=== PATIENT | female | born 1930 | race Caucasian/White ===

== ENCOUNTER 2016-06-10 16:36 | Inpatient (IN) | payer MEDICARE, BC ==
[2016-06-10] MEDS ORDERED: SODIUM CHLORIDE 0.9% 1,000 ML IV STA (17:24)
[2016-06-10] MEDS ORDERED: ACETAMINOPHEN TAB 500 MG TAB PO STA (17:24)
[2016-06-10] MEDS ORDERED: IPRATROPIUM-ALBUTEROL 3 ML NEB INHALATION STA (17:27)
[2016-06-10 17:45] LABS: Basophils % (A) 0 %; CH 29.6; Eosinophils % (A) 0 %; HCT 36.6 % (34.0-46.0); HDW 2.85; HGB 11.7 gm/dL (11.4-16.0); Hypochromasia Slight; Luc # (Auto) 0.14; Luc % (Auto) 1; Lymphocytes # (A) 0.4 k/uL (1.0-4.8); Lymphocytes % (A) 3 %; MCH 29.8 pg (25.0-35.0); MCHC 31.9 g/dL (31.0-37.0); MCV 93.3 fL (80.0-100.0); Monocytes # (A) 0.4 k/uL (0-1.0); Monocytes % (A) 3 %; Neutrophils # (A) 12.7 k/uL (1.3-7.7); Neutrophils % (A) 93 %; RBC 3.93 m/uL (3.80-5.40); RDW 15.2 % (11.5-15.5); WBC 13.6 k/uL (3.8-10.6); WBC (Perox) 13.51
[2016-06-10 17:47] LABS: Calcium 8.9 mg/dL (8.4-10.2); Potassium 4.5 mmol/L (3.5-5.1); Total Bilirubin 0.8 mg/dL (0.2-1.3); Total Protein 6.9 g/dL (6.3-8.2)
[2016-06-10 18:14] LABS: Creatine Kinase MB 3.8 ng/mL (0.0-2.4); Troponin I 0.125 ng/mL (0.000-0.034)
[2016-06-10] MEDS ORDERED: IV VANCOMYCIN PER PHARMACY 1 EACH MISC MISCELLANE PRN (18:33)
[2016-06-10] MEDS ORDERED: VANCOMYCIN 1,000 MG in SODIUM CHLORIDE 0.9% 250 ML IVPB STA (18:33)
[2016-06-10 19:03] LABS: Appearance,Urine Cloudy (Clear); Bacteria,Urine Occasional /hpf; Bilirubin,Urine Negative (Negative); Glucose,Urine (UA) Negative (Negative); Ketones,Urine Negative (Negative); Leukocyte Esterase,Urine Large (Negative); Mucus,Urine Rare /hpf; Nitrite,Urine Negative (Negative); PH, Urine 5.5 (5.0-8.0); Particle Count 11678; Protein,Urine 1+ (Negative); RBC,Urine 4 /hpf (0-5); Specific Gravity,Urine 1.011 (1.001-1.035); Squamous Epithelial Cell,Urine 8 /hpf (0-4); UA Billing (MACRO vs. MICRO) MICRO; Urobilinogen,Urine <2.0 mg/dL (<2.0); WBC,Urine 118 /hpf (0-5)
--- NOTE | 2016-06-10 19:47 | XR ---
EXAMINATION TYPE: XR chest 2V DATE OF EXAM: 06/10/2016 7:25 PM COMPARISON: 11/02/2015 HISTORY: Weakness and dizziness TECHNIQUE: Frontal and lateral views of the chest are obtained. FINDINGS: Heart is enlarged. There is aortic valve stent. There is a left axillary pacemaker with le ad tips in the right ventricle. There is no heart failure. There is some coarsening of interstitial m arkings. There are no hilar masses. There is no definite pleural effusion. There are significant arth ritic changes at the shoulder joints with probable old right humeral neck fracture. IMPRESSION: Pulmonary fibrotic changes. No gross heart failure. Cardiomegaly. No significant change compared to last exam.
[2016-06-10] MEDS ORDERED: SODIUM CHLORIDE 0.9% 500 ML IV ONE ×2 (20:05→21:33)
[2016-06-10] MEDS ORDERED: MEROPENEM 500 MG in SODIUM CHLORIDE 0.9% 50 ML IVPB STA (20:24)
[2016-06-10] MEDS ORDERED: NALOXONE 0.4 MG/ML 1 ML VIAL IV PRN (20:37)
[2016-06-10] MEDS ORDERED: ACETAMINOPHEN TAB 325 MG TAB PO PRN (20:37)
[2016-06-10] MEDS ORDERED: ONDANSETRON 4 MG/2 ML VIAL IVP PRN (20:37)
--- NOTE | 2016-06-10 20:37 | ED ---
General Adult HPI - General Chief complaint: Fever Stated complaint: infection Time Seen by Provider: 06/10/16 17:17 Source: EMS Mode of arrival: EMS Limitations: no limitations - History of Present Illness Initial comments: This 86-year-old white female presents with a complaint of a fever as well as feeling very weak. The onset occurred yesterday. Her temperatures up to 101 T -max. She's had occasional difficulty in breathing which started today. She also complains of some lower extremity swelling and drainage and rash which is somewhat chronic. She denies any urinary frequency urgency or dysuria. She does present with a temperature 101. She has a long medical an ALLERGY history. No other complaints or modifying factors. - Related Data Home Medications Medication Instructions Recorded Confirmed Furosemide 40 mg PO BID 12/03/13 06/10/16 Fluticasone Propionate [Flonase] 2 spray EA NOSTRIL DAILY PRN 04/07/14 06/10/16 Pramipexole [Mirapex] 0.25 mg PO QID 04/12/14 06/10/16 Amitriptyline HCl [Elavil] 10 mg PO HS 11/01/15 06/10/16 Gabapentin [Neurontin] 200 mg PO BID 11/01/15 06/10/16 Loratadine [Claritin] 10 mg PO DAILY 11/01/15 06/10/16 Acetaminophen Chew Tab [Tylenol 80 mg PO Q6H PRN 06/10/16 06/10/16 Chew Tab] Cholecalciferol [Vitamin D3] 400 unit PO BID 06/10/16 06/10/16 HYDROcodone/APAP 7.5-325MG [[place] 1 - 2 tab PO Q4H PRN MDD 6 TAB 06/10/16 7.5-325] Iron 27+Folic Acid+B-12 1 tab PO DAILY 06/10/16 06/10/16 Levothyroxine Sodium [Synthroid] 125 mcg PO DAILY 06/10/16 06/10/16 amLODIPine [Norvasc] 2.5 mg PO DAILY 06/10/16 06/10/16 Allergies Allergy/AdvReac Type Severity Reaction Status Date / Time adhesive Allergy Anaphylaxis-STATED Verified 06/10/16 16:43 "ADHESIVE ON LIDODERM PATCH PAPER TAPE OK azithromycin [From Zithromax] Allergy Unknown Verified 06/10/16 16:43 bumetanide Allergy Unknown Verified 06/10/16 16:43 cefuroxime Allergy Unknown Verified 06/10/16 16:43 ciprofloxacin [From Cipro] Allergy Rash/Hives Verified 06/10/16 16:43 ciprofloxacin HCl Allergy Rash/Hives Verified 06/10/16 16:43 [From Cipro] clindamycin Allergy Unknown Verified 06/10/16 16:43 clonazepam Allergy Unknown Verified 06/10/16 16:43 Penicillins Allergy "BLACK Verified 06/10/16 16:43 RING AROUND TONGUE" Sulfa (Sulfonamide Allergy Rash/Hives Verified 06/10/16 16:43 Antibiotics) Tetracyclines Allergy "BLACK Verified 06/10/16 16:43 RING AROUND TONGUE" CUBICAN Allergy Unknown Uncoded 06/10/16 16:43 ZYVOXX Allergy Unknown Uncoded 06/10/16 16:43 Review of Systems ROS Statement: Those systems with pertinent positive or pertinent negative responses have been documented in the HPI. ROS Other: All systems not noted in ROS Statement are negative. Past Medical History Past Medical History: Heart Failure, CVA/TIA, Hypertension, Thyroid Disorder Additional Past Medical History / Comment(s): 12-31-14 admittted to [facility] with c/p isidoro leg swelling.other hx: IBS,VARICOSE VEINS, HEART MURMUR, UTI'S, HX FALLS.bronchitis, stroke behind lt eye, anemia, fx rt humerus and fx rt superior pubic ramus.renal insufficiency,cardiomyopathy History of Any Multi-Drug Resistant Organisms: MRSA Date of last positivie culture/infection: 10-26-2008 MDRO Source:: LEFT HIP Past Surgical History: Cardiac Valve Replacement, Section, Hernia Repair, Joint Replacement, Pacemaker Additional Past Surgical History / Comment(s): UMBILICAL HERNIA,C SECTION X 2, ISIDORO KNEE REPLACEMENT, RT HIP REPLACEMENT, PARTIAL THYROIDECTOMY, PARTIAL LT HIP REPLACEMENT SEVERAL YRS AGO AND ANTIBIOTIC SPACER PLACED 2008 AORTIC VALVE REPLACEMENT , tooth extraction Past Anesthesia/Blood Transfusion Reactions: No Reported Reaction Type of Cardiac Device: Permanent Pacemaker Device Placement Date:: 03/12/14 Past Psychological History: Anxiety, Depression Additional Psychological History / Comment(s): pt lives with spouse uses walker when up. out side service used for house cleaning nad since last admit [facility].preparing meals is more difficult for pt stated she is eating canadian meals, frozen or hormel pre- made meals that are high in sodium.spoke with rn about a dietary consult. Smoking Status: Former smoker Past Alcohol Use History: None Reported Additional Past Alcohol Use History / Comment(s): started smoking at age 17 smoked 1 ppd x 30 years.then quit Past Drug Use History: None Reported - Past Family History Brother(s) Family Medical History: Cancer Additional Family Medical History / Comment(s): TWIN BROTHER LUNG CA Mother Additional Family Medical History / Comment(s): BLEEDING ULCER Father Family Medical History: CVA/TIA General Exam - General Exam Comments Initial Comments: GENERAL: The patient is well nourished and well hydrated. VITAL SIGNS: Heart rate, blood pressure, respiratory rate reviewed as recorded in nurse's notes. EYES: Pupils are round and reactive. Extraocular movements are intact. No conjunctival / lid redness or swelling. ENT: No external evidence of injury, swelling, or ecchymosis. Airway is patent. Throat is clear. There is a well-healing area of recent dental extraction to the left lower dentition. NECK: Nontender. No swelling or evidence of injury. No subcutaneous emphysema. Trachea is midline. No thyroid mass. HEART: Heart murmur is noted. Regular rate and rhythm. Good peripheral pulses. LUNGS/CHEST: Breath sounds clear and equal bilaterally. No rales, rhonchi, or wheezes. No ecchymosis, subcutaneous emphysema, or tenderness. ABDOMEN: Abdomen soft without tenderness. No palpable masses or organomegaly. No peritoneal signs. No abdominal wall swelling or ecchymosis. EXTREMITIES: There is lower extremity edema and erythema bilaterally. There is mild tenderness anteriorly. Normal muscle tone and function. No thoracolumbar tenderness. NEUROLOGIC: Sensation is grossly intact. Cranial nerve exam reveals face is symmetrical, tongue is midline, speech is clear. SKIN: There is an erythematous rash noted to the anterior aspects of the bilateral lower legs. No induration or masses noted. There is some mild ecchymosis to the left lower jaw consistent with her recent dental extraction. PSYCHIATRIC: Alert and oriented. Appropriate behavior and judgment. Limitations: no limitations Course Vital Signs 06/10/16 06/10/16 06/10/16 16:38 16:50 17:52 Temperature 101.0 F H Pulse Rate 102 H 98 94 Respiratory 18 20 18 Rate Blood Pressure 102/60 103/47 O2 Sat by Pulse 96 96 97 Oximetry 06/10/16 06/10/16 06/10/16 18:43 19:01 19:02 Temperature 98.7 F Pulse Rate 82 80 80 Respiratory 18 18 Rate Blood Pressure 104/68 106/56 O2 Sat by Pulse 98 97 Oximetry 06/10/16 06/10/16 19:09 20:00 Temperature Pulse Rate 91 Respiratory 18 Rate Blood Pressure 86/53 O2 Sat by Pulse 98 Oximetry Medical Decision Making - Medical Decision Making The patient was seen and examined. All diagnostics were reviewed. An IV is started and she is placed on a financial analyst. No ectopy is identified. The EKG is completed and shows a paced rhythm at a rate of 87. There are no acute ST-T wave changes identified other than some T-wave inversion in 1 and aVL. The KS interval is 254, QRS duration is 156, and QTc interval is 517. The patient has a temperature 101 and received some Tylenol. IV vancomycin is started and she has multiple significant ALLERGIES. She is ALLERGIC to the fluoroquinolones, azithromycin, tetracyclines, cephalosporins, penicillins, and sulfa antibiotics. The urinalysis does show evidence of infection and she started on imipenem. Her blood pressure was running low and she is given some mild fluid hydration. A significant bolus was not given due to her history of previous valvular replacement, congestive heart failure, and cardiomyopathy. She currently has some bilateral lower extremity cellulitis as well. Is felt as though she would require the meropenem for treatment of the urinary infection and to help with the cellulitis. She had a chest x-ray which did show some pulmonary fibrotic changes but no definitive infiltrate. Her white blood cell count is elevated, creatinine is elevated, BNP and troponin are both elevated. It is felt as though she would require admission to the hospital for further inpatient treatment. The case is discussed with Dr. Haley and he is agreeable to admission. It is felt as though she may have a degree of sepsis. She is doing better on recheck. Approximately 30 minutes critical care time was utilized and the treatment of the patient. - Lab Data Result diagrams: 06/10/16 16:50 06/10/16 16:50 Lab Results 06/10/16 06/10/16 06/10/16 Range/Units 16:50 16:50 16:50 WBC 13.6 H (3.8-10.6) k/uL RBC 3.93 (3.80-5.40) m/uL Hgb 11.7 (11.4-16.0) gm/dL Hct 36.6 (34.0-46.0) % MCV 93.3 (80.0-100.0) fL MCH 29.8 (25.0-35.0) pg MCHC 31.9 (31.0-37.0) g/dL RDW 15.2 (11.5-15.5) % Plt Count 236 (150-450) k/uL Neutrophils % 93 % Lymphocytes % 3 % Monocytes % 3 % Eosinophils % 0 % Basophils % 0 % Neutrophils # 12.7 H (1.3-7.7) k/uL Lymphocytes # 0.4 L (1.0-4.8) k/uL Monocytes # 0.4 (0-1.0) k/uL Eosinophils # 0.0 (0-0.7) k/uL Basophils # 0.0 (0-0.2) k/uL Hypochromasia Slight Sodium 140 (137-145) mmol/L Potassium 4.5 (3.5-5.1) mmol/L Chloride 104 (98-107) mmol/L Carbon Dioxide 23 (22-30) mmol/L Anion Gap 13 mmol/L BUN 43 H (7-17) mg/dL Creatinine 1.60 H (0.52-1.04) mg/dL Est GFR (MDRD) Af Amer 37 (>60 ml/min/1.73 sqM) Est GFR (MDRD) Non-Af 31 (>60 ml/min/1.73 sqM) Glucose 137 H (74-99) mg/dL Plasma Lactic Acid [place] (0.7-2.0) mmol/L Calcium 8.9 (8.4-10.2) mg/dL Total Bilirubin 0.8 (0.2-1.3) mg/dL AST 58 H (14-36) U/L ALT 48 (9-52) U/L Alkaline Phosphatase 117 (38-126) U/L Total Creatine Kinase 181 H (30-135) U/L CK-MB (CK-2) 3.8 H* (0.0-2.4) ng/mL CK-MB (CK-2) Rel Index 2.1 Troponin I 0.125 H* (0.000-0.034) ng/mL NT-Pro-B Natriuret Pep pg/mL Total Protein 6.9 (6.3-8.2) g/dL Albumin 3.8 (3.5-5.0) g/dL Cortisol 41 ug/dL Urine Color Urine Appearance (Clear) Urine pH (5.0-8.0) Ur Specific [place] (1.001-1.035) Urine Protein (Negative) Urine Glucose (UA) (Negative) Urine Ketones (Negative) Urine Blood (Negative) Urine Nitrate (Negative) Urine Bilirubin (Negative) Urine Urobilinogen (<2.0) mg/dL Ur Leukocyte Esterase (Negative) Urine RBC (0-5) /hpf Urine WBC (0-5) /hpf Ur Squamous Epith Cells (0-4) /hpf Urine Bacteria (None) /hpf Hyaline Casts (0-2) /lpf Urine Mucus (None) /hpf Urine Yeast (Budding) (None) /hpf 06/10/16 06/10/16 06/10/16 Range/Units 16:50 16:50 18:40 WBC (3.8-10.6) k/uL RBC (3.80-5.40) m/uL Hgb (11.4-16.0) gm/dL Hct (34.0-46.0) % MCV (80.0-100.0) fL MCH (25.0-35.0) pg MCHC (31.0-37.0) g/dL RDW (11.5-15.5) % Plt Count (150-450) k/uL Neutrophils % % Lymphocytes % % Monocytes % % Eosinophils % % Basophils % % Neutrophils # (1.3-7.7) k/uL Lymphocytes # (1.0-4.8) k/uL Monocytes # (0-1.0) k/uL Eosinophils # (0-0.7) k/uL Basophils # (0-0.2) k/uL Hypochromasia Sodium (137-145) mmol/L Potassium (3.5-5.1) mmol/L Chloride (98-107) mmol/L Carbon Dioxide (22-30) mmol/L Anion Gap mmol/L BUN (7-17) mg/dL Creatinine (0.52-1.04) mg/dL Est GFR (MDRD) Af Amer (>60 ml/min/1.73 sqM) Est GFR (MDRD) Non-Af (>60 ml/min/1.73 sqM) Glucose (74-99) mg/dL Plasma Lactic Acid [place] 3.1 H* (0.7-2.0) mmol/L Calcium (8.4-10.2) mg/dL Total Bilirubin (0.2-1.3) mg/dL AST (14-36) U/L ALT (9-52) U/L Alkaline Phosphatase (38-126) U/L Total Creatine Kinase (30-135) U/L CK-MB (CK-2) (0.0-2.4) ng/mL CK-MB (CK-2) Rel Index Troponin I (0.000-0.034) ng/mL NT-Pro-B Natriuret Pep 8020 pg/mL Total Protein (6.3-8.2) g/dL Albumin (3.5-5.0) g/dL Cortisol ug/dL Urine Color Yellow Urine Appearance Cloudy H (Clear) Urine pH 5.5 (5.0-8.0) Ur Specific [place] 1.011 (1.001-1.035) Urine Protein 1+ H (Negative) Urine Glucose (UA) Negative (Negative) Urine Ketones Negative (Negative) Urine Blood Trace H (Negative) Urine Nitrate Negative (Negative) Urine Bilirubin Negative (Negative) Urine Urobilinogen <2.0 (<2.0) mg/dL Ur Leukocyte Esterase Large H (Negative) Urine RBC 4 (0-5) /hpf Urine WBC 118 H (0-5) /hpf Ur Squamous Epith Cells 8 H (0-4) /hpf Urine Bacteria Occasional H (None) /hpf Hyaline Casts 21 H (0-2) /lpf Urine Mucus Rare H (None) /hpf Urine Yeast (Budding) Occasional H (None) /hpf Disposition Clinical Impression: Sepsis, UTI (urinary tract infection), Bilateral lower leg cellulitis, Edema extremities, Weakness, Fever, H/O tooth extraction, Hypotension, Leukocytosis, Acute kidney injury, Elevated troponin, Elevated brain natriuretic peptide (BNP ) level Disposition: ADMITTED IP TO THIS HOSP Condition: Fair Referrals: Nolan Lunsford MD [Primary Care Provider] - 1-2 days Time of Disposition: 20:36 Decision Date: 06/10/16 Decision Time: 20:37
[2016-06-10] MEDS ORDERED: FLUTICASONE 50MCG/SPRAY NASAL 16GM EA NOSTRIL PRN (20:41)
[2016-06-10 23:08] LABS: Troponin I 0.259 ng/mL (0.000-0.034)
[2016-06-10 23:12] VITALS: BMI 25.4
[2016-06-10] MEDS: PRAMIPEXOLE 0.25 MG TAB PO SCH (23:22)
[2016-06-10] MEDS: GABAPENTIN 100 MG CAP PO SCH (23:22)
[2016-06-10] MEDS: CHOLECALCIFEROL 400 UNIT TAB PO SCH (23:23)
[2016-06-10] MEDS: AMITRIPTYLINE HCL 10 MG TAB PO SCH (23:23)
[2016-06-11] MEDS: IPRATROPIUM-ALBUTEROL 3 ML NEB INHALATION SCH ×6 (00:17→19:43)
[2016-06-11] MEDS: HYDROcodone/APAP 7.5-325MG 1 EACH TAB PO PRN ×2 (01:10→22:15)
[2016-06-11 05:38] LABS: Basophils % (A) 0 %; CH 29.3; CHCM 30.9; Eosinophils % (A) 0 %; HCT 33.4 % (34.0-46.0); HDW 2.83; HGB 10.3 gm/dL (11.4-16.0); Hypochromasia Moderate; Luc % (Auto) 2; Lymphocytes # (A) 0.8 k/uL (1.0-4.8); Lymphocytes % (A) 7 %; MCH 29.4 pg (25.0-35.0); MCHC 30.9 g/dL (31.0-37.0); MCV 95.3 fL (80.0-100.0); Mean Platelet Volume 7.6; Monocytes # (A) 0.3 k/uL (0-1.0); Monocytes % (A) 3 %; Neutrophils % (A) 87 %; RBC 3.51 m/uL (3.80-5.40); RDW 15.4 % (11.5-15.5); WBC 10.3 k/uL (3.8-10.6); WBC (Perox) 10.88
[2016-06-11 05:46] LABS: Calcium 7.9 mg/dL (8.4-10.2); Potassium 4.1 mmol/L (3.5-5.1)
[2016-06-11 06:40] LABS: Creatine Kinase MB 4.1 ng/mL (0.0-2.4); Troponin I 0.242 ng/mL (0.000-0.034)
[2016-06-11] MEDS: LEVOTHYROXINE 125 MCG TAB PO SCH (07:01)
[2016-06-11] MEDS: CHOLECALCIFEROL 400 UNIT TAB PO SCH ×2 (08:20→22:14)
[2016-06-11] MEDS: GABAPENTIN 100 MG CAP PO SCH ×2 (08:20→22:14)
[2016-06-11] MEDS: PRAMIPEXOLE 0.25 MG TAB PO SCH ×4 (08:21→22:15)
[2016-06-11] MEDS: PANTOPRAZOLE 40 MG/10 ML VIAL IV SCH (08:21)
[2016-06-11] MEDS: MEROPENEM 500 MG in SODIUM CHLORIDE 0.9% 50 ML IVPB SCH ×3 (08:26→23:57)
[2016-06-11] MEDS ORDERED: IRON PO SCH (09:00)
[2016-06-11] MEDS: LORATADINE 10 MG TAB PO SCH (09:00)
[2016-06-11] MEDS ORDERED: [UNRECOGNIZED DRUG - OTHER] PO SCH (09:00)
[2016-06-11] MEDS: ENOXAPARIN 40 MG/0.4 ML SYRINGE SQ SCH (09:00)
[2016-06-11] MEDS ORDERED: ACID PO SCH (09:00)
[2016-06-11] MEDS ORDERED: B12 PO SCH (09:00)
--- NOTE | 2016-06-11 11:11 | P.HPIM ---
History of Present Illness Chief complaint: Patient presented yesterday to the emergency room with fever and weakness. History of present illness: Patient is an 86-year-old female who was brought to the emergency room yesterday. Patient apparently earlier in the week had a tooth pulled. She overall was doing well until the day prior to admission and the day of admission when she was found to have chills along with a temperature of 101. She also felt congested in her chest. She denies any marked cough or hemoptysis. No chest pain. No nausea vomiting or diarrhea. She states her appetite was poor over the past 48 hours. No recent trauma or falling. Past medical history: 1. Chronic congestive heart failure with diastolic dysfunction and lower leg edema with a previous ejection fraction of 55%. 2. chronic kidney disease is stage III. 3. Previous transcutaneous aortic valve replacement in [place] approximately 2 years ago. Also with previous pacemaker placed. 4. Hypertensive and hypertensive heart disease 5. degenerative joint disease with previous multiple bilateral knee surgeries. Bilateral hip surgeries in [place]. Patient also had a fractured right humerus back in October of last year. 6. Hypothyroid on replacement therapy 7. Restless leg syndrome 8. Multiple medical and antibiotic ALLERGIES. Refer to list. Previous surgical history includes the aortic transcutaneous valve replacement. Previous knee joint replacements and pacemaker. Previous partial thyroidectomy. Right and Left hip replacement. Recent tooth extraction. Medications: Please see full list of ALLERGIES which include numerous antibiotics. Home medications Furosemide 40 mg twice a day Flonase 2 sprays in each nostril daily Mirapex 0.25 4 times a day Elavil 10 mg at at bedtime Neurontin 200 mg twice a day Claritin 10 mg daily Acetaminophen 80 mg when necessary for pain Hydrocodone 7.5-325 one every 6 hours when necessary for pain Levothyroxin 125 g daily Norvasc 2.5 daily. Review of systems: Basically is as in the history of present illness. She denies any unusual urinary symptoms such as dysuria or hematuria. She states actually her urine output has decreased over the past several days. Family history: Patient states she had twin brother who have had lung cancer. Her father had a CVA and mother had a bleeding ulcer. Social history: The patient lives locally with her . Patient does have a previous smoking history about 30 years and quit at the age 47. No excessive alcohol usage. Physical examination: Patient presently sitting up at the side of the bed in a chair. She is somewhat fatigued but overall alert and oriented. There is some bruising of the left chin from her tooth extraction. Initial blood pressures in the emergency room revealed a pressure of 86/53 which didn't improve with fluids and presently is 105/65. Temperature now is 98 and pulse of 96 with respirations of 18 and normal. O2 saturation is 95 on nasal cannula 2 L. Head and neck exam otherwise unremarkable. Extraocular movements are intact. No carotid bruits or adenopathy or thyromegaly detected in the neck. Lungs sounds are diminished at bases but generally clear without wheezing or rales detected. Heart tones are regular without definite murmur or rub appreciated. Breast and pelvic exam deferred. Abdomen is somewhat distended but soft and nontender without organomegaly or masses detected. Extremities reveals some swelling with more so on the right lower extremity and erythema of the shins bilaterally. She is alert and oriented neurologically. Cranial nerves are intact. No focal weakness noted. Diffuse general frail status. Laboratory values: Initial white count was 13.6 but this morning down to 10.3. Initial hemoglobin of 11.7 decreased with hydration down to 10.3. Platelet count stable at 188 today. Sodium 141 with potassium of 4.1. BUN of 42 with a creatinine of 1.74 giving her a GFR of 28. Blood sugars 112. Venous lactic acid level initially 3.1 is down to 2.4 this morning. Calcium 7.9. AST mildly elevated at 58 with a normal AST of 48 and a normal total bilirubin of 0.8. CK was elevated at 181 is down to 142 this morning and troponin elevated 0.125 peak .259 and is down .242 at this time. Albumin 3.8. Urinalysis did reveal large leukocyte esterase with the 118 white cells. Trace blood. Microbiology cultures pending of urine and blood. EKG showed a ventricular paced rhythm with prolonged AV conduction but no definite ischemic changes. Chest x-ray showed chronic fibrotic changes along with cardiomegaly but no definite evidence of CHF and no change compared to previous exam back in October. Impressions: 1. Sepsis with lactic acidosis and initial hypotension with acute inflammatory response syndrome most likely secondary to an underlying urinary tract infection at this time organism unknown. 2. Elevated CK and troponin levels likely related to the sepsis and increased in light of her renal failure. 3. History of chronic congestive heart failure with diastolic dysfunction. 4. Acute on chronic kidney disease stage IV. Worsened by acute inflammatory response syndrome and prerenal azotemia. 5 history of previous transcutaneous aortic valve replacement and pacemaker placement in [place] approximately 2 years ago. 6. Overall frail status and medical debility. 7. Diffuse degenerative joint disease with multiple knee and hip surgeries as stated above along with previous fractures. 8. Hypothyroidism on replacement therapy 9. Restless leg syndrome. 10. Multiple medical ALLERGIES that complicate treatment alternatives. Plans: We will hold her Lasix and continue with IV hydration along with antibiotics presently including Merrem. Cultures and sensitivities of urine and blood pending. We'll continue her other home medications. Further EKG and echocardiogram to be done to assess cardiac function in light of enzyme elevations. Consider reinstituting her Lasix over the next 24-48 hours. Occupational therapy and physical therapy evaluations. Infectious disease consultation and opinion regarding antibiotics. Discussed with patient and nursing staff this morning. Overall prognosis still guarded in light of multiple comorbidities and frail status. Past Medical History Past Medical History: Asthma, Heart Failure, Hypertension, Syncope, Thyroid Disorder Additional Past Medical History / Comment(s): 12-31-14 admittted to [facility] with c/p isidoro leg swelling.other hx: IBS,VARICOSE VEINS, HEART MURMUR, UTI'S, HX FALLS.bronchitis, stroke behind lt eye, anemia, fx rt humerus and fx rt superior pubic ramus.renal insufficiency,cardiomyopathy. Patient states she is unaware if she has had a stroke. History of Any Multi-Drug Resistant Organisms: MRSA Date of last positivie culture/infection: 10-26-2008 MDRO Source:: LEFT HIP Past Surgical History: Cardiac Valve Replacement, Section, Hernia Repair, Joint Replacement, Pacemaker Additional Past Surgical History / Comment(s): UMBILICAL HERNIA,C SECTION X 2, ISIDORO KNEE REPLACEMENT, RT HIP REPLACEMENT, PARTIAL THYROIDECTOMY, PARTIAL LT HIP REPLACEMENT SEVERAL YRS AGO AND ANTIBIOTIC SPACER PLACED 2008 AORTIC VALVE REPLACEMENT , tooth extraction Past Anesthesia/Blood Transfusion Reactions: No Reported Reaction Type of Cardiac Device: Permanent Pacemaker Device Placement Date:: 03/12/14 Past Psychological History: Anxiety, Depression Additional Psychological History / Comment(s): pt lives with spouse uses walker when up. out side service used for house cleaning and patient says she gets meals provided for her. Says she is thinking about getting home care. Smoking Status: Former smoker Past Alcohol Use History: None Reported Additional Past Alcohol Use History / Comment(s): started smoking at age 17 smoked 1 ppd and quit 30 years ago. Past Drug Use History: None Reported - Past Family History Brother(s) Family Medical History: Cancer Additional Family Medical History / Comment(s): TWIN BROTHER LUNG CA Mother Additional Family Medical History / Comment(s): BLEEDING ULCER Father Family Medical History: CVA/TIA Medications and Allergies Home Medications Medication Instructions Recorded Confirmed Type Furosemide 40 mg PO BID 12/03/13 06/10/16 History Fluticasone Propionate [Flonase] 2 spray EA NOSTRIL DAILY PRN 04/07/14 06/10/16 History Pramipexole [Mirapex] 0.25 mg PO QID 04/12/14 06/10/16 History Amitriptyline HCl [Elavil] 10 mg PO HS 11/01/15 06/10/16 History Gabapentin [Neurontin] 200 mg PO BID 11/01/15 06/10/16 History Loratadine [Claritin] 10 mg PO DAILY 11/01/15 06/10/16 History Acetaminophen Chew Tab [Tylenol 80 mg PO Q6H PRN 06/10/16 06/10/16 History Chew Tab] Cholecalciferol [Vitamin D3] 400 unit PO BID 06/10/16 06/10/16 History HYDROcodone/APAP 7.5-325MG [[place] 1 - 2 tab PO Q4H PRN MDD 6 TAB 06/10/16 History 7.5-325] Iron 27+Folic Acid+B-12 1 tab PO DAILY 06/10/16 06/10/16 History Levothyroxine Sodium [Synthroid] 125 mcg PO DAILY 06/10/16 06/10/16 History amLODIPine [Norvasc] 2.5 mg PO DAILY 06/10/16 06/10/16 History Allergies Allergy/AdvReac Type Severity Reaction Status Date / Time adhesive Allergy Anaphylaxis-STATED Verified 06/10/16 16:43 "ADHESIVE ON LIDODERM PATCH PAPER TAPE OK azithromycin [From Zithromax] Allergy Unknown Verified 06/10/16 16:43 bumetanide Allergy Unknown Verified 06/10/16 16:43 cefuroxime Allergy Unknown Verified 06/10/16 16:43 ciprofloxacin [From Cipro] Allergy Rash/Hives Verified 06/10/16 16:43 ciprofloxacin HCl Allergy Rash/Hives Verified 06/10/16 16:43 [From Cipro] clindamycin Allergy Unknown Verified 06/10/16 16:43 clonazepam Allergy Unknown Verified 06/10/16 16:43 Penicillins Allergy "BLACK Verified 06/10/16 16:43 RING AROUND TONGUE" Sulfa (Sulfonamide Allergy Rash/Hives Verified 06/10/16 16:43 Antibiotics) Tetracyclines Allergy "BLACK Verified 06/10/16 16:43 RING AROUND TONGUE" CUBICAN Allergy Unknown Uncoded 06/10/16 16:43 ZYVOXX Allergy Unknown Uncoded 06/10/16 16:43 Physical Exam Vitals: Vital Signs Temp Pulse Pulse Resp BP BP Pulse Ox 06/11/16 08:14 92 06/11/16 08:02 96 06/11/16 08:00 98 F 88 18 105/65 95 06/11/16 04:29 80 06/11/16 04:15 84 06/11/16 04:00 97.5 F L 84 18 108/76 97 06/11/16 00:32 80 06/11/16 00:20 80 06/11/16 00:00 97.4 F L 86 20 92/61 98 06/10/16 22:54 98.0 F 83 18 92/53 99 06/10/16 21:46 97.6 F 91 18 115/52 96 06/10/16 21:00 83 18 82/53 94 L 06/10/16 20:58 82 18 96/52 97 Intake and Output 06/10/16 06/11/16 06/11/16 22:59 06:59 14:59 Intake Total 1000 1250 120 Output Total 225 Balance 1000 1025 120 Intake: IV 1250 Meropenem 500 mg In 50 Sodium Chloride 0.9% 50 ml @ 100 mls/hr IVPB Q8HR TANNER Rx#:[id number] Sodium Chloride 0.9% 1, 1200 000 ml @ 100 mls/hr IV . Q10H STA Rx#:[id number] Amount of Fluid Infused ( 1000 ml) Oral 120 Output: Urine 225 Other: Voiding Method Bedside Commode Bedside Commode # Voids 1 1 Weight 59 kg 59 kg Results CBC & Chem 7: 06/11/16 05:19 06/11/16 05:19 Labs: Abnormal Lab Results - Last 24 Hours (Table) 06/10/16 06/10/16 06/11/16 Range/Units 22:18 22:18 05:19 RBC 3.51 L (3.80-5.40) m/uL Hgb 10.3 L (11.4-16.0) gm/dL Hct 33.4 L (34.0-46.0) % MCHC 30.9 L (31.0-37.0) g/dL Neutrophils # 9.0 H (1.3-7.7) k/uL Lymphocytes # 0.8 L (1.0-4.8) k/uL Chloride (98-107) mmol/L BUN (7-17) mg/dL Creatinine (0.52-1.04) mg/dL Glucose (74-99) mg/dL Plasma Lactic Acid [place] 2.7 H* (0.7-2.0) mmol/L Calcium (8.4-10.2) mg/dL Total Creatine Kinase 164 H (30-135) U/L CK-MB (CK-2) 3.0 H* (0.0-2.4) ng/mL Troponin I 0.259 H* (0.000-0.034) ng/mL 06/11/16 06/11/16 06/11/16 Range/Units 05:19 05:19 05:19 RBC (3.80-5.40) m/uL Hgb (11.4-16.0) gm/dL Hct (34.0-46.0) % MCHC (31.0-37.0) g/dL Neutrophils # (1.3-7.7) k/uL Lymphocytes # (1.0-4.8) k/uL Chloride 108 H (98-107) mmol/L BUN 42 H (7-17) mg/dL Creatinine 1.74 H (0.52-1.04) mg/dL Glucose 112 H (74-99) mg/dL Plasma Lactic Acid [place] 2.4 H* (0.7-2.0) mmol/L Calcium 7.9 L (8.4-10.2) mg/dL Total Creatine Kinase 142 H (30-135) U/L CK-MB (CK-2) 4.1 H* (0.0-2.4) ng/mL Troponin I 0.242 H* (0.000-0.034) ng/mL Thrombosis Risk Factor Assmnt - Choose All That Apply Any of the Below Risk Factors Present?: Yes Each Factor Represents 1 point: Sepsis (< 1month), Swollen legs (current) Other Risk Factors: Yes Each Risk Factor Represents 3 Points: Age 75 years or older Other congenital or acquired thrombophilia - If yes, enter type in comment: No Thrombosis Risk Factor Assessment Total Risk Factor Score: 5 Thrombosis Risk Factor Assessment Level: High Risk
[2016-06-11] MEDS: SODIUM CHLORIDE 0.9% 1,000 ML IV SCH ×2 (11:39→22:08)
[2016-06-11] MEDS: BENZOCAINE/MENTHOL LOZENG 1 EACH LOZENGE MUCOUS MEM PRN (11:40)
--- NOTE | 2016-06-11 13:26 | ECHOF ---
Referral Reason:CHF MEASUREMENTS -------- HEIGHT: 154.9 cm WEIGHT: 59.0 kg BP: 105/65 IVSd: 1.2 cm (0.6 - 1.1) LVIDd: 2.7 cm (3.9 - 5.3) LVPWd: 1.1 cm (0.6 - 1.1) IVSs: 1.0 cm LVIDs: 2.3 cm LVPWs: 0.8 cm MV EXCURSION: 10.412 mm (> 18.000) MV EF SLOPE: 34 mm/s (70 - 150) EPSS: 0.3 cm MV E Evens: 1.66 m/s MV DecT: 221 ms MV A Evens: 1.81 m/s MV E/A Ratio: 0.92 RAP: 5.00 mmHg RVSP: 25.48 mmHg FINDINGS -------- Undetermined rhythm. This was a technically difficult study with suboptimal views. There is borderline concentric left ventricular hypertrophy. Overall left ventricular systolic function is moderate-severely impaired with, an EF between 30 - 35 %. [place] Hypokinesis. The right ventricle is normal in size and function. The left atrium is normal in size. The right atrium is normal in size. The aortic valve was not well visualized. The mitral valve leaflets are mildly thickened. Mild mitral regurgitation is present. Severe tricuspid regurgitation present. The right ventricular systolic pressure, as measured by Doppler, is 25.48mmHg. Pulmonic valve appears structurally normal. The pericardium is normal. CONCLUSIONS -------- 1. Undetermined rhythm. 2. The mitral valve leaflets are mildly thickened. 3. Mild mitral regurgitation is present. 4. Severe tricuspid regurgitation present. 5. The right ventricular systolic pressure, as measured by Doppler, is 25.48mmHg. 6. Pulmonic valve appears structurally normal. 7. The pericardium is normal. 8. This was a technically difficult study with suboptimal views. 9. There is borderline concentric left ventricular hypertrophy. 10. Overall left ventricular systolic function is moderate-severely impaired with, an EF between 30 - 35 %. 11. [place] Hypokinesis. 12. The right ventricle is normal in size and function. 13. The left atrium is normal in size. 14. The right atrium is normal in size. 15. The aortic valve was not well visualized. CLINICAL REVIEW SPECIALIST: Liz Virk [facility]
[2016-06-11] MEDS ORDERED: VANCOMYCIN 1,000 MG in SODIUM CHLORIDE 0.9% 250 ML IVPB ONE (14:00)
[2016-06-11] MEDS ORDERED: SODIUM CHLORIDE 0.9% 1,000 ML IV SCH (20:30)
[2016-06-11] MEDS: AMITRIPTYLINE HCL 10 MG TAB PO SCH (22:15)
--- NOTE | 2016-06-11 22:20 | P.CONS ---
History of Present Illness - Reason for Consult Consult date: 06/11/16 - Chief Complaint fever with shortness of breath - History of Present Illness 86-year-old female presents the emergency center feeling poorly. She developed fever of 101 associated with generalized malaise and fatigue. Just this feeling that her chest was becoming congested. She'll she's had some difficulty as of late. She was having difficulties with her oral cavity required a tooth to be extracted. Which resulted in significant ecchymosis to the left lower jaw and lip. 14 is not extremely tender. She's been able to eat and she without great difficulties. She's had no difficulty with dysphagia. The difficulty with pain in her neck. She started to develop a fever because she was feeling poorly presented to the emergency center. No other fever and multiple difficulties the infectious diseases consultation was requested specifically with the many ALLERGIES that she has. Case was discussed with emergency center physician and carbapenem was begun for concerns to urinary tract infection. Review of Systems HEENT:Denies headache or acute visual change. Denies sinus or mouth discomforts. Denies neck stiffness or pain. Denies difficulty on swallowing. Lungs: Denies significant shortness of breath, cough, sputum production, or hemoptysis. Cardiovascular: Denies chest pain but has had some congestion to her chest but denies rafy Shortness of breath Denies syncope. Does have dyspnea on exertion but no orthopnea Gastrointestinal:Denies nausea, vomiting, diarrhea, constipation, hematemesis, melena, hematochezia. No no significant change of bowel habit noticed. Musculoskeletal: denies significant myalgias or arthralgias. No new joint swelling. Denies new back pain. Skin: Denies new rash or lesions. No new ulcers or wounds are related.. Neuro: Denies headache or visual change. Denies any new onset weakness or difficulty with ambulation. Denies falls or seizures. Psychiatric:Denies anxiety or depression. Endocrine: has significant fatigue, denies significant weight loss or weight gain. Past Medical History Past Medical History: Asthma, Heart Failure, Hypertension, Syncope, Thyroid Disorder Additional Past Medical History / Comment(s): 12-31-14 admittted to [facility] with c/p isidoro leg swelling.other hx: IBS,VARICOSE VEINS, HEART MURMUR, UTI'S, HX FALLS.bronchitis, stroke behind lt eye, anemia, fx rt humerus and fx rt superior pubic ramus.renal insufficiency,cardiomyopathy. Patient states she is unaware if she has had a stroke. 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 Source:: LEFT HIP Past Surgical History: Cardiac Valve Replacement, Section, Hernia Repair, Joint Replacement, Pacemaker Additional Past Surgical History / Comment(s): UMBILICAL HERNIA,C SECTION X 2, ISIDORO KNEE REPLACEMENT, RT HIP REPLACEMENT, PARTIAL THYROIDECTOMY, PARTIAL LT HIP REPLACEMENT SEVERAL YRS AGO AND ANTIBIOTIC SPACER PLACED 2008 AORTIC VALVE REPLACEMENT , tooth extraction Past Anesthesia/Blood Transfusion Reactions: No Reported Reaction Type of Cardiac Device: Permanent Pacemaker Device Placement Date:: 03/12/14 Past Psychological History: Anxiety, Depression Additional Psychological History / Comment(s): pt lives with spouse uses walker when up. out side service used for house cleaning and patient says she gets meals provided for her. Says she is thinking about getting home care. Smoking Status: Former smoker Past Alcohol Use History: None Reported Additional Past Alcohol Use History / Comment(s): started smoking at age 17 smoked 1 ppd and quit 30 years ago. Past Drug Use History: None Reported - Past Family History Brother(s) Family Medical History: Cancer Additional Family Medical History / Comment(s): TWIN BROTHER LUNG CA Mother Additional Family Medical History / Comment(s): BLEEDING ULCER Father Family Medical History: CVA/TIA Medications and Allergies Home Medications and Allergies Comment(s): Current Medications Acetaminophen (Tylenol Tab) 650 mg PO Q6HR PRN PRN Reason: Mild Pain or Fever > 100.5 Acetaminophen/Hydrocodone Bitart (Wink 7.5-325) 1 each PO Q4H PRN PRN Reason: Moderate Pain Last Admin: 06/11/16 01:10 Dose: 1 each Albuterol/Ipratropium (Duoneb 0.5 Mg-3 Mg/3 Ml Soln) 3 ml INHALATION RT-Q4H [facility] Last Admin: 06/11/16 19:43 Dose: 3 ml Amitriptyline HCl (Elavil) 10 mg PO HS [facility] Last Admin: 06/10/16 23:23 Dose: 10 mg Benzocaine/Menthol (Cepacol Lozenge) 1 each MUCOUS MEM Q6HR PRN PRN Reason: Sore Throat Last Admin: 06/11/16 11:40 Dose: 1 each Cholecalciferol (Vitamin D3) 400 unit PO BID [facility] Last Admin: 06/11/16 08:20 Dose: 400 unit Enoxaparin Sodium (Lovenox) 40 mg SQ DAILY [facility] Last Admin: 06/11/16 09:00 Dose: 40 mg Fluticasone Propionate (Flonase Nasal Yeoman) 2 spray EA NOSTRIL DAILY PRN PRN Reason: Allergy Symptoms Gabapentin (Neurontin) 200 mg PO BID [facility] Last Admin: 06/11/16 08:20 Dose: 200 mg Meropenem 500 mg/ Sodium (Chloride) 50 mls @ 100 mls/hr IVPB Q8HR [facility] Last Admin: 06/11/16 17:20 Dose: 100 mls/hr Sodium Chloride (Saline 0.9%) 1,000 mls @ 75 mls/hr IV .[id number] [facility] Levothyroxine Sodium (Synthroid) 125 mcg PO 0630 [facility] Last Admin: 06/11/16 07:01 Dose: 125 mcg Loratadine (Claritin) 10 mg PO DAILY [facility] Last Admin: 06/11/16 09:00 Dose: 10 mg Miscellaneous Information (Pharmacy To Dose Iv Vancomycin) 1 each MISCELLANE DIRECTED PRN PRN Reason: Per Protocol Naloxone HCl (Narcan) 0.2 mg IV Q2M PRN PRN Reason: Opioid Reversal Ondansetron HCl (Zofran) 4 mg IVP Q8HR PRN PRN Reason: Nausea And Vomiting Pantoprazole Sodium (Protonix) 40 mg IV DAILY [facility] Last Admin: 06/11/16 08:21 Dose: 40 mg Pramipexole Dihydrochloride (Mirapex) 0.25 mg PO QID [facility] Last Admin: 06/11/16 17:20 Dose: 0.25 mg Silver Sulfadiazine (Silvadene Cream) 1 applic TOPICAL BID [facility] Home Medications Medication Instructions Recorded Confirmed Type Furosemide 40 mg PO BID 12/03/13 06/10/16 History Fluticasone Propionate [Flonase] 2 spray EA NOSTRIL DAILY PRN 04/07/14 06/10/16 History Pramipexole [Mirapex] 0.25 mg PO QID 04/12/14 06/10/16 History Amitriptyline HCl [Elavil] 10 mg PO HS 11/01/15 06/10/16 History Gabapentin [Neurontin] 200 mg PO BID 11/01/15 06/10/16 History Loratadine [Claritin] 10 mg PO DAILY 11/01/15 06/10/16 History Acetaminophen Chew Tab [Tylenol 80 mg PO Q6H PRN 06/10/16 06/10/16 History Chew Tab] Cholecalciferol [Vitamin D3] 400 unit PO BID 06/10/16 06/10/16 History HYDROcodone/APAP 7.5-325MG [Wink 1 - 2 tab PO Q4H PRN MDD 6 TAB 06/10/16 History 7.5-325] Iron 27+Folic Acid+B-12 1 tab PO DAILY 06/10/16 06/10/16 History Levothyroxine Sodium [Synthroid] 125 mcg PO DAILY 06/10/16 06/10/16 History amLODIPine [Norvasc] 2.5 mg PO DAILY 06/10/16 06/10/16 History Allergies Allergy/AdvReac Type Severity Reaction Status Date / Time adhesive Allergy Anaphylaxis-STATED Verified 06/10/16 16:43 "ADHESIVE ON LIDODERM PATCH PAPER TAPE OK azithromycin [From Zithromax] Allergy Unknown Verified 06/10/16 16:43 bumetanide Allergy Unknown Verified 06/10/16 16:43 cefuroxime Allergy Unknown Verified 06/10/16 16:43 ciprofloxacin [From Cipro] Allergy Rash/Hives Verified 06/10/16 16:43 ciprofloxacin HCl Allergy Rash/Hives Verified 06/10/16 16:43 [From Cipro] clindamycin Allergy Unknown Verified 06/10/16 16:43 clonazepam Allergy Unknown Verified 06/10/16 16:43 Penicillins Allergy "BLACK Verified 06/10/16 16:43 RING AROUND TONGUE" Sulfa (Sulfonamide Allergy Rash/Hives Verified 06/10/16 16:43 Antibiotics) Tetracyclines Allergy "BLACK Verified 06/10/16 16:43 RING AROUND TONGUE" CUBICAN Allergy Unknown Uncoded 06/10/16 16:43 ZYVOXX Allergy Unknown Uncoded 06/10/16 16:43 Physical Exam Vitals: Vital Signs Temp Pulse Pulse Resp BP Pulse Ox 06/11/16 20:02 92 06/11/16 19:52 96.9 F L 108 H 18 114/73 98 06/11/16 19:44 88 06/11/16 16:06 90 06/11/16 15:51 84 06/11/16 15:21 96.9 F L 80 18 101/69 97 06/11/16 15:09 18 06/11/16 11:41 97.7 F 89 18 101/64 98 06/11/16 11:34 94 06/11/16 11:19 94 06/11/16 08:14 92 06/11/16 08:02 96 06/11/16 08:00 98 F 88 18 105/65 95 06/11/16 04:29 80 06/11/16 04:15 84 06/11/16 04:00 97.5 F L 84 18 108/76 97 06/11/16 00:32 80 06/11/16 00:20 80 06/11/16 00:00 97.4 F L 86 20 92/61 98 06/10/16 22:54 98.0 F 83 18 92/53 99 Intake and Output 06/11/16 06/11/16 06/11/16 06:59 14:59 22:59 Intake Total 1250 120 318 Output Total 225 100 Balance 1025 20 318 Intake: IV 1250 Meropenem 500 mg In 50 Sodium Chloride 0.9% 50 ml @ 100 mls/hr IVPB Q8HR [facility] Rx#:[id number] Sodium Chloride 0.9% 1, 1200 000 ml @ 100 mls/hr IV . Q10H [facility] Rx#:[id number] Oral 120 318 Output: Urine 225 100 Other: Voiding Method Bedside Commode Bedside Commode Bedside Commode # Voids 1 Weight 59 kg pleasant 86-year comfortable at this time HEENT: Anicteric conjunctiva are pink and moist nasal mucosa grossly intact without significant lesions, there is no thrush.significant bruising to the left lower aspect of the jaw. It is at the site of the tooth extraction, no significant tenderness the neck. There is no swelling tothe neck or to the lymph nodes. Neck: The neck is supple without significant lymphadenopathy or thyromegaly. Lungs: symmetrical air entry is noted. Abdomen: Positive bowel sounds soft and nontender without palpable masses or organomegaly. There was no guarding or rebound. Extremities: The upper extremities have excellent pulses they are symmetric, no significant petechiae or telangiectasia. No splinter hemorrhages were noted. The lower extremities are free from significant edema. The peripheral pulses were 2+ and symmetric. Neuro: Awake alert oriented to person place and time. There are no acute new gross focal sensory motor deficits. Results CBC & Chem 7: 06/11/16 05:19 06/11/16 05:19 Labs: Abnormal Lab Results - Last 24 Hours (Table) 06/10/16 06/10/16 06/11/16 Range/Units 22:18 22:18 05:19 RBC 3.51 L (3.80-5.40) m/uL Hgb 10.3 L (11.4-16.0) gm/dL Hct 33.4 L (34.0-46.0) % MCHC 30.9 L (31.0-37.0) g/dL Neutrophils # 9.0 H (1.3-7.7) k/uL Lymphocytes # 0.8 L (1.0-4.8) k/uL Chloride (98-107) mmol/L BUN (7-17) mg/dL Creatinine (0.52-1.04) mg/dL Glucose (74-99) mg/dL Plasma Lactic Acid Lamonte 2.7 H* (0.7-2.0) mmol/L Calcium (8.4-10.2) mg/dL Total Creatine Kinase 164 H (30-135) U/L CK-MB (CK-2) 3.0 H* (0.0-2.4) ng/mL Troponin I 0.259 H* (0.000-0.034) ng/mL 06/11/16 06/11/16 06/11/16 Range/Units 05:19 05:19 05:19 RBC (3.80-5.40) m/uL Hgb (11.4-16.0) gm/dL Hct (34.0-46.0) % MCHC (31.0-37.0) g/dL Neutrophils # (1.3-7.7) k/uL Lymphocytes # (1.0-4.8) k/uL Chloride 108 H (98-107) mmol/L BUN 42 H (7-17) mg/dL Creatinine 1.74 H (0.52-1.04) mg/dL Glucose 112 H (74-99) mg/dL Plasma Lactic Acid Lamonte 2.4 H* (0.7-2.0) mmol/L Calcium 7.9 L (8.4-10.2) mg/dL Total Creatine Kinase 142 H (30-135) U/L CK-MB (CK-2) 4.1 H* (0.0-2.4) ng/mL Troponin I 0.242 H* (0.000-0.034) ng/mL Laboratory Results WBC 10.3 k/uL (3.8-10.6) 06/11/16 05:19 RBC 3.51 m/uL (3.80-5.40) L 06/11/16 05:19 Hgb 10.3 gm/dL (11.4-16.0) L 06/11/16 05:19 Hct 33.4 % (34.0-46.0) L 06/11/16 05:19 MCV 95.3 fL (80.0-100.0) 06/11/16 05:19 MCH 29.4 pg (25.0-35.0) 06/11/16 05:19 MCHC 30.9 g/dL (31.0-37.0) L 06/11/16 05:19 RDW 15.4 % (11.5-15.5) 06/11/16 05:19 Plt Count 188 k/uL (150-450) 06/11/16 05:19 Neutrophils % 87 % 06/11/16 05:19 Lymphocytes % 7 % 06/11/16 05:19 Monocytes % 3 % 06/11/16 05:19 Eosinophils % 0 % 06/11/16 05:19 Basophils % 0 % 06/11/16 05:19 Neutrophils # 9.0 k/uL (1.3-7.7) H 06/11/16 05:19 Lymphocytes # 0.8 k/uL (1.0-4.8) L 06/11/16 05:19 Monocytes # 0.3 k/uL (0-1.0) 06/11/16 05:19 Eosinophils # 0.0 k/uL (0-0.7) 06/11/16 05:19 Basophils # 0.0 k/uL (0-0.2) 06/11/16 05:19 Hypochromasia Moderate 06/11/16 05:19 Sodium 141 mmol/L (137-145) 06/11/16 05:19 Potassium 4.1 mmol/L (3.5-5.1) 06/11/16 05:19 Chloride 108 mmol/L (98-107) H 06/11/16 05:19 Carbon Dioxide 22 mmol/L (22-30) 06/11/16 05:19 Anion Gap 11 mmol/L 06/11/16 05:19 BUN 42 mg/dL (7-17) H 06/11/16 05:19 Creatinine 1.74 mg/dL (0.52-1.04) H 06/11/16 05:19 Est GFR (MDRD) Af Amer 34 (>60 ml/min/1.73 sqM) 06/11/16 05:19 Est GFR (MDRD) Non-Af 28 (>60 ml/min/1.73 sqM) 06/11/16 05:19 Glucose 112 mg/dL (74-99) H 06/11/16 05:19 Plasma Lactic Acid Lamonte 2.4 mmol/L (0.7-2.0) H* 06/11/16 05:19 Calcium 7.9 mg/dL (8.4-10.2) L 06/11/16 05:19 Total Bilirubin 0.8 mg/dL (0.2-1.3) 06/10/16 16:50 AST 58 U/L (14-36) H 06/10/16 16:50 ALT 48 U/L (9-52) 06/10/16 16:50 Alkaline Phosphatase 117 U/L (38-126) 06/10/16 16:50 Total Creatine Kinase 142 U/L (30-135) H 06/11/16 05:19 CK-MB (CK-2) 4.1 ng/mL (0.0-2.4) H* 06/11/16 05:19 CK-MB (CK-2) Rel Index 2.9 06/11/16 05:19 Troponin I 0.242 ng/mL (0.000-0.034) H* 06/11/16 05:19 NT-Pro-B Natriuret Pep 8020 pg/mL 06/10/16 16:50 Total Protein 6.9 g/dL (6.3-8.2) 06/10/16 16:50 Albumin 3.8 g/dL (3.5-5.0) 06/10/16 16:50 Cortisol 41 ug/dL 06/10/16 16:50 Urine Color Yellow 06/10/16 18:40 Urine Appearance Cloudy (Clear) H 06/10/16 18:40 Urine pH 5.5 (5.0-8.0) 06/10/16 18:40 Ur Specific [place] 1.011 (1.001-1.035) 06/10/16 18:40 Urine Protein 1+ (Negative) H 06/10/16 18:40 Urine Glucose (UA) Negative (Negative) 06/10/16 18:40 Urine Ketones Negative (Negative) 06/10/16 18:40 Urine Blood Trace (Negative) H 06/10/16 18:40 Urine Nitrate Negative (Negative) 06/10/16 18:40 Urine Bilirubin Negative (Negative) 06/10/16 18:40 Urine Urobilinogen <2.0 mg/dL (<2.0) 06/10/16 18:40 Ur Leukocyte Esterase Large (Negative) H 06/10/16 18:40 Urine RBC 4 /hpf (0-5) 06/10/16 18:40 Urine WBC 118 /hpf (0-5) H 06/10/16 18:40 Ur Squamous Epith Cells 8 /hpf (0-4) H 06/10/16 18:40 Urine Bacteria Occasional /hpf (None) H 06/10/16 18:40 Hyaline Casts 21 /lpf (0-2) H 06/10/16 18:40 Urine Mucus Rare /hpf (None) H 06/10/16 18:40 Urine Yeast (Budding) Occasional /hpf (None) H 06/10/16 18:40 Random Vancomycin 12.4 ug/mL 06/11/16 05:19 Microbiology 06/10/16 18:40 Urine,Voided Urine Culture - Preliminary Gram Neg Bacilli 06/10/16 16:50 Blood Blood Culture - Preliminary No Growth after 24 hours Assessment and Plan (1) Bilateral lower leg cellulitis Narrative/Plan: 86-year-old woman presents to Hospital new onset of fever associated with congestion in her chest. With her history of heart failure she was concerning consequently presented to the emergency center. There she's had evidence of fever of 101 but no evidence of any pneumonia. She over does have evidence of the recent surgical intervention to her mouth with removal of the tooth. No evidence of any purulence at that site. Has some bruising but no significant tenderness to the lower jaw or the neck. There is evidence of markedly abnormal urinalysis and urine culture with gram-negative bacilli. There is also evidence of leukocytosis as well as lower extremity edema and some erythema. With her ALLERGIES antibiotic therapy has been initiated with a carbapenem that is meropenem upon discussion with the emergency center. Lower extremity care with Silvadene and wraps is to be applied. Elevate while she is ready rest. Follow-up per leukocytosis make sure this is improving. Also be monitored for her renal failure. Status: Acute (2) Systolic CHF, acute on chronic Status: Acute (3) Fever Status: Acute
[2016-06-12] MEDS: IPRATROPIUM-ALBUTEROL 3 ML NEB INHALATION SCH ×6 (00:31→20:37)
[2016-06-12 06:36] LABS: Calcium 8.1 mg/dL (8.4-10.2); Potassium 4.3 mmol/L (3.5-5.1); Total Bilirubin 0.5 mg/dL (0.2-1.3); Total Protein 6.1 g/dL (6.3-8.2)
[2016-06-12 06:38] LABS: Basophils % (A) 0 %; CH 29.4; CHCM 31.2; Eosinophils # (A) 0.1 k/uL (0-0.7); Eosinophils % (A) 1 %; HCT 32.4 % (34.0-46.0); HDW 2.89; Hypochromasia Slight; Luc # (Auto) 0.13; Luc % (Auto) 2; Lymphocytes # (A) 0.4 k/uL (1.0-4.8); Lymphocytes % (A) 5 %; MCH 29.3 pg (25.0-35.0); MCHC 30.8 g/dL (31.0-37.0); Mean Platelet Volume 8.3; Monocytes # (A) 0.3 k/uL (0-1.0); Monocytes % (A) 5 %; Neutrophils # (A) 6.5 k/uL (1.3-7.7); Neutrophils % (A) 88 %; RBC 3.41 m/uL (3.80-5.40); RDW 15.6 % (11.5-15.5); WBC 7.5 k/uL (3.8-10.6); WBC (Perox) 7.47
[2016-06-12] MEDS: LEVOTHYROXINE 125 MCG TAB PO SCH (06:41)
[2016-06-12] MEDS ORDERED: FUROSEMIDE 10 MG/ML 10 ML VIAL IV STA (09:06)
[2016-06-12] MEDS: ENOXAPARIN 40 MG/0.4 ML SYRINGE SQ SCH (09:11)
[2016-06-12] MEDS: GABAPENTIN 100 MG CAP PO SCH ×2 (09:11→20:19)
[2016-06-12] MEDS: MEROPENEM 500 MG in SODIUM CHLORIDE 0.9% 50 ML IVPB SCH ×2 (09:11→23:09)
[2016-06-12] MEDS: CHOLECALCIFEROL 400 UNIT TAB PO SCH (09:11)
[2016-06-12] MEDS: PRAMIPEXOLE 0.25 MG TAB PO SCH ×4 (09:12→22:30)
[2016-06-12] MEDS: LORATADINE 10 MG TAB PO SCH (09:12)
[2016-06-12] MEDS: PANTOPRAZOLE 40 MG/10 ML VIAL IV SCH (09:12)
--- NOTE | 2016-06-12 10:01 | XR ---
EXAMINATION TYPE: XR chest 1V portable DATE OF EXAM: 06/12/2016 9:24 AM Comparison: 06/10/2016 Clinical History: 86-year-old female follow-up CHF Findings: There is either endovascular stent graft of the ascending aorta or endovascular aortic valve replacem ent. Heart is borderline enlarged. Diffuse interstitial prominence is similar. There is slight increa sed patchy left basilar opacity. Left anterior chest wall pacemaker generator with right atrial and 2 right ventricular leads. Advanced degenerative changes of both shoulders and healed fracture deformi ty of the right surgical neck and distal third right humeral shaft. Impression: 1. Borderline cardiomegaly. 2. Interstitial changes suspected to be in part chronic. Correlate for mild pulmonary vascular conges tion 3. Increased left basilar opacity could represent a trace effusion with adjacent atelectasis and/or c onsolidation.
[2016-06-12] MEDS: HYDROcodone/APAP 7.5-325MG 1 EACH TAB PO PRN ×2 (14:26→20:22)
[2016-06-12] MEDS: BENZOCAINE/MENTHOL LOZENG 1 EACH LOZENGE MUCOUS MEM PRN (14:26)
--- NOTE | 2016-06-12 14:30 | P.PN ---
Subjective Principal diagnosis: fever with shortness of breath 86-year-old female presents the emergency center feeling poorly. She developed fever of 101 associated with generalized malaise and fatigue. Just this feeling that her chest was becoming congested. She'll she's had some difficulty as of late. She was having difficulties with her oral cavity required a tooth to be extracted. Which resulted in significant ecchymosis to the left lower jaw and lip. 14 is not extremely tender. She's been able to eat and she without great difficulties. She's had no difficulty with dysphagia. The difficulty with pain in her neck. She started to develop a fever because she was feeling poorly presented to the emergency center. No other fever and multiple difficulties the infectious diseases consultation was requested specifically with the many ALLERGIES that she has. Case was discussed with emergency center physician and carbapenem was begun for concerns to urinary tract infection. The patient developed some shortness of breath and is improved with reasp. treatment. Objective - Vital Signs Vital signs: Vital Signs Temp 97 F L 06/12/16 09:00 Pulse 75 06/12/16 11:46 Resp 17 06/12/16 11:46 BP 126/75 06/12/16 11:46 Pulse Ox 94 L 06/12/16 11:46 Intake & Output 06/11/16 06/12/16 06/12/16 18:59 06:59 18:59 Intake Total 438 1000 648 Output Total 100 200 300 Balance 338 800 348 Weight 60 kg Intake: IV 1000 50 Meropenem 500 mg In 100 50 Sodium Chloride 0.9% 50 ml @ 100 mls/hr IVPB Q8HR [facility] Rx#:[id number] Sodium Chloride 0.9% 1, 900 000 ml @ 75 mls/hr IV . [id number] [facility] Rx#:[id number] Oral 438 598 Output: Urine 100 200 300 Other: Voiding Method Bedside Commode Bedside Commode Bedside Commode # Voids 1 - Exam pleasant 86-year comfortable at this time HEENT: Anicteric conjunctiva are pink and moist nasal mucosa grossly intact without significant lesions, there is no thrush.significant bruising to the left lower aspect of the jaw. It is at the site of the tooth extraction, no significant tenderness the neck. There is no swelling tothe neck or to the lymph nodes. Neck: The neck is supple without significant lymphadenopathy or thyromegaly. Lungs: symmetrical air entry is noted. few exp. wheezes noted Abdomen: Positive bowel sounds soft and nontender without palpable masses or organomegaly. There was no guarding or rebound. Extremities: The upper extremities have excellent pulses they are symmetric, no significant petechiae or telangiectasia. No splinter hemorrhages were noted. The lower extremities are free from significant edema. The peripheral pulses were 2+ and symmetric. Neuro: Awake alert oriented to person place and time. There are no acute new gross focal sensory motor deficits. - Labs CBC & Chem 7: 06/12/16 05:57 06/12/16 05:57 Labs: Abnormal Lab Results - Last 24 Hours (Table) 06/12/16 06/12/16 Range/Units 05:57 05:57 RBC 3.41 L (3.80-5.40) m/uL Hgb 10.0 L (11.4-16.0) gm/dL Hct 32.4 L (34.0-46.0) % MCHC 30.8 L (31.0-37.0) g/dL RDW 15.6 H (11.5-15.5) % Lymphocytes # 0.4 L (1.0-4.8) k/uL Chloride 108 H (98-107) mmol/L BUN 44 H (7-17) mg/dL Creatinine 1.76 H (0.52-1.04) mg/dL Calcium 8.1 L (8.4-10.2) mg/dL AST 45 H (14-36) U/L Total Protein 6.1 L (6.3-8.2) g/dL Albumin 3.1 L (3.5-5.0) g/dL Laboratory Results WBC 7.5 k/uL (3.8-10.6) 06/12/16 05:57 RBC 3.41 m/uL (3.80-5.40) L 06/12/16 05:57 Hgb 10.0 gm/dL (11.4-16.0) L 06/12/16 05:57 Hct 32.4 % (34.0-46.0) L 06/12/16 05:57 MCV 95.0 fL (80.0-100.0) 06/12/16 05:57 MCH 29.3 pg (25.0-35.0) 06/12/16 05:57 MCHC 30.8 g/dL (31.0-37.0) L 06/12/16 05:57 RDW 15.6 % (11.5-15.5) H 06/12/16 05:57 Plt Count 181 k/uL (150-450) 06/12/16 05:57 Neutrophils % 88 % 06/12/16 05:57 Lymphocytes % 5 % 06/12/16 05:57 Monocytes % 5 % 06/12/16 05:57 Eosinophils % 1 % 06/12/16 05:57 Basophils % 0 % 06/12/16 05:57 Neutrophils # 6.5 k/uL (1.3-7.7) 06/12/16 05:57 Lymphocytes # 0.4 k/uL (1.0-4.8) L 06/12/16 05:57 Monocytes # 0.3 k/uL (0-1.0) 06/12/16 05:57 Eosinophils # 0.1 k/uL (0-0.7) 06/12/16 05:57 Basophils # 0.0 k/uL (0-0.2) 06/12/16 05:57 Hypochromasia Slight 06/12/16 05:57 Sodium 140 mmol/L (137-145) 06/12/16 05:57 Potassium 4.3 mmol/L (3.5-5.1) 06/12/16 05:57 Chloride 108 mmol/L (98-107) H 06/12/16 05:57 Carbon Dioxide 22 mmol/L (22-30) 06/12/16 05:57 Anion Gap 10 mmol/L 06/12/16 05:57 BUN 44 mg/dL (7-17) H 06/12/16 05:57 Creatinine 1.76 mg/dL (0.52-1.04) H 06/12/16 05:57 Est GFR (MDRD) Af Amer 33 (>60 ml/min/1.73 sqM) 06/12/16 05:57 Est GFR (MDRD) Non-Af 28 (>60 ml/min/1.73 sqM) 06/12/16 05:57 Glucose 88 mg/dL (74-99) 06/12/16 05:57 Plasma Lactic Acid Lamonte 2.4 mmol/L (0.7-2.0) H* 06/11/16 05:19 Calcium 8.1 mg/dL (8.4-10.2) L 06/12/16 05:57 Total Bilirubin 0.5 mg/dL (0.2-1.3) 06/12/16 05:57 AST 45 U/L (14-36) H 06/12/16 05:57 ALT 52 U/L (9-52) 06/12/16 05:57 Alkaline Phosphatase 111 U/L (38-126) 06/12/16 05:57 Total Creatine Kinase 142 U/L (30-135) H 06/11/16 05:19 CK-MB (CK-2) 4.1 ng/mL (0.0-2.4) H* 06/11/16 05:19 CK-MB (CK-2) Rel Index 2.9 06/11/16 05:19 Troponin I 0.242 ng/mL (0.000-0.034) H* 06/11/16 05:19 NT-Pro-B Natriuret Pep 8020 pg/mL 06/10/16 16:50 Total Protein 6.1 g/dL (6.3-8.2) L 06/12/16 05:57 Albumin 3.1 g/dL (3.5-5.0) L 06/12/16 05:57 Cortisol 41 ug/dL 06/10/16 16:50 Urine Color Yellow 06/10/16 18:40 Urine Appearance Cloudy (Clear) H 06/10/16 18:40 Urine pH 5.5 (5.0-8.0) 06/10/16 18:40 Ur Specific [place] 1.011 (1.001-1.035) 06/10/16 18:40 Urine Protein 1+ (Negative) H 06/10/16 18:40 Urine Glucose (UA) Negative (Negative) 06/10/16 18:40 Urine Ketones Negative (Negative) 06/10/16 18:40 Urine Blood Trace (Negative) H 06/10/16 18:40 Urine Nitrate Negative (Negative) 06/10/16 18:40 Urine Bilirubin Negative (Negative) 06/10/16 18:40 Urine Urobilinogen <2.0 mg/dL (<2.0) 06/10/16 18:40 Ur Leukocyte Esterase Large (Negative) H 06/10/16 18:40 Urine RBC 4 /hpf (0-5) 06/10/16 18:40 Urine WBC 118 /hpf (0-5) H 06/10/16 18:40 Ur Squamous Epith Cells 8 /hpf (0-4) H 06/10/16 18:40 Urine Bacteria Occasional /hpf (None) H 06/10/16 18:40 Hyaline Casts 21 /lpf (0-2) H 06/10/16 18:40 Urine Mucus Rare /hpf (None) H 06/10/16 18:40 Urine Yeast (Budding) Occasional /hpf (None) H 06/10/16 18:40 Random Vancomycin 12.4 ug/mL 06/11/16 05:19 Microbiology 06/10/16 18:40 Urine,Voided Urine Culture - Preliminary Gram Neg Bacilli 06/10/16 16:50 Blood Blood Culture - Preliminary No Growth after 24 hours Assessment and Plan (1) Bilateral lower leg cellulitis Narrative/Plan: 86-year-old woman presents to Hospital new onset of fever associated with congestion in her chest. With her history of heart failure she was concerning consequently presented to the emergency center. There she's had evidence of fever of 101 but no evidence of any pneumonia. She over does have evidence of the recent surgical intervention to her mouth with removal of the tooth. No evidence of any purulence at that site. Has some bruising but no significant tenderness to the lower jaw or the neck. There is evidence of markedly abnormal urinalysis and urine culture with gram-negative bacilli. There is also evidence of leukocytosis as well as lower extremity edema and some erythema. With her ALLERGIES antibiotic therapy has been initiated with a carbapenem that is meropenem upon discussion with the emergency center. Lower extremity care with Silvadene and wraps is to be applied. Elevate while she is ready rest. Leukocytosis has improved, fever resolved await the final culture for antibiotic therapy hopefully oral option at discharge. Vanco discontinued. Status: Acute (2) Systolic CHF, acute on chronic Status: Acute (3) Fever Status: Acute
[2016-06-12] MEDS: FUROSEMIDE 20 MG TAB PO SCH (15:16)
[2016-06-12] MEDS ORDERED: IPRATROPIUM-ALBUTEROL 3 ML NEB INHALATION PRN (19:14)
[2016-06-12] MEDS: AMITRIPTYLINE HCL 10 MG TAB PO SCH (20:20)
--- NOTE | 2016-06-12 21:24 | PN ---
DATE OF SERVICE: 06/12/2016 Arabella Priest is an 86-year-old female who was brought to the emergency room 2 days previous, felt to have chills. Temperatures up to 101, generalized weakness, poor appetite, some chest congestion. She has been found to have bilateral lower extremity cellulitis and what appears to be a urinary source for infection with gram-negative organism. She has multiple allergies and Dr. Sandoval from infectious disease has been consulted. Patient did develop some increasing shortness of breath and decreasing FiO2 last night and her IV has been decreased and she has received some Lasix this morning. She is feeling somewhat better. She denies any chest pain. She does have some cough nonproductive but she is alert and oriented, sitting up in bed. Her physical exam reveals vital signs with a temperature 97, pulse of 70, respirations 18, blood pressure 133/65. She is 94% saturated on a nonrebreather. This has improved on 2 L nasal cannula 6 liters at 94%. Head and neck exam was unremarkable, although she does have some bruising from a recent oral surgery. She also on lung and heart examination is generally clear although diminished with a few rales at the bases. Heart tones were distant but somewhat irregular without murmur. ABDOMEN: Nontender. Her lower extremities are wrapped with Waqas wrap and Silvadene dressing as per infectious disease. Cranial nerves are intact. She is alert and oriented. There are no focal neurological deficits. Laboratory values from this morning with a white count of 7.5, hemoglobin stable at 10 and a platelet count stable at 181, sodium 140, potassium 4.3. Her BUN is 44 with creatinine 1.76, giving her a GFR of 28, which is stable, although stage IV. Her AST has decreased down to 45, ALT is normal. Once again her urine culture is growing gram-negative bacilli. Further reports are pending. Initial blood culture was negative. Overall the patient also did have an echocardiogram done which did show some decrease in her overall systolic function at this time with EF 35% and moderately impaired and some hypokinesis of the apex. Chest x-ray revealed some increasing in her vascular markings consistent with mild congestive heart failure. At this point plans are to continue now with her Lasix twice a day. Follow up electrolytes. Continue antibiotics as per infectious disease and continue with dressing changes. Continue with physical therapy. Further recommendations and treatment pending clinical response and results of above. MTDD
[2016-06-13] MEDS: BENZOCAINE/MENTHOL LOZENG 1 EACH LOZENGE MUCOUS MEM PRN (04:12)
[2016-06-13 06:32] LABS: Calcium 8.3 mg/dL (8.4-10.2); Potassium 4.8 mmol/L (3.5-5.1)
[2016-06-13] MEDS: IPRATROPIUM-ALBUTEROL 3 ML NEB INHALATION SCH ×4 (07:42→20:12)
--- NOTE | 2016-06-13 08:11 | P.PN ---
Progress Note - Text The patient is a 86-year-old female who presented to the emergency room 3 days ago with chills and temperatures and weakness and poor appetite. She has been found to have a urinary tract infection with gram-negative Proteus and is presently on antibiotics after being seen by Dr. Sandoval from infectious disease. Over the weekend she did have some element of fluid overload with congestive heart failure and found to have systolic dysfunction on her echocardiogram. She has had a echocardiogram which did reveal a decrease in ejection fraction down to 30-35%. Presently she is sitting up in a chair and feels better. Denies any chest pain. Vital signs reveal temperature of 96.9 with a pulse of 74 and respirations 18. Blood pressure is 155/69 and she is 98% saturated on 2 L nasal cannula. Head and neck exam unremarkable. Lungs are somewhat diminished at bases but overall clear. Heart tones are for the most part regular. Rate control. Extremities are wrapped with Waqas wraps with Silvadene dressings related to her cellulitis bilaterally. Generalized weakness but no focal neurological deficits noted. Labs Electrolytes revealed a sodium 138 with potassium 4.8. CO2 content of 20. BUN is elevated at 51 with creatinine 1.85 given her a GFR of 26. Microbiology revealed no growth on blood cultures but urine culture shows a Proteus mirabilis greater than 100,000 and it is sensitive to meropenem. Impressions and plans: At this point we will continue present antibiotics pending further recommendations from infectious disease. Cardiology consult regarding any further recommendations in terms of medical management of her underlying cardiac condition. Continue with physical therapy and hopefully possible discharge over the next 24 to 48 hours pending clinical response and results of above.
[2016-06-13] MEDS: ENOXAPARIN 40 MG/0.4 ML SYRINGE SQ SCH (09:08)
[2016-06-13] MEDS: PANTOPRAZOLE 40 MG/10 ML VIAL IV SCH (09:09)
[2016-06-13] MEDS: LORATADINE 10 MG TAB PO SCH (09:10)
[2016-06-13] MEDS: MEROPENEM 500 MG in SODIUM CHLORIDE 0.9% 50 ML IVPB SCH ×2 (09:10→23:14)
[2016-06-13] MEDS: LEVOTHYROXINE 125 MCG TAB PO SCH (09:10)
[2016-06-13] MEDS: GABAPENTIN 100 MG CAP PO SCH ×2 (09:10→23:15)
[2016-06-13] MEDS: FUROSEMIDE 20 MG TAB PO SCH ×2 (09:10→18:21)
[2016-06-13] MEDS: PRAMIPEXOLE 0.25 MG TAB PO SCH ×4 (09:11→23:16)
[2016-06-13] MEDS: HYDROcodone/APAP 7.5-325MG 1 EACH TAB PO PRN ×3 (09:23→23:17)
--- NOTE | 2016-06-13 09:55 | P.CRDCN ---
History of Present Illness Consult date: 06/13/16 Chief complaint: Shortness of breath History of present illness: This is a pleasant 86-year-old female patient who sees Dr. Yip in as an outpatient with a past medical history significant for aortic valve disease and status post TAVR was performed at the [facility], preserved LV function on the last echocardiogram from 2014, chronic kidney disease, hypertension, dyslipidemia presented to the hospital initially with urinary tract infection and possible sepsis. The patient was having fever at home. In the emergency room the lactic acid was elevated and the patient was treated for sepsis with IV fluid. Subsequently she started experiencing progressive dyspnea and also bilateral lower extremities edema. The IV fluid was stopped and the patient was started on Lasix IV and then a 6 by mouth. D she denies having any chest pain or chest discomfort and she stated that she still have dyspnea. She stated that the dyspnea is a bit better compared to before. The cardiac enzymes were checked and came in to be slightly abnormal. The EKG showed atrial sensed ventricular paced rhythm. She underwent an echocardiogram which showed impaired LV function with an ejection fraction of 35% and mid ventricle and apical hypokinesia. I will review the last echocardiogram to assess if this findings are new or old. The patient currently on Lasix by mouth and we will continue that. I am going to start the patient on aspirin, statin, lisinopril, metoprolol, and aldactone. Also I will obtain the previous old records from the office. I would address with the patient and her both progressive and invasive strategy meaning doing medical treatment or consider heart catheterization regarding the cardiomyopathy if it's a new finding compared to the previous echo. Past Medical History Past Medical History: Asthma, Heart Failure, Hypertension, Syncope, Thyroid Disorder Additional Past Medical History / Comment(s): 12-31-14 admittted to [facility] with c/p isidoro leg swelling.other hx: IBS,VARICOSE VEINS, HEART MURMUR, UTI'S, HX FALLS.bronchitis, stroke behind lt eye, anemia, fx rt humerus and fx rt superior pubic ramus.renal insufficiency,cardiomyopathy. Patient states she is unaware if she has had a stroke. History of Any Multi-Drug Resistant Organisms: MRSA Date of last positivie culture/infection: 10-26-2008 MDRO Source:: LEFT HIP Past Surgical History: Cardiac Valve Replacement, Section, Hernia Repair, Joint Replacement, Pacemaker Additional Past Surgical History / Comment(s): UMBILICAL HERNIA,C SECTION X 2, ISIDORO KNEE REPLACEMENT, RT HIP REPLACEMENT, PARTIAL THYROIDECTOMY, PARTIAL LT HIP REPLACEMENT SEVERAL YRS AGO AND ANTIBIOTIC SPACER PLACED 2009 AORTIC VALVE REPLACEMENT , tooth extraction Past Anesthesia/Blood Transfusion Reactions: No Reported Reaction Type of Cardiac Device: Permanent Pacemaker Device Placement Date:: 03/12/14 Past Psychological History: Anxiety, Depression Additional Psychological History / Comment(s): pt lives with spouse uses walker when up. out side service used for house cleaning and patient says she gets meals provided for her. Says she is thinking about getting home care. Smoking Status: Former smoker Past Alcohol Use History: None Reported Additional Past Alcohol Use History / Comment(s): started smoking at age 17 smoked 1 ppd and quit 30 years ago. Past Drug Use History: None Reported - Past Family History Brother(s) Family Medical History: Cancer Additional Family Medical History / Comment(s): TWIN BROTHER LUNG CA Mother Additional Family Medical History / Comment(s): BLEEDING ULCER Father Family Medical History: CVA/TIA Medications and Allergies Home Medications Medication Instructions Recorded Confirmed Type Furosemide 40 mg PO BID 12/03/13 06/10/16 History Fluticasone Propionate [Flonase] 2 spray EA NOSTRIL DAILY PRN 04/07/14 06/10/16 History Pramipexole [Mirapex] 0.25 mg PO QID 04/12/14 06/10/16 History Amitriptyline HCl [Elavil] 10 mg PO HS 11/01/15 06/10/16 History Gabapentin [Neurontin] 200 mg PO BID 11/01/15 06/10/16 History Loratadine [Claritin] 10 mg PO DAILY 11/01/15 06/10/16 History Acetaminophen Chew Tab [Tylenol 80 mg PO Q6H PRN 06/10/16 06/10/16 History Chew Tab] Cholecalciferol [Vitamin D3] 400 unit PO BID 06/10/16 06/10/16 History HYDROcodone/APAP 7.5-325MG [[place] 1 - 2 tab PO Q4H PRN MDD 6 TAB 06/10/16 History 7.5-325] Iron 27+Folic Acid+B-12 1 tab PO DAILY 06/10/16 06/10/16 History Levothyroxine Sodium [Synthroid] 125 mcg PO DAILY 06/10/16 06/10/16 History amLODIPine [Norvasc] 2.5 mg PO DAILY 06/10/16 06/10/16 History Allergies Allergy/AdvReac Type Severity Reaction Status Date / Time adhesive Allergy Anaphylaxis-STATED Verified 06/10/16 16:43 "ADHESIVE ON LIDODERM PATCH PAPER TAPE OK azithromycin [From Zithromax] Allergy Unknown Verified 06/10/16 16:43 bumetanide Allergy Unknown Verified 06/10/16 16:43 cefuroxime Allergy Unknown Verified 06/10/16 16:43 ciprofloxacin [From Cipro] Allergy Rash/Hives Verified 06/10/16 16:43 ciprofloxacin HCl Allergy Rash/Hives Verified 06/10/16 16:43 [From Cipro] clindamycin Allergy Unknown Verified 06/10/16 16:43 clonazepam Allergy Unknown Verified 06/10/16 16:43 Penicillins Allergy "BLACK Verified 06/10/16 16:43 RING AROUND TONGUE" Sulfa (Sulfonamide Allergy Rash/Hives Verified 06/10/16 16:43 Antibiotics) Tetracyclines Allergy "BLACK Verified 06/10/16 16:43 RING AROUND TONGUE" CUBICAN Allergy Unknown Uncoded 06/10/16 16:43 ZYVOXX Allergy Unknown Uncoded 06/10/16 16:43 Physical Exam Vitals: Vital Signs Temp Pulse Pulse Resp BP Pulse Ox 06/13/16 08:00 97.4 F L 100 16 122/73 98 06/13/16 07:54 74 06/13/16 07:42 72 06/13/16 04:00 96.9 F L 98 18 155/69 98 06/13/16 00:00 97.3 F L 85 18 104/61 94 L 06/12/16 20:40 80 06/12/16 20:29 80 06/12/16 20:00 97.6 F 105 H 18 129/58 95 06/12/16 17:15 92 06/12/16 17:00 90 06/12/16 15:07 97 F L 70 17 133/70 95 06/12/16 15:04 17 06/12/16 13:45 98 06/12/16 13:30 100 17 06/12/16 11:46 75 17 126/75 94 L 06/12/16 09:50 18 94 L Intake and Output 06/12/16 06/13/16 06/13/16 22:59 06:59 14:59 Intake Total 200 Balance 200 Intake: Oral 200 Other: Voiding Method Bedside Commode Bedside Commode Weight 64.5 kg - Constitutional General appearance: no acute distress - Respiratory Respiratory: bilateral: rales - Cardiovascular Rhythm: regular Heart sounds: normal: S1, S2 Results 06/12/16 05:57 06/13/16 06:01 Comprehensive Metabolic Panel 06/13/16 Range/Units 06:01 Sodium 138 (137-145) mmol/L Potassium 4.8 (3.5-5.1) mmol/L Chloride 108 H (98-107) mmol/L Carbon Dioxide 20 L (22-30) mmol/L BUN 51 H (7-17) mg/dL Creatinine 1.85 H (0.52-1.04) mg/dL Glucose 89 (74-99) mg/dL Calcium 8.3 L (8.4-10.2) mg/dL Current Medications Generic Name Dose Route Start Last Admin Trade Name Freq PRN Reason Stop Dose Admin Acetaminophen 650 mg 06/10/16 20:37 Tylenol Tab PO Q6HR PRN Mild Pain or Fever > 100.5 Acetaminophen/Hydrocodone Bitart 1 each 06/10/16 20:41 06/13/16 09:23 [place] 7.5-325 PO 1 each Q4H PRN Administration Moderate Pain Albuterol/Ipratropium 3 ml 06/12/16 19:14 Duoneb 0.5 Mg-3 Mg/3 Ml Soln INHALATION RT-QID PRN Shortness Of Breath Or Wheezing Albuterol/Ipratropium 3 ml 06/12/16 20:00 06/13/16 07:42 Duoneb 0.5 Mg-3 Mg/3 Ml Soln INHALATION 3 ml RT-QID TANNER Administration Amitriptyline HCl 10 mg 06/10/16 21:00 06/12/16 20:20 Elavil PO 10 mg HS TANNER Administration Benzocaine/Menthol 1 each 06/11/16 09:07 06/13/16 04:12 Cepacol Lozenge MUCOUS MEM 1 each Q6HR PRN Administration Sore Throat Cholecalciferol 400 unit 06/10/16 21:00 06/12/16 09:11 Vitamin D3 PO Not Given BID TANNER Enoxaparin Sodium 40 mg 06/11/16 09:00 06/13/16 09:08 Lovenox SQ 40 mg DAILY REPLACED BY [facility] Administration Fluticasone Propionate 2 spray 06/10/16 20:41 Flonase Nasal [place]gap EA NOSTRIL DAILY PRN Allergy Symptoms Furosemide 60 mg 06/12/16 16:00 06/13/16 09:10 Lasix PO 60 mg BID@0900,1600 TANNER Administration Gabapentin 200 mg 06/10/16 21:00 06/13/16 09:10 Neurontin PO 200 mg BID TANNER Administration Meropenem 500 mg/ Sodium 50 mls @ 100 mls/hr 06/12/16 21:00 06/13/16 09:10 Chloride IVPB 100 mls/hr Q12HR TANNER Administration Levothyroxine Sodium 125 mcg 06/11/16 06:30 06/13/16 09:10 Synthroid PO 125 mcg 0630 TANNER Administration Loratadine 10 mg 06/11/16 09:00 06/13/16 09:10 Claritin PO 10 mg DAILY REPLACED BY [facility] Administration Naloxone HCl 0.2 mg 06/10/16 20:37 Narcan IV Q2M PRN Opioid Reversal Ondansetron HCl 4 mg 06/10/16 20:37 Zofran IVP Q8HR PRN Nausea And Vomiting Pantoprazole Sodium 40 mg 06/11/16 09:00 06/13/16 09:09 Protonix IV 40 mg DAILY TANNER Administration Pramipexole Dihydrochloride 0.25 mg 06/10/16 22:00 06/13/16 09:11 Mirapex PO 0.25 mg QID REPLACED BY [facility] Administration Silver Sulfadiazine 1 applic 06/11/16 21:00 06/13/16 09:11 Silvadene Cream TOPICAL 1 applic BID TANNER Administration Intake and Output 06/12/16 06/13/16 06/13/16 22:59 06:59 14:59 Intake Total 200 Balance 200 Intake: Oral 200 Other: Voiding Method Bedside Commode Bedside Commode Weight 64.5 kg 06/12/16 05:57 06/13/16 06:01 Assessment and Plan Plan: Assessment #1 congestive heart failure secondary to systolic dysfunction #2 cardiomyopathy with an ejection fraction of 30-35% unknown if it's ischemic or nonischemic chronic kidney disease #3 mildly abnormal cardiac enzymes could represent acute non-ST elevation TN #4 chronic kidney disease #5 multiple comorbid conditions Plan #1 start the patient on aspirin #2 continue Lasix by mouth #3 obtaining BNP #4 start beta paige, DILSHAD inhibitor, and aldosterone antagonist #5 follow-up with the patient
[2016-06-13] MEDS: CHOLECALCIFEROL 400 UNIT TAB PO SCH ×3 (11:48→23:16)
--- NOTE | 2016-06-13 21:36 | P.PN ---
Subjective Principal diagnosis: fever with shortness of breath 86-year-old female presents the emergency center feeling poorly. She developed fever of 101 associated with generalized malaise and fatigue. Just this feeling that her chest was becoming congested. She'll she's had some difficulty as of late. She was having difficulties with her oral cavity required a tooth to be extracted. Which resulted in significant ecchymosis to the left lower jaw and lip. 14 is not extremely tender. She's been able to eat and she without great difficulties. She's had no difficulty with dysphagia. The difficulty with pain in her neck. She started to develop a fever because she was feeling poorly presented to the emergency center. No other fever and multiple difficulties the infectious diseases consultation was requested specifically with the many ALLERGIES that she has. Case was discussed with emergency center physician and carbapenem was begun for concerns to urinary tract infection. The patient developed some shortness of breath and is improved with respiratory treatment, denies new problems this afternoon. Objective - Vital Signs Vital signs: Vital Signs Temp 96.7 F L 06/13/16 20:00 Pulse 88 06/13/16 20:16 Resp 18 06/13/16 20:00 BP 131/90 06/13/16 20:00 Pulse Ox 96 06/13/16 20:00 Intake & Output 06/13/16 06/13/16 06/14/16 06:59 18:59 06:59 Intake Total 200 180 180 Output Total 800 Balance 200 180 -620 Weight 64.5 kg Intake: Oral 200 180 180 Output: Urine 800 Other: Voiding Method Bedside Commode Bedside Commode Bedside Commode # Voids 0 # Bowel Movements 0 - Exam pleasant 86-year comfortable at this time HEENT: Anicteric conjunctiva are pink and moist nasal mucosa grossly intact without significant lesions, there is no thrush.significant bruising to the left lower aspect of the jaw. It is at the site of the tooth extraction, no significant tenderness the neck. There is no swelling tothe neck or to the lymph nodes. Neck: The neck is supple without significant lymphadenopathy or thyromegaly. Lungs: symmetrical air entry is noted. few exp. wheezes noted Abdomen: Positive bowel sounds soft and nontender without palpable masses or organomegaly. There was no guarding or rebound. Extremities: The upper extremities have excellent pulses they are symmetric, no significant petechiae or telangiectasia. No splinter hemorrhages were noted. The lower extremities are free from significant edema. The peripheral pulses were 2+ and symmetric. Neuro: Awake alert oriented to person place and time. There are no acute new gross focal sensory motor deficits. - Labs CBC & Chem 7: 06/12/16 05:57 06/13/16 06:01 Labs: Abnormal Lab Results - Last 24 Hours (Table) 06/13/16 Range/Units 06:01 Chloride 108 H (98-107) mmol/L Carbon Dioxide 20 L (22-30) mmol/L BUN 51 H (7-17) mg/dL Creatinine 1.85 H (0.52-1.04) mg/dL Calcium 8.3 L (8.4-10.2) mg/dL Laboratory Results WBC 7.5 k/uL (3.8-10.6) 06/12/16 05:57 RBC 3.41 m/uL (3.80-5.40) L 06/12/16 05:57 Hgb 10.0 gm/dL (11.4-16.0) L 06/12/16 05:57 Hct 32.4 % (34.0-46.0) L 06/12/16 05:57 MCV 95.0 fL (80.0-100.0) 06/12/16 05:57 MCH 29.3 pg (25.0-35.0) 06/12/16 05:57 MCHC 30.8 g/dL (31.0-37.0) L 06/12/16 05:57 RDW 15.6 % (11.5-15.5) H 06/12/16 05:57 Plt Count 181 k/uL (150-450) 06/12/16 05:57 Neutrophils % 88 % 06/12/16 05:57 Lymphocytes % 5 % 06/12/16 05:57 Monocytes % 5 % 06/12/16 05:57 Eosinophils % 1 % 06/12/16 05:57 Basophils % 0 % 06/12/16 05:57 Neutrophils # 6.5 k/uL (1.3-7.7) 06/12/16 05:57 Lymphocytes # 0.4 k/uL (1.0-4.8) L 06/12/16 05:57 Monocytes # 0.3 k/uL (0-1.0) 06/12/16 05:57 Eosinophils # 0.1 k/uL (0-0.7) 06/12/16 05:57 Basophils # 0.0 k/uL (0-0.2) 06/12/16 05:57 Hypochromasia Slight 06/12/16 05:57 Sodium 138 mmol/L (137-145) 06/13/16 06:01 Potassium 4.8 mmol/L (3.5-5.1) 06/13/16 06:01 Chloride 108 mmol/L (98-107) H 06/13/16 06:01 Carbon Dioxide 20 mmol/L (22-30) L 06/13/16 06:01 Anion Gap 10 mmol/L 06/13/16 06:01 BUN 51 mg/dL (7-17) H 06/13/16 06:01 Creatinine 1.85 mg/dL (0.52-1.04) H 06/13/16 06:01 Est GFR (MDRD) Af Amer 31 (>60 ml/min/1.73 sqM) 06/13/16 06:01 Est GFR (MDRD) Non-Af 26 (>60 ml/min/1.73 sqM) 06/13/16 06:01 Glucose 89 mg/dL (74-99) 06/13/16 06:01 Plasma Lactic Acid [place] 2.4 mmol/L (0.7-2.0) H* 06/11/16 05:19 Calcium 8.3 mg/dL (8.4-10.2) L 06/13/16 06:01 Total Bilirubin 0.5 mg/dL (0.2-1.3) 06/12/16 05:57 AST 45 U/L (14-36) H 06/12/16 05:57 ALT 52 U/L (9-52) 06/12/16 05:57 Alkaline Phosphatase 111 U/L (38-126) 06/12/16 05:57 Total Creatine Kinase 142 U/L (30-135) H 06/11/16 05:19 CK-MB (CK-2) 4.1 ng/mL (0.0-2.4) H* 06/11/16 05:19 CK-MB (CK-2) Rel Index 2.9 06/11/16 05:19 Troponin I 0.242 ng/mL (0.000-0.034) H* 06/11/16 05:19 NT-Pro-B Natriuret Pep 8020 pg/mL 06/10/16 16:50 Total Protein 6.1 g/dL (6.3-8.2) L 06/12/16 05:57 Albumin 3.1 g/dL (3.5-5.0) L 06/12/16 05:57 Cortisol 41 ug/dL 06/10/16 16:50 Urine Color Yellow 06/10/16 18:40 Urine Appearance Cloudy (Clear) H 06/10/16 18:40 Urine pH 5.5 (5.0-8.0) 06/10/16 18:40 Ur Specific [place] 1.011 (1.001-1.035) 06/10/16 18:40 Urine Protein 1+ (Negative) H 06/10/16 18:40 Urine Glucose (UA) Negative (Negative) 06/10/16 18:40 Urine Ketones Negative (Negative) 06/10/16 18:40 Urine Blood Trace (Negative) H 06/10/16 18:40 Urine Nitrate Negative (Negative) 06/10/16 18:40 Urine Bilirubin Negative (Negative) 06/10/16 18:40 Urine Urobilinogen <2.0 mg/dL (<2.0) 06/10/16 18:40 Ur Leukocyte Esterase Large (Negative) H 06/10/16 18:40 Urine RBC 4 /hpf (0-5) 06/10/16 18:40 Urine WBC 118 /hpf (0-5) H 06/10/16 18:40 Ur Squamous Epith Cells 8 /hpf (0-4) H 06/10/16 18:40 Urine Bacteria Occasional /hpf (None) H 06/10/16 18:40 Hyaline Casts 21 /lpf (0-2) H 06/10/16 18:40 Urine Mucus Rare /hpf (None) H 06/10/16 18:40 Urine Yeast (Budding) Occasional /hpf (None) H 06/10/16 18:40 Random Vancomycin 12.4 ug/mL 06/11/16 05:19 Microbiology 06/10/16 16:50 Blood Blood Culture - Preliminary No Growth after 72 hours 06/10/16 18:40 Urine,Voided Urine Culture - Final Proteus mirabilis Assessment and Plan (1) Bilateral lower leg cellulitis Narrative/Plan: 86-year-old woman presents to Hospital new onset of fever associated with congestion in her chest. With her history of heart failure she was concerning consequently presented to the emergency center. There she had evidence of fever of 101 but no evidence of any pneumonia. She however does have evidence of the recent surgical intervention to her mouth with removal of the tooth. No evidence of any purulence at that site. Has some bruising but no significant tenderness to the lower jaw or the neck. There is evidence of markedly abnormal urinalysis and urine culture with gram-negative bacilli. There is also evidence of leukocytosis as well as lower extremity edema and some erythema. With her ALLERGIES antibiotic therapy has been initiated with a carbapenem that is meropenem upon discussion with the emergency center. Lower extremity care with Silvadene and wraps is to be applied. Elevate while she is ready rest. Leukocytosis has improved, fever resolved alter has been finalized with Celi and able to be will treated with cefuroxime 500mg po every 12 hours for 7 days Status: Acute (2) Systolic CHF, acute on chronic Status: Acute (3) Fever Status: Acute
[2016-06-13] MEDS: METOPROLOL TARTRATE 12.5 MG TAB PO SCH (23:16)
[2016-06-13] MEDS: AMITRIPTYLINE HCL 10 MG TAB PO SCH (23:16)
--- NOTE | 2016-06-14 07:47 | P.PN ---
Progress Note - Text The patient is a 86-year-old frail female who presented emergency room 4 days previous with chills and temperature weakness and chest congestion. She has been treated with IV antibiotics for gram-negative Proteus urinary tract infection with systemic inflammatory response syndrome/sepsis along with antibiotics and local wound care for lower extremity cellulitis. Patient was found to have hypotension on presentation with elevated troponins and a ejection fraction of 30-35% on echocardiogram which appears to be new compared to older echocardiograms from a couple years previous. Cardiology has evaluated and placed patient on low-dose beta paige, lisinopril, spironolactone. Patient overall is clinically doing better. She states she is less short of breath than yesterday. Denies any chest pain. Her weight has been down a kilogram. Vital signs reveal temperature 96.9 with a pulse of 74 and respirations 18. Blood pressure 121/87 and she is 98% saturated on 2 L nasal cannula. Lung and heart clear and regular at this time. Abdomen nontender. Extremities are wrapped in Waqas wraps and Kerlix. No focal neurological changes. No new labs this morning. Impressions and plans: At this point patient will be continued on present medications. She presently remains on IV meropenem and appears to be tolerating. Cardiology evaluation and further discussion with patient is in progress. The recommendations and treatment pending clinical response and results of above.
[2016-06-14] MEDS: LEVOTHYROXINE 125 MCG TAB PO SCH (07:55)
[2016-06-14] MEDS: ENOXAPARIN 30 MG/0.3 ML SYRINGE SQ SCH (08:42)
[2016-06-14] MEDS: METOPROLOL TARTRATE 12.5 MG TAB PO SCH ×2 (08:42→22:59)
[2016-06-14] MEDS: FUROSEMIDE 20 MG TAB PO SCH ×2 (08:42→17:29)
[2016-06-14] MEDS: GABAPENTIN 100 MG CAP PO SCH ×2 (08:42→22:58)
[2016-06-14] MEDS: LISINOPRIL 2.5 MG TAB PO SCH (08:42)
[2016-06-14] MEDS: PRAMIPEXOLE 0.25 MG TAB PO SCH ×4 (08:43→23:00)
[2016-06-14] MEDS: PANTOPRAZOLE 40 MG/10 ML VIAL IV SCH (08:43)
[2016-06-14] MEDS: CHOLECALCIFEROL 400 UNIT TAB PO SCH (08:43)
[2016-06-14] MEDS: ASPIRIN 325 MG TAB PO SCH (08:43)
[2016-06-14] MEDS: HYDROcodone/APAP 7.5-325MG 1 EACH TAB PO PRN ×2 (08:49→23:00)
[2016-06-14] MEDS: IPRATROPIUM-ALBUTEROL 3 ML NEB INHALATION SCH ×4 (08:54→20:21)
[2016-06-14] MEDS: MEROPENEM 500 MG in SODIUM CHLORIDE 0.9% 50 ML IVPB SCH (12:00)
[2016-06-14] MEDS: LORATADINE 10 MG TAB PO SCH (12:01)
[2016-06-14] MEDS: SPIRONOLACTONE 25 MG TAB PO SCH (12:01)
--- NOTE | 2016-06-14 12:54 | P.PN ---
Subjective Principal diagnosis: Systolic congestive heart failure This is an 86-year-old female with history of aortic valve disease and prior TAVR performed at the [facility], chronic kidney disease, hypertension, hyperlipidemia, she presented to the hospital with symptoms of fever at home. Admitted with a UTI and possible sepsis. Patient was also found to be in congestive cardiac failure and was initiated on Lasix. EKG revealed an atrial sensed ventricular paced rhythm. Echocardiogram with Doppler study was performed which revealed an ejection fraction of 35%. Her weight is down 1 kg today. Potassium 4.8, BUN 51 and creatinine 1.8. is sitting up in the chair at the time of my examination today, states that her breathing is somewhat improved, however still complaining of mild shortness of breath. Continues to have mild peripheral edema. Objective - Vital Signs Vital signs: Vital Signs Temp 95.8 F L 06/14/16 08:00 Pulse 80 06/14/16 12:12 Resp 16 06/14/16 12:00 BP 122/70 06/14/16 12:00 Pulse Ox 94 L 06/14/16 12:00 Intake & Output 06/13/16 06/14/16 06/14/16 18:59 06:59 18:59 Intake Total 180 280 Output Total 1400 Balance 180 -1120 Weight 63.3 kg Intake: Oral 180 280 Output: Urine 1400 Other: Voiding Method Bedside Commode Bedside Commode Bedside Commode # Voids 0 # Bowel Movements 0 - Exam PHYSICAL EXAMINATION: HEENT: Head is atraumatic, normocephalic. Pupils equal, round. Neck is supple. There is elevated jugular venous pressure. HEART EXAMINATION: Heart S1 S2 systolic and diastolic murmur is heard. CHEST EXAMINATION: Lungs are clear with fine expiratory wheezes. ABDOMEN: Soft, nontender. Bowel sounds are heard. No organomegaly noted. EXTREMITIES: 2+ peripheral pulses with no evidence of peripheral edema and no calf tenderness noted. NEUROLOGIC patient is awake, alert and oriented -3. . - Labs CBC & Chem 7: 06/12/16 05:57 06/13/16 06:01 Assessment and Plan (1) Systolic CHF, acute on chronic Status: Acute (2) UTI (urinary tract infection) Status: Acute (3) Cardiomyopathy Status: Acute (4) HTN (hypertension) Status: Acute (5) Hypothyroid Status: Acute (6) S/P TAVR (transcatheter aortic valve replacement) Status: Acute (7) Elevated troponin Status: Acute (8) Pacemaker Status: Acute (9) NICM (nonischemic cardiomyopathy) Status: Acute (10) Mitral stenosis Status: Acute (11) Severe aortic stenosis Status: Acute Plan: From cardiology's perspective, we'll continue current medications. Upon review of the office notes, patient's most recent echo which was performed in October 2013 revealed an ejection fraction of 35%. Patient was also noted to have severe aortic stenosis, mild LVH, severe pulmonary hypertension, moderate TR and severe MR. We will check lytes BUN and creatinine in the morning. DNP note has been reviewed, I agree with a documented findings and plan of care. Patient was seen and examined.
--- NOTE | 2016-06-14 21:53 | P.PN ---
Subjective Principal diagnosis: fever with shortness of breath 86-year-old female presents the emergency center feeling poorly. She developed fever of 101 associated with generalized malaise and fatigue. Just this feeling that her chest was becoming congested. She'll she's had some difficulty as of late. She was having difficulties with her oral cavity required a tooth to be extracted. Which resulted in significant ecchymosis to the left lower jaw and lip. 14 is not extremely tender. She's been able to eat and she without great difficulties. She's had no difficulty with dysphagia. The difficulty with pain in her neck. She started to develop a fever because she was feeling poorly presented to the emergency center. No other fever and multiple difficulties the infectious diseases consultation was requested specifically with the many ALLERGIES that she has. Case was discussed with emergency center physician and carbapenem was begun for concerns to urinary tract infection. The patient developed some shortness of breath and is improved with respiratory treatment, denies new problems this afternoon. Objective - Vital Signs Vital signs: Vital Signs Temp 96.8 F L 06/14/16 20:00 Pulse 78 06/14/16 20:40 Resp 18 06/14/16 20:00 BP 152/85 06/14/16 20:00 Pulse Ox 97 06/14/16 20:00 Intake & Output 06/14/16 06/14/16 06/15/16 06:59 18:59 06:59 Intake Total 280 360 Output Total 1400 300 Balance -1120 60 Weight 63.3 kg 63.3 kg Intake: Oral 280 360 Output: Urine 1400 300 Other: Voiding Method Bedside Commode Bedside Commode Bedside Commode # Bowel Movements 0 - Exam pleasant 86-year comfortable at this time HEENT: Anicteric conjunctiva are pink and moist nasal mucosa grossly intact without significant lesions, there is no thrush.significant bruising to the left lower aspect of the jaw. It is at the site of the tooth extraction, no significant tenderness the neck. There is no swelling tothe neck or to the lymph nodes. Neck: The neck is supple without significant lymphadenopathy or thyromegaly. Lungs: symmetrical air entry is noted. few exp. wheezes noted Abdomen: Positive bowel sounds soft and nontender without palpable masses or organomegaly. There was no guarding or rebound. Extremities: The upper extremities have excellent pulses they are symmetric, no significant petechiae or telangiectasia. No splinter hemorrhages were noted. The lower extremities are free from significant edema. The peripheral pulses were 2+ and symmetric. Neuro: Awake alert oriented to person place and time. There are no acute new gross focal sensory motor deficits. - Labs CBC & Chem 7: 06/12/16 05:57 06/13/16 06:01 Labs: Laboratory Results WBC 7.5 k/uL (3.8-10.6) 06/12/16 05:57 RBC 3.41 m/uL (3.80-5.40) L 06/12/16 05:57 Hgb 10.0 gm/dL (11.4-16.0) L 06/12/16 05:57 Hct 32.4 % (34.0-46.0) L 06/12/16 05:57 MCV 95.0 fL (80.0-100.0) 06/12/16 05:57 MCH 29.3 pg (25.0-35.0) 06/12/16 05:57 MCHC 30.8 g/dL (31.0-37.0) L 06/12/16 05:57 RDW 15.6 % (11.5-15.5) H 06/12/16 05:57 Plt Count 181 k/uL (150-450) 06/12/16 05:57 Neutrophils % 88 % 06/12/16 05:57 Lymphocytes % 5 % 06/12/16 05:57 Monocytes % 5 % 06/12/16 05:57 Eosinophils % 1 % 06/12/16 05:57 Basophils % 0 % 06/12/16 05:57 Neutrophils # 6.5 k/uL (1.3-7.7) 06/12/16 05:57 Lymphocytes # 0.4 k/uL (1.0-4.8) L 06/12/16 05:57 Monocytes # 0.3 k/uL (0-1.0) 06/12/16 05:57 Eosinophils # 0.1 k/uL (0-0.7) 06/12/16 05:57 Basophils # 0.0 k/uL (0-0.2) 06/12/16 05:57 Hypochromasia Slight 06/12/16 05:57 Sodium 138 mmol/L (137-145) 06/13/16 06:01 Potassium 4.8 mmol/L (3.5-5.1) 06/13/16 06:01 Chloride 108 mmol/L (98-107) H 06/13/16 06:01 Carbon Dioxide 20 mmol/L (22-30) L 06/13/16 06:01 Anion Gap 10 mmol/L 06/13/16 06:01 BUN 51 mg/dL (7-17) H 06/13/16 06:01 Creatinine 1.85 mg/dL (0.52-1.04) H 06/13/16 06:01 Est GFR (MDRD) Af Amer 31 (>60 ml/min/1.73 sqM) 06/13/16 06:01 Est GFR (MDRD) Non-Af 26 (>60 ml/min/1.73 sqM) 06/13/16 06:01 Glucose 89 mg/dL (74-99) 06/13/16 06:01 Plasma Lactic Acid [place] 2.4 mmol/L (0.7-2.0) H* 06/11/16 05:19 Calcium 8.3 mg/dL (8.4-10.2) L 06/13/16 06:01 Total Bilirubin 0.5 mg/dL (0.2-1.3) 06/12/16 05:57 AST 45 U/L (14-36) H 06/12/16 05:57 ALT 52 U/L (9-52) 06/12/16 05:57 Alkaline Phosphatase 111 U/L (38-126) 06/12/16 05:57 Total Creatine Kinase 142 U/L (30-135) H 06/11/16 05:19 CK-MB (CK-2) 4.1 ng/mL (0.0-2.4) H* 06/11/16 05:19 CK-MB (CK-2) Rel Index 2.9 06/11/16 05:19 Troponin I 0.242 ng/mL (0.000-0.034) H* 06/11/16 05:19 NT-Pro-B Natriuret Pep 05838 pg/mL 06/14/16 13:28 Total Protein 6.1 g/dL (6.3-8.2) L 06/12/16 05:57 Albumin 3.1 g/dL (3.5-5.0) L 06/12/16 05:57 Cortisol 41 ug/dL 06/10/16 16:50 Urine Color Yellow 06/10/16 18:40 Urine Appearance Cloudy (Clear) H 06/10/16 18:40 Urine pH 5.5 (5.0-8.0) 06/10/16 18:40 Ur Specific [place] 1.011 (1.001-1.035) 06/10/16 18:40 Urine Protein 1+ (Negative) H 06/10/16 18:40 Urine Glucose (UA) Negative (Negative) 06/10/16 18:40 Urine Ketones Negative (Negative) 06/10/16 18:40 Urine Blood Trace (Negative) H 06/10/16 18:40 Urine Nitrate Negative (Negative) 06/10/16 18:40 Urine Bilirubin Negative (Negative) 06/10/16 18:40 Urine Urobilinogen <2.0 mg/dL (<2.0) 06/10/16 18:40 Ur Leukocyte Esterase Large (Negative) H 06/10/16 18:40 Urine RBC 4 /hpf (0-5) 06/10/16 18:40 Urine WBC 118 /hpf (0-5) H 06/10/16 18:40 Ur Squamous Epith Cells 8 /hpf (0-4) H 06/10/16 18:40 Urine Bacteria Occasional /hpf (None) H 06/10/16 18:40 Hyaline Casts 21 /lpf (0-2) H 06/10/16 18:40 Urine Mucus Rare /hpf (None) H 06/10/16 18:40 Urine Yeast (Budding) Occasional /hpf (None) H 06/10/16 18:40 Random Vancomycin 12.4 ug/mL 06/11/16 05:19 Microbiology 06/10/16 16:50 Blood Blood Culture - Preliminary No Growth after 96 hours 06/10/16 18:40 Urine,Voided Urine Culture - Final Proteus mirabilis Assessment and Plan (1) Bilateral lower leg cellulitis Narrative/Plan: 86-year-old woman presents to Hospital new onset of fever associated with congestion in her chest. With her history of heart failure she was concerning consequently presented to the emergency center. There she had evidence of fever of 101 but no evidence of any pneumonia. She however does have evidence of the recent surgical intervention to her mouth with removal of the tooth. No evidence of any purulence at that site. Has some bruising but no significant tenderness to the lower jaw or the neck. There is evidence of markedly abnormal urinalysis and urine culture with gram-negative bacilli. There is also evidence of leukocytosis as well as lower extremity edema and some erythema. With her ALLERGIES antibiotic therapy has been initiated with a carbapenem that is meropenem upon discussion with the emergency center. Lower extremity care with Silvadene and wraps is to be applied. Elevate while she is ready rest. Leukocytosis has improved, fever resolved Urine culture has been finalized with Celi and able to be will treated with cefixime 200mg po Q12 for 7 days Status: Acute (2) Systolic CHF, acute on chronic Status: Acute (3) Fever Status: Acute
[2016-06-14] MEDS: AMITRIPTYLINE HCL 10 MG TAB PO SCH (22:58)
[2016-06-15] MEDS: HYDROcodone/APAP 7.5-325MG 1 EACH TAB PO PRN (04:35)
[2016-06-15] MEDS: CHOLECALCIFEROL 400 UNIT TAB PO SCH ×2 (04:37→08:16)
[2016-06-15] MEDS: LEVOTHYROXINE 125 MCG TAB PO SCH (06:51)
[2016-06-15] MEDS ORDERED: PANTOPRAZOLE 40 MG TABLET PO SCH (07:30)
--- NOTE | 2016-06-15 08:11 | P.DS ---
Providers Date of admission: 06/10/16 20:37 Attending physician: Nolan Lunsford Consults: 06/13/16 08:01 Consult Physician Urgent Consulting Provider: Chano Breaux Consult Reason/Comments: CHF Do you want consulting provider notified?: Yes Primary care physician: Nolan Lunsford The patient is an 86-year-old female who was brought by EMS to the emergency room on June 10 this year. She presented with weakness and chills shortness of breath and some congestion and temperatures 101. She also presented with low blood pressures with systolic pressures in the 80 and 90 range. Further evaluation and workup revealed a urinary tract infection with Proteus mirabilis. Other laboratory values on presentation revealed elevated white count of 13.6. She had an elevated lactic acid level of 3.1. Electrolytes were unremarkable but she had a BUN of 43 and a creatinine 1.6 giving her a GFR of 31. CK was also elevated at 181. Troponins also increased from an elevated 0.125 to a maximum 0.259. Patient did develop some changes in her chest x-ray consistent with pulmonary congestion/congestive heart failure. Consult with cardiology was obtained and an echocardiogram revealed ejection fraction of 30-35%. Pericardium was normal. Mild mitral regurgitation was present. The aortic valve was not well visualized. Left atrium was normal in size. Her medications were adjusted. She was seen by occupational and physical therapy. Recommendations at this point is for an extended care rehab facility and arrangements are being made. Patient was initially treated with IV vancomycin and IV Merrem as patient does have multiple medical ALLERGIES. Presently she has been switched to oral Omnicef at 300 mg twice a day which she will need for a full 7 day course and appears to be tolerating. Discharge medications: 1. Acetaminophen 650 mg every 6 hours when necessary for pain. 2. Amitriptyline 10 mg at at bedtime. 3. Aspirin 325 mg daily. 4. Omnicef 300 mg twice a day for a full 1 week course. 5. 400 to units of vitamin D twice a day. 6. Flonase nasal 2 sprays in each nostril daily. 7. Furosemide 60 mg twice a day. 8. Neurontin 200 mg twice a day. 9. Acetaminophen/ hydrocodone 7.5-325 one every 4 hours when necessary for more severe pain. 10. Levothyroxine 125 g daily. 11. lisinopril 2.5 daily. 12. Claritin 10 mg daily 13. Metoprolol 12.5 twice a day. 14. Protonix 40 mg every morning. 15. Mirapex 0.254 times a day for restless leg syndrome. 16. Aldactone 25 mg daily and 17 Silvadene cream to be applied to leg dressing changes daily with Kerlix and Waqas wraps. Discharge diagnoses: 1. Acute sepsis associated with hypotension, weakness, elevated white count and urinary tract infection with systemic inflammatory response syndrome. Urinary tract infection with Proteus mirabilis. 2. Acute on chronic congestive heart failure with the both systolic and diastolic dysfunction with a present ejection fraction of 30-35% on echocardiogram. 3. Bilateral cellulitis of the lower extremities. 4. Chronic kidney disease stage III 5. Previous transcutaneous aortic valve replacement in [place] approximately 2 years ago. 6 previous pacemaker placement 7. Diffuse degenerative joint disease with previous bilateral knee surgeries and hip surgeries in the past in [place]. She's also had a fractured right humerus back in October of this year 8. Hypothyroidism on replacement 9. Restless leg syndrome 10. Multiple medical ALLERGIES please refer to list including antibiotic reactions and ALLERGIES. Transcutaneous aortic valve replacement along with the previous knee replacements and bilateral hip replacements and previous partial thyroidectomy. Diet as tolerated along with the physical and occupational therapies. Admission blood testing. Patient Condition at Discharge: Fair Plan - Discharge Summary Discharge Medication List Furosemide 40 mg PO BID 12/03/13 [History] Fluticasone Propionate [Flonase] 2 spray EA NOSTRIL DAILY PRN 04/07/14 [History] Pramipexole [Mirapex] 0.25 mg PO QID 04/12/14 [History] Amitriptyline HCl [Elavil] 10 mg PO HS 11/01/15 [History] Gabapentin [Neurontin] 200 mg PO BID 11/01/15 [History] Loratadine [Claritin] 10 mg PO DAILY 11/01/15 [History] Acetaminophen Chew Tab [Tylenol Chew Tab] 80 mg PO Q6H PRN 06/10/16 [History] Cholecalciferol [Vitamin D3] 400 unit PO BID 06/10/16 [History] HYDROcodone/APAP 7.5-325MG [[place] 7.5-325] 1 - 2 tab PO Q4H PRN MDD 6 TAB [History] Iron 27+Folic Acid+B-12 1 tab PO DAILY 06/10/16 [History] Levothyroxine Sodium [Synthroid] 125 mcg PO DAILY 06/10/16 [History] amLODIPine [Norvasc] 2.5 mg PO DAILY 06/10/16 [History] Follow up Appointment(s)/Referral(s): Chano Breaux MD [STAFF PHYSICIAN] - 3 Weeks Nolan Lunsford MD [Primary Care Provider] - 1-2 days
[2016-06-15] MEDS: METOPROLOL TARTRATE 12.5 MG TAB PO SCH (08:16)
[2016-06-15] MEDS: LISINOPRIL 2.5 MG TAB PO SCH (08:16)
[2016-06-15] MEDS: AMITRIPTYLINE HCL 10 MG TAB PO SCH (08:16)
[2016-06-15] MEDS: PRAMIPEXOLE 0.25 MG TAB PO SCH ×2 (08:16→12:13)
[2016-06-15] MEDS: ENOXAPARIN 30 MG/0.3 ML SYRINGE SQ SCH (08:16)
[2016-06-15] MEDS: GABAPENTIN 100 MG CAP PO SCH (08:17)
[2016-06-15] MEDS: FUROSEMIDE 20 MG TAB PO SCH (08:17)
[2016-06-15] MEDS: ASPIRIN 325 MG TAB PO SCH (08:17)
[2016-06-15] MEDS: SPIRONOLACTONE 25 MG TAB PO SCH (08:17)
[2016-06-15] MEDS: IPRATROPIUM-ALBUTEROL 3 ML NEB INHALATION SCH ×2 (08:30→11:48)
[2016-06-15 08:48] VITALS: RESP 16; TEMP 97.3
[2016-06-15] MEDS ORDERED: CEFDINIR 300 MG CAP PO SCH (09:00)
[2016-06-15 12:08] VITALS: BP 116/61; PULSE 67
[2016-06-15] MEDS: LORATADINE 10 MG TAB PO SCH (12:13)
--- NOTE | 2016-06-15 15:05 | P.PN ---
Subjective Principal diagnosis: Systolic congestive heart failure This is an 86-year-old female with history of aortic valve disease and prior TAVR performed at the [facility], chronic kidney disease, hypertension, hyperlipidemia, she presented to the hospital with symptoms of fever at home. Admitted with a UTI and possible sepsis. Patient was also found to be in congestive cardiac failure and was initiated on Lasix. EKG revealed an atrial sensed ventricular paced rhythm. Echocardiogram with Doppler study was performed which revealed an ejection fraction of 35%. Her weight is down 1 kg today. . Patieant is sitting up in the chair at the time of my examination today, states that her breathing is improved. Continues to have mild peripheral edema. Objective - Vital Signs Vital signs: Vital Signs Temp 97.3 F L 06/15/16 08:00 Pulse 72 06/15/16 12:05 Resp 16 06/15/16 12:00 BP 116/61 06/15/16 12:00 Pulse Ox 95 06/15/16 12:00 Intake & Output 06/14/16 06/15/16 06/15/16 18:59 06:59 18:59 Intake Total 360 120 Output Total 300 300 300 Balance 60 -300 -180 Weight 63.3 kg 62.2 kg Intake: Oral 360 120 Output: Urine 300 300 300 Other: Voiding Method Bedside Commode Bedside Commode Bedside Commode # Voids 1 - Exam PHYSICAL EXAMINATION: HEENT: Head is atraumatic, normocephalic. Pupils equal, round. Neck is supple. There is elevated jugular venous pressure. HEART EXAMINATION: Heart S1 S2 systolic and diastolic murmur is heard. CHEST EXAMINATION: Lungs are clear with fine expiratory wheezes. ABDOMEN: Soft, nontender. Bowel sounds are heard. No organomegaly noted. EXTREMITIES: 2+ peripheral pulses with no evidence of peripheral edema and no calf tenderness noted. NEUROLOGIC patient is awake, alert and oriented -3. . - Labs CBC & Chem 7: 06/12/16 05:57 06/13/16 06:01 Assessment and Plan (1) Systolic CHF, acute on chronic Status: Acute (2) UTI (urinary tract infection) Status: Acute (3) Cardiomyopathy Status: Acute (4) HTN (hypertension) Status: Acute (5) Hypothyroid Status: Acute (6) S/P TAVR (transcatheter aortic valve replacement) Status: Acute (7) Elevated troponin Status: Acute (8) Pacemaker Status: Acute (9) NICM (nonischemic cardiomyopathy) Status: Acute (10) Mitral stenosis Status: Acute (11) Severe aortic stenosis Status: Acute Plan: From cardiology's perspective, we'll continue current medications. Upon review of the office notes, patient's most recent echo which was performed in October 2013 revealed an ejection fraction of 35%. Patient was also noted to have severe aortic stenosis, mild LVH, severe pulmonary hypertension, moderate TR and severe MR. We will check lytes BUN and creatinine in the morning. DNP note has been reviewed, I agree with a documented findings and plan of care. Patient was seen and examined.
== END 2016-06-15 15:55 | DRG 871 ==
LOC: EC 16:36 → 6SEL 20:37
PROVIDERS: ADMIT Internal Medicine; ATTEND Internal Medicine
DX: A41.9 Sepsis, unspecified organism (principal); I50.43 Acute on chronic combined systolic (congestive) and diastolic (congestive) heart failure; E87.2 Acidosis; N18.4 Chronic kidney disease, stage 4 (severe); I95.9 Hypotension, unspecified; I42.9 Cardiomyopathy, unspecified; I13.0 Hypertensive heart and chronic kidney disease with heart failure and stage 1 through stage 4 chronic kidney disease, or unspecified chronic kidney disease; L03.115 Cellulitis of right lower limb; N39.0 Urinary tract infection, site not specified; L03.116 Cellulitis of left lower limb; B96.4 Proteus (mirabilis) (morganii) as the cause of diseases classified elsewhere; K58.9 Irritable bowel syndrome, unspecified; J45.909 Unspecified asthma, uncomplicated; I69.398 Other sequelae of cerebral infarction; I27.2 Other secondary pulmonary hypertension; H53.9 Unspecified visual disturbance; E89.0 Postprocedural hypothyroidism; I08.0 Rheumatic disorders of both mitral and aortic valves; I83.90 Asymptomatic varicose veins of unspecified lower extremity; D64.9 Anemia, unspecified; F41.9 Anxiety disorder, unspecified; M19.90 Unspecified osteoarthritis, unspecified site; G25.81 Restless legs syndrome; F32.9 Major depressive disorder, single episode, unspecified; M54.2 Cervicalgia; R21 Rash and other nonspecific skin eruption; R74.8 Abnormal levels of other serum enzymes; E78.5 Hyperlipidemia, unspecified; R29.6 Repeated falls; Z91.81 History of falling; Z86.19 Personal history of other infectious and parasitic diseases; Z88.2 Allergy status to sulfonamides; Z88.0 Allergy status to penicillin; Z96.643 Presence of artificial hip joint, bilateral; Z88.1 Allergy status to other antibiotic agents; Z95.0 Presence of cardiac pacemaker; Z95.2 Presence of prosthetic heart valve; Z96.653 Presence of artificial knee joint, bilateral; Z87.09 Personal history of other diseases of the respiratory system; Z87.440 Personal history of urinary (tract) infections; Z86.14 Personal history of Methicillin resistant Staphylococcus aureus infection; Z87.891 Personal history of nicotine dependence; Z82.3 Family history of stroke; Z80.1 Family history of malignant neoplasm of trachea, bronchus and lung; Z87.81 Personal history of (healed) traumatic fracture; Z88.8 Allergy status to other drugs, medicaments and biological substances; Z91.048 Other nonmedicinal substance allergy status; Z79.891 Long term (current) use of opiate analgesic; Z79.51 Long term (current) use of inhaled steroids; Z79.899 Other long term (current) drug therapy; Z98.818 Other dental procedure status
CPT/HCPCS: 36415; 71010; 71020; 80048; 80053; 80202; 81001; 82533; 82550; 82553; 83605; 83880; 84484; 85025; 87040; 87077; 87086; 87186; 87502; 93005; 93306; 94640; 94760; 96361; 96365; 96366; 96367; 99291

== ENCOUNTER 2017-09-25 06:22 | Inpatient (IN) | payer BC, MEDICARE ==
[2017-09-25] MEDS ORDERED: ACETAMINOPHEN TAB 325 MG TAB PO STA ×2 (07:06→07:21)
--- NOTE | 2017-09-25 07:10 | ED ---
General Adult HPI - General Source: patient, family, EMS Mode of arrival: EMS Limitations: no limitations <Alana Ronquillo - Last Filed: 09/25/17 07:00> <Jim Luis - Last Filed: 09/25/17 09:47> - General Chief complaint: Fever Stated complaint: fever,knee pain Time Seen by Provider: 09/25/17 06:50 - History of Present Illness Initial comments: 87 years old female complaining about the right leg pain and swelling in the fever she felt few days ago and landed on her left hip complaining about the left hip pain she said she had a fever at home and the EMS recorded fever of 101.4. She denies any headache no neck stiffness he is complaining about the chest pain shortness of breath and shortness of breath along with the pleuritic chest pain no abdominal pain no frequency urgency dysuria no symptoms of TIA or CVA (Alana Ronquillo) - Related Data Home Medications Medication Instructions Recorded Confirmed Furosemide 40 mg PO BID 12/03/13 09/25/17 Fluticasone Propionate [Flonase] 2 spray EA NOSTRIL DAILY PRN 04/07/14 09/25/17 Pramipexole [Mirapex] 0.25 mg PO QID 04/12/14 09/25/17 Amitriptyline HCl [Elavil] 10 mg PO HS 11/01/15 09/25/17 Gabapentin [Neurontin] 200 mg PO BID 11/01/15 09/25/17 Loratadine [Claritin] 10 mg PO DAILY 11/01/15 09/25/17 Acetaminophen Chew Tab [Tylenol 80 mg PO Q6H PRN 06/10/16 09/25/17 Chew Tab] Cholecalciferol [Vitamin D3] 400 unit PO BID 06/10/16 09/25/17 HYDROcodone/APAP 7.5-325MG [[place] 1 - 2 tab PO Q4H PRN MDD 6 TAB 06/10/16 7.5-325] Iron 27+Folic Acid+B-12 1 tab PO DAILY 06/10/16 09/25/17 Levothyroxine Sodium [Synthroid] 125 mcg PO DAILY 06/10/16 09/25/17 Allergies Allergy/AdvReac Type Severity Reaction Status Date / Time adhesive Allergy Anaphylaxis-STATED Verified 09/25/17 09:43 "ADHESIVE ON LIDODERM PATCH PAPER TAPE OK azithromycin [From Zithromax] Allergy Unknown Verified 09/25/17 09:43 bumetanide Allergy Unknown Verified 09/25/17 09:43 cefuroxime Allergy Unknown Verified 09/25/17 09:43 cephalexin [From Keflex] Allergy Unknown Verified 09/25/17 09:43 ciprofloxacin [From Cipro] Allergy Rash/Hives Verified 09/25/17 09:43 ciprofloxacin HCl Allergy Rash/Hives Verified 09/25/17 09:43 [From Cipro] clindamycin Allergy Unknown Verified 09/25/17 09:43 clonazepam Allergy Unknown Verified 09/25/17 09:43 daptomycin [From Cubicin] Allergy Unknown Verified 09/25/17 09:44 levofloxacin [From Levaquin] Allergy Unknown Verified 09/25/17 09:43 lidocaine [From Lidoderm] Allergy Rash/Hives Verified 09/25/17 09:43 linezolid [From Zyvox] Allergy Unknown Verified 09/25/17 09:45 nitrofurantoin Allergy Unknown Verified 09/25/17 09:43 [From Macrodantin] Penicillins Allergy "BLACK Verified 09/25/17 09:43 RING AROUND TONGUE" Sulfa (Sulfonamide Allergy Rash/Hives Verified 09/25/17 09:43 Antibiotics) Tetracyclines Allergy "BLACK Verified 09/25/17 09:43 RING AROUND TONGUE" Review of Systems ROS Other: All systems not noted in ROS Statement are negative. <Alana Ronquillo - Last Filed: 09/25/17 07:00> ROS Other: All systems not noted in ROS Statement are negative. <Jim Luis - Last Filed: 09/25/17 09:47> ROS Statement: Those systems with pertinent positive or pertinent negative responses have been documented in the HPI. Past Medical History Past Medical History: Asthma, Heart Failure, Hypertension, Syncope, Thyroid Disorder Additional Past Medical History / Comment(s): 12-31-14 admittted to [facility] with c/p isidoro leg swelling.other hx: IBS,VARICOSE VEINS, HEART MURMUR, UTI'S, HX FALLS.bronchitis, stroke behind lt eye, anemia, fx rt humerus and fx rt superior pubic ramus.renal insufficiency,cardiomyopathy. Patient states she is unaware if she has had a stroke. History of Any Multi-Drug Resistant Organisms: MRSA Date of last positivie culture/infection: 10-26-2008 MDRO Source:: LEFT HIP Past Surgical History: Cardiac Valve Replacement, Section, Hernia Repair, Joint Replacement, Pacemaker Additional Past Surgical History / Comment(s): UMBILICAL HERNIA,C SECTION X 2, ISIDORO KNEE REPLACEMENT, RT HIP REPLACEMENT, PARTIAL THYROIDECTOMY, PARTIAL LT HIP REPLACEMENT SEVERAL YRS AGO AND ANTIBIOTIC SPACER PLACED 2008 AORTIC VALVE REPLACEMENT , tooth extraction Past Anesthesia/Blood Transfusion Reactions: No Reported Reaction Type of Cardiac Device: Permanent Pacemaker Device Placement Date:: 03/12/14 Past Psychological History: Anxiety, Depression Smoking Status: Former smoker Past Alcohol Use History: None Reported Past Drug Use History: None Reported - Past Family History Brother(s) Family Medical History: Cancer Additional Family Medical History / Comment(s): TWIN BROTHER LUNG CA Mother Additional Family Medical History / Comment(s): BLEEDING ULCER Father Family Medical History: CVA/TIA <Alana Ronquillo - Last Filed: 09/25/17 07:00> General Exam Limitations: no limitations <Alana Ronquillo - Last Filed: 09/25/17 07:00> <Jim Luis - Last Filed: 09/25/17 09:47> - General Exam Comments Initial Comments: General: The patient is awake and alert, in no distress distress Skin: Skin is warm and dry and no rashes or lesions are noted. Eye: Pupils are equal, round and reactive to light, extra-ocular movements are intact; there is normal conjunctiva bilaterally. Ears, nose, mouth and throat: There are moist mucous membranes and no oral lesions. Neck: The neck is supple, there is no tenderness him a no signs of any meningitis Cardiovascular: Noticed tachycardia at the rate of 140 bpm Respiratory: To auscultation bilateral, crease breath sounds crackles at the bases Gastrointestinal: Soft, non-distended, non-tender abdomen without masses or organomegaly noted. There is no rebound or guarding present. Bowel sounds are unremarkable. Back: There is no tenderness to palpation in the midline. There is no obvious deformity. Musculoskeletal: Leg is quite swollen below the knee, is warm, is tender Neurological: CN II-XII intact, Cranial nerves III through XII are intact. There are no obvious motor or sensory deficits. Coordination appears grossly intact. Speech is normal. Psychiatric: Cooperative, appropriate mood & affect, normal judgment. (Alana Ronquillo) Vital Signs 09/25/17 09/25/17 06:27 08:56 Temperature 97.5 F L 97.5 F L Pulse Rate 114 H 94 Respiratory 20 16 Rate Blood Pressure 155/84 142/60 O2 Sat by Pulse 95 100 Oximetry EKG Findings - EKG Comments: EKG Findings:: EKG is paced, his right complex tachycardia right bundle branch block and now quite a bit of artifacts we tried the EKGs patient is unable to stay still <Alana Ronquillo - Last Filed: 09/25/17 07:00> Medical Decision Making <Alana Ronquillo - Last Filed: 09/25/17 07:00> - Lab Data Result diagrams: 09/25/17 06:38 09/25/17 06:38 <Jim Luis - Last Filed: 09/25/17 09:47> - Medical Decision Making Patient's heart rate dropped into the 90s so Cardizem was held. (Jim Luis ) - Lab Data Lab Results 09/25/17 09/25/17 09/25/17 Range/Units 06:38 06:38 06:38 WBC 8.3 (3.8-10.6) k/uL RBC 3.99 (3.80-5.40) m/uL Hgb 12.9 (11.4-16.0) gm/dL Hct 39.1 (34.0-46.0) % MCV 98.2 (80.0-100.0) fL MCH 32.3 (25.0-35.0) pg MCHC 32.9 (31.0-37.0) g/dL RDW 14.2 (11.5-15.5) % Plt Count 235 (150-450) k/uL Neutrophils % 88 % Lymphocytes % 5 % Monocytes % 4 % Eosinophils % 1 % Basophils % 0 % Neutrophils # 7.3 (1.3-7.7) k/uL Lymphocytes # 0.4 L (1.0-4.8) k/uL Monocytes # 0.4 (0-1.0) k/uL Eosinophils # 0.1 (0-0.7) k/uL Basophils # 0.0 (0-0.2) k/uL PT (9.0-12.0) sec INR (<1.2) APTT (22.0-30.0) sec D-Dimer (<0.60) mg/L FEU Sodium 145 (137-145) mmol/L Potassium 3.9 (3.5-5.1) mmol/L Chloride 103 (98-107) mmol/L Carbon Dioxide 27 (22-30) mmol/L Anion Gap 15 mmol/L BUN 60 H (7-17) mg/dL Creatinine 1.55 H (0.52-1.04) mg/dL Est GFR (CKD-EPI)AfAm 35 (>60 ml/min/1.73 sqM) Est GFR (CKD-EPI)NonAf 30 (>60 ml/min/1.73 sqM) Glucose 105 H (74-99) mg/dL Plasma Lactic Acid [place] 1.2 (0.7-2.0) mmol/L Calcium 9.2 (8.4-10.2) mg/dL Total Bilirubin 0.7 (0.2-1.3) mg/dL AST 25 (14-36) U/L ALT 23 (9-52) U/L Alkaline Phosphatase 149 H (38-126) U/L Troponin I (0.000-0.034) ng/mL Total Protein 7.3 (6.3-8.2) g/dL Albumin 4.1 (3.5-5.0) g/dL Urine Color Urine Appearance (Clear) Urine pH (5.0-8.0) Ur Specific Lucas (1.001-1.035) Urine Protein (Negative) Urine Glucose (UA) (Negative) Urine Ketones (Negative) Urine Blood (Negative) Urine Nitrite (Negative) Urine Bilirubin (Negative) Urine Urobilinogen (<2.0) mg/dL Ur Leukocyte Esterase (Negative) Urine RBC (0-5) /hpf Urine WBC (0-5) /hpf Urine Bacteria (None) /hpf 09/25/17 09/25/17 09/25/17 Range/Units 06:38 06:38 07:30 WBC (3.8-10.6) k/uL RBC (3.80-5.40) m/uL Hgb (11.4-16.0) gm/dL Hct (34.0-46.0) % MCV (80.0-100.0) fL MCH (25.0-35.0) pg MCHC (31.0-37.0) g/dL RDW (11.5-15.5) % Plt Count (150-450) k/uL Neutrophils % % Lymphocytes % % Monocytes % % Eosinophils % % Basophils % % Neutrophils # (1.3-7.7) k/uL Lymphocytes # (1.0-4.8) k/uL Monocytes # (0-1.0) k/uL Eosinophils # (0-0.7) k/uL Basophils # (0-0.2) k/uL PT 10.3 (9.0-12.0) sec INR 1.0 (<1.2) APTT 25.4 (22.0-30.0) sec D-Dimer 2.56 H (<0.60) mg/L FEU Sodium (137-145) mmol/L Potassium (3.5-5.1) mmol/L Chloride (98-107) mmol/L Carbon Dioxide (22-30) mmol/L Anion Gap mmol/L BUN (7-17) mg/dL Creatinine (0.52-1.04) mg/dL Est GFR (CKD-EPI)AfAm (>60 ml/min/1.73 sqM) Est GFR (CKD-EPI)NonAf (>60 ml/min/1.73 sqM) Glucose (74-99) mg/dL Plasma Lactic Acid Lamonte (0.7-2.0) mmol/L Calcium (8.4-10.2) mg/dL Total Bilirubin (0.2-1.3) mg/dL AST (14-36) U/L ALT (9-52) U/L Alkaline Phosphatase (38-126) U/L Troponin I 0.037 H* (0.000-0.034) ng/mL Total Protein (6.3-8.2) g/dL Albumin (3.5-5.0) g/dL Urine Color Light Yellow Urine Appearance Clear (Clear) Urine pH 6.0 (5.0-8.0) Ur Specific Lucas 1.008 (1.001-1.035) Urine Protein 1+ H (Negative) Urine Glucose (UA) Negative (Negative) Urine Ketones Negative (Negative) Urine Blood Trace H (Negative) Urine Nitrite Negative (Negative) Urine Bilirubin Negative (Negative) Urine Urobilinogen <2.0 (<2.0) mg/dL Ur Leukocyte Esterase Negative (Negative) Urine RBC 1 (0-5) /hpf Urine WBC <1 (0-5) /hpf Urine Bacteria Rare H (None) /hpf Disposition <Alana Ronquillo - Last Filed: 09/25/17 07:00> Time of Disposition: 09:47 <Jim Luis - Last Filed: 09/25/17 09:47> Clinical Impression: Dyspnea, Fever, unknown origin, Atrial fibrillation with rapid ventricular response, Elevated d-dimer Disposition: ADMITTED IP TO THIS HOSP Referrals: Nolan Lunsford MD [Primary Care Provider] - 1-2 days
[2017-09-25] MEDS ORDERED: MEROPENEM 1 GM in SODIUM CHLORIDE 0.9% 100 ML IVPB STA (07:12)
[2017-09-25] MEDS ORDERED: SODIUM CHLORIDE 0.9% 500 ML IV SCH (07:15)
[2017-09-25 07:20] LABS: Basophils % (A) 0 %; Eosinophils # (A) 0.1 k/uL (0-0.7); Eosinophils % (A) 1 %; HCT 39.1 % (34.0-46.0); HGB 12.9 gm/dL (11.4-16.0); Lymphocytes # (A) 0.4 k/uL (1.0-4.8); Lymphocytes % (A) 5 %; MCH 32.3 pg (25.0-35.0); MCHC 32.9 g/dL (31.0-37.0); MCV 98.2 fL (80.0-100.0); Mean Platelet Volume 7.3; Monocytes # (A) 0.4 k/uL (0-1.0); Monocytes % (A) 4 %; Neutrophils # (A) 7.3 k/uL (1.3-7.7); Neutrophils % (A) 88 %; Platelet Count 235 k/uL (150-450); RBC 3.99 m/uL (3.80-5.40); RDW 14.2 % (11.5-15.5); WBC 8.3 k/uL (3.8-10.6)
[2017-09-25] MEDS ORDERED: ACETAMINOPHEN TAB 500 MG TAB PO STA (07:21)
[2017-09-25] MEDS ORDERED: IBUPROFEN 600 MG TAB PO STA (07:29)
[2017-09-25 07:33] LABS: Albumin 4.1 g/dL (3.5-5.0); Calcium 9.2 mg/dL (8.4-10.2); Partial Thromboplastin Time 25.4 sec (22.0-30.0); Potassium 3.9 mmol/L (3.5-5.1); Prothrombin Time 10.3 sec (9.0-12.0); Total Bilirubin 0.7 mg/dL (0.2-1.3); Total Protein 7.3 g/dL (6.3-8.2)
[2017-09-25 07:40] LABS: D-Dimer 2.56 mg/L FEU (<0.60)
[2017-09-25 07:53] LABS: Appearance,Urine Clear (Clear); Bacteria,Urine Rare /hpf; Bilirubin,Urine Negative (Negative); Blood,Urine Trace (Negative); Color,Urine Light Yellow; Glucose,Urine (UA) Negative (Negative); Ketones,Urine Negative (Negative); Leukocyte Esterase,Urine Negative (Negative); Nitrite,Urine Negative (Negative); Protein,Urine 1+ (Negative); RBC,Urine 1 /hpf (0-5); Specific Gravity,Urine 1.008 (1.001-1.035); Urobilinogen,Urine <2.0 mg/dL (<2.0); WBC,Urine <1 /hpf (0-5)
[2017-09-25] MEDS ORDERED: DILTIAZEM 50 MG in SODIUM CHLORIDE 0.9% 40 ML IV ONE (08:00)
--- NOTE | 2017-09-25 08:21 | XR ---
EXAMINATION TYPE: XR chest 2V DATE OF EXAM: 09/25/2017 COMPARISON: Chest x-ray June 12, 2016 HISTORY: Fall injury with pain. TECHNIQUE: Frontal and lateral views of the chest are obtained. FINDINGS: There is chronic reticular interstitial changes bilaterally redemonstrated. There is no zayra picious new focal air space opacity, pleural effusion, or pneumothorax seen. The cardiac silhouette size is enlarged with metallic stent graft at level of aortic root and triple lead pacemaker. The o sseous structures are demineralized. 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 IMPRESSION: Chronic parenchymal changes and cardiomegaly without acute pulmonary process.
--- NOTE | 2017-09-25 08:24 | XR ---
EXAMINATION TYPE: XR Hip Complete LT DATE OF EXAM: 09/25/2017 CLINICAL HISTORY: Fall injury 10 days ago with persistent pain TECHNIQUE: AP and frogleg views of the left hip are obtained. COMPARISON: Pelvic x-ray April 12, 2014 FINDINGS: There is no acute fracture/dislocation evident in the left hip. Metallic hardware from lef t hip arthroplasty is redemonstrated. Marked protrusion of acetabular component is again seen. Superi or 2 cerclage wires have fractured in the interval. No new definitive suspicious surrounding lucency in the femoral shaft component is seen. [place] osseous structures are demineralized. IMPRESSION: There is stable prominent protrusion. Fractured cerclage wires are now seen. No acute fr acture or dislocation is clearly evident.
[2017-09-25] MEDS ORDERED: HEPARIN SODIUM,PORCINE 5,000 UNIT/ML 1 ML VIAL IV ONE (08:28)
[2017-09-25] MEDS ORDERED: HEPARIN SOD,PORK IN 0.45% NACL 25,000 UNIT in 0.45% NACL 1 500ML.BAG IV SCH (08:30)
--- NOTE | 2017-09-25 09:36 | US ---
EXAMINATION TYPE: US venous doppler duplex LE RT DATE OF EXAM: 09/25/2017 9:27 AM COMPARISON: US 11/12/2014 CLINICAL HISTORY: Redness, swelling right leg SIDE PERFORMED: Right TECHNIQUE: The lower extremity deep venous system is examined utilizing real time linear array sonog bruce with graded compression, doppler sonography and color-flow sonography. VESSELS IMAGED: External Iliac Vein (EIV) Common Femoral Vein Deep Femoral Vein Greater Saphenous Vein * Femoral Vein Popliteal Vein Small Saphenous Vein * Proximal Calf Veins (* superficial vessels) Right Leg: Negative for DVT Multiple probable lymph nodes visualized, largest measuring 1.6 x 0.8 x 1.7 cm. These are incidentall y noted and within normal limits of size. Generalized dependent lower extremity edema visualized. IMPRESSION: No sonographic evidence of deep venous thrombosis within the right lower extremity. Depe ndent subcutaneous edema within the right calf.
[2017-09-25] MEDS ORDERED: SODIUM CHLORIDE 0.9% 1,000 ML IV ONE ×2 (09:50→15:29)
[2017-09-25] MEDS ORDERED: LORazepam 2 MG/ML INJ IV STA (11:23)
--- NOTE | 2017-09-25 12:40 | NM ---
EXAMINATION TYPE: NM pul vent and perfuse DATE OF EXAM: 09/25/2017 COMPARISON: X-ray 09/25/2017 HISTORY: Shortness of breath TECHNIQUE: Utilizing inhalation of 33.7 mCi Tc 99m DTPA aerosol and intravenous injection of 5.05 mC i of Tc 99m MAA, ventilation and perfusion images are acquired post injection in multiple projections . FINDINGS: Exam limited by central clumping of radiotracer likely secondary to pulmonary obstructive chronic jacqueline g disease. There are matched defects along the periphery of the right upper lobe. IMPRESSION: Intermediate probability for pulmonary embolism.
[2017-09-25] MEDS ORDERED: FLUTICASONE 50MCG/SPRAY NASAL 16GM EA NOSTRIL PRN (15:15)
[2017-09-25] MEDS: APIXABAN 2.5 MG TABLET PO SCH ×2 (15:58→20:19)
[2017-09-25] MEDS ORDERED: FUROSEMIDE 80 MG TAB PO SCH (16:00)
[2017-09-25] MEDS: HYDROcodone/APAP 7.5-325MG 1 EACH TAB PO PRN (18:19)
[2017-09-25] MEDS: BETAMETHASONE DIPROPIONATE 0.05% CREAM 15 GM TUBE TOPICAL SCH (20:18)
[2017-09-25] MEDS: GABAPENTIN 100 MG CAP PO SCH (20:18)
[2017-09-25] MEDS: METOPROLOL TARTRATE 25 MG TAB PO SCH (20:19)
[2017-09-25] MEDS: CALCIUM CARB-VIT D 250MG-125UN 1 EACH TAB PO SCH (20:20)
[2017-09-25] MEDS: PRAMIPEXOLE 1 MG TAB PO SCH (20:20)
[2017-09-25] MEDS: FUROSEMIDE 10 MG/ML 2 ML VIAL IV SCH (20:20)
[2017-09-25] MEDS: AMITRIPTYLINE HCL 10 MG TAB PO SCH (20:21)
--- NOTE | 2017-09-25 22:14 | HP ---
HISTORY AND PHYSICAL This patient is an 87-year-old female who presented with shortness of breath to the emergency room. HISTORY OF PRESENT ILLNESS: The patient states during the night she developed some leg pain and swelling, felt feverish, and also developed marked palpitations with fast heart rate leading to shortness of breath and congestion; some slight chest discomfort but no marked anginal type pain. She had no nausea or vomiting. No urinary or bowel symptoms. Basically this developed rather suddenly in the trainer hours. The patient was brought to the emergency room and was found on the EKG to have a rapid rhythm which showed a wide QRS complex, possibly SVT with a rapid ventricular response versus some pacemaker dysfunction. Patient has been admitted to the telemetry unit. PAST MEDICAL HISTORY: Past medical history is positive for congestive heart failure associated with apparent diastolic dysfunction in the past. She has had chronic venous insufficiency and lower leg edema. She has underlying chronic kidney disease. She had a previous transcutaneous aortic valve replacement in [place] approximately 3 years ago and also has had a previous pacemaker placed. She has a history of hypertensive heart disease, underlying degenerative joint disease with previous multiple bilateral knee surgeries, bilateral hip surgeries done in [place]. She had a fractured right humerus back in October of 2015. Hypothyroidism, on replacement therapy. Restless legs syndrome. ALLERGIES: MULTIPLE MEDICAL ALLERGIES. Please refer to the list. PAST SURGICAL HISTORY: Overall surgeries include the aortic valve transcutaneous replacement, the knee replacements, pacemaker placement. She has had a partial thyroidectomy. She has had both right and left hip replacements. Apparently she ran out of her Lasix 24 to 48 hours prior to admission. HOME MEDICATIONS: 1. Amitriptyline 10 mg at bedtime. 2. Eliquis 2.5 twice a day. 3. Aspirin 81 mg daily. 4. Diprolene AF to be applied twice a day to affected areas. 5. Os-F[place]ad 250 with vitamin D twice a day. 6. Vitamin D3 1000 units daily. 7. Flonase 2 sprays in each nostril daily. 8. Folic acid 0.5 mg daily. 9. Lasix 80 mg twice a day. 10.Mirapex 1 mg at bedtime for restless legs syndrome. 11.Protonix 40 mg daily for reflux. 12.Metoprolol 25 mg daily. 13.Claritin 10 mg daily for sinus. 14.Synthroid or levothyroxine 125 mcg daily. 15.[place] for pain 7.5/325 one to two tablets q.4 hours p.r.n. 16.Neurontin 200 mg twice a day. 17.Folic acid 0.4 mg daily. 18.Low-dose aspirin 81 mg daily. 19.Amitriptyline 10 mg at bedtime. REVIEW OF SYSTEMS: As mentioned in history of present illness. She also denied any unusual headache or visual disturbance. No definite previous anginal chest pain. No hemoptysis or hematemesis. No nausea or vomiting. No urinary or bowel symptoms. No focal weakness. FAMILY HISTORY: Apparently she had a twin brother who had lung cancer. Her father had a CVA. Mother had a bleeding ulcer. SOCIAL HISTORY: She lives locally with her . She quit smoking at age 47 to 52, but did smoke for 25 to 30 years. There has been no history of any excessive alcohol intake. PHYSICAL EXAMINATION: She is at present sitting up in bed, alert, in no acute distress. Her vital signs reveal temperature 96.8 with a pulse of 89 and respirations 18, blood pressure 158/83, and she is 97% saturated on 4 L. Head and neck exam is otherwise unremarkable. Supple. No carotid bruits or thyromegaly detected. Lungs were diminished at bases but otherwise clear. Heart tones were regular without definite murmurs or rubs appreciated. ABDOMEN : Soft and nontender without rebound, guarding or masses. Extremities revealed some mild 1 to 2+ chronic venous changes in the extremities, but the distal extremities are warm. No open ulcerations. NEUROLOGIC EXAM: She is alert and oriented, moving all extremities without focal deficits. Breast and pelvic exams deferred. LABORATORY TESTING: White count 8.3 with hemoglobin 12.9 and a platelet count of 235. Her INR is 1.0 with PTT of 25. D-dimer was elevated at 2.56. Sodium was 145, potassium 3.9. BUN of 60 with a creatinine 1.55, GFR of 30. Blood sugar 105. Venous lactic acid level 1.2. Alkaline phosphatase was 149. Troponin was 0.037. BNP was 12,100. Albumin 4.1. Urinalysis showed negative leukocyte esterase and less than 1 white cell; 1 red cell also present. Her EKG once again showed tachyarrhythmia, about 150 on presentation. There appeared to be some pacemaker spikes present and a right bundle branch block type pattern. Chest x- ray showed chronic changes but no definite acute process of cardiomegaly present. She did have an x-ray of the hip which showed stable prominent protrusions. No acute fracture or dislocation was seen. A venous Doppler study showed no definite evidence of DVT within the right lower extremity. A subsequent pulmonary perfusion scan showed intermediate probability. IMPRESSION AT THIS TIME: 1. Acute systolic and diastolic congestive heart failure in light of underlying tachyarrhythmia causing shortness of breath. 2. Possibility of pulmonary embolus is entertained but seems less likely in light of the V/Q scan and patient being on Eliquis. 3. History of chronic diastolic congestive heart failure. 4. Chronic systolic failure, as her echo back in May 2016 revealed a 30% to 35% ejection fraction. 5. History of chronic kidney disease. 6. Previous transcutaneous aortic valve replacement in [place] along with pacemaker placement. 7. History of hypertension, hypertensive heart disease. 8. Degenerative joint disease with multiple bilateral knee and hip surgeries in the past. 9. Hypothyroidism, on replacement therapy. 10.Restless legs syndrome. 11.MULTIPLE MEDICAL AND ANTIBIOTIC ALLERGIES as stated in the list. PLAN: At this point, the patient is being monitored. Heart rate appears to be improved. We will ask Cardiology to evaluate in the morning. Further recommendations pending clinical response and results of above. Repeat EKG also in the morning. MMODL / IJN: [id number] / SOHAN
[2017-09-26] MEDS: LEVOTHYROXINE 125 MCG TAB PO SCH (05:57)
[2017-09-26] MEDS: PANTOPRAZOLE 40 MG TABLET PO SCH (05:57)
[2017-09-26 06:46] LABS: Basophils % (A) 1 %; Eosinophils # (A) 0.1 k/uL (0-0.7); Eosinophils % (A) 2 %; HCT 34.7 % (34.0-46.0); HGB 10.9 gm/dL (11.4-16.0); Lymphocytes # (A) 0.6 k/uL (1.0-4.8); Lymphocytes % (A) 12 %; MCH 31.3 pg (25.0-35.0); MCHC 31.5 g/dL (31.0-37.0); MCV 99.3 fL (80.0-100.0); Mean Platelet Volume 7.5; Monocytes # (A) 0.3 k/uL (0-1.0); Monocytes % (A) 6 %; Neutrophils % (A) 77 %; Platelet Count 235 k/uL (150-450); RBC 3.49 m/uL (3.80-5.40); RDW 14.2 % (11.5-15.5); WBC 5.2 k/uL (3.8-10.6)
[2017-09-26 07:05] LABS: Calcium 8.4 mg/dL (8.4-10.2); Magnesium 2.1 mg/dL (1.6-2.3); Potassium 3.8 mmol/L (3.5-5.1)
--- NOTE | 2017-09-26 08:02 | P.PN ---
Progress Note - Text The patient is an 87-year-old female presented yesterday to the emergency room with shortness of breath. Patient was found to have a rapid rhythm in the emergency room with a wide QRS complex. Heart rate was up at times up to 150. Patient states she felt palpitations and chest congestion. This morning she states she feels better. She did not have any more tachycardia palpitations. Denies any chest pain. Apparently her temperature was elevated at home but has not been documented to be elevated here at the hospital. She does have a past history of congestive heart failure along with venous insufficiency and lower leg edema. Chronic kidney disease. Previous transcutaneous aortic valve replacement. Along with hypertension and rheumatoid and degenerative joint disease. This morning she is sitting up in bed. Alert. Vital signs reveal temperature 97.2 with a pulse of 86 and respirations 16. Blood pressure 150/79 and she is 95% saturated on 2 L. Lungs are generally clear. Heart tones are more controlled and regular. Systolic murmur noted. Abdomen is nontender. No unusual distal edema this morning. She is alert and oriented without focal weakness. Laboratory White count 5.2 with a hemoglobin 10.9 and a platelet count of 235. Electrolytes were normal with potassium 3.8. BUN is 54 with a creatinine 1.49 giving her a GFR stable at 32. Blood sugar 91. Magnesium 2.1 and TSH 4.4. Urine and blood cultures are pending. Impressions and plan Discussed with patient and nursing staff this morning. IV will be decreased. Heparin lock. Echocardiogram has been ordered. We'll await further recommendations from cardiology.
[2017-09-26] MEDS: BETAMETHASONE DIPROPIONATE 0.05% CREAM 15 GM TUBE TOPICAL SCH ×2 (08:23→20:25)
[2017-09-26] MEDS: METOPROLOL TARTRATE 25 MG TAB PO SCH ×2 (08:23→20:24)
[2017-09-26] MEDS: LORATADINE 10 MG TAB PO SCH (08:23)
[2017-09-26] MEDS: FOLIC ACID 1 MG TAB PO SCH (08:23)
[2017-09-26] MEDS: APIXABAN 2.5 MG TABLET PO SCH ×2 (08:23→20:24)
[2017-09-26] MEDS: GABAPENTIN 100 MG CAP PO SCH ×2 (08:23→20:24)
[2017-09-26] MEDS: FUROSEMIDE 10 MG/ML 2 ML VIAL IV SCH ×2 (08:24→20:24)
[2017-09-26] MEDS: CALCIUM CARB-VIT D 250MG-125UN 1 EACH TAB PO SCH ×2 (08:24→20:24)
[2017-09-26] MEDS: HYDROcodone/APAP 7.5-325MG 1 EACH TAB PO PRN ×2 (08:24→19:01)
[2017-09-26] MEDS: CHOLECALCIFEROL 1,000 UNIT TAB PO SCH (08:24)
[2017-09-26] MEDS ORDERED: [UNRECOGNIZED DRUG - OTHER] PO SCH (09:00)
[2017-09-26] MEDS ORDERED: METOPROLOL TARTRATE 25 MG TAB PO SCH (09:00)
[2017-09-26] MEDS ORDERED: B12 PO SCH (09:00)
[2017-09-26] MEDS ORDERED: ACID PO SCH (09:00)
[2017-09-26] MEDS ORDERED: ASPIRIN 81 MG PO SCH (09:00)
[2017-09-26] MEDS ORDERED: IRON PO SCH (09:00)
--- NOTE | 2017-09-26 12:25 | ECHOF ---
Referral Reason:SOB/CHF MEASUREMENTS -------- HEIGHT: 152.4 cm WEIGHT: 67.6 kg BP: 186/99 RVIDd: 3.4 cm (< 3.3) IVSd: 0.8 cm (0.6 - 1.1) LVIDd: 3.5 cm (3.9 - 5.3) LVPWd: 0.9 cm (0.6 - 1.1) IVSs: 1.2 cm LVIDs: 2.6 cm LVPWs: 1.3 cm LAESV Index (A-L): 34.16 ml/m Ao Diam: 2.2 cm (2.0 - 3.7) AV Cusp: 1.4 cm (1.5 - 2.6) MV E Evens: 1.66 m/s MV DecT: 299 ms MV A Evens: 1.41 m/s MV E/A Ratio: 1.18 RAP: 5.00 mmHg RVSP: 60.50 mmHg FINDINGS -------- Paced rhythm. This was a technically good study. The left ventricular size is normal. Left ventricular wall thickness is normal. Overall left vent ricular systolic function is normal with, an EF between 55 - 60 %. The right ventricle is mildly enlarged. The right ventricular septal wall is flattened in systole w hich is consistent with right ventricular pressure overload. LA is moderately dilated 34-39 ml/m2 Electronic pacemaker lead seen in the right ventricular cavity. RA appears enlarged. There is no evidence of aortic stenosis. Normally functioning bioprosthetic valve. There is trivi al regurgitation of the bioprosthetic aortic valve. The mitral valve leaflets are moderate to severely thickened. Moderate mitral annular calcification present. Izbdzmsc-rg-edmoge mitral regurgitation is present. The peak and mean MV gradients are 18.11mmHg 7.25mmHg as measured by doppler. Mild mitral stenosis. Severe tricuspid regurgitation present. There is moderate pulmonary hypertension. The right ventr icular systolic pressure, as measured by Doppler, is 60.50mmHg. Trace/mild (physiologic) pulmonic regurgitation. The aortic root size is normal. Normal inferior vena cava with normal inspiratory collapse consistent with estimated right atrial pre ssure of 5 mmHg. The flow patterns, measured by Doppler, indicate systolic flow reversal suggestiv e of severe TR. There is no pericardial effusion. CONCLUSIONS -------- 1. Paced rhythm. 2. This was a technically good study. 3. The left ventricular size is normal. 4. Left ventricular wall thickness is normal. 5. Overall left ventricular systolic function is normal with, an EF between 55 - 60 %. 6. The right ventricle is mildly enlarged. 7. The right ventricular septal wall is flattened in systole which is consistent with right ventricu lar pressure overload. 8. LA is moderately dilated 34-39 ml/m2 9. Electronic pacemaker lead seen in the right ventricular cavity. 10. RA appears enlarged. 11. Normally functioning bioprosthetic valve. 12. There is trivial regurgitation of the bioprosthetic aortic valve. 13. The mitral valve leaflets are moderate to severely thickened. 14. Moderate mitral annular calcification present. 15. Zrrzhywe-rj-sghuxo mitral regurgitation is present. 16. The peak and mean MV gradients are 18.11mmHg 7.25mmHg as measured by doppler. 17. Mild mitral stenosis. 18. Severe tricuspid regurgitation present. 19. There is moderate pulmonary hypertension. 20. The right ventricular systolic pressure, as measured by Doppler, is 60.50mmHg. 21. Trace/mild (physiologic) pulmonic regurgitation. 22. The aortic root size is normal. 23. The flow patterns, measured by Doppler, indicate systolic flow reversal suggestive of severe TR. 24. There is no pericardial effusion. ROLL OVER PRESS OPERATOR: Markel Winter RDCS
[2017-09-26] MEDS: amLODIPine 5 MG TAB PO SCH (13:18)
[2017-09-26] MEDS: AMITRIPTYLINE HCL 10 MG TAB PO SCH (20:24)
[2017-09-26] MEDS: PRAMIPEXOLE 1 MG TAB PO SCH (20:24)
--- NOTE | 2017-09-26 23:08 | PN ---
PROGRESS NOTE Mrs. Priest was admitted with fever and chills, and she was found to be in atrial fibrillation with a rapid ventricular response. Patient feels much better today. She denies any shortness of breath. Patient has remained afebrile since admission. Blood pressure is 136/80 mmHg. Respiratory rate is 16. First and second heart sounds are normal. Lungs are clinically clear to auscultation and percussion. Patient's hemoglobin is 10.9. Electrolytes are normal. BUN is 54, creatinine 1.49. Patient's TSH is 4.4. Patient has been started on apixaban 2.5 mg b.i.d. because of the atrial fibrillation. Echocardiogram reveals normal left ventricular systolic function with normally functioning bioprosthetic aortic valve. MMODL / IJN: [id number] /
--- NOTE | 2017-09-26 23:20 | CONS ---
CONSULTATION DATE OF SERVICE: 09/25/2017 Mrs. Priest is an 87-year-old female who was admitted through the emergency room with a complaint of fever and knee pain. This patient gives a history that she started having leg pain and swelling on the right side for a few days prior to coming to the hospital. Patient subsequently landed on her left hip and was complaining of left hip pain. Patient was brought by EMS. Initially patient was noticed to have a temperature of 101.4. Patient was also found to be in atrial fibrillation with rapid ventricular response and so we were requested to see the patient in consultation. Patient at present is drowsy further history was mostly obtained from the chart. Patient is status post aortic valve replacement in 2008. Patient had a partial left hip replacement several years ago. History of umbilical hernia repair and knee replacement. Right hip replacement and tooth extractions. Patient also has a history of permanent pacemaker. There is no definite prior history of atrial fibrillation. Patient has not been on any anticoagulation in the past. HOME MEDICATIONS: 1. Lasix 40 mg b.i.d. 2. Flonase. 3. Mirapex. 4. Elavil. 5. Gabapentin. 6. Claritin. 7. Vitamin D3. 8. Folic acid. 9. Synthroid. REVIEW OF SYSTEMS: Otherwise unremarkable. PHYSICAL EXAMINATION: Physical examination in the emergency room revealed the patient to be afebrile and patient was found to be in atrial fibrillation with moderately rapid ventricular response with a heart rate of 100 to 120. Blood pressure was 155/85 mmHg. Patient is not in any acute respiratory distress at present. Head/ENT examination is negative. NECK: Supple. There is no increase in jugular venous pressure. Both the carotid pulses are felt. There is no bruit. Chest is symmetrical. HEART: The PMI is not felt. First and second heart sounds are normal. Lungs reveal bilateral diminished air entry. ABDOMEN: Soft. EXTREMITIES: There is 1+ pedal edema. EKG showed evidence of atrial fibrillation with moderately rapid ventricular response. The telemetry at present shows the heart rate in the range of 90 to 100 per minute. Patient's hemoglobin is 12.9. White count is 8300. Patient's initial troponin was 0.037. FINAL IMPRESSION: 1. This patient has paroxysmal episodes of atrial fibrillation with a moderately rapid ventricular response. At present patient's heart rate is 90 to 100 per minute. Patient may have underlying mild congestive cardiac failure. 2. Fever of unknown origin. 3. Status post aortic valve replacement. RECOMMENDATIONS: We will treat the patient with Lasix IV 20 mg b.i.d. There is no definite evidence of any pulmonary embolism. Venous duplex study does not show any evidence of DVT. We will start the patient on Eliquis 2.5 mg b.i.d. Echo and Doppler study will be obtained. MMODL / IJN: [id number] /
[2017-09-27] MEDS: PANTOPRAZOLE 40 MG TABLET PO SCH (06:46)
[2017-09-27] MEDS: LEVOTHYROXINE 125 MCG TAB PO SCH (06:46)
--- NOTE | 2017-09-27 08:10 | P.PN ---
Progress Note - Text The patient is a 87-year-old female who presented 2 days ago to the emergency room and was found to be in atrial fibrillation with a rapid ventricular response with wide complexes and heart rates from 140-150. Patient has been admitted here to the telemetry floor. She appears to be having paroxysmal atrial tachycardia. The patient has been started on Eliquis. Has been evaluated by cardiology with echocardiogram which did reveal a normal ejection fraction and normal functioning aortic valve bioprosthetic valve. This morning patient feels fatigued. But no chest pain or unusual shortness of breath or palpitations. Vital signs do reveal a low-grade temperature 100.4 during the night. Pulse of 97 and slightly irregular. Respiratory rate of 16. Blood pressure 148/76 and she is 94% saturated on room air. Lungs are generally clear although diminished at bases. Heart tones were irregularly irregular. Abdomen nontender. No unusual distal edema. She is alert and oriented. Cranial nerves intact and no focal weakness noted. She does appear to have some mild erythema about the IV site on the right forearm. Laboratory reveal a white count of 5.2 with hemoglobin 10.9 yesterday. BUN was 54 with creatinine 1.49 giving her a GFR of 32. no new labs this morning. Microbiology cultures of urine and blood on admission are negative. Impressions and plans The patient now on Eliquis. New onset of paroxysmal atrial fibrillation. Rate generally stable at this time. Normal systolic function. Likely chronic diastolic dysfunction. Consult has been placed with physical therapy for evaluation. Assessment on overall function to see patient can return to her home environment. We'll await any further recommendations from cardiology. Her heparin well can be DC'd as possible source of low-grade temperature. And if Lasix can be changed to oral. Discharge planning on case for possible discharge/transfer over the next 24-48 hours.
[2017-09-27] MEDS: amLODIPine 5 MG TAB PO SCH (08:51)
[2017-09-27] MEDS: METOPROLOL TARTRATE 25 MG TAB PO SCH ×2 (08:51→20:36)
[2017-09-27] MEDS: APIXABAN 2.5 MG TABLET PO SCH ×2 (08:51→20:36)
[2017-09-27] MEDS: FOLIC ACID 1 MG TAB PO SCH (08:51)
[2017-09-27] MEDS: LORATADINE 10 MG TAB PO SCH (08:53)
[2017-09-27] MEDS: CALCIUM CARB-VIT D 250MG-125UN 1 EACH TAB PO SCH ×2 (08:53→20:36)
[2017-09-27] MEDS: GABAPENTIN 100 MG CAP PO SCH ×2 (08:54→20:36)
[2017-09-27] MEDS: FUROSEMIDE 10 MG/ML 2 ML VIAL IV SCH ×2 (08:55→20:36)
[2017-09-27] MEDS: BETAMETHASONE DIPROPIONATE 0.05% CREAM 15 GM TUBE TOPICAL SCH ×2 (08:56→20:36)
[2017-09-27] MEDS: HYDROcodone/APAP 7.5-325MG 1 EACH TAB PO PRN ×2 (09:02→16:06)
--- NOTE | 2017-09-27 10:45 | CDI ---
Last Revision, April 2017 Documentation Clarification Form Date: 09/27/2017 10:41:00 AM From: Rossy RaglandADRIANA quinonez, CCDS Admit Date: 09/26/2017 9:38:00 AM Patient Name: Arabella Priest Visit Number: [id number] Discharge Date: ATTENTION: The Clinical Documentation Specialists (CDI) and [facility] Coding Staff appreciate your assistance in clarifying documentation. Please respond to the clarification below the line at the bottom and electronically sign. The CDI & [facility] Coding staff will review the response and follow-up if needed. Please note: Queries are made part of the Legal Health Record. If you have any questions, please contact the author of this message via ITS. Dr. Nolan Lunsford: 87 yo female, presented via EMS with fever, right leg pain & swelling, pain to left hip, recent fall. PE, DVT & fractures were ruled out by imaging. Also c/o palpitations. Diagnosed with new onset of paroxysmal atrial fibrillation. History/Risk Factors: AVR, Pacemaker, Chronic diastolic CHF & documented CKD in the H/P. Clinical Indicators: Admitting BUN 60^, Creatinine 1.55^, GFR 30 Current BUN 54^, Creatinine 1.49^, GFR 32 Patients Baseline: BUN/CR/GFR: Unknown or not documented. Treatment: IV Meropenem, IV Cardizem, IV Heparin, IV fluid rate 75, IV Ativan, IV Lasix. In order to capture the severity of condition, please clarify if the condition signifies: Renal Failure: o Acute o Acute on Chronic If Chronic, please specify the state if known: o CKD Stage 1 (GFR > 90) o CKD Stage 2 (GFR 60-89) o CKD Stage 3 (GFR 30-59) o CKD Stage 4 (GFR 15-29) o CKD Stage 5 (GFR <15) Other, please specify Unable to determine Please continue to document in your progress notes and discharge summary in order to capture severity of illness and risk of mortality. Include clinical findings that support your diagnosis. MTDD
[2017-09-27 11:37] VITALS: BMI 28.0
[2017-09-27] MEDS: CHOLECALCIFEROL 1,000 UNIT TAB PO SCH (12:42)
--- NOTE | 2017-09-27 15:22 | P.PN ---
Subjective Progress Note Date: 09/27/17 This is an 87-year-old female admitted to the emergency room with complaints of fever and the pain, she gave history that she started out in pain and swelling on the right side for 5 days prior to coming to the hospital. On presentation here patient was found to be in atrial fibrillation with rapid ventricular response. Patient is status post aortic valve replacement in 2008 also history of permanent pacemaker. No definite history of atrial fibrillation and she has not been on anticoagulation in the past. Patient was initiated on Eliquis 2-1/2 mg one tablet by mouth twice a day yesterday. Echocardiogram with Doppler study was performed which revealed an ejection fraction of 55-60%. Moderate to severe mitral regurgitation noted. Ear tricuspid regurg. Patient was running temperatures through the night last night , blood pressure this morning 105/60. White blood cell count 5.2, hemoglobin 10.9, sodium 141, potassium 3.8, BUN 54, creatinine 1.4. TSH normal. BNP level 12,100. seen and examined this morning, complaints of feeling tired , she does state that her breathing is improved. She is putting out excellent urine. We will repeat her chest x-ray, continue current dose of IV Lasix. Objective - Vital Signs Vital signs: Vital Signs Temp 98.8 F 09/27/17 11:16 Pulse 86 09/27/17 11:16 Resp 18 09/27/17 11:16 BP 105/61 09/27/17 11:16 Pulse Ox 92 L 09/27/17 11:16 Intake & Output 09/26/17 09/27/17 09/27/17 18:59 06:59 18:59 Intake Total 700 480 Output Total 700 800 Balance 0 -800 480 Weight 65 kg 65 kg Intake: Intake, IV Titration 100 Amount Sodium Chloride 0.9% 1, 100 000 ml @ 50 mls/hr IV . Q20H ONE Rx#:[id number] Oral 600 480 Output: Urine 700 800 Other: Voiding Method Indwelling Catheter Indwelling Catheter # Bowel Movements 0 - Exam PHYSICAL EXAMINATION: HEENT: Head is atraumatic, normocephalic. Pupils equal, round. Neck is supple. There is no elevated jugular venous pressure. HEART EXAMINATION: Heart S1 and S2 irregularly irregular a systolic murmur is heard. CHEST EXAMINATION: Lungs reveal diminished air entry to bilateral bases. ABDOMEN: Soft, nontender. Bowel sounds are heard. No organomegaly noted. EXTREMITIES: 2+ peripheral pulses with trace evidence of peripheral edema and no calf tenderness noted. NEUROLOGIC patient is awake, alert and oriented -3. . - Labs CBC & Chem 7: 09/26/17 06:06 09/26/17 06:06 Labs: Microbiology - Last 24 Hours (Table) 09/25/17 06:38 Blood Culture - Preliminary Blood No Growth after 48 hours 09/25/17 07:30 Urine Culture - Final Urine,Catheterized Assessment and Plan Plan: Assessment and plan #1 paroxysmal atrial fibrillation started on Eliquis for anticoagulation. #2 diastolic congestive heart failure acute on chronic #3 chronic kidney disease #4 history of aortic valve replacement #5 hypertension #6 fever Plan echocardiogram with Doppler study was performed which revealed a normal left ventricular systolic function. Moderate to severe mitral regurg and severe tricuspid regurg. We will continue current dose of IV Lasix, check lytes BUN and creatinine in the morning. Repeat chest x-ray DNP note has been reviewed, I agree with a documented findings and plan of care. Patient was seen and examined.
--- NOTE | 2017-09-27 15:56 | XR ---
EXAMINATION TYPE: XR chest 2V DATE OF EXAM: 09/27/2017 COMPARISON: 09/25/2017 TECHNIQUE: PA and lateral views submitted. HISTORY: Shortness of breath FINDINGS: Cardiac device seen and there is cardiomegaly bilateral consolidation and pleural effusion. Correlate for mild venous congestion. Chronic deformities and arthropathy of the shoulders. No obvious pneumot horax. Suggestion of an aortic stent. Hyperinflation suggests COPD. IMPRESSION: 1. Bilateral infiltrate and pleural effusion correlate for mild central venous congestion.
[2017-09-27] MEDS: AMITRIPTYLINE HCL 10 MG TAB PO SCH (20:36)
[2017-09-27] MEDS: PRAMIPEXOLE 1 MG TAB PO SCH (20:36)
[2017-09-28] MEDS: HYDROcodone/APAP 7.5-325MG 1 EACH TAB PO PRN ×2 (05:32→17:40)
[2017-09-28] MEDS: PANTOPRAZOLE 40 MG TABLET PO SCH (06:06)
[2017-09-28] MEDS: LEVOTHYROXINE 125 MCG TAB PO SCH (06:06)
[2017-09-28 07:41] LABS: Calcium 8.2 mg/dL (8.4-10.2); Potassium 3.8 mmol/L (3.5-5.1)
[2017-09-28] MEDS: BETAMETHASONE DIPROPIONATE 0.05% CREAM 15 GM TUBE TOPICAL SCH ×2 (08:41→20:08)
[2017-09-28] MEDS: CHOLECALCIFEROL 1,000 UNIT TAB PO SCH (08:42)
[2017-09-28] MEDS: CALCIUM CARB-VIT D 250MG-125UN 1 EACH TAB PO SCH ×2 (08:42→20:08)
[2017-09-28] MEDS: FOLIC ACID 1 MG TAB PO SCH (08:42)
[2017-09-28] MEDS: GABAPENTIN 100 MG CAP PO SCH ×2 (08:42→20:08)
[2017-09-28] MEDS: METOPROLOL TARTRATE 25 MG TAB PO SCH ×2 (08:42→20:08)
[2017-09-28] MEDS: APIXABAN 2.5 MG TABLET PO SCH ×2 (08:43→20:08)
[2017-09-28] MEDS: amLODIPine 5 MG TAB PO SCH (08:43)
[2017-09-28] MEDS: LORATADINE 10 MG TAB PO SCH (08:43)
[2017-09-28] MEDS: FUROSEMIDE 10 MG/ML 2 ML VIAL IV SCH ×2 (08:43→20:08)
[2017-09-28] MEDS: PRAMIPEXOLE 1 MG TAB PO SCH (20:08)
[2017-09-28] MEDS: AMITRIPTYLINE HCL 10 MG TAB PO SCH (20:08)
[2017-09-29] MEDS: LEVOTHYROXINE 125 MCG TAB PO SCH (06:43)
[2017-09-29] MEDS: PANTOPRAZOLE 40 MG TABLET PO SCH (06:43)
[2017-09-29] MEDS: APIXABAN 2.5 MG TABLET PO SCH (08:04)
[2017-09-29] MEDS: amLODIPine 5 MG TAB PO SCH (08:04)
[2017-09-29] MEDS: BETAMETHASONE DIPROPIONATE 0.05% CREAM 15 GM TUBE TOPICAL SCH (08:04)
[2017-09-29] MEDS: CALCIUM CARB-VIT D 250MG-125UN 1 EACH TAB PO SCH (08:04)
[2017-09-29] MEDS: LORATADINE 10 MG TAB PO SCH (08:05)
[2017-09-29] MEDS: FOLIC ACID 1 MG TAB PO SCH (08:05)
[2017-09-29] MEDS: METOPROLOL TARTRATE 25 MG TAB PO SCH (08:05)
[2017-09-29] MEDS: FUROSEMIDE 10 MG/ML 2 ML VIAL IV SCH (08:05)
[2017-09-29] MEDS: CHOLECALCIFEROL 1,000 UNIT TAB PO SCH (08:05)
[2017-09-29] MEDS: GABAPENTIN 100 MG CAP PO SCH (08:05)
[2017-09-29] MEDS: HYDROcodone/APAP 7.5-325MG 1 EACH TAB PO PRN ×2 (08:11→15:21)
--- NOTE | 2017-09-29 08:30 | P.DS ---
Providers Date of admission: 09/26/17 09:38 Attending physician: Nolan Lunsford Consults: 09/25/17 12:11 Consult Physician Stat Consulting Provider: Jose Johnson Consult Reason/Comments: current chest pain, elevated troponin Do you want consulting provider notified?: Yes Primary care physician: Nolan Lunsford The patient is an 87-year-old female presented with acute shortness of breath to the emergency room. Patient was found to be in atrial fibrillation with a rapid ventricular response with a heart rate up to 150. This appears to be new onset atrial fibrillation for this patient but she does have previous cardiac history with a aortic valve replacement in 2008 and history of permanent pacemaker placement in the past. The patient was placed on Eloquis and monitored. An echocardiogram revealed an ejection fraction of 55-60%. Good functioning of the replaced aortic valve. The patient was started on Eliquis and also received IV Lasix. Overall her heart rate did improve with the rates from 70-90. Patient diuresed well. She has actually lost about 9 kg. Overall her breathing has improved. Laboratory values revealed a white count of 5.2 with a hemoglobin of 10.9 and a platelet count of 235. Electrolytes reveal a sodium 141 with a potassium of 3.8. BUN today is 63 with creatinine 1.81 giving her a GFR of 25. Blood sugar of 80. Patient's troponin was mildly elevated on presentation 0.037 and her BNP was elevated at 12,100. TSH value of 4.4. Albumin 4.1. Other liver functioning were generally satisfactory. Urinalysis revealed negative leukocyte esterase and blood and urine cultures have been negative. Imaging studies Chest x-ray has shown some bilateral infiltrate and pleural effusions consistent with venous congestion. Hip x-ray showed stable but prominent protrusion. No acute fracture was seen. Patient did have an elevated d-dimer and a venous duplex was performed and was negative. VQ study revealed intermediate probability for pulmonary embolus. Only matched defects were found along the periphery. EKG on presentation revealed a slightly irregular tachycardic rhythm. Patient also was found to be in atrial fibrillation on her monitor pattern on selective care cardiac stepdown unit. The patient was seen by cardiology in consultation. Patient also was seen by physical therapy. Discharge planning. Arrangements are now being made for transfer to a subacute rehab. Discharge medications 1. Elavil 10 mg at at bedtime 2. Amlodipine 5 mg daily 3. Eloquis 2.5 mg twice a day 4. Diprolene AF cream applied twice a day to affected areas. 5. Os-Fahad 250 mg with vitamin D one twice a day 6. Cholecalciferol thousand units daily. 7. Flonase nasal 2 sprays in each nostril daily as needed 8. Folic acid 0.5 mg daily 9. Furosemide 40 mg daily 10. Neurontin 200 mg twice a day 11. Synthroid 125 g daily 12. Loratadine 10 mg daily 13. Metoprolol tartrate 25 mg twice a day 14. Protonix 40 mg before breakfast 15. Mirapex 1 mg at at bedtime for restless leg syndrome. Discharge diagnoses 1. New onset atrial fibrillation with rapid ventricular response and congestive heart failure. 2. Acute on chronic diastolic congestive heart failure. 3. Acute on chronic renal failure with grade 4 acute on chronic kidney disease. 4. History of transcutaneous aortic valve replacement in 2008. Done in [place]. 5. History of permanent pacemaker placement. 6. Chronic venous insufficiency of lower extremities. 7. History of a diffuse degenerative joint disease with previous bilateral knee and hip surgeries in [place]. 8. History of fractured right humerus back in 2016. 9. Hypothyroidism on replacement 10. Restless leg syndrome. 11. History of multiple ALLERGIES please refer to list. These include multiple ALLERGIES to antibiotics. Diet as tolerated. Patient will be engaged in physical and occupational therapies. This was discussed with patient and at bedside. Plan - Discharge Summary Discharge Rx Participant: No New Discharge Prescriptions: No Action Fluticasone Propionate [Flonase] 2 spray EA NOSTRIL DAILY PRN PRN Reason: Allergy Symptoms Pramipexole [Mirapex] 1 mg PO HS Loratadine [Claritin] 10 mg PO DAILY Gabapentin [Neurontin] 200 mg PO BID Amitriptyline HCl [Elavil] 10 mg PO HS Iron 27+Folic Acid+B-12 1 tab PO DAILY Levothyroxine Sodium [Synthroid] 125 mcg PO DAILY HYDROcodone/APAP 7.5-325MG [Otto 7.5-325] 1 - 2 tab PO Q4H PRN MDD 6 TAB PRN Reason: Pain Aspirin EC [Ecotrin Low Dose] 81 mg PO DAILY Calcium/Vitamin D3 1 tab PO BID Cholecalciferol [Vitamin D3] 1,000 unit PO DAILY Fluocinonide 0.05% [Lidex 0.05% cream] 1 applic TOPICAL BID Folic Acid 0.4 mg PO DAILY Furosemide [Lasix] 80 mg PO BID Metoprolol Tartrate [Lopressor] 25 mg PO DAILY Pantoprazole [Protonix] 40 mg PO DAILY Discharge Medication List Fluticasone Propionate [Flonase] 2 spray EA NOSTRIL DAILY PRN 04/07/14 [History] Pramipexole [Mirapex] 1 mg PO HS 04/12/14 [History] Amitriptyline HCl [Elavil] 10 mg PO HS 11/01/15 [History] Gabapentin [Neurontin] 200 mg PO BID 11/01/15 [History] Loratadine [Claritin] 10 mg PO DAILY 11/01/15 [History] HYDROcodone/APAP 7.5-325MG [Otto 7.5-325] 1 - 2 tab PO Q4H PRN MDD 6 TAB [History] Iron 27+Folic Acid+B-12 1 tab PO DAILY 06/10/16 [History] Levothyroxine Sodium [Synthroid] 125 mcg PO DAILY 06/10/16 [History] Aspirin EC [Ecotrin Low Dose] 81 mg PO DAILY 09/25/17 [History] Calcium/Vitamin D3 1 tab PO BID 09/25/17 [History] Cholecalciferol [Vitamin D3] 1,000 unit PO DAILY 09/25/17 [History] Fluocinonide 0.05% [Lidex 0.05% cream] 1 applic TOPICAL BID 09/25/17 [History] Folic Acid 0.4 mg PO DAILY 09/25/17 [History] Furosemide [Lasix] 80 mg PO BID 09/25/17 [History] Metoprolol Tartrate [Lopressor] 25 mg PO DAILY 09/25/17 [History] Pantoprazole [Protonix] 40 mg PO DAILY 09/25/17 [History] Follow up Appointment(s)/Referral(s): Nolan Lunsford MD [Primary Care Provider] - 1-2 days
[2017-09-29 08:35] VITALS: RESP 18
--- NOTE | 2017-09-29 08:35 | P.PN ---
Progress Note - Text The patient is a 87-year-old female who initially presented with shortness of breath and new-onset atrial fibrillation with rapid ventricular response associated with acute systolic and diastolic congestive heart failure. This morning she is sitting up in bed. Alert. No complaints of chest pain or unusual shortness of breath at rest. Please refer to previous notes for patient 's list of comorbidities. She is overall a very frail 87 years old with numerous medical concerns. Vital signs reveal temperature of 97 with a pulse of 74 and respirations 17. Blood pressure 118/69 and she is 94% saturated on 3 L. Lungs are generally clear although diminished at bases. No wheezes or rhonchi. Heart tones this morning are for the most part regular. Rate is also controlled. Abdomen is nontender. Trace pedal edema noted. No focal neurological changes. Impressions and plans Patient has been seen by physical and occupational therapy. Plans are for patient to go to an extended care rehab. Please refer to discharge summary from yesterday which has her medications and orders. Discharge today pending all needs met in terms of placement and availability of bed at the receiving institution. Anticipating [facility] as per patient's wishes.
[2017-09-29 08:50] LABS: Calcium 8.8 mg/dL (8.4-10.2); Potassium 4.2 mmol/L (3.5-5.1)
--- NOTE | 2017-09-29 09:07 | CDI ---
Last Revision, April 2017 Documentation Clarification Form Date: 09/29/2017 8:54:00 AM From: Rossy GarvinRaglandADRIANA quinonez, CCDS Admit Date: 09/26/2017 9:38:00 AM Patient Name: Arabella Priest Visit Number: [id number] Discharge Date: ATTENTION: The Clinical Documentation Specialists (CDI) and [facility] Coding Staff appreciate your assistance in clarifying documentation. Please respond to the clarification below the line at the bottom and electronically sign. The CDI & [facility] Coding staff will review the response and follow-up if needed. Please note: Queries are made part of the Legal Health Record. If you have any questions, please contact the author of this message via ITS. Dr. Nolan Lunsford: Per your 09/29 progress note: "The patient is a 87-year-old female who initially presented with shortness of breath and new-onset atrial fibrillation with rapid ventricular response associated with acute systolic and diastolic congestive heart failure." CHF is previously documented as acute on chronic diastolic congestive heart failure. History/Risk Factors: Htn heart disease, CHF (diastolic), CKD stage IV, Pacemaker, AVR. Clinical Indicators: VS: P 114, R 20, BP 155/84, PO 95-93 2-4Lnc LAB: BNP [id number] Echocardiogram Results: Left systolic function wnl EF between 55-60%. Mod- severe MR, Severe TR, Moderate pulmonary hypertension. Chest X Ray: Chronic parenchymal changes & cardiomegaly w/o acute pulmonary process. Treatment: Cardiology consult. IV Meropenem, IV Cardizem, IV Heparin, O2. In your professional opinion, can you please clarify the acuity and type of CHF if known? Systolic Heart Failure: o Acute o Chronic o Acute on Chronic Diastolic Heart Failure: o Acute o Chronic o Acute on Chronic Systolic & Diastolic Heart Failure: o Acute o Chronic o Acute on Chronic Heart Failure Unable to Determine Other, please specify Please continue to document in your progress notes and discharge summary in order to capture severity of illness and risk of mortality. Include clinical findings that support your diagnosis. MTDD
[2017-09-29 11:33] VITALS: BP 133/51; PULSE 79; TEMP 98.2
--- NOTE | 2017-09-29 14:27 | P.PN ---
Subjective Progress Note Date: 09/29/17 This is an 87-year-old female admitted to the emergency room with complaints of fever and the pain, she gave history that she started out in pain and swelling on the right side for 5 days prior to coming to the hospital. On presentation here patient was found to be in atrial fibrillation with rapid ventricular response. Patient is status post aortic valve replacement in 2008 also history of permanent pacemaker. No definite history of atrial fibrillation and she has not been on anticoagulation in the past. Patient was initiated on Eliquis 2-1/2 mg one tablet by mouth twice a day yesterday. Echocardiogram with Doppler study was performed which revealed an ejection fraction of 55-60%. Moderate to severe mitral regurgitation noted. Ear tricuspid regurg. Patient was running temperatures through the night last night , blood pressure this morning 105/60. White blood cell count 5.2, hemoglobin 10.9, sodium 141, potassium 3.8, BUN 54, creatinine 1.4. TSH normal. BNP level 12,100. seen and examined this morning, complaints of feeling tired , she does state that her breathing is improved. She is putting out excellent urine. We will repeat her chest x-ray, continue current dose of IV Lasix. 09/29/2017 Patient seen and examined this morning, sitting up in bed at the time of my examination, breathing is stable overall. IV Lasix will be discontinued and patient will be started on oral diuretics. From cardiology's perspective she may be able to be discharged once cleared by primary. We will make a follow-up appointment in the office post discharge. BUN 74 today, creatinine 1.9, potassium 4.2. Objective - Vital Signs Vital signs: Vital Signs Temp 98.2 F 09/29/17 11:32 Pulse 79 09/29/17 11:32 Resp 18 09/29/17 11:32 BP 133/51 09/29/17 11:32 Pulse Ox 93 L 09/29/17 11:32 Intake & Output 09/28/17 09/29/17 09/29/17 18:59 06:59 18:59 Intake Total 1440 100 Output Total 300 Balance 1140 100 Weight 59 kg Intake: Oral 1440 100 Output: Urine 300 Other: Voiding Method Bedside Commode Bedside Commode # Voids 1 1 1 # Bowel Movements 1 1 - Exam PHYSICAL EXAMINATION: HEENT: Head is atraumatic, normocephalic. Pupils equal, round. Neck is supple. There is no elevated jugular venous pressure. HEART EXAMINATION: Heart S1 and S2 irregularly irregular a systolic murmur is heard. CHEST EXAMINATION: Lungs reveal diminished air entry to bilateral bases. ABDOMEN: Soft, nontender. Bowel sounds are heard. No organomegaly noted. EXTREMITIES: 2+ peripheral pulses with trace evidence of peripheral edema and no calf tenderness noted. NEUROLOGIC patient is awake, alert and oriented -3. . - Labs CBC & Chem 7: 09/26/17 06:06 09/29/17 08:02 Labs: Abnormal Lab Results - Last 24 Hours (Table) 09/29/17 Range/Units 08:02 BUN 74 H (7-17) mg/dL Creatinine 1.93 H (0.52-1.04) mg/dL Glucose 102 H (74-99) mg/dL Microbiology - Last 24 Hours (Table) 09/25/17 06:38 Blood Culture - Preliminary Blood No Growth after 96 hours Assessment and Plan Plan: Assessment and plan #1 paroxysmal atrial fibrillation started on Eliquis for anticoagulation. #2 diastolic congestive heart failure acute on chronic #3 chronic kidney disease #4 history of aortic valve replacement #5 hypertension #6 fever Plan echocardiogram with Doppler study was performed which revealed a normal left ventricular systolic function. Moderate to severe mitral regurg and severe tricuspid regurg. IV Lasix will be discontinued and patient will be started on oral diuretics. Patient will be discharged home once cleared by the primary. Follow-up appointment in the office post discharge. DNP note has been reviewed, I agree with a documented findings and plan of care. Patient was seen and examined.
== END 2017-09-29 15:59 | DRG 308 ==
LOC: EC 06:22 → 6SEL 09:50 → OBSVTOIN 09-26 09:38
PROVIDERS: ADMIT Internal Medicine; ATTEND Internal Medicine
DX: I48.0 Paroxysmal atrial fibrillation (principal); I50.43 Acute on chronic combined systolic (congestive) and diastolic (congestive) heart failure; I13.0 Hypertensive heart and chronic kidney disease with heart failure and stage 1 through stage 4 chronic kidney disease, or unspecified chronic kidney disease; N17.9 Acute kidney failure, unspecified; N18.4 Chronic kidney disease, stage 4 (severe); E03.9 Hypothyroidism, unspecified; Z79.890 Hormone replacement therapy; G25.81 Restless legs syndrome; I08.1 Rheumatic disorders of both mitral and tricuspid valves; I42.9 Cardiomyopathy, unspecified; I87.2 Venous insufficiency (chronic) (peripheral); J45.909 Unspecified asthma, uncomplicated; K21.9 Gastro-esophageal reflux disease without esophagitis; K58.9 Irritable bowel syndrome, unspecified; M19.90 Unspecified osteoarthritis, unspecified site; Z95.2 Presence of prosthetic heart valve; R54 Age-related physical debility; Z96.643 Presence of artificial hip joint, bilateral; Z95.0 Presence of cardiac pacemaker; Z79.51 Long term (current) use of inhaled steroids; Z79.899 Other long term (current) drug therapy; Z87.81 Personal history of (healed) traumatic fracture; Z79.82 Long term (current) use of aspirin; Z79.891 Long term (current) use of opiate analgesic; Z80.1 Family history of malignant neoplasm of trachea, bronchus and lung; Z82.3 Family history of stroke; Z86.73 Personal history of transient ischemic attack (TIA), and cerebral infarction without residual deficits; Z87.891 Personal history of nicotine dependence; Z88.1 Allergy status to other antibiotic agents; Z96.653 Presence of artificial knee joint, bilateral
CPT/HCPCS: 36415; 71046; 73502; 78582; 80048; 80053; 81001; 83605; 83735; 83880; 84443; 84484; 85025; 85379; 85610; 85730; 87040; 87086; 93005; 93306; 94760; 96365; 96366; 96367; 96375; 96376; 99285

== ENCOUNTER 2017-10-05 08:52 | Inpatient (IN) | payer MEDICARE ==
--- NOTE | 2017-10-05 09:39 | ED ---
General Adult HPI - General Chief complaint: Shortness of Breath Stated complaint: CHF Time Seen by Provider: 10/05/17 09:13 Source: patient, RN notes reviewed Mode of arrival: EMS Limitations: no limitations - History of Present Illness Initial comments: 87-year-old female presenting from [facility] with concern for congestive heart failure. Patient does have history of heart failure and has complained of some worsening bilateral lower extremity edema. She was given 80 mg of by mouth Lasix yesterday given 40 mg of IV Lasix and 50 mg of prednisone prior to transfer. Patient states she does have history of COPD. Patient complains of mild sore throat and nasal congestion as well as nonproductive cough. She complains of subjective fever and chills. No abdominal pain. She does have some mild chest pain worse with cough. No nausea or vomiting. No diaphoresis. - Related Data Home Medications Medication Instructions Recorded Confirmed Fluticasone Propionate [Flonase] 2 spray EA NOSTRIL DAILY PRN 04/07/14 10/05/17 Pramipexole [Mirapex] 1 mg PO HS 04/12/14 10/05/17 Amitriptyline HCl [Elavil] 10 mg PO HS 11/01/15 10/05/17 Gabapentin [Neurontin] 200 mg PO BID 11/01/15 10/05/17 Loratadine [Claritin] 10 mg PO DAILY 11/01/15 10/05/17 HYDROcodone/APAP 7.5-325MG [[place] 1 - 2 tab PO Q4H PRN 06/10/16 10/05/17 7.5-325] Iron 27+Folic Acid+B-12 1 tab PO DAILY 06/10/16 10/05/17 Levothyroxine Sodium [Synthroid] 125 mcg PO DAILY 06/10/16 10/05/17 Aspirin EC [Ecotrin Low Dose] 81 mg PO DAILY 09/25/17 10/05/17 Cholecalciferol [Vitamin D3] 1,000 unit PO DAILY 09/25/17 10/05/17 Fluocinonide 0.05% [Lidex 0.05% 1 applic TOPICAL BID 09/25/17 10/05/17 cream] Folic Acid 0.4 mg PO HS@1700 09/25/17 10/05/17 Furosemide [Lasix] 80 mg PO BID 09/25/17 10/05/17 Metoprolol Tartrate [Lopressor] 25 mg PO DAILY 09/25/17 10/05/17 Pantoprazole [Protonix] 40 mg PO DAILY 09/25/17 10/05/17 Apixaban [Eliquis] 2.5 mg PO BID 10/05/17 10/05/17 Bisacodyl [Dulcolax] 10 mg RECTAL DAILY PRN 10/05/17 10/05/17 Calcium Carb-Vit D 500Mg-200Un 1 tab PO BID 10/05/17 10/05/17 [Oscal 500+D] Ipratropium-Albuterol Nebulize 3 ml INHALATION RT-QID 10/05/17 10/05/17 [Duoneb 0.5 mg-3 mg/3 ml Soln] Vit C/E/Zn/Coppr/Lutein/Zeaxan 1 cap PO HS 10/05/17 10/05/17 [Preservision Areds 2 Softgel] Allergies Allergy/AdvReac Type Severity Reaction Status Date / Time adhesive Allergy Anaphylaxis-STATED Verified 10/05/17 09:17 "ADHESIVE ON LIDODERM PATCH PAPER TAPE OK azithromycin [From Zithromax] Allergy Unknown Verified 10/05/17 09:17 bumetanide Allergy Unknown Verified 10/05/17 09:17 cefuroxime Allergy Unknown Verified 10/05/17 09:17 cephalexin [From Keflex] Allergy Unknown Verified 10/05/17 09:17 ciprofloxacin [From Cipro] Allergy Rash/Hives Verified 10/05/17 09:17 ciprofloxacin HCl Allergy Rash/Hives Verified 10/05/17 09:17 [From Cipro] clindamycin Allergy Unknown Verified 10/05/17 09:17 clonazepam Allergy Unknown Verified 10/05/17 09:17 daptomycin [From Cubicin] Allergy Unknown Verified 10/05/17 09:17 doxycycline Allergy Unknown Verified 10/05/17 09:17 levofloxacin [From Levaquin] Allergy Unknown Verified 10/05/17 09:17 lidocaine [From Lidoderm] Allergy Rash/Hives Verified 10/05/17 09:17 linezolid [From Zyvox] Allergy Unknown Verified 10/05/17 09:17 meclizine Allergy Unknown Verified 10/05/17 09:17 nitrofurantoin Allergy Unknown Verified 10/05/17 09:17 [From Macrodantin] Penicillins Allergy "BLACK Verified 10/05/17 09:17 RING AROUND TONGUE" Sulfa (Sulfonamide Allergy Rash/Hives Verified 10/05/17 09:17 Antibiotics) Tetracyclines Allergy "BLACK Verified 10/05/17 09:17 RING AROUND TONGUE" Review of Systems ROS Statement: Those systems with pertinent positive or pertinent negative responses have been documented in the HPI. ROS Other: All systems not noted in ROS Statement are negative. Past Medical History Past Medical History: Atrial Fibrillation, Asthma, Heart Failure, Hypertension, Osteoarthritis (OA), Renal Disease, Skin Disorder, Syncope, Thyroid Disorder Additional Past Medical History / Comment(s): Chronic CHF, cardimyopathy, murmur , bronchitis, "stroke" behind L eye, chronic kidney disease, anemia, UTIS, sepsis, bilateral lower leg cellulitis, sinus problems, migraines, past R humerus fracture, R superior pubic ramus fracture, falls. History of Any Multi-Drug Resistant Organisms: MRSA Date of last positivie culture/infection: 10-26-2008 MDRO Source:: LEFT HIP Past Surgical History: Cardiac Valve Replacement, Section, Hernia Repair, Joint Replacement, Pacemaker, Tonsillectomy Additional Past Surgical History / Comment(s): UMBILICAL HERNIA,C SECTION X 2, ISIDORO KNEE REPLACEMENT, RT HIP REPLACEMENT, PARTIAL THYROIDECTOMY, PARTIAL LT HIP REPLACEMENT SEVERAL YRS AGO AND ANTIBIOTIC SPACER PLACED 2008, TRANSCUTANEOUS AORTIC VALVE REPLACEMENT IN 2014 AT [facility], tooth extraction, SEPTOPLASTY, EGD, COLONOSCOPY, L GROIN ENLARGED LYMPH NODE EXCISION. Past Anesthesia/Blood Transfusion Reactions: No Reported Reaction Type of Cardiac Device: Permanent Pacemaker Device Placement Date:: 03/12/14 Past Psychological History: Anxiety, Depression Smoking Status: Former smoker - Past Family History Brother(s) Family Medical History: Cancer Additional Family Medical History / Comment(s): TWIN BROTHER LUNG CA Mother Additional Family Medical History / Comment(s): BLEEDING ULCER Father Family Medical History: CVA/TIA General Exam Limitations: no limitations General appearance: alert, in no apparent distress Head exam: Present: atraumatic, normocephalic Eye exam: Present: normal appearance, PERRL, EOMI ENT exam: Present: normal exam Neck exam: Present: normal inspection. Absent: tenderness, meningismus Respiratory exam: Present: wheezes, rales, rhonchi. Absent: respiratory distress Cardiovascular Exam: Present: regular rate, normal rhythm GI/Abdominal exam: Present: soft. Absent: distended, tenderness Extremities exam: Present: pedal edema Neurological exam: Present: alert, oriented X3 Psychiatric exam: Present: normal affect, normal mood Skin exam: Present: warm, dry, intact. Absent: cyanosis, diaphoretic Course Vital Signs 10/05/17 10/05/17 10/05/17 08:59 10:02 11:15 Temperature 101.4 F H 99.6 F Pulse Rate 88 111 H 106 H Respiratory 22 18 18 Rate Blood Pressure 96/60 102/62 112/76 O2 Sat by Pulse 95 92 L 96 Oximetry EKG Findings - EKG Comments: EKG Findings:: EKG obtained at 9:11 AM shows ventricular paced rhythm, rate of 111, QRS duration 140, QTC 546. Repeat EKG obtained at 958 shows sinus tachycardia with first-degree AV block, right bundle branch block rate of 110 CO interval 210, castration 122, QTC [address] segment elevation Medical Decision Making - Medical Decision Making 87-year-old female presenting with dyspnea, fluid overload, and cough. Laboratory studies do reveal elevated white blood cell count 13.4, BUN/ creatinine are elevated although this appears to be patient's baseline. BNP is 18,000. Troponin is elevated in the setting of chronic kidney disease and patient does have history of troponin leak. This level will be trended. Influenza negative. Chest x-ray shows venous congestion and concern for bilateral infiltrate, given the fever and elevated white count, she is started on antibiotics for healthcare associated pneumonia. She will be admitted for antibiotics, treatment of congestive heart failure, and cardiology consult. Case discussed with Dr. Lunsford who will accept admission. - Lab Data Result diagrams: 10/05/17 09:20 10/05/17 09:20 Lab Results 10/05/17 10/05/17 10/05/17 Range/Units 09:20 09:20 09:20 WBC 13.4 H (3.8-10.6) k/uL RBC 3.45 L (3.80-5.40) m/uL Hgb 10.8 L (11.4-16.0) gm/dL Hct 33.0 L (34.0-46.0) % MCV 95.6 (80.0-100.0) fL MCH 31.3 (25.0-35.0) pg MCHC 32.7 (31.0-37.0) g/dL RDW 14.0 (11.5-15.5) % Plt Count 415 (150-450) k/uL Neutrophils % 93 % Lymphocytes % 3 % Monocytes % 2 % Eosinophils % 0 % Basophils % 0 % Neutrophils # 12.4 H (1.3-7.7) k/uL Lymphocytes # 0.5 L (1.0-4.8) k/uL Monocytes # 0.3 (0-1.0) k/uL Eosinophils # 0.0 (0-0.7) k/uL Basophils # 0.0 (0-0.2) k/uL PT (9.0-12.0) sec INR (<1.2) APTT (22.0-30.0) sec Sodium 141 (137-145) mmol/L Potassium 5.0 (3.5-5.1) mmol/L Chloride 103 (98-107) mmol/L Carbon Dioxide 21 L (22-30) mmol/L Anion Gap 17 mmol/L BUN 88 H* (7-17) mg/dL Creatinine 1.75 H (0.52-1.04) mg/dL Est GFR (CKD-EPI)AfAm 30 (>60 ml/min/1.73 sqM) Est GFR (CKD-EPI)NonAf 26 (>60 ml/min/1.73 sqM) Glucose 106 H (74-99) mg/dL Plasma Lactic Acid [place] (0.7-2.0) mmol/L Calcium 8.7 (8.4-10.2) mg/dL Magnesium 2.1 (1.6-2.3) mg/dL Total Bilirubin 0.5 (0.2-1.3) mg/dL AST 22 (14-36) U/L ALT 23 (9-52) U/L Alkaline Phosphatase 150 H (38-126) U/L Total Creatine Kinase 63 (30-135) U/L CK-MB (CK-2) 2.4 (0.0-2.4) ng/mL CK-MB (CK-2) Rel Index 3.8 Troponin I 0.056 H* (0.000-0.034) ng/mL NT-Pro-B Natriuret Pep pg/mL Total Protein 6.3 (6.3-8.2) g/dL Albumin 3.4 L (3.5-5.0) g/dL Influenza Type A RNA (Not Detectd) Influenza Type B (PCR) (Not Detectd) 10/05/17 10/05/17 10/05/17 Range/Units 09:20 09:20 09:20 WBC (3.8-10.6) k/uL RBC (3.80-5.40) m/uL Hgb (11.4-16.0) gm/dL Hct (34.0-46.0) % MCV (80.0-100.0) fL MCH (25.0-35.0) pg MCHC (31.0-37.0) g/dL RDW (11.5-15.5) % Plt Count (150-450) k/uL Neutrophils % % Lymphocytes % % Monocytes % % Eosinophils % % Basophils % % Neutrophils # (1.3-7.7) k/uL Lymphocytes # (1.0-4.8) k/uL Monocytes # (0-1.0) k/uL Eosinophils # (0-0.7) k/uL Basophils # (0-0.2) k/uL PT 10.9 (9.0-12.0) sec INR 1.1 (<1.2) APTT 26.7 (22.0-30.0) sec Sodium (137-145) mmol/L Potassium (3.5-5.1) mmol/L Chloride (98-107) mmol/L Carbon Dioxide (22-30) mmol/L Anion Gap mmol/L BUN (7-17) mg/dL Creatinine (0.52-1.04) mg/dL Est GFR (CKD-EPI)AfAm (>60 ml/min/1.73 sqM) Est GFR (CKD-EPI)NonAf (>60 ml/min/1.73 sqM) Glucose (74-99) mg/dL Plasma Lactic Acid [place] 1.9 (0.7-2.0) mmol/L Calcium (8.4-10.2) mg/dL Magnesium (1.6-2.3) mg/dL Total Bilirubin (0.2-1.3) mg/dL AST (14-36) U/L ALT (9-52) U/L Alkaline Phosphatase (38-126) U/L Total Creatine Kinase (30-135) U/L CK-MB (CK-2) (0.0-2.4) ng/mL CK-MB (CK-2) Rel Index Troponin I (0.000-0.034) ng/mL NT-Pro-B Natriuret Pep 72779 pg/mL Total Protein (6.3-8.2) g/dL Albumin (3.5-5.0) g/dL Influenza Type A RNA (Not Detectd) Influenza Type B (PCR) (Not Detectd) 10/05/17 Range/Units 09:20 WBC (3.8-10.6) k/uL RBC (3.80-5.40) m/uL Hgb (11.4-16.0) gm/dL Hct (34.0-46.0) % MCV (80.0-100.0) fL MCH (25.0-35.0) pg MCHC (31.0-37.0) g/dL RDW (11.5-15.5) % Plt Count (150-450) k/uL Neutrophils % % Lymphocytes % % Monocytes % % Eosinophils % % Basophils % % Neutrophils # (1.3-7.7) k/uL Lymphocytes # (1.0-4.8) k/uL Monocytes # (0-1.0) k/uL Eosinophils # (0-0.7) k/uL Basophils # (0-0.2) k/uL PT (9.0-12.0) sec INR (<1.2) APTT (22.0-30.0) sec Sodium (137-145) mmol/L Potassium (3.5-5.1) mmol/L Chloride (98-107) mmol/L Carbon Dioxide (22-30) mmol/L Anion Gap mmol/L BUN (7-17) mg/dL Creatinine (0.52-1.04) mg/dL Est GFR (CKD-EPI)AfAm (>60 ml/min/1.73 sqM) Est GFR (CKD-EPI)NonAf (>60 ml/min/1.73 sqM) Glucose (74-99) mg/dL Plasma Lactic Acid [place] (0.7-2.0) mmol/L Calcium (8.4-10.2) mg/dL Magnesium (1.6-2.3) mg/dL Total Bilirubin (0.2-1.3) mg/dL AST (14-36) U/L ALT (9-52) U/L Alkaline Phosphatase (38-126) U/L Total Creatine Kinase (30-135) U/L CK-MB (CK-2) (0.0-2.4) ng/mL CK-MB (CK-2) Rel Index Troponin I (0.000-0.034) ng/mL NT-Pro-B Natriuret Pep pg/mL Total Protein (6.3-8.2) g/dL Albumin (3.5-5.0) g/dL Influenza Type A RNA Not Detected (Not Detectd) Influenza Type B (PCR) Not Detected (Not Detectd) Disposition Clinical Impression: CHF exacerbation, HCAP (healthcare-associated pneumonia) Disposition: ADMITTED IP TO THIS [facility] Condition: Stable Is patient prescribed a controlled substance at d/c from ED?: No Referrals: Nolan Lunsford MD [Primary Care Provider] - 1-2 days Decision to Admit Reason: Admit from EC Decision Date: 10/05/17 Decision Time: 11:47
[2017-10-05 09:44] LABS: Basophils % (A) 0 %; Eosinophils % (A) 0 %; HGB 10.8 gm/dL (11.4-16.0); Lymphocytes # (A) 0.5 k/uL (1.0-4.8); Lymphocytes % (A) 3 %; MCH 31.3 pg (25.0-35.0); MCHC 32.7 g/dL (31.0-37.0); MCV 95.6 fL (80.0-100.0); Mean Platelet Volume 7.1; Monocytes # (A) 0.3 k/uL (0-1.0); Monocytes % (A) 2 %; Neutrophils # (A) 12.4 k/uL (1.3-7.7); Neutrophils % (A) 93 %; Platelet Count 415 k/uL (150-450); RBC 3.45 m/uL (3.80-5.40); WBC 13.4 k/uL (3.8-10.6)
[2017-10-05 09:48] LABS: Albumin 3.4 g/dL (3.5-5.0); Calcium 8.7 mg/dL (8.4-10.2); Magnesium 2.1 mg/dL (1.6-2.3); Total Bilirubin 0.5 mg/dL (0.2-1.3); Total Protein 6.3 g/dL (6.3-8.2)
[2017-10-05 09:50] LABS: INR 1.1 (<1.2); Partial Thromboplastin Time 26.7 sec (22.0-30.0); Prothrombin Time 10.9 sec (9.0-12.0)
--- NOTE | 2017-10-05 10:12 | XR ---
EXAMINATION TYPE: XR chest 2V DATE OF EXAM: 10/05/2017 COMPARISON: 09/27/2017 TECHNIQUE: PA and lateral views submitted. HISTORY: Shortness of breath FINDINGS: Cardiac device seen and there is cardiomegaly bilateral consolidation and pleural effusion. Correlate for mild venous congestion. Chronic deformities and arthropathy of the shoulders. No obvious pneumot horax. Suggestion of an aortic stent. Hyperinflation suggests COPD. Prominence of the upper mediastinum likely vascular ectasia. IMPRESSION: 1. Bilateral infiltrate and pleural effusion correlate for mild central venous congestion. Findings a re stable.
[2017-10-05 10:14] LABS: Creatine Kinase MB 2.4 ng/mL (0.0-2.4)
[2017-10-05] MEDS ORDERED: VANCOMYCIN IV PER PHARMACY 1 EACH MISC MISCELLANE PRN (10:15)
[2017-10-05] MEDS ORDERED: CEFEPIME 2 GM in SODIUM CHLORIDE 0.9% 50 ML IVPB STA (10:15)
[2017-10-05 10:19] LABS: Troponin I 0.056 ng/mL (0.000-0.034)
[2017-10-05] MEDS ORDERED: VANCOMYCIN 1,500 MG in SODIUM CHLORIDE 0.9% 250 ML IVPB ONE (11:00)
[2017-10-05] MEDS ORDERED: NALOXONE 0.4 MG/ML 1 ML VIAL IV PRN (11:43)
[2017-10-05 14:26] LABS: Appearance,Urine Clear (Clear); Bacteria,Urine Rare /hpf; Bilirubin,Urine Negative (Negative); Blood,Urine Small (Negative); Color,Urine Light Yellow; Glucose,Urine (UA) Negative (Negative); Hyaline Casts,Urine 7 /lpf (0-2); Ketones,Urine Negative (Negative); Leukocyte Esterase,Urine Negative (Negative); Mucus,Urine Rare /hpf; Nitrite,Urine Negative (Negative); Protein,Urine Negative (Negative); RBC,Urine 6 /hpf (0-5); Specific Gravity,Urine 1.009 (1.001-1.035); Squamous Epithelial Cell,Urine <1 /hpf (0-4); Urobilinogen,Urine <2.0 mg/dL (<2.0); WBC,Urine <1 /hpf (0-5)
--- NOTE | 2017-10-05 14:47 | P.CRDCN ---
History of Present Illness Consult date: 10/05/17 History of present illness: Mrs. Xin Oliver is a 87-year-old female who is seen for cardiac evaluation. His patient was just recently discharged from the hospital after being treated for congestive heart failure and atrial fibrillation was noticed to be short of breath in the longterm and was given some 80 mg of the Lasix by mouth to yesterday and IV Lasix today and 50 mg of prednisone prior to transfer. Room patient was noticed to be febrile and the shortness of breath short of breath. Patient is status post aortic valve replacement. Echocardiogram during the previous admission shorten normally functioning aortic valve with pulmonary hypertension and normal left ventricular systolic function is and was discharged home on the diuretics and the anticoagulation. And at present is a laying comfortably in the bed without any acute respiratory distress Past Medical History Past Medical History: Atrial Fibrillation, Asthma, Heart Failure, Hypertension, Osteoarthritis (OA), Renal Disease, Skin Disorder, Syncope, Thyroid Disorder, Vascular Disorder Additional Past Medical History / Comment(s): Afib with RVR, chronic CHF, cardimyopathy, murmur, bronchitis, "stroke" behind L eye, chronic kidney disease stage IV, anemia, UTIS, sepsis, venous insufficiency bilateral lower legs, bilateral lower leg cellulitis, RLS, IBS, sinus problems, migraines, hypothyroid, past R humerus fracture, R superior pubic ramus fracture, falls. History of Any Multi-Drug Resistant Organisms: MRSA Date of last positivie culture/infection: 10-26-2008 MDRO Source:: LEFT HIP Past Surgical History: Cardiac Valve Replacement, Section, Hernia Repair, Joint Replacement, Pacemaker, Tonsillectomy Additional Past Surgical History / Comment(s): UMBILICAL HERNIA, C SECTION X 2, ISIDORO KNEE REPLACEMENT, RT HIP REPLACEMENT X3 WITH ANTIBIOTIC SPACER USED, PARTIAL THYROIDECTOMY, PARTIAL LT HIP REPLACEMENT SEVERAL YRS AGO AND ANTIBIOTIC SPACER PLACED 2008, TRANSCUTANEOUS AORTIC VALVE REPLACEMENT IN 2015 AT [place], tooth extraction, SEPTOPLASTY, EGD, COLONOSCOPY, L GROIN ENLARGED LYMPH NODE EXCISION. Past Anesthesia/Blood Transfusion Reactions: No Reported Reaction Type of Cardiac Device: Permanent Pacemaker Device Placement Date:: 03/12/14 Smoking Status: Former smoker - Past Family History Brother(s) Family Medical History: Cancer Additional Family Medical History / Comment(s): TWIN BROTHER LUNG CA Mother Additional Family Medical History / Comment(s): BLEEDING ULCER Father Family Medical History: CVA/TIA Medications and Allergies Home Medications Medication Instructions Recorded Confirmed Type Fluticasone Propionate [Flonase] 2 spray EA NOSTRIL DAILY PRN 04/07/14 10/05/17 History Pramipexole [Mirapex] 1 mg PO HS 04/12/14 10/05/17 History Amitriptyline HCl [Elavil] 10 mg PO HS 11/01/15 10/05/17 History Gabapentin [Neurontin] 200 mg PO BID 11/01/15 10/05/17 History Loratadine [Claritin] 10 mg PO DAILY 11/01/15 10/05/17 History HYDROcodone/APAP 7.5-325MG [[place] 1 - 2 tab PO Q4H PRN 06/10/16 10/05/17 History 7.5-325] Iron 27+Folic Acid+B-12 1 tab PO DAILY 06/10/16 10/05/17 History Levothyroxine Sodium [Synthroid] 125 mcg PO DAILY 06/10/16 10/05/17 History Aspirin EC [Ecotrin Low Dose] 81 mg PO DAILY 09/25/17 10/05/17 History Cholecalciferol [Vitamin D3] 1,000 unit PO DAILY 09/25/17 10/05/17 History Fluocinonide 0.05% [Lidex 0.05% 1 applic TOPICAL BID 09/25/17 10/05/17 History cream] Folic Acid 0.4 mg PO HS@1700 09/25/17 10/05/17 History Furosemide [Lasix] 80 mg PO BID 09/25/17 10/05/17 History Metoprolol Tartrate [Lopressor] 25 mg PO DAILY 09/25/17 10/05/17 History Pantoprazole [Protonix] 40 mg PO DAILY 09/25/17 10/05/17 History Apixaban [Eliquis] 2.5 mg PO BID 10/05/17 10/05/17 History Bisacodyl [Dulcolax] 10 mg RECTAL DAILY PRN 10/05/17 10/05/17 History Calcium Carb-Vit D 500Mg-200Un 1 tab PO BID 10/05/17 10/05/17 History [Oscal 500+D] Ipratropium-Albuterol Nebulize 3 ml INHALATION RT-QID 10/05/17 10/05/17 History [Duoneb 0.5 mg-3 mg/3 ml Soln] Vit C/E/Zn/Coppr/Lutein/Zeaxan 1 cap PO HS 10/05/17 10/05/17 History [Preservision Areds 2 Softgel] Allergies Allergy/AdvReac Type Severity Reaction Status Date / Time adhesive Allergy Anaphylaxis-STATED Verified 10/05/17 09:17 "ADHESIVE ON LIDODERM PATCH PAPER TAPE OK azithromycin [From Zithromax] Allergy Unknown Verified 10/05/17 09:17 bumetanide Allergy Unknown Verified 10/05/17 09:17 cefuroxime Allergy Unknown Verified 10/05/17 09:17 cephalexin [From Keflex] Allergy Unknown Verified 10/05/17 09:17 ciprofloxacin [From Cipro] Allergy Rash/Hives Verified 10/05/17 09:17 ciprofloxacin HCl Allergy Rash/Hives Verified 10/05/17 09:17 [From Cipro] clindamycin Allergy Unknown Verified 10/05/17 09:17 clonazepam Allergy Unknown Verified 10/05/17 09:17 daptomycin [From Cubicin] Allergy Unknown Verified 10/05/17 09:17 doxycycline Allergy Unknown Verified 10/05/17 09:17 levofloxacin [From Levaquin] Allergy Unknown Verified 10/05/17 09:17 lidocaine [From Lidoderm] Allergy Rash/Hives Verified 10/05/17 09:17 linezolid [From Zyvox] Allergy Unknown Verified 10/05/17 09:17 meclizine Allergy Unknown Verified 10/05/17 09:17 nitrofurantoin Allergy Unknown Verified 10/05/17 09:17 [From Macrodantin] Penicillins Allergy "BLACK Verified 10/05/17 09:17 RING AROUND TONGUE" Sulfa (Sulfonamide Allergy Rash/Hives Verified 10/05/17 09:17 Antibiotics) Tetracyclines Allergy "BLACK Verified 10/05/17 09:17 RING AROUND TONGUE" Physical Exam Vitals: Vital Signs Temp Pulse Resp BP Pulse Ox 10/05/17 14:08 106 H 18 104/65 98 10/05/17 12:49 105 H 20 120/66 95 10/05/17 11:15 99.6 F 106 H 18 112/76 96 10/05/17 10:02 111 H 18 102/62 92 L 10/05/17 08:59 101.4 F H 88 22 96/60 95 Intake and Output 10/04/17 10/05/17 10/05/17 22:59 06:59 14:59 Other: Weight 72.575 kg Patient's vital signs are reviewed. The patient is alert awake and in no acute distress. HEENT negative. Neck-supple jugular venous pressure is elevated. Both the carotid pulses are felt. There is no bruit Chest-symmetrical. Heart-first and second heart sounds are normal. Prosthetic sounds are well heard grade 2/6 ejection systolic murmur noted Lungs bilateral good at entry is noted. Bilateral rales are noted in the lower one third of the lung burks. Abdomen-soft. Liver and spleen are not enlarged. The bowel sounds are normal. No tenderness noted Extremities-peripheral pulses since are 2+. No significant leg edema noted. Neuro-no significant gross abnormality noted. Results 10/05/17 09:20 10/05/17 09:20 Cardiac Enzymes 10/05/17 10/05/17 Range/Units 09:20 09:20 AST 22 (14-36) U/L CK-MB (CK-2) 2.4 (0.0-2.4) ng/mL Troponin I 0.056 H* (0.000-0.034) ng/mL Coagulation 10/05/17 Range/Units 09:20 PT 10.9 (9.0-12.0) sec APTT 26.7 (22.0-30.0) sec CBC 10/05/17 Range/Units 09:20 WBC 13.4 H (3.8-10.6) k/uL RBC 3.45 L (3.80-5.40) m/uL Hgb 10.8 L (11.4-16.0) gm/dL Hct 33.0 L (34.0-46.0) % Plt Count 415 (150-450) k/uL Comprehensive Metabolic Panel 10/05/17 Range/Units 09:20 Sodium 141 (137-145) mmol/L Potassium 5.0 (3.5-5.1) mmol/L Chloride 103 (98-107) mmol/L Carbon Dioxide 21 L (22-30) mmol/L BUN 88 H* (7-17) mg/dL Creatinine 1.75 H (0.52-1.04) mg/dL Glucose 106 H (74-99) mg/dL Calcium 8.7 (8.4-10.2) mg/dL AST 22 (14-36) U/L ALT 23 (9-52) U/L Alkaline Phosphatase 150 H (38-126) U/L Total Protein 6.3 (6.3-8.2) g/dL Albumin 3.4 L (3.5-5.0) g/dL Current Medications Generic Name Dose Route Start Last Admin Trade Name Freq PRN Reason Stop Dose Admin Vancomycin HCl 1,500 mg/ 250 mls @ 125 mls/hr 10/06/17 16:00 Sodium Chloride IVPB 10/06/17 17:59 ONCE ONE Miscellaneous Information 1 each 10/05/17 10:15 Pharmacy To Dose Iv Vancomycin MISCELLANE DIRECTED PRN Per Protocol Naloxone HCl 0.2 mg 10/05/17 11:43 Narcan IV Q2M PRN Opioid Reversal Intake and Output 10/04/17 10/05/17 10/05/17 22:59 06:59 14:59 Other: Weight 72.575 kg Patient Weight 10/06/17 06:59 Weight 72.575 kg 10/05/17 09:20 10/05/17 09:20 Assessment and Plan Assessment: This patient's presents to the emergency room with the complaint of shortness of breath. There is evidence of congestive cardiac failure and also has a evidence of fever in the emergency room the possibility of bacterial bronchitis and pneumonia is considered since BNP level is 18,000 was 17,000 during the last admission since mild elevation in the troponin is possibly secondary to respiratory distress stricture is suggestive congestive heart failure and bibasilar lung infiltrates I would recommend to diurese the patient antibiotics are started since overall prognosis is guarded.
[2017-10-05 15:50] LABS: Creatine Kinase MB 2.1 ng/mL (0.0-2.4)
[2017-10-05 15:51] LABS: Troponin I 0.163 ng/mL (0.000-0.034)
[2017-10-05] MEDS ORDERED: FLUTICASONE 50MCG/SPRAY NASAL 16GM EA NOSTRIL PRN (17:01)
[2017-10-05] MEDS ORDERED: BISACODYL 10 MG SUPP RECTAL PRN (17:01)
[2017-10-05] MEDS: FUROSEMIDE 10 MG/ML 4 ML VIAL IV SCH ×2 (18:16→23:33)
--- NOTE | 2017-10-05 18:56 | HP ---
HISTORY AND PHYSICAL Mrs. Priest is an 87-year-old female who was recently residing at [facility] , recovering from congestive heart failure and medical debility. She had been doing well there until the 24 hours prior to admission, when she became more short of breath, had some element of just labored breathing and discomfort earlier today. She was receiving Lasix at the home on a regular basis, 40 mg twice a day. She has also been coughing up some discolored phlegm. Despite respiratory treatments, further doses of Lasix and even initiation of corticosteroids, the patient continued to worsen and was sent via EMS over to the emergency room here. PAST MEDICAL HISTORY: The patient's past medical history is positive for: 1. Paroxysmal atrial fibrillation with at times rapid ventricular response. 2. She has underlying chronic diastolic congestive heart failure. 3. There is also chronic renal failure, grade 4. 4. History of transcutaneous aortic valve replacement back in 2008 done in [place]. 5. History of previous permanent pacemaker placement. 6. History of chronic venous insufficiency of the lower extremities. 7. Diffuse degenerative joint disease with previous bilateral knee and hip surgeries performed in [place]. 8. History of prior fractured right humerus back in 2016. 9. Hypothyroidism. 10.Restless legs syndrome. ALLERGIES: She also has MULTIPLE ALLERGIES. Please refer to list. MANY INCLUDE ANTIBIOTICS. HOME MEDICATIONS: 1. Because of her degenerative joint disease and pain, chronic pain syndrome, she is on [place] 7.5 one to two tablets q.4 hours as needed for pain. 2. Flonase for chronic nasal congestion 2 sprays in each nostril daily. 3. Dulcolax rectally 10 mg p.r.n. for constipation. 4. DuoNeb respiratory treatments 4 times a day of 3 mL with 0.5 mg-3 mg. 5. Neurontin 200 mg twice a day. 6. Lasix 80 mg twice a day. 7. Lidex cream 0.05% topically twice a day. 8. Calcium with vitamin D 500-200 one twice a day. 9. She has been on Eliquis 2.5 twice a day because of her atrial fibrillation. 10.Levothyroxine 125 mcg daily. 11.She is on PreserVision 2 soft gels 1 capsule at bedtime. 12.Mirapex for restless legs 1 mg at bedtime. 13.Protonix 40 mg daily. 14.Metoprolol tartrate 25 mg daily. 15.Claritin 10 mg daily. 16.Iron, folic acid and B12 daily. 17.Calcium, vitamin D3 1000 units. 18.Aspirin 81 mg a day. 19.Folic acid 0.4 at bedtime. 20.Elavil 10 mg at bedtime. ONCE AGAIN, PLEASE REFER TO LIST FOR HER MULTIPLE ALLERGIES. REVIEW OF SYSTEMS: As mentioned in history of present illness . FAMILY HISTORY: Apparently she has a twin brother with lung cancer. Her father had a CVA. Mother had a bleeding ulcer. SOCIAL HISTORY: She still lives locally with her . Quit smoking approximately 45 to 50 years ago but did smoke for 25 years or so. There is no history of any excessive alcohol intake. PHYSICAL EXAMINATION: She was somewhat tired at this time but aroused and overall oriented. VITAL SIGNS: Temperature 97, although on presentation she was 101.4, pulse of 101, slightly irregular, respiratory rate of 18, blood pressure 124/78, and she is 99 % saturated on 4 L. LUNGS: Diminished breath sounds at the bases but no marked wheezing. Heart tones are slightly irregular. Breast and pelvic exams deferred. Abdomen is soft and nontender without rebound, guarding or masses. Extremities revealed 2+ bilateral edema. Neurologically, once again she is somewhat fatigued, but no cranial nerve deficits and no focal weakness noted. LABORATORY TESTS: White count 13.4, hemoglobin 10.8, platelet count of 415. INR is 1.1. PTT 26.7. Sodium 141, potassium 5, CO2 content of 21. Her BUN is elevated at 88 with a creatinine 1.75, giving her a GFR of 26. Glucose was 106. Other liver function tests were good except alkaline phosphatase was 150, albumin slightly low at 1.4. Her troponin initially was 0.056 but did rise to 0.163. Urinalysis was negative for leukocyte esterase and only 1 white cell. Influenza A and B were not detected. Her chest x-ray showed bilateral infiltrate and pleural effusions but felt to be stable. One EKG shows a ventricular paced rhythm, whereas a second EKG shows sinus tachycardia with first-degree AV block, right bundle branch block, abnormal ST- T wave changes noted. Other labs reveal markedly elevated proBNP of 18,800. OVERALL IMPRESSION AT THIS POINT: 1. Acute on chronic diastolic congestive heart failure with acute shortness of breath and fluid overload state. 2. Elevated temperature consistent with an underlying pneumonia. 3. Other past medical history as stated above. PLAN AT THIS TIME: Antibiotics in the form of vancomycin in light of her numerous allergies. Lasix being given IV. Follow-up electrolytes and renal function in the morning. Prognosis is definitely guarded overall, as discussed with family and patient in the past. NO CODE, NO CPR. I also discussed with patient and family that any further invasive workup or cardiology involvement would likely be not fruitful, with her underlying condition and renal failure. At this point, we will continue with medical management. Hopefully patient may improve through the week and be able to return back to [facility], but she is NO CODE, NO CPR at this time, and prognosis is very guarded. MMODL / IJN: [id number] / SOHAN
[2017-10-05] MEDS: PRAMIPEXOLE 1 MG TAB PO SCH (19:53)
[2017-10-05] MEDS: VIT A,C & E-LUTEIN-MINERALS 1 EACH TAB PO SCH (19:53)
[2017-10-05] MEDS: CALCIUM CARB-VIT D 500MG-200UN 1 EACH TAB PO SCH (19:54)
[2017-10-05] MEDS: GABAPENTIN 100 MG CAP PO SCH (19:54)
[2017-10-05] MEDS: APIXABAN 2.5 MG TABLET PO SCH (19:54)
[2017-10-05] MEDS: AMITRIPTYLINE HCL 10 MG TAB PO SCH (19:54)
[2017-10-05] MEDS: IPRATROPIUM-ALBUTEROL 3 ML NEB INHALATION SCH (20:08)
[2017-10-05] MEDS: BETAMETHASONE DIPROPIONATE 0.05% CREAM 15 GM TUBE TOPICAL SCH (21:32)
[2017-10-05 22:07] LABS: Creatine Kinase MB 2.4 ng/mL (0.0-2.4)
[2017-10-05 22:22] LABS: Troponin I 0.184 ng/mL (0.000-0.034)
[2017-10-06 03:58] LABS: Calcium 8.8 mg/dL (8.4-10.2); Magnesium 2.3 mg/dL (1.6-2.3); Potassium 4.2 mmol/L (3.5-5.1)
[2017-10-06] MEDS: HYDROcodone/APAP 7.5-325MG 1 EACH TAB PO PRN ×3 (04:10→20:02)
[2017-10-06] MEDS: LEVOTHYROXINE 125 MCG TAB PO SCH (05:55)
[2017-10-06] MEDS: PANTOPRAZOLE 40 MG TABLET PO SCH (05:56)
--- NOTE | 2017-10-06 07:53 | P.PN ---
Progress Note - Text The patient is a 87-year-old female who was brought in to the emergency room room yesterday from [facility]. Patient was having some increasing shortness of breath. Patient has been found to have some acute on chronic diastolic congestive heart failure along with a possible underlying pneumonia. Patient does have numerous comorbidities and is medically frail and debilitated. She also has chronic kidney disease. This morning she states she does feel short of breath and somewhat congested. No chest pain. No marked phlegm production. She is eating her breakfast. Vital signs reveal a temperature 97.5 with a pulse somewhat irregular at 105 210. Respirations are 19. Blood pressure 119/70 and she is 95% saturated on 3 L nasal cannula. Patient does have diffuse expiratory wheezing anteriorly. Heart tones are somewhat irregular. Abdomen is nontender. Her lower extremity edema is improved over yesterday. Neurologically she's intact. Alert. No focal deficits noted. Laboratory Electrolytes are unremarkable with a potassium 4.2. Sodium 143. Her BUN is 90 with a creatinine 1.67. Giving her a GFR of 28. Blood sugar was 99. Troponin values did increase from 0.056 up 2.184. Urine culture and blood cultures in progress. Impression and plan. The patient has had a fairly good output with the IV Lasix, 800 mL last evening. We'll continue at this time. We will add IV corticosteroids for her wheezing. Continue present antibiotics. We'll await any further recommendations from cardiology. Prognosis overall is guarded. Patient is a no code, no CPR. Hopefully she may stabilize enough to consider transfer back to [facility] early next week. This has been discussed with the patient and family at bedside.
[2017-10-06] MEDS: methylPREDNISolone SOD SUCCI 40 MG/ML 1 ML VIAL IV SCH ×3 (08:22→22:51)
[2017-10-06] MEDS: CALCIUM CARB-VIT D 500MG-200UN 1 EACH TAB PO SCH ×2 (08:22→19:59)
[2017-10-06] MEDS: METOPROLOL TARTRATE 25 MG TAB PO SCH (08:22)
[2017-10-06] MEDS: BETAMETHASONE DIPROPIONATE 0.05% CREAM 15 GM TUBE TOPICAL SCH ×2 (08:22→19:59)
[2017-10-06] MEDS: CHOLECALCIFEROL 1,000 UNIT TAB PO SCH (08:22)
[2017-10-06] MEDS: ASPIRIN 81 MG PO SCH (08:22)
[2017-10-06] MEDS: LORATADINE 10 MG TAB PO SCH (08:22)
[2017-10-06] MEDS: GABAPENTIN 100 MG CAP PO SCH ×2 (08:22→19:59)
[2017-10-06] MEDS: APIXABAN 2.5 MG TABLET PO SCH ×2 (08:22→19:59)
[2017-10-06] MEDS: FUROSEMIDE 10 MG/ML 4 ML VIAL IV SCH ×2 (08:23→16:03)
[2017-10-06] MEDS: IPRATROPIUM-ALBUTEROL 3 ML NEB INHALATION SCH ×4 (08:50→19:12)
[2017-10-06] MEDS ORDERED: IRON PO SCH (09:00)
[2017-10-06] MEDS ORDERED: ACID PO SCH (09:00)
[2017-10-06] MEDS ORDERED: [UNRECOGNIZED DRUG - OTHER] PO SCH (09:00)
[2017-10-06] MEDS ORDERED: B12 PO SCH (09:00)
[2017-10-06 11:36] LABS: Glucose,Whole Blood 121 mg/dL (75-99)
[2017-10-06] MEDS: guaiFENesin SYRUP 100MG/5ML 200 MG/10 ML CUP PO PRN (13:01)
[2017-10-06] MEDS ORDERED: VANCOMYCIN 1,500 MG in SODIUM CHLORIDE 0.9% 250 ML IVPB ONE (16:00)
[2017-10-06 16:26] LABS: Glucose,Whole Blood 166 mg/dL (75-99)
[2017-10-06] MEDS: INSULIN ASPART 100 UNIT/ML 1 ML 10 ML VIAL SQ SCH ×2 (17:29→22:15)
[2017-10-06] MEDS: SODIUM CHLORIDE 0.9% 1,000 ML IV SCH (17:29)
[2017-10-06] MEDS: FOLIC ACID 1 MG TAB PO SCH (17:30)
[2017-10-06] MEDS: SYMBICORT 80-4.5 MCG INHALER INHALATION SCH (19:12)
[2017-10-06] MEDS: VIT A,C & E-LUTEIN-MINERALS 1 EACH TAB PO SCH (19:59)
[2017-10-06] MEDS: AMITRIPTYLINE HCL 10 MG TAB PO SCH (19:59)
[2017-10-06] MEDS: PRAMIPEXOLE 1 MG TAB PO SCH (20:00)
[2017-10-06] MEDS ORDERED: FUROSEMIDE 10 MG/ML 2 ML VIAL IV ONE (20:49)
[2017-10-06 21:43] LABS: Glucose,Whole Blood 147 mg/dL (75-99)
[2017-10-07] MEDS: HYDROcodone/APAP 7.5-325MG 1 EACH TAB PO PRN ×4 (01:46→23:35)
[2017-10-07 05:51] LABS: Calcium 8.7 mg/dL (8.4-10.2); Potassium 4.7 mmol/L (3.5-5.1)
[2017-10-07] MEDS: PANTOPRAZOLE 40 MG TABLET PO SCH (06:00)
[2017-10-07] MEDS: LEVOTHYROXINE 125 MCG TAB PO SCH (06:00)
[2017-10-07] MEDS: INSULIN ASPART 100 UNIT/ML 1 ML 10 ML VIAL SQ SCH ×4 (06:29→21:22)
[2017-10-07 06:30] LABS: Glucose,Whole Blood 135 mg/dL (75-99)
--- NOTE | 2017-10-07 06:53 | XR ---
EXAMINATION TYPE: XR chest 2V DATE OF EXAM: 10/07/2017 HISTORY: chf. REFERENCE: Previous study dated 10/05/2017. FINDINGS: There is a bipolar pacemaker place on the left. The heart is enlarged. There is bibasilar airspace disease. There are bilateral effusions, greater on the left than the right. Pulmonary vasculature is normal. IMPRESSION: 1. CARDIOMEGALY. 2. BIBASILAR AIRSPACE DISEASE. 3. BILATERAL EFFUSIONS, GREATER ON THE LEFT THAN THE RIGHT.
[2017-10-07] MEDS: IPRATROPIUM-ALBUTEROL 3 ML NEB INHALATION SCH ×4 (09:24→19:55)
[2017-10-07] MEDS: SYMBICORT 80-4.5 MCG INHALER INHALATION SCH ×2 (09:24→19:55)
[2017-10-07] MEDS: GABAPENTIN 100 MG CAP PO SCH ×2 (09:30→21:23)
[2017-10-07] MEDS: LORATADINE 10 MG TAB PO SCH (09:30)
[2017-10-07] MEDS: METOPROLOL TARTRATE 25 MG TAB PO SCH (09:31)
[2017-10-07] MEDS: BETAMETHASONE DIPROPIONATE 0.05% CREAM 15 GM TUBE TOPICAL SCH ×2 (09:31→21:23)
[2017-10-07] MEDS: methylPREDNISolone SOD SUCCI 40 MG/ML 1 ML VIAL IV SCH ×3 (09:31→23:17)
[2017-10-07] MEDS: CHOLECALCIFEROL 1,000 UNIT TAB PO SCH (09:31)
[2017-10-07] MEDS: APIXABAN 2.5 MG TABLET PO SCH ×2 (09:31→21:23)
[2017-10-07] MEDS: ASPIRIN 81 MG PO SCH (09:31)
[2017-10-07] MEDS: CALCIUM CARB-VIT D 500MG-200UN 1 EACH TAB PO SCH ×2 (09:32→21:23)
[2017-10-07 11:55] LABS: Glucose,Whole Blood 125 mg/dL (75-99)
--- NOTE | 2017-10-07 12:20 | P.PN ---
Progress Note - Text The patient is an 87-year-old female who was brought into the emergency room 2 days ago from [facility] with increasing shortness of breath. Patient was found to have acute on chronic diastolic congestive heart failure along with an underlying pneumonia at the bases. She is overall very frail and debilitated. Chronic kidney disease. Acute on chronic kidney disease. This morning she states she still has some shortness of breath. She is lying in bed though at rest in no acute distress. No chest pain. No nausea or vomiting. Vital signs reveal temperature 96.8 with a pulse of 96 and respirations 18. Blood pressure 145/108 and she is 92% saturated on 4 L. Lungs do reveal some bilateral expiratory wheezing present. Seems to be somewhat better than yesterday. Although still somewhat harsh. Heart tones were irregular but rate controlled. Abdomen is nontender. Edema has improved. She is alert and oriented. Cranial nerves intact. No focal weakness noted. Diffuse weakness and degenerative joint changes noted. Laboratory Electrolytes are generally good with a sodium 142 and a potassium 4.7. BUN is 91 with a creatinine 1.8 for given her GFR of 25. Blood sugar 135. Chest x-ray shows cardiomegaly. Bibasilar airspace disease greater on the left. Impressions and plans Patient with acute on chronic diastolic congestive heart failure. On Lasix IV push. Also acute exacerbation of underlying COPD with underlying basilar pneumonias. On vancomycin. Has numerous antibiotic intolerances and ALLERGIES. Remains on inhalers and corticosteroids. Discussed with cardiology. Consult has been placed with pulmonary medicine and we'll await for their recommendations. Overall on long-term prognosis is very guarded. Patient has no code/no CPR. Dr. Alfredo Clark on-call for me over the weekend if any medical concerns or problems.
--- NOTE | 2017-10-07 12:47 | P.PN ---
Subjective Progress Note Date: 10/07/17 This is a pleasant 87-year-old female who was recently discharged from the hospital after being treated for congestive heart failure and atrial fibrillation, she progressively became more short of breath and return to the hospital. She was initially diuresed with IV Lasix and also treated with steroids. Patient was noticed to be febrile on admission here she is also status post aortic valve replacement. Echocardiogram was performed which revealed a normally functioning aortic valve with pulmonary hypertension and normal left ventricular systolic function. A pro-calcitonin level was obtained which came back to be 3.66, confirming the diagnosis of pneumonia. Pulmonary evaluation has been requested. Creatinine today is 1.8, BUN 91, sodium 142. Diuretics are currently on hold. We will recheck a BNP level tomorrow, check lytes BUN and creatinine in the morning. Patient is still quite congested, states that she coughed most of the night, productive sputum. She also had issues earlier this morning where she was choking on a piece of sausage. Objective - Vital Signs Vital signs: Vital Signs Temp 96.8 F L 10/07/17 03:53 Pulse 96 10/07/17 11:11 Resp 18 10/07/17 08:00 BP 145/108 10/07/17 08:00 Pulse Ox 92 L 10/07/17 10:57 Intake & Output 10/06/17 10/07/17 10/07/17 18:59 06:59 18:59 Intake Total 240 Output Total 300 350 Balance -60 -350 Weight 53 kg 52.8 kg Intake: Oral 240 Output: Urine 300 350 Other: Voiding Method Bedpan Bedpan # Voids 2 1 # Bowel Movements 0 - Exam PHYSICAL EXAMINATION: HEENT: Head is atraumatic, normocephalic. Pupils equal, round. Neck is supple. There is no elevated jugular venous pressure. HEART EXAMINATION: Heart S1, S2 normal. No murmur or gallop heard. CHEST EXAMINATION: Lungs reveal scattered coarse rhonchi and wheezing throughout ABDOMEN: Soft, nontender. Bowel sounds are heard. No organomegaly noted. EXTREMITIES: 2+ peripheral pulses with no evidence of peripheral edema and no calf tenderness noted. NEUROLOGIC patient is awake, alert and oriented -3. . - Labs CBC & Chem 7: 10/05/17 09:20 10/07/17 05:26 Labs: Abnormal Lab Results - Last 24 Hours (Table) 10/06/17 10/06/17 10/07/17 Range/Units 16:19 21:41 05:26 BUN 91 H* (7-17) mg/dL Creatinine 1.84 H (0.52-1.04) mg/dL Glucose 135 H (74-99) mg/dL POC Glucose (mg/dL) 166 H 147 H (75-99) mg/dL 10/07/17 10/07/17 Range/Units 06:28 11:50 BUN (7-17) mg/dL Creatinine (0.52-1.04) mg/dL Glucose (74-99) mg/dL POC Glucose (mg/dL) 135 H 125 H (75-99) mg/dL Microbiology - Last 24 Hours (Table) 10/05/17 09:20 Blood Culture - Preliminary Blood No Growth after 48 hours 10/05/17 14:03 Urine Culture - Final Urine,Voided Assessment and Plan Plan: Assessment and plan #1 acute on chronic diastolic congestive heart failure #2 pneumonia #3 paroxysmal atrial fibrillation #4 chronic renal failure #5 history of transcutaneous aortic valve replacement #6Prior pacemaker implantation #7 hypothyroidism Plan From cardiology's perspective, Lasix is currently on hold, we will check lytes BUN and creatinine in the morning. Consultation has been requested with pulmonary service because of elevated profiles at home and leveling confirmation of pneumonia. DNP note has been reviewed, I agree with a documented findings and plan of care. Patient was seen and examined.
--- NOTE | 2017-10-07 13:14 | P.CNPUL ---
History of Present Illness Consult date: 10/07/17 Reason for consult: dyspnea History of present illness: 87-year-old female patient with known history of chronic hypoxic respiratory failure, chronic CHF with valvular heart disease and chronic atrial fibrillation , coming into the hospital because of worsening shortness of breath. She was recently hospitalized for the same. [facility] worsening [facility]ness [facility]. She was given Lasix without much improvement and for that reason she got transferred to our hospital. She has some chronic lower extremities edema. She has chronic renal failure. She suffers from valvular heart disease and the patient has undergone a percutaneous aortic valve replacement 3 [facility] the patient has moderate to severe mitral regurgitation and secondary pulmonary hypertension. She has also history of chronic atrial fibrillation and echocardiogram that was done recently showed an ejection fraction on the left of 55-60%, right ventricular was enlarged, right-sided pressures were elevated at 60 mmHg, there was moderate dilatation of the left atrium. There was moderate severe mitral regurgitation. There was severe check a regurgitation and moderate degree of pulmonary hypertension. During this current admission, the patient's troponin is a 0.184, 0.16 and 0.05 respectively 3, the proBNP level was elevated at 18, 800. Influenza screen was negative. Creatinine is stable with a level of 1.84. This the electrodes are all within normal limits. The chest x-ray shows bilateral lower lobe infiltrates and pleural effusion and mild pulmonary vascular congestion in addition to cardiomegaly. Review of Systems Constitutional: Reports chronic pain, Reports fatigue, Reports lethargy, Reports weakness, Reports weight gain Eyes: bilateral decreased vision, denies blurred vision, denies bulging eye Ears: bilateral: decreased hearing, deny: ear discharge, earache, tinnitus Ears, nose, mouth and throat: Reports hoarseness, Denies headache, Denies sore throat Cardiovascular: Reports decreased exercise tolerance, Reports dyspnea on exertion, Reports edema, Reports irregular heart beat, Reports leg edema, Reports palpitations, Reports rapid heart beat, Reports shortness of breath Respiratory: Reports dyspnea, Reports home oxygen Gastrointestinal: Denies abdominal pain, Denies diarrhea, Denies nausea, Denies vomiting Genitourinary: Reports as per HPI Menstruation: Reports as per HPI Musculoskeletal: Reports as per HPI (Degenerative arthritis in addition to history of Raynaud's disease), Reports low back pain Musculoskeletal: bilateral: ankle swelling, absent: ankle pain, ankle stiffness Integumentary: Denies pruritus, Denies rash Neurological: Reports weakness Psychiatric: Denies anxiety, Denies depression Endocrine: Denies fatigue, Denies weight change Hematologic/Lymphatic: Reports as per HPI Allergic/Immunologic: Reports as per HPI Past Medical History Past Medical History: Atrial Fibrillation, Asthma, Heart Failure, Hypertension, Osteoarthritis (OA), Renal Disease, Skin Disorder, Syncope, Thyroid Disorder, Vascular Disorder Additional Past Medical History / Comment(s): Valvular heart disease with previous percutaneous aortic valve replacement, moderate to severe mitral regurgitation, pulmonary hypertension with right-sided heart failure, chronic a chief fibrillation, LV function of 55% based on most recent echocardiogram, history of CVA, chronic renal failure stage IV kidney disease, chronic anemia, chronic venous insufficiency in lower extremities bilaterally, RLS, IBS, sinus problems, migraines, hypothyroid, past R humerus fracture, R superior pubic ramus fracture, falls. History of Any Multi-Drug Resistant Organisms: MRSA Date of last positivie culture/infection: 10-26-2008 MDRO Source:: LEFT HIP Past Surgical History: Cardiac Valve Replacement, Section, Hernia Repair, Joint Replacement, Pacemaker, Tonsillectomy Additional Past Surgical History / Comment(s): UMBILICAL HERNIA, C SECTION X 2, ISIDORO KNEE REPLACEMENT, RT HIP REPLACEMENT X3 WITH ANTIBIOTIC SPACER USED, PARTIAL THYROIDECTOMY, PARTIAL LT HIP REPLACEMENT SEVERAL YRS AGO AND ANTIBIOTIC SPACER PLACED 2008, TRANSCUTANEOUS AORTIC VALVE REPLACEMENT IN 2015 AT [place], tooth extraction, SEPTOPLASTY, EGD, COLONOSCOPY, L GROIN ENLARGED LYMPH NODE EXCISION. Past Anesthesia/Blood Transfusion Reactions: No Reported Reaction Type of Cardiac Device: Permanent Pacemaker Device Placement Date:: 03/12/14 Smoking Status: Former smoker - Past Family History Brother(s) Family Medical History: Cancer Additional Family Medical History / Comment(s): TWIN BROTHER LUNG CA Mother Additional Family Medical History / Comment(s): BLEEDING ULCER Father Family Medical History: CVA/TIA Medications and Allergies Home Medications Medication Instructions Recorded Confirmed Type Fluticasone Propionate [Flonase] 2 spray EA NOSTRIL DAILY PRN 04/07/14 10/05/17 History Pramipexole [Mirapex] 1 mg PO HS 04/12/14 10/05/17 History Amitriptyline HCl [Elavil] 10 mg PO HS 11/01/15 10/05/17 History Gabapentin [Neurontin] 200 mg PO BID 11/01/15 10/05/17 History Loratadine [Claritin] 10 mg PO DAILY 11/01/15 10/05/17 History HYDROcodone/APAP 7.5-325MG [Welch 1 - 2 tab PO Q4H PRN 06/10/16 10/05/17 History 7.5-325] Iron 27+Folic Acid+B-12 1 tab PO DAILY 06/10/16 10/05/17 History Levothyroxine Sodium [Synthroid] 125 mcg PO DAILY 06/10/16 10/05/17 History Aspirin EC [Ecotrin Low Dose] 81 mg PO DAILY 09/25/17 10/05/17 History Cholecalciferol [Vitamin D3] 1,000 unit PO DAILY 09/25/17 10/05/17 History Fluocinonide 0.05% [Lidex 0.05% 1 applic TOPICAL BID 09/25/17 10/05/17 History cream] Folic Acid 0.4 mg PO HS@1700 09/25/17 10/05/17 History Furosemide [Lasix] 80 mg PO BID 09/25/17 10/05/17 History Metoprolol Tartrate [Lopressor] 25 mg PO DAILY 09/25/17 10/05/17 History Pantoprazole [Protonix] 40 mg PO DAILY 09/25/17 10/05/17 History Apixaban [Eliquis] 2.5 mg PO BID 10/05/17 10/05/17 History Bisacodyl [Dulcolax] 10 mg RECTAL DAILY PRN 10/05/17 10/05/17 History Calcium Carb-Vit D 500Mg-200Un 1 tab PO BID 10/05/17 10/05/17 History [Oscal 500+D] Ipratropium-Albuterol Nebulize 3 ml INHALATION RT-QID 10/05/17 10/05/17 History [Duoneb 0.5 mg-3 mg/3 ml Soln] Vit C/E/Zn/Coppr/Lutein/Zeaxan 1 cap PO HS 10/05/17 10/05/17 History [Preservision Areds 2 Softgel] Allergies Allergy/AdvReac Type Severity Reaction Status Date / Time adhesive Allergy Anaphylaxis-STATED Verified 10/05/17 09:17 "ADHESIVE ON LIDODERM PATCH PAPER TAPE OK azithromycin [From Zithromax] Allergy Unknown Verified 10/05/17 09:17 bumetanide Allergy Unknown Verified 10/05/17 09:17 cefuroxime Allergy Unknown Verified 10/05/17 09:17 cephalexin [From Keflex] Allergy Unknown Verified 10/05/17 09:17 ciprofloxacin [From Cipro] Allergy Rash/Hives Verified 10/05/17 09:17 ciprofloxacin HCl Allergy Rash/Hives Verified 10/05/17 09:17 [From Cipro] clindamycin Allergy Unknown Verified 10/05/17 09:17 clonazepam Allergy Unknown Verified 10/05/17 09:17 daptomycin [From Cubicin] Allergy Unknown Verified 10/05/17 09:17 doxycycline Allergy Unknown Verified 10/05/17 09:17 levofloxacin [From Levaquin] Allergy Unknown Verified 10/05/17 09:17 lidocaine [From Lidoderm] Allergy Rash/Hives Verified 10/05/17 09:17 linezolid [From Zyvox] Allergy Unknown Verified 10/05/17 09:17 meclizine Allergy Unknown Verified 10/05/17 09:17 nitrofurantoin Allergy Unknown Verified 10/05/17 09:17 [From Macrodantin] Penicillins Allergy "BLACK Verified 10/05/17 09:17 RING AROUND TONGUE" Sulfa (Sulfonamide Allergy Rash/Hives Verified 10/05/17 09:17 Antibiotics) Tetracyclines Allergy "BLACK Verified 10/05/17 09:17 RING AROUND TONGUE" Physical Exam Vitals: Vital Signs Temp Pulse Pulse Resp BP BP Pulse Ox 10/07/17 11:11 96 10/07/17 10:57 92 92 L 10/07/17 08:00 95 18 145/108 97 10/07/17 03:53 96.8 F L 107 H 18 149/84 95 10/07/17 00:00 97.1 F L 94 18 146/83 96 10/06/17 20:00 97.1 F L 106 H 18 156/86 96 10/06/17 19:27 106 H 10/06/17 19:13 106 H 10/06/17 16:00 97.2 F L 99 16 130/73 95 10/06/17 15:53 98 10/06/17 15:40 98 Intake and Output 10/06/17 10/07/1710/07/18 22:59 06:59 14:59 Output Total 100 250 Balance -100 -250 Output: Urine 100 250 Other: Voiding Method Bedpan Bedpan # Voids 1 1 Weight 52.8 kg Gen. appearance the patient is an elderly female patient nonacute distress, she has obvious arthritis in her fingers she has also obvious alopecia. No active respirator distress. Able to speak in full sentences Head exam was generally normal. There was no scleral icterus or corneal arcus. Mucous membranes were moist. Neck was supple and with jugular venous distension, thyromegaly, or carotid bruits. Carotids were easily palpable bilaterally. There was no adenopathy. There is bilateral jugular venous venous distention. No goiter or neck masses. Lips are blue and cyanotic Lung sounds are diminished bilaterally along with some bibasilar crackles. There is venous engorgement over the veins of the anterior chest. Heart sounds are irregular, there is a systolic ejection murmur grade 2/6 systolic the precordium. There is also a aortic valve click heard over the anterior chest. Abdomen is slightly distended. There may be an underlying ascites. No direct tenderness. No rebound tensile guarding. No significant organomegaly. His umbilical hernia. Extremities are showing trace edema and there is diffuse degenerative arthritis with deformities. No cyanosis. No clubbing at this point. Neurologically the patient is awake and alert and sequential following commands and there is no focal neurological deficit at this point. Results - Laboratory Findings CBC and BMP: 10/05/17 09:20 10/07/17 05:26 PT/INR, D-dimer PT 10.9 sec (9.0-12.0) 10/05/17 09:20 INR 1.1 (<1.2) 10/05/17 09:20 Abnormal lab findings: Abnormal Labs 10/05/17 10/05/17 10/05/17 09:20 09:20 09:20 WBC 13.4 H RBC 3.45 L Hgb 10.8 L Hct 33.0 L Neutrophils # 12.4 H Lymphocytes # 0.5 L Carbon Dioxide 21 L BUN 88 H* Creatinine 1.75 H Glucose 106 H POC Glucose (mg/dL) Alkaline Phosphatase 150 H Troponin I 0.056 H* Albumin 3.4 L Procalcitonin Urine Blood Urine RBC Urine Bacteria Hyaline Casts Urine Mucus 10/05/17 10/05/17 10/05/17 14:03 14:45 14:45 WBC RBC Hgb Hct Neutrophils # Lymphocytes # Carbon Dioxide BUN Creatinine Glucose POC Glucose (mg/dL) Alkaline Phosphatase Troponin I 0.163 H* Albumin Procalcitonin 3.66 H Urine Blood Small H Urine RBC 6 H Urine Bacteria Rare H Hyaline Casts 7 H Urine Mucus Rare H 10/05/17 10/06/17 10/06/17 21:11 02:49 11:35 WBC RBC Hgb Hct Neutrophils # Lymphocytes # Carbon Dioxide BUN 90 H* Creatinine 1.67 H Glucose POC Glucose (mg/dL) 121 H Alkaline Phosphatase Troponin I 0.184 H* Albumin Procalcitonin Urine Blood Urine RBC Urine Bacteria Hyaline Casts Urine Mucus 10/06/17 10/06/17 10/07/17 16:19 21:41 05:26 WBC RBC Hgb Hct Neutrophils # Lymphocytes # Carbon Dioxide BUN 91 H* Creatinine 1.84 H Glucose 135 H POC Glucose (mg/dL) 166 H 147 H Alkaline Phosphatase Troponin I Albumin Procalcitonin Urine Blood Urine RBC Urine Bacteria Hyaline Casts Urine Mucus 10/07/17 10/07/17 06:28 11:50 WBC RBC Hgb Hct Neutrophils # Lymphocytes # Carbon Dioxide BUN Creatinine Glucose POC Glucose (mg/dL) 135 H 125 H Alkaline Phosphatase Troponin I Albumin Procalcitonin Urine Blood Urine RBC Urine Bacteria Hyaline Casts Urine Mucus - Diagnostic Findings Chest x-ray: image reviewed Assessment and Plan Plan: Assessment 1 acute shortness of breath on the basis of CHF. The patient has diastolic left -sided heart failure in addition to valvular heart disease and moderate degree of pulmonary hypertension and signs of right-sided heart failure including lower extremities edema and some abdominal distention possibly an underlying ascites. ProBNP level is significantly elevated. Minimal troponin leak 2 valvular heart disease with a previous percutaneous aortic valve replacement 3 moderate severe mitral regurgitation secondary pulmonary hypertension 4 chronic renal failure, stage IV kidney disease 5 history of pacemaker insertion 6 hypertension 7 chronic hypoxic history failure secondary to above 8 chronic anemia 9 arthritis and this is in a fall degenerative arthritis involving the hands and large knees bilaterally in the lower extremities and upper extremities in addition. 10 hypothyroidism 11 restless leg syndrome 12 previous hospitalization for gram-negative urine checked infection and sepsis Plan Optimize the volume status by diuresing this patient with Lasix. Continue with the rest of the treatment. The patient was subjected to some breathing treatment and steroids which I would suggest continuing for the time being. She is long-term anticoagulated with Eliquis. We'll continue to follow. Prognosis poor based on the underlying comorbidities and poor baseline performance and functional status.
[2017-10-07] MEDS: FUROSEMIDE 10 MG/ML 4 ML VIAL IV SCH ×2 (13:46→21:30)
[2017-10-07] MEDS: SODIUM CHLORIDE 0.9% 1,000 ML IV SCH (13:47)
[2017-10-07 14:57] LABS: Hemoglobin A1C 5.2 % (4.0-6.0)
[2017-10-07 16:52] LABS: Glucose,Whole Blood 123 mg/dL (75-99)
[2017-10-07] MEDS: FOLIC ACID 1 MG TAB PO SCH (18:04)
[2017-10-07 20:51] LABS: Glucose,Whole Blood 149 mg/dL (75-99)
[2017-10-07] MEDS: AMITRIPTYLINE HCL 10 MG TAB PO SCH (21:23)
[2017-10-07] MEDS: VIT A,C & E-LUTEIN-MINERALS 1 EACH TAB PO SCH (21:23)
[2017-10-07] MEDS: PRAMIPEXOLE 1 MG TAB PO SCH (21:23)
[2017-10-08 05:31] LABS: Glucose,Whole Blood 137 mg/dL (75-99)
[2017-10-08] MEDS: INSULIN ASPART 100 UNIT/ML 1 ML 10 ML VIAL SQ SCH ×4 (05:37→21:17)
[2017-10-08] MEDS: PANTOPRAZOLE 40 MG TABLET PO SCH (06:24)
[2017-10-08] MEDS: LEVOTHYROXINE 125 MCG TAB PO SCH (06:24)
--- NOTE | 2017-10-08 07:29 | CT ---
EXAMINATION TYPE: CT brain wo con DATE OF EXAM: 10/08/2017 COMPARISON: Previous study dated 04/07/2014 HISTORY: altered mental changes CT DLP: 2364.4 mGycm Automated exposure control for dose reduction was used. FINDINGS: There are generalized changes of sulcal prominence and ventriculomegaly, compatible with atrophic salas nge. There is diffuse periventricular white matter lucency, compatible with chronic white matter isch emic change. There is no acute focal lesion, mass effect or midline shift identified. I do not see ev idence of intracranial blood. Visualized portions of the paranasal sinuses are clear. There is fluid in the left-sided mastoid air cells. The bony calvarium is intact. IMPRESSION: 1. NO ACUTE INTRACRANIAL ABNORMALITY. 2. DEGENERATIVE CHANGE. 3. LEFT-SIDED MASTOIDITIS.
[2017-10-08 08:04] LABS: Calcium 8.5 mg/dL (8.4-10.2); Potassium 4.6 mmol/L (3.5-5.1)
[2017-10-08] MEDS ORDERED: ONDANSETRON 4 MG/2 ML VIAL IVP PRN (09:02)
[2017-10-08] MEDS: FUROSEMIDE 10 MG/ML 4 ML VIAL IV SCH ×2 (09:07→21:23)
[2017-10-08] MEDS: SYMBICORT 80-4.5 MCG INHALER INHALATION SCH ×2 (09:16→19:27)
[2017-10-08] MEDS: IPRATROPIUM-ALBUTEROL 3 ML NEB INHALATION SCH ×4 (09:16→19:27)
--- NOTE | 2017-10-08 09:22 | P.PN ---
Progress Note - Text The patient is an 87-year-old female who was brought to the emergency room 3 days ago from [facility] with increasing shortness of breath. The patient has been found to have acute on chronic diastolic congestive heart failure along with exacerbation of underlying COPD with pneumonia. Patient has chronic kidney disease and acute on chronic kidney disease stage IV. The patient has been treated with antibiotics in the form of vancomycin. Patient has multiple medical ALLERGIES. Also suffers from underlying degenerative joint disease and is very frail and debilitated. Apparently through the night and early this morning she became somewhat confused and irritated. Presently she seems to be more settled down. Denies any unusual chest pain. Complains of some nausea. Vital signs reveal temperature 97.2 with a pulse of 87 respirations 18. Blood pressure was 158/94 and she is 96% saturated on 3 L. Patient still has some wheezing but overall air entry is fair although diminished at bases. Heart tones are somewhat irregular but rate is controlled. Abdomen is nontender. No unusual distal edema. She is presently more alert. She knows she is in [facility]. She knows that it is Mother's Day. Her and son are present in the room. This morning's labs reveal a normal sodium of 143 and potassium of 4.6. BUN still is elevated at 92 with a creatinine 1.7 giving her GFR of 27. Blood sugar was 126. Vancomycin level was 15. Calcium 8.5. Patient did have a computed tomography scan of the brain this morning without contrast which did not show any acute intracranial abnormality. Impressions and plans Discussed with patient along with family at bedside this morning and and medical staff. Patient may be having some mental status changes related to the use of IV corticosteroids for her pulmonary wheezing. Also complicated by her age and other medical comorbidities such as her chronic kidney disease and pulmonary status. Pending pulmonary medicine review I will change her IV prednisone to oral. Zofran has been ordered for her nausea. Neurology has been consulted and will await their opinion. Once again this was discussed with the patient, staff and family present in the room. Dr. Alfredo Clark on-call for me today if any concerns or problems Patient is no code, no CPR.
[2017-10-08] MEDS ORDERED: VANCOMYCIN 1,250 MG in SODIUM CHLORIDE 0.9% 250 ML IVPB ONE (09:30)
--- NOTE | 2017-10-08 09:43 | P.NPCON ---
History of Present Illness - Reason for Consult acute renal failure - History of Present Illness Reason for consultation: Acute kidney injury on chronic kidney disease History of present illness: Patient is a 87-year-old female seen in renal consultation for acute kidney injury on chronic kidney disease. Patient has chronic kidney disease stage III with baseline creatinine near 1.5 secondary to chronic interstitial nephritis from NSAID use for several years. Patient states she has seen a water pollution control inspector in the past at [facility]. She presented to the hospital with dyspnea. Chest x-ray was suggestive of fluid overload. She is currently maintained on Lasix 40 mg IV twice daily and also on normal saline at 50 mL an hour. She became confused last night and a brain CT was done which revealed no acute abnormalities. Her creatinine on admission on October 05 is 1.75 and peaked at 1.8 for this admission. It is down to 1.7 today. She is incontinent but has been voiding. No vomiting or diarrhea. Denies chest pain. No edema in the lower extremity. Still feels quite dyspneic. Chest x-ray from yesterday did reveal bilateral pleural effusions. She does have history of diastolic CHF with moderate to severe mitral regurgitation, severe tricuspid regurgitation and moderate pulmonary hypertension. Hemodynamically stable. Denies hematuria or dysuria. Vital signs are stable. General: The patient appeared well nourished and normally developed. HEENT: Head exam is unremarkable. Neck is without jugular venous distension. LUNGS: Breath sounds decreased. HEART: Rate and Rhythm are regular. First and second heart sounds normal. No murmurs, rubs or gallops. ABDOMEN: Abdominal exam reveals normal bowel sounds. Non-tender and non- distended. No evidence of peritonitis. EXTREMITITES: No clubbing, cyanosis, or edema. 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 History of Any Multi-Drug Resistant Organisms: MRSA Date of last positivie culture/infection: 10-26-2008 MDRO Source:: LEFT HIP Past Surgical History: Cardiac Valve Replacement, Section, Hernia Repair, Joint Replacement, Pacemaker, Tonsillectomy Additional Past Surgical History / Comment(s): UMBILICAL HERNIA, C SECTION X 2, ISIDORO KNEE REPLACEMENT, RT HIP REPLACEMENT X3 WITH ANTIBIOTIC SPACER USED, PARTIAL THYROIDECTOMY, PARTIAL LT HIP REPLACEMENT SEVERAL YRS AGO AND ANTIBIOTIC SPACER PLACED 2008, TRANSCUTANEOUS AORTIC VALVE REPLACEMENT IN 2014 AT [facility], tooth extraction, SEPTOPLASTY, EGD, COLONOSCOPY, L GROIN ENLARGED LYMPH NODE EXCISION. Past Anesthesia/Blood Transfusion Reactions: No Reported Reaction Type of Cardiac Device: Permanent Pacemaker Device Placement Date:: 03/12/14 Smoking Status: Former smoker - Past Family History Brother(s) Family Medical History: Cancer Additional Family Medical History / Comment(s): TWIN BROTHER LUNG CA Mother Additional Family Medical History / Comment(s): BLEEDING ULCER Father Family Medical History: CVA/TIA Medications and Allergies Home Medications Medication Instructions Recorded Confirmed Type Fluticasone Propionate [Flonase] 2 spray EA NOSTRIL DAILY PRN 04/07/14 10/05/17 History Pramipexole [Mirapex] 1 mg PO HS 04/12/14 10/05/17 History Amitriptyline HCl [Elavil] 10 mg PO HS 11/01/15 10/05/17 History Gabapentin [Neurontin] 200 mg PO BID 11/01/15 10/05/17 History Loratadine [Claritin] 10 mg PO DAILY 11/01/15 10/05/17 History HYDROcodone/APAP 7.5-325MG [[place] 1 - 2 tab PO Q4H PRN 06/10/16 10/05/17 History 7.5-325] Iron 27+Folic Acid+B-12 1 tab PO DAILY 06/10/16 10/05/17 History Levothyroxine Sodium [Synthroid] 125 mcg PO DAILY 06/10/16 10/05/17 History Aspirin EC [Ecotrin Low Dose] 81 mg PO DAILY 09/25/17 10/05/17 History Cholecalciferol [Vitamin D3] 1,000 unit PO DAILY 09/25/17 10/05/17 History Fluocinonide 0.05% [Lidex 0.05% 1 applic TOPICAL BID 09/25/17 10/05/17 History cream] Folic Acid 0.4 mg PO HS@1700 09/25/17 10/05/17 History Furosemide [Lasix] 80 mg PO BID 09/25/17 10/05/17 History Metoprolol Tartrate [Lopressor] 25 mg PO DAILY 09/25/17 10/05/17 History Pantoprazole [Protonix] 40 mg PO DAILY 09/25/17 10/05/17 History Apixaban [Eliquis] 2.5 mg PO BID 10/05/17 10/05/17 History Bisacodyl [Dulcolax] 10 mg RECTAL DAILY PRN 10/05/17 10/05/17 History Calcium Carb-Vit D 500Mg-200Un 1 tab PO BID 10/05/17 10/05/17 History [Oscal 500+D] Ipratropium-Albuterol Nebulize 3 ml INHALATION RT-QID 10/05/17 10/05/17 History [Duoneb 0.5 mg-3 mg/3 ml Soln] Vit C/E/Zn/Coppr/Lutein/Zeaxan 1 cap PO HS 10/05/17 10/05/17 History [Preservision Areds 2 Softgel] Allergies Allergy/AdvReac Type Severity Reaction Status Date / Time adhesive Allergy Anaphylaxis-STATED Verified 10/05/17 09:17 "ADHESIVE ON LIDODERM PATCH PAPER TAPE OK azithromycin [From Zithromax] Allergy Unknown Verified 10/05/17 09:17 bumetanide Allergy Unknown Verified 10/05/17 09:17 cefuroxime Allergy Unknown Verified 10/05/17 09:17 cephalexin [From Keflex] Allergy Unknown Verified 10/05/17 09:17 ciprofloxacin [From Cipro] Allergy Rash/Hives Verified 10/05/17 09:17 ciprofloxacin HCl Allergy Rash/Hives Verified 10/05/17 09:17 [From Cipro] clindamycin Allergy Unknown Verified 10/05/17 09:17 clonazepam Allergy Unknown Verified 10/05/17 09:17 daptomycin [From Cubicin] Allergy Unknown Verified 10/05/17 09:17 doxycycline Allergy Unknown Verified 10/05/17 09:17 levofloxacin [From Levaquin] Allergy Unknown Verified 05/10/18 09:17 lidocaine [From Lidoderm] Allergy Rash/Hives Verified 10/05/17 09:17 linezolid [From Zyvox] Allergy Unknown Verified 10/05/17 09:17 meclizine Allergy Unknown Verified 10/05/17 09:17 nitrofurantoin Allergy Unknown Verified 10/05/17 09:17 [From Macrodantin] Penicillins Allergy "BLACK Verified 10/05/17 09:17 RING AROUND TONGUE" Sulfa (Sulfonamide Allergy Rash/Hives Verified 10/05/17 09:17 Antibiotics) Tetracyclines Allergy "BLACK Verified 10/05/17 09:17 RING AROUND TONGUE" Physical Exam Vitals: Vital Signs Temp Pulse Pulse Resp BP Pulse Ox 10/08/17 08:00 84 19 165/85 94 L 10/08/17 04:00 97.2 F L 87 18 158/94 96 10/08/17 00:00 97.1 F L 97 18 144/84 97 10/07/17 20:11 97 10/07/17 20:00 97.4 F L 94 18 121/77 95 10/07/17 19:58 96 10/07/17 16:00 96 18 143/84 94 L 10/07/17 15:49 98 10/07/17 15:39 96 10/07/17 12:00 89 18 140/86 97 10/07/17 11:11 96 10/07/17 10:57 92 92 L Intake and Output 10/07/17 10/08/17 10/08/17 22:59 06:59 14:59 Intake Total 360 Output Total 300 Balance 60 Intake: Oral 360 Output: Urine 300 Other: # Voids 2 Weight 52.8 kg Results - Lab Results Most recent lab results Calcium 8.5 mg/dL (8.4-10.2) 10/08/17 07:16 Magnesium 2.3 mg/dL (1.6-2.3) 10/06/17 02:49 10/05/17 09:20 10/08/17 07:16 Assessment and Plan Plan: Assessment: 1. Nonoliguric acute kidney injury mostly prerenal secondary to cardiorenal syndrome. Creatinine peaked at 1.8 for this admission and is down to 1.7 today. BUN disproportionately elevated which is partially related to steroids. No signs of active bleeding. No proteinuria noted on urinalysis. 2. 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 3. Diastolic CHF with severe tricuspid regurgitation, moderate to severe mitral regurgitation, moderate pulmonary hypertension. 4. Volume overload. 5. Altered mental status possibly related to steroids. Brain CT negative. Neurology recommendations pending. 6. History of aortic valve replacement. Plan: Continue Lasix 40 mg IV twice daily. Hep-Lock IV fluids. Avoid nephrotoxic agents and hypotensive episodes. Check stool for occult blood. Repeat electrolytes in the morning. Monitor vancomycin levels. Thank you for the consultation. I will continue to follow the patient with you during her hospital stay.
[2017-10-08] MEDS: SODIUM CHLORIDE 0.9% 1,000 ML IV SCH (10:59)
[2017-10-08] MEDS: LORATADINE 10 MG TAB PO SCH (11:00)
[2017-10-08] MEDS: BETAMETHASONE DIPROPIONATE 0.05% CREAM 15 GM TUBE TOPICAL SCH ×2 (11:00→21:23)
[2017-10-08] MEDS: CALCIUM CARB-VIT D 500MG-200UN 1 EACH TAB PO SCH ×2 (11:00→21:22)
[2017-10-08] MEDS: CHOLECALCIFEROL 1,000 UNIT TAB PO SCH (11:00)
[2017-10-08] MEDS: methylPREDNISolone SOD SUCCI 40 MG/ML 1 ML VIAL IV SCH (11:01)
[2017-10-08] MEDS: APIXABAN 2.5 MG TABLET PO SCH ×2 (11:09→21:23)
[2017-10-08] MEDS: GABAPENTIN 100 MG CAP PO SCH ×2 (11:09→21:22)
[2017-10-08] MEDS: METOPROLOL TARTRATE 25 MG TAB PO SCH (11:09)
[2017-10-08] MEDS: ASPIRIN 81 MG PO SCH (11:10)
[2017-10-08 11:49] LABS: Glucose,Whole Blood 115 mg/dL (75-99)
--- NOTE | 2017-10-08 12:14 | P.PN ---
Subjective Progress Note Date: 10/08/17 This is a 87-year-old female with history of atrial fibrillation, mild coronary placement and also mitral regurgitation. She is also known to have pulmonary hypertension. Patient is admitted to the hospital with increasing shortness of breath and mental status changes. Her echo Cardigan showed normal LV function and also. Normal aortic valve function. Patient has been on IV diuretics. Her BUN/creatinine are increasing. She was seen by crown attacher in the dose of the diuretics is being adjusted. She seemed to be fairly comfortable at rest. We'll continue to follow elect lites closely. Pulmonary input is also appreciated Objective - Vital Signs Vital signs: Vital Signs Temp 97.2 F L 10/08/17 04:00 Pulse 84 10/08/17 08:00 Resp 19 10/08/17 08:00 BP 165/85 10/08/17 08:00 Pulse Ox 94 L 10/08/17 08:00 Intake & Output 10/07/17 10/08/17 10/08/17 18:59 06:59 18:59 Intake Total 600 Output Total 300 Balance 600 -300 Weight 52.8 kg Intake: Oral 600 Output: Urine 300 Other: # Voids 1 2 # Bowel Movements 1 - Exam GENERAL EXAM: Patient is alert seemed to be disoriented HEENT: Normocephalic. Normal reaction of pupils, equal size, normal range of extraocular motion. No erythema or exudates in the throat. NECK: No masses, no nuchal rigidity. CHEST: No chest wall deformity. LUNGS: Equal air entry with no crackles or wheeze. HEART: S1 and S2 normal with no audible mumurs or gallops. Regular rhythm, femorals equal on both sides.. ABDOMEN: No hepatosplenomegaly, normal bowel sounds, no guarding or rigidity. SKIN: No rashes CENTRAL NERVOUS SYSTEM: No focal deficits. EXTREMITIES: Mild edema - Labs CBC & Chem 7: 10/05/17 09:20 10/08/17 07:16 Labs: Abnormal Lab Results - Last 24 Hours (Table) 10/07/17 10/07/17 10/08/17 Range/Units 16:44 20:50 05:29 BUN (7-17) mg/dL Creatinine (0.52-1.04) mg/dL Glucose (74-99) mg/dL POC Glucose (mg/dL) 123 H 149 H 137 H (75-99) mg/dL 10/08/17 10/08/17 Range/Units 07:16 11:47 BUN 92 H* (7-17) mg/dL Creatinine 1.70 H (0.52-1.04) mg/dL Glucose 126 H (74-99) mg/dL POC Glucose (mg/dL) 115 H (75-99) mg/dL Microbiology - Last 24 Hours (Table) 10/05/17 09:20 Blood Culture - Preliminary Blood No Growth after 72 hours Assessment and Plan (1) CHF exacerbation Current Visit: Yes Status: Acute Code(s): I50.9 - HEART FAILURE, UNSPECIFIED SNOMED Code(s): 99308145 (2) Acute kidney injury Current Visit: No Status: Acute Code(s): N17.9 - ACUTE KIDNEY FAILURE, UNSPECIFIED SNOMED Code(s): 49065726 (3) Atrial fibrillation with rapid ventricular response Current Visit: No Status: Acute Code(s): I48.91 - UNSPECIFIED ATRIAL FIBRILLATION SNOMED Code(s): 050375441366617 Plan: Continue current management. He'll adjust the dose of the diuretics as further recommendation nephrology. Prognosis is guarded
--- NOTE | 2017-10-08 12:21 | P.PN ---
Subjective Progress Note Date: 10/08/17 87-year-old female patient with known history of chronic hypoxic respiratory failure, chronic CHF with valvular heart disease and chronic atrial fibrillation , coming into the hospital because of worsening shortness of breath. She was recently hospitalized for the same. She was at the group home complaining of worsening shortness of breath. She was given Lasix without much improvement and for that reason she got transferred to our hospital. She has some chronic lower extremities edema. She has chronic renal failure. She suffers from valvular heart disease and the patient has undergone a percutaneous aortic valve replacement 3 [facility] the patient has moderate to severe mitral regurgitation and secondary pulmonary hypertension. She has also history of chronic atrial fibrillation and echocardiogram that was done recently showed an ejection fraction on the left of 55-60%, right ventricular was enlarged, right-sided pressures were elevated at 60 mmHg, there was moderate dilatation of the left atrium. There was moderate severe mitral regurgitation. There was severe check a regurgitation and moderate degree of pulmonary hypertension. During this current admission, the patient's troponin is a 0.184, 0.16 and 0.05 respectively 3, the proBNP level was elevated at 18, 800. Influenza screen was negative. Creatinine is stable with a level of 1.84. This the electrodes are all within normal limits. The chest x-ray shows bilateral lower lobe infiltrates and pleural effusion and mild pulmonary vascular congestion in addition to cardiomegaly. On today's evaluation of 10/08/2017, the patient is resting comfortably in bed and the patient has no specific complaints. The patient is being diuresis with IV Lasix. Slightly more prerenal compared to yesterday and nephrology saw the patient and decided to continue with the same diuretic regimen. Urine output is adequate and the patient is a negative fluid balance. No cough or sputum production. No chest tightness or wheezing. No altered mentation at this point in time. Objective - Vital Signs Vital signs: Vital Signs Temp 97.2 F L 10/08/17 04:00 Pulse 95 10/08/17 12:00 Resp 18 10/08/17 12:00 BP 146/97 10/08/17 12:00 Pulse Ox 95 10/08/17 12:00 Intake & Output 10/07/17 10/08/17 10/08/17 18:59 06:59 18:59 Intake Total 600 Output Total 300 Balance 600 -300 Weight 52.8 kg Intake: Oral 600 Output: Urine 300 Other: # Voids 1 2 # Bowel Movements 1 - Exam Gen. appearance the patient is an elderly female patient nonacute distress, she has obvious arthritis in her fingers she has also obvious alopecia. No active respirator distress. Able to speak in full sentences Head exam was generally normal. There was no scleral icterus or corneal arcus. Mucous membranes were moist. Neck was supple and with jugular venous distension, thyromegaly, or carotid bruits. Carotids were easily palpable bilaterally. There was no adenopathy. There is bilateral jugular venous venous distention. No goiter or neck masses. Lips are blue and cyanotic Lung sounds are diminished bilaterally along with some bibasilar crackles. There is venous engorgement over the veins of the anterior chest. Heart sounds are irregular, there is a systolic ejection murmur grade 2/6 systolic the precordium. There is also a aortic valve click heard over the anterior chest. Abdomen is slightly distended. There may be an underlying ascites. No direct tenderness. No rebound tensile guarding. No significant organomegaly. His umbilical hernia. Extremities are showing trace edema and there is diffuse degenerative arthritis with deformities. No cyanosis. No clubbing at this point. Neurologically the patient is awake and alert and sequential following commands and there is no focal neurological deficit at this point. - Labs CBC & Chem 7: 10/05/17 09:20 10/08/17 07:16 Labs: Abnormal Lab Results - Last 24 Hours (Table) 10/07/17 10/07/17 10/08/17 Range/Units 16:44 20:50 05:29 BUN (7-17) mg/dL Creatinine (0.52-1.04) mg/dL Glucose (74-99) mg/dL POC Glucose (mg/dL) 123 H 149 H 137 H (75-99) mg/dL 10/08/17 10/08/17 Range/Units 07:16 11:47 BUN 92 H* (7-17) mg/dL Creatinine 1.70 H (0.52-1.04) mg/dL Glucose 126 H (74-99) mg/dL POC Glucose (mg/dL) 115 H (75-99) mg/dL Microbiology - Last 24 Hours (Table) 10/05/17 09:20 Blood Culture - Preliminary Blood No Growth after 72 hours Assessment and Plan Plan: Assessment 1 acute shortness of breath on the basis of CHF. The patient has diastolic left -sided heart failure in addition to valvular heart disease and moderate degree of pulmonary hypertension and signs of right-sided heart failure including lower extremities edema and some abdominal distention possibly an underlying ascites. ProBNP level is significantly elevated. Minimal troponin leak 2 valvular heart disease with a previous percutaneous aortic valve replacement 3 moderate severe mitral regurgitation secondary pulmonary hypertension 4 chronic renal failure, stage IV kidney disease 5 history of pacemaker insertion 6 hypertension 7 chronic hypoxic history failure secondary to above 8 chronic anemia 9 arthritis and this is in a fall degenerative arthritis involving the hands and large knees bilaterally in the lower extremities and upper extremities in addition. 10 hypothyroidism 11 restless leg syndrome 12 previous hospitalization for gram-negative urine checked infection and sepsis Plan Continue IV Lasix for another 24 hours. Monitor the renal function. The patient is progressively becoming more prerenal. Nephrology is on the case. Cardiology is on the case. Patient is also on a prednisone burst taper which will be continued. We'll continue to follow.
--- NOTE | 2017-10-08 12:45 | P.CONS ---
History of Present Illness - Reason for Consult Consult date: 10/08/17 Altered mental status - Chief Complaint Altered mental status - History of Present Illness This is a pleasant 87-year-old male being evaluated by the neurology service for altered mental status was brought to the emergency room on 2017 for [facility] with shortness of breath. She has a significant history of chronic diastolic congestive heart failure and COPD. She has chronic kidney disease. She has many chronic pain issues contributing to medical debility. Recently she became "confused and irritated but then quickly settle down. A CT of the brain was done and showed no acute intracranial abnormalities. She was also given some steroids for her breathing and it was believed that this also causes some mental status changes in her. No family is at bedside at the time of my evaluation, but she seems quite alert and aware. Review of Systems Constitutional: Reports as per HPI Past Medical History Past Medical History: Atrial Fibrillation, Asthma, Heart Failure, Hypertension, Osteoarthritis (OA), Renal Disease, Skin Disorder, Syncope, Thyroid Disorder, Vascular Disorder Additional Past Medical History / Comment(s): Valvular heart disease with previous percutaneous aortic valve replacement, moderate to severe mitral regurgitation, pulmonary hypertension with right-sided heart failure, chronic a chief fibrillation, LV function of 55% based on most recent echocardiogram, history of CVA, chronic renal failure stage IV kidney disease, chronic anemia, chronic venous insufficiency in lower extremities bilaterally, RLS, IBS, sinus problems, migraines, hypothyroid, past R humerus fracture, R superior pubic ramus fracture, falls. 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 Source:: LEFT HIP Past Surgical History: Cardiac Valve Replacement, Section, Hernia Repair, Joint Replacement, Pacemaker, Tonsillectomy Additional Past Surgical History / Comment(s): UMBILICAL HERNIA, C SECTION X 2, ISIDORO KNEE REPLACEMENT, RT HIP REPLACEMENT X3 WITH ANTIBIOTIC SPACER USED, PARTIAL THYROIDECTOMY, PARTIAL LT HIP REPLACEMENT SEVERAL YRS AGO AND ANTIBIOTIC SPACER PLACED 2008, TRANSCUTANEOUS AORTIC VALVE REPLACEMENT IN 2014 AT [place], tooth extraction, SEPTOPLASTY, EGD, COLONOSCOPY, L GROIN ENLARGED LYMPH NODE EXCISION. Past Anesthesia/Blood Transfusion Reactions: No Reported Reaction Type of Cardiac Device: Permanent Pacemaker Device Placement Date:: 03/12/14 Smoking Status: Former smoker - Past Family History Brother(s) Family Medical History: Cancer Additional Family Medical History / Comment(s): TWIN BROTHER LUNG CA Mother Additional Family Medical History / Comment(s): BLEEDING ULCER Father Family Medical History: CVA/TIA Medications and Allergies Home Medications Medication Instructions Recorded Confirmed Type Fluticasone Propionate [Flonase] 2 spray EA NOSTRIL DAILY PRN 04/07/14 10/05/17 History Pramipexole [Mirapex] 1 mg PO HS 04/12/14 10/05/17 History Amitriptyline HCl [Elavil] 10 mg PO HS 11/01/15 10/05/17 History Gabapentin [Neurontin] 200 mg PO BID 11/01/15 10/05/17 History Loratadine [Claritin] 10 mg PO DAILY 11/01/15 10/05/17 History HYDROcodone/APAP 7.5-325MG [[place] 1 - 2 tab PO Q4H PRN 06/10/16 10/05/17 History 7.5-325] Iron 27+Folic Acid+B-12 1 tab PO DAILY 06/10/16 10/05/17 History Levothyroxine Sodium [Synthroid] 125 mcg PO DAILY 06/10/16 10/05/17 History Aspirin EC [Ecotrin Low Dose] 81 mg PO DAILY 09/25/17 10/05/17 History Cholecalciferol [Vitamin D3] 1,000 unit PO DAILY 09/25/17 10/05/17 History Fluocinonide 0.05% [Lidex 0.05% 1 applic TOPICAL BID 09/25/17 10/05/17 History cream] Folic Acid 0.4 mg PO HS@1700 09/25/17 10/05/17 History Furosemide [Lasix] 80 mg PO BID 09/25/17 10/05/17 History Metoprolol Tartrate [Lopressor] 25 mg PO DAILY 09/25/17 10/05/17 History Pantoprazole [Protonix] 40 mg PO DAILY 09/25/17 10/05/17 History Apixaban [Eliquis] 2.5 mg PO BID 10/05/17 10/05/17 History Bisacodyl [Dulcolax] 10 mg RECTAL DAILY PRN 10/05/17 10/05/17 History Calcium Carb-Vit D 500Mg-200Un 1 tab PO BID 10/05/17 10/05/17 History [Oscal 500+D] Ipratropium-Albuterol Nebulize 3 ml INHALATION RT-QID 10/05/17 10/05/17 History [Duoneb 0.5 mg-3 mg/3 ml Soln] Vit C/E/Zn/Coppr/Lutein/Zeaxan 1 cap PO HS 10/05/17 10/05/17 History [Preservision Areds 2 Softgel] Allergies Allergy/AdvReac Type Severity Reaction Status Date / Time adhesive Allergy Anaphylaxis-STATED Verified 10/05/17 09:17 "ADHESIVE ON LIDODERM PATCH PAPER TAPE OK azithromycin [From Zithromax] Allergy Unknown Verified 10/05/17 09:17 bumetanide Allergy Unknown Verified 10/05/17 09:17 cefuroxime Allergy Unknown Verified 10/05/17 09:17 cephalexin [From Keflex] Allergy Unknown Verified 10/05/17 09:17 ciprofloxacin [From Cipro] Allergy Rash/Hives Verified 10/05/17 09:17 ciprofloxacin HCl Allergy Rash/Hives Verified 10/05/17 09:17 [From Cipro] clindamycin Allergy Unknown Verified 10/05/17 09:17 clonazepam Allergy Unknown Verified 10/05/17 09:17 daptomycin [From Cubicin] Allergy Unknown Verified 10/05/17 09:17 doxycycline Allergy Unknown Verified 10/05/17 09:17 levofloxacin [From Levaquin] Allergy Unknown Verified 10/05/17 09:17 lidocaine [From Lidoderm] Allergy Rash/Hives Verified 10/05/17 09:17 linezolid [From Zyvox] Allergy Unknown Verified 10/05/17 09:17 meclizine Allergy Unknown Verified 10/05/17 09:17 nitrofurantoin Allergy Unknown Verified 10/05/17 09:17 [From Macrodantin] Penicillins Allergy "BLACK Verified 10/05/17 09:17 RING AROUND TONGUE" Sulfa (Sulfonamide Allergy Rash/Hives Verified 10/05/17 09:17 Antibiotics) Tetracyclines Allergy "BLACK Verified 10/05/17 09:17 RING AROUND TONGUE" Physical Exam Vitals: Vital Signs Temp Pulse Pulse Resp BP Pulse Ox 10/08/17 12:00 95 18 146/97 95 10/08/17 08:00 84 19 165/85 94 L 10/08/17 04:00 97.2 F L 87 18 158/94 96 10/08/17 00:00 97.1 F L 97 18 144/84 97 10/07/17 20:11 97 10/07/17 20:00 97.4 F L 94 18 121/77 95 10/07/17 19:58 96 10/07/17 16:00 96 18 143/84 94 L 10/07/17 15:49 98 10/07/17 15:39 96 Intake and Output 10/07/17 10/08/17 10/08/17 22:59 06:59 14:59 Intake Total 360 Output Total 300 Balance 60 Intake: Oral 360 Output: Urine 300 Other: # Voids 2 Weight 52.8 kg - Constitutional General appearance: no acute distress, thin - EENT Eyes: no abnormal pupil, PERRLA, no ptosis ENT: hearing grossly normal - Neck Limited motion due to chronic neck pain prior surgery, no nuchal rigidity Neck: no normal ROM, no rigidity - Respiratory Productive cough Respiratory: negative: prolonged expiration, prolonged inspiration - Cardiovascular Rhythm: regular - Gastrointestinal General gastrointestinal: no distended, no tenderness - Neurologic The patient is alert awake and oriented 3. Speech and language are normal. There is no facial asymmetry. Strength is 5 minus out of 5 in bilateral upper and lower extremities. Some of the exam is limited by diffuse joint pain. There is no sensory deficit. No tremors or seizures are seen. Cranial nerves II through XII are intact globally. Results CBC & Chem 7: 10/05/17 09:20 10/08/17 07:16 Labs: Abnormal Lab Results - Last 24 Hours (Table) 10/07/17 10/07/17 10/08/17 Range/Units 16:44 20:50 05:29 BUN (7-17) mg/dL Creatinine (0.52-1.04) mg/dL Glucose (74-99) mg/dL POC Glucose (mg/dL) 123 H 149 H 137 H (75-99) mg/dL 10/08/17 10/08/17 Range/Units 07:16 11:47 BUN 92 H* (7-17) mg/dL Creatinine 1.70 H (0.52-1.04) mg/dL Glucose 126 H (74-99) mg/dL POC Glucose (mg/dL) 115 H (75-99) mg/dL Microbiology - Last 24 Hours (Table) 10/05/17 09:20 Blood Culture - Preliminary Blood No Growth after 72 hours Assessment and Plan (1) Altered mental status Current Visit: Yes Status: Acute Code(s): R41.82 - ALTERED MENTAL STATUS, UNSPECIFIED SNOMED Code(s): 448322426 (2) Metabolic encephalopathy Current Visit: Yes Status: Acute Code(s): G93.41 - METABOLIC ENCEPHALOPATHY SNOMED Code(s): 85891219 (3) CHF exacerbation Current Visit: Yes Status: Chronic Code(s): I50.9 - HEART FAILURE, UNSPECIFIED SNOMED Code(s): 41762066 (4) Cardiomyopathy Current Visit: No Status: Chronic Code(s): I42.9 - CARDIOMYOPATHY, UNSPECIFIED SNOMED Code(s): 02743213 (5) Congestive heart failure Current Visit: No Status: Acute Code(s): I50.9 - HEART FAILURE, UNSPECIFIED SNOMED Code(s): 70477448 (6) Weakness Current Visit: No Status: Chronic Code(s): R53.1 - WEAKNESS SNOMED Code(s) : 84412905 Plan: The patient's altered mental status is due to multifactorial encephalopathy. As mentioned above, It may have been a little exacerbated with the steroid use. At the time of my exam she is quite awake alert and aware. However, she may be just going to a quiescent period. It is reassuring that her CT of the brain showed no acute intracranial abnormalities. We have ordered an EEG. Continue neurological checks. Continue the rest your workup and treatment plan. We will continue to follow and make recommendations . I have performed a history and physical on the above patient. I have reviewed the above note, and agree.
[2017-10-08 17:06] LABS: Glucose,Whole Blood 95 mg/dL (75-99)
[2017-10-08] MEDS: FOLIC ACID 1 MG TAB PO SCH (17:12)
[2017-10-08] MEDS: HYDROcodone/APAP 7.5-325MG 1 EACH TAB PO PRN (17:19)
[2017-10-08 20:31] LABS: Glucose,Whole Blood 144 mg/dL (75-99)
[2017-10-08] MEDS: AMITRIPTYLINE HCL 10 MG TAB PO SCH (21:22)
[2017-10-08] MEDS: PRAMIPEXOLE 1 MG TAB PO SCH (21:22)
[2017-10-08] MEDS: VIT A,C & E-LUTEIN-MINERALS 1 EACH TAB PO SCH (21:22)
[2017-10-09 06:10] LABS: Glucose,Whole Blood 87 mg/dL (75-99)
[2017-10-09] MEDS: INSULIN ASPART 100 UNIT/ML 1 ML 10 ML VIAL SQ SCH (06:14)
[2017-10-09] MEDS: LEVOTHYROXINE 125 MCG TAB PO SCH (06:16)
[2017-10-09] MEDS: PANTOPRAZOLE 40 MG TABLET PO SCH (06:16)
[2017-10-09 06:25] LABS: Basophils % (A) 0 %; Eosinophils % (A) 0 %; HCT 32.4 % (34.0-46.0); HGB 10.2 gm/dL (11.4-16.0); Hypochromasia Slight; Lymphocytes # (A) 0.7 k/uL (1.0-4.8); Lymphocytes % (A) 6 %; MCH 30.4 pg (25.0-35.0); MCHC 31.5 g/dL (31.0-37.0); MCV 96.5 fL (80.0-100.0); Mean Platelet Volume 7.3; Monocytes # (A) 0.5 k/uL (0-1.0); Monocytes % (A) 5 %; Neutrophils # (A) 9.1 k/uL (1.3-7.7); Neutrophils % (A) 87 %; Platelet Count 344 k/uL (150-450); Poikilocytosis Slight; RBC 3.35 m/uL (3.80-5.40); WBC 10.4 k/uL (3.8-10.6)
[2017-10-09 06:43] LABS: Albumin 3.2 g/dL (3.5-5.0); Calcium 8.4 mg/dL (8.4-10.2); Magnesium 2.4 mg/dL (1.6-2.3); Potassium 4.4 mmol/L (3.5-5.1); Total Bilirubin 0.3 mg/dL (0.2-1.3); Total Protein 5.9 g/dL (6.3-8.2)
[2017-10-09 06:48] LABS: Vancomycin,Random 21.1 ug/mL
[2017-10-09] MEDS: SYMBICORT 80-4.5 MCG INHALER INHALATION SCH ×2 (07:44→19:20)
[2017-10-09] MEDS: IPRATROPIUM-ALBUTEROL 3 ML NEB INHALATION SCH ×4 (07:44→19:20)
--- NOTE | 2017-10-09 08:29 | P.PN ---
Progress Note - Text The patient is an 87-year-old female who 4 days ago presented from [facility] to the emergency room with shortness of breath. The patient has been found to have acute on chronic diastolic congestive heart failure along with underlying pneumonia and exacerbation of COPD. Also acute on chronic kidney failure stage IV. She does have multiple antibiotic ALLERGY and is presently on vancomycin. She did have a period where she was somewhat confused and irritated and this has been felt to be multifactorial and likely in part secondary to IV corticosteroids. This morning she seems to be generally calm and alert. Denies any acute chest pain or shortness of breath at rest. She is lying flat in bed. Last vital signs reveal temperature 90.7 with a pulse of 87 and respirations 18. Blood pressure 137/92 and she is 98% saturated on 3 L. Lungs overall symptoms to show better air entry without wheezing is much this morning so far. Heart tones were somewhat irregular but controlled rate. Abdomen is nontender. No unusual distal edema. She does seem overall to be alert without focal weakness or deficits noted. Laboratory White count 10.4 with a hemoglobin 10.2 and a platelet count of 344. Electrolytes were normal with potassium 4.4. BUN is still at 90 with a creatinine of 1.9 giving her a GFR of 24. Liver function tests were satisfactory other than the albumin of 3.2. Vancomycin level was 21. Blood sugar 87. Input and output are somewhat sketchy. Overall weight is down almost 1 kg. It appears she is voiding satisfactorily. Impressions and plans Patient with multiple problems as outlined above along with other comorbidities. She generally appears to be somewhat improving and stabilizing. She is on physical and occupational therapy. We will see how she does with therapy today. Notes from cardiology, neurology, nephrology and pulmonary medicine are regarded. A possible discharge to extended care facility over the next 24-48 hours with continued stabilization pending okay from specialists and finalization of discharge medications. Prednisone decreased from 40-30 mg daily. She is no code no CPR and prognosis overall is poor.
[2017-10-09] MEDS: FUROSEMIDE 10 MG/ML 4 ML VIAL IV SCH ×2 (09:00→09:01)
[2017-10-09] MEDS: GABAPENTIN 100 MG CAP PO SCH ×2 (09:00→22:00)
[2017-10-09] MEDS: CHOLECALCIFEROL 1,000 UNIT TAB PO SCH (09:00)
[2017-10-09] MEDS: APIXABAN 2.5 MG TABLET PO SCH ×2 (09:00→21:58)
[2017-10-09] MEDS: METOPROLOL TARTRATE 25 MG TAB PO SCH (09:00)
[2017-10-09] MEDS: BETAMETHASONE DIPROPIONATE 0.05% CREAM 15 GM TUBE TOPICAL SCH ×2 (09:00→21:59)
[2017-10-09] MEDS ORDERED: predniSONE 20 MG TAB PO SCH (09:00)
[2017-10-09] MEDS: LORATADINE 10 MG TAB PO SCH (09:00)
[2017-10-09] MEDS: CALCIUM CARB-VIT D 500MG-200UN 1 EACH TAB PO SCH ×2 (09:00→21:59)
[2017-10-09] MEDS ORDERED: VANCOMYCIN 1,250 MG in SODIUM CHLORIDE 0.9% 250 ML IVPB ONE (09:00)
[2017-10-09] MEDS: ASPIRIN 81 MG PO SCH (09:00)
[2017-10-09] MEDS: predniSONE 10 MG TAB PO SCH (09:04)
[2017-10-09] MEDS: HYDROcodone/APAP 7.5-325MG 1 EACH TAB PO PRN (11:19)
--- NOTE | 2017-10-09 11:35 | P.PN ---
Subjective Progress Note Date: 10/09/17 Principal diagnosis: Acute on chronic hypoxic respiratory failure secondary to an acute exacerbation of diastolic congestive heart failure. 87-year-old female patient with known history of chronic hypoxic respiratory failure, chronic CHF with valvular heart disease and chronic atrial fibrillation , coming into the hospital because of worsening shortness of breath. She was recently hospitalized for the same. She was at the intermediate complaining of worsening shortness of breath. She was given Lasix without much improvement and for that reason she got transferred to our hospital. She has some chronic lower extremities edema. She has chronic renal failure. She suffers from valvular heart disease and the patient has undergone a percutaneous aortic valve replacement [facility] the patient has moderate to severe mitral regurgitation and secondary pulmonary hypertension. She has also history of chronic atrial fibrillation and echocardiogram that was done recently showed an ejection fraction on the left of 55-60%, right ventricular was enlarged, right-sided pressures were elevated at 60 mmHg, there was moderate dilatation of the left atrium. There was moderate severe mitral regurgitation. There was severe check a regurgitation and moderate degree of pulmonary hypertension. During this current admission, the patient's troponin is a 0.184, 0.16 and 0.05 respectively 3, the proBNP level was elevated at 18, 800. Influenza screen was negative. Creatinine is stable with a level of 1.84. This the electrodes are all within normal limits. The chest x-ray shows bilateral lower lobe infiltrates and pleural effusion and mild pulmonary vascular congestion in addition to cardiomegaly. On today's evaluation of 10/08/2017, the patient is resting comfortably in bed and the patient has no specific complaints. The patient is being diuresis with IV Lasix. Slightly more prerenal compared to yesterday and nephrology saw the patient and decided to continue with the same diuretic regimen. Urine output is adequate and the patient is a negative fluid balance. No cough or sputum production. No chest tightness or wheezing. No altered mentation at this point in time. Patient seen again today 10/09/2017 in follow-up on the selective care unit. She is awake and alert in no acute distress. She states she is breathing easier today as compared to yesterday. She is maintaining good O2 saturations up to 100% on 2 L/m. Nasal cannula. She's been afebrile. Hemodynamically stable. Blood and urine cultures reveal no growth. White count 10.4. Hemoglobin 10.2. Creatinine 1.90. She remains on Lasix 40 mg IV every 12 hours. Objective - Vital Signs Vital signs: Vital Signs Temp 96.9 F L 10/09/17 08:00 Pulse 70 10/09/17 11:16 Resp 16 10/09/17 11:16 BP 140/82 10/09/17 11:16 Pulse Ox 100 10/09/17 11:16 Intake & Output 10/08/17 10/09/17 10/09/17 18:59 06:59 18:59 Intake Total 590 840 Output Total 300 300 301 Balance 290 -300 539 Weight 52 kg Intake: Intake, IV Titration 250 Amount Vancomycin 1,250 mg In 250 Sodium Chloride 0.9% 250 ml @ 125 mls/hr IVPB ONCE ONE Rx#:[id number] Oral 340 840 Output: Urine 300 300 Stool 1 Urine/Stool Mix 300 Other: Voiding Method Bedpan # Voids 2 1 # Bowel Movements 1 - Exam Gen. appearance the patient is an elderly female patient nonacute distress, she has obvious arthritis in her fingers she has also obvious alopecia. No active respirator distress. Able to speak in full sentences Head exam was generally normal. There was no scleral icterus or corneal arcus. Mucous membranes were moist. Neck was supple and with jugular venous distension, thyromegaly, or carotid bruits. Carotids were easily palpable bilaterally. There was no adenopathy. There is bilateral jugular venous venous distention. No goiter or neck masses. Lips are blue and cyanotic Lung sounds are diminished bilaterally along with some bibasilar crackles. There is venous engorgement over the veins of the anterior chest. Heart sounds are irregular, there is a systolic ejection murmur grade 2/6 systolic the precordium. There is also a aortic valve click heard over the anterior chest. Abdomen is slightly distended. There may be an underlying ascites. No direct tenderness. No rebound tensile guarding. No significant organomegaly. His umbilical hernia. Extremities are showing trace edema and there is diffuse degenerative arthritis with deformities. No cyanosis. No clubbing at this point. Neurologically the patient is awake and alert and sequential following commands and there is no focal neurological deficit at this point. - Labs CBC & Chem 7: 10/09/17 06:06 10/09/17 06:06 Labs: Abnormal Lab Results - Last 24 Hours (Table) 10/08/17 10/08/17 10/09/17 Range/Units 11:47 20:30 06:06 RBC (3.80-5.40) m/uL Hgb (11.4-16.0) gm/dL Hct (34.0-46.0) % Neutrophils # (1.3-7.7) k/uL Lymphocytes # (1.0-4.8) k/uL BUN 90 H* (7-17) mg/dL Creatinine 1.90 H (0.52-1.04) mg/dL POC Glucose (mg/dL) 115 H 144 H (75-99) mg/dL Magnesium 2.4 H (1.6-2.3) mg/dL Total Protein 5.9 L (6.3-8.2) g/dL Albumin 3.2 L (3.5-5.0) g/dL 10/09/17 Range/Units 06:06 RBC 3.35 L (3.80-5.40) m/uL Hgb 10.2 L (11.4-16.0) gm/dL Hct 32.4 L (34.0-46.0) % Neutrophils # 9.1 H (1.3-7.7) k/uL Lymphocytes # 0.7 L (1.0-4.8) k/uL BUN (7-17) mg/dL Creatinine (0.52-1.04) mg/dL POC Glucose (mg/dL) (75-99) mg/dL Magnesium (1.6-2.3) mg/dL Total Protein (6.3-8.2) g/dL Albumin (3.5-5.0) g/dL Microbiology - Last 24 Hours (Table) 10/05/17 09:20 Blood Culture - Preliminary Blood No Growth after 72 hours Assessment and Plan Assessment: Assessment 1 acute shortness of breath on the basis of CHF. The patient has diastolic left -sided heart failure in addition to valvular heart disease and moderate degree of pulmonary hypertension and signs of right-sided heart failure including lower extremities edema and some abdominal distention possibly an underlying ascites. ProBNP level is significantly elevated. Minimal troponin leak 2 valvular heart disease with a previous percutaneous aortic valve replacement 3 moderate severe mitral regurgitation secondary pulmonary hypertension 4 chronic renal failure, stage IV kidney disease 5 history of pacemaker insertion 6 hypertension 7 chronic hypoxic history failure secondary to above 8 chronic anemia 9 arthritis and this is in a fall degenerative arthritis involving the hands and large knees bilaterally in the lower extremities and upper extremities in addition. 10 hypothyroidism 11 restless leg syndrome 12 previous hospitalization for gram-negative urine checked infection and sepsis and urine culture negative this admission 13 poor overall functional performance based on the above-mentioned multiple comorbidities Plan: The patient was seen and evaluated by Dr. Patton. She is improved from the pulmonary standpoint. She remains on IV diuretics. Creatinine 1.90. Continue with bronchodilators and prednisone taper. Repeat chest x-ray. We'll continue to follow. I, the cosigning physician, performed a history & physical examination of the patient. Lungs sounds with crackles in the posterior basesr. Maintaining good O2 saturations in the 90s on liters nasal cannula. I discussed the assessment and plan of care with my nurse practitioner, Celina Urbina. I attest to the above note as dictated by her.
--- NOTE | 2017-10-09 12:24 | PN ---
PROGRESS NOTE This patient was admitted with respiratory distress. Yesterday, this patient was transferred from the detention. She is feeling better. She denies any respiratory distress. Patient's temperature is normal. Blood pressure is 149/84 mmHg. Respirations are not labored. First and second heart sounds are normal. There are bilateral crackles noted in the lower 1/3 of the lung burks. Patient's white count is 13,400. Patient's BUN is 90 and creatinine is 1.4. Patient's procalcitonin level was 3.1. In view of that we are dealing with possibility with hospital-acquired pneumonia. In view of the patient's of pre renal azotemia, we will hold off the Lasix at the present and a Pulmonary consultation would be obtained. MMEKATERINA / IJN: [id number] /
--- NOTE | 2017-10-09 14:50 | P.PN ---
Subjective Progress Note Date: 10/09/17 This is a pleasant 87-year-old female who was recently discharged from the hospital after being treated for congestive heart failure and atrial fibrillation, she progressively became more short of breath and return to the hospital. She was initially diuresed with IV Lasix and also treated with steroids. Patient was noticed to be febrile on admission here she is also status post aortic valve replacement. Echocardiogram was performed which revealed a normally functioning aortic valve with pulmonary hypertension and normal left ventricular systolic function. A pro-calcitonin level was obtained which came back to be 3.66, confirming the diagnosis of pneumonia. Pulmonary evaluation has been requested. Creatinine today is 1.8, BUN 91, sodium 142. Diuretics are currently on hold. We will recheck a BNP level tomorrow, check lytes BUN and creatinine in the morning. Patient is still quite congested, states that she coughed most of the night, productive sputum. She also had issues earlier this morning where she was choking on a piece of sausage. 10/09/2017 Patient was seen and examined this morning, breathing is stable, continues to have occasional productive cough of yellow sputum. She was re- initiated on IV Lasix over the weekend, creatinine 1.9 today. Objective - Vital Signs Vital signs: Vital Signs Temp 96.9 F L 10/09/17 08:00 Pulse 70 10/09/17 11:32 Resp 16 10/09/17 11:32 BP 140/82 10/09/17 11:16 Pulse Ox 100 10/09/17 11:16 Intake & Output 10/08/17 10/09/17 10/09/17 18:59 06:59 18:59 Intake Total 590 840 Output Total 300 300 501 Balance 290 -300 339 Weight 52 kg Intake: Intake, IV Titration 250 Amount Vancomycin 1,250 mg In 250 Sodium Chloride 0.9% 250 ml @ 125 mls/hr IVPB ONCE ONE Rx#:[id number] Oral 340 840 Output: Urine 300 500 Stool 1 Urine/Stool Mix 300 Other: Voiding Method Bedpan # Voids 2 1 # Bowel Movements 2 - Exam PHYSICAL EXAMINATION: HEENT: Head is atraumatic, normocephalic. Pupils equal, round. Neck is supple. There is no elevated jugular venous pressure. HEART EXAMINATION: Heart S1, S2 normal. No murmur or gallop heard. CHEST EXAMINATION: Lungs reveal scattered coarse rhonchi and wheezing throughout ABDOMEN: Soft, nontender. Bowel sounds are heard. No organomegaly noted. EXTREMITIES: 2+ peripheral pulses with no evidence of peripheral edema and no calf tenderness noted. NEUROLOGIC patient is awake, alert and oriented -3. . - Labs CBC & Chem 7: 10/09/17 06:06 10/09/17 06:06 Labs: Abnormal Lab Results - Last 24 Hours (Table) 10/08/17 10/09/17 10/09/17 Range/Units 20:30 06:06 06:06 RBC 3.35 L (3.80-5.40) m/uL Hgb 10.2 L (11.4-16.0) gm/dL Hct 32.4 L (34.0-46.0) % Neutrophils # 9.1 H (1.3-7.7) k/uL Lymphocytes # 0.7 L (1.0-4.8) k/uL BUN 90 H* (7-17) mg/dL Creatinine 1.90 H (0.52-1.04) mg/dL POC Glucose (mg/dL) 144 H (75-99) mg/dL Magnesium 2.4 H (1.6-2.3) mg/dL Total Protein 5.9 L (6.3-8.2) g/dL Albumin 3.2 L (3.5-5.0) g/dL Microbiology - Last 24 Hours (Table) 10/05/17 09:20 Blood Culture - Preliminary Blood No Growth after 96 hours Assessment and Plan Plan: Assessment and plan #1 pneumonia #2 acute on chronic diastolic congestive heart failure #3 paroxysmal atrial fibrillation #4 chronic renal failure #5 history of transcutaneous aortic valve replacement #6Prior pacemaker implantation #7 hypothyroidism Plan From cardiology's perspective, we will discontinue the IV Lasix. 10 you the rest of the patient's medication, continue to monitor daily creatinine. DNP note has been reviewed, I agree with a documented findings and plan of care. Patient was seen and examined.
--- NOTE | 2017-10-09 15:57 | XR ---
EXAMINATION TYPE: XR chest 1V portable DATE OF EXAM: 10/09/2017 COMPARISON: 10/07/2017 HISTORY: Difficulty breathing TECHNIQUE: Single frontal view of the chest is obtained. FINDINGS: Chronic deformity of the right humerus noted. Similar deformity on the left. Postsurgical change involving the heart and cardiac device noted. Diffuse interstitial pattern with bilateral cons olidation and pleural effusion and cardiomegaly noted. Atherosclerotic change aorta. IMPRESSION: 1. Bilateral consolidation and pleural effusion correlate for CHF. Findings are similar to the prior exam.
--- NOTE | 2017-10-09 17:15 | EEG ---
ELECTROENCEPHALOGRAM REPORT DATE OF SERVICE: 10/09/2017. REASON FOR TESTING: Altered mental status. DESCRIPTION OF THE PROCEDURE: This EEG was performed using a 21-channel digital electroencephalograph, following international 10-20 system. DESCRIPTION OF THE RECORDING: From the beginning of the tracing, and with the patient's eyes closed, the background rhythm was mostly consisting of 8 Hz alpha frequency in the posterior occipital leads. No obvious asymmetry is seen. Photic stimulation was performed with a minimal driving response seen. No pathological waves were elicited. Rare air movement artifacts are seen. The patient does reach stage II of sleep during the tracing and occasional K complexes and sleep spindles are seen. Hyperventilation was not performed. No epileptiform discharges were seen. Her EKG lead showed a regular rate and rhythm. INTERPRETATION: This asleep and awake EEG can be considered within normal limits. There was no asymmetry seen. No epileptiform discharges were noticed. The absence of epileptiform discharges does not rule out the diagnosis of epilepsy; therefore clinical correlation is recommended. MMEKATERINA / ARLINEN: [id number] /
[2017-10-09] MEDS: FOLIC ACID 1 MG TAB PO SCH (17:40)
--- NOTE | 2017-10-09 20:48 | PN ---
PROGRESS NOTE Patient is seen for followup for acute kidney injury, mainly secondary to cardiorenal syndrome. Currently patient has been voiding in a bedpan. Her weight is down from yesterday. She is maintained on Lasix, which was at 40 mg IV q.12 hours and is currently on hold. Patient's serum creatinine was 1.75 mg/dL on initial admission. It was 1.7 yesterday and this morning it is 1.9 again. Overall, patient states she is breathing better. On examination this morning, blood pressure was 152/66, heart rate of 70 per minute. Patient is afebrile. EXAMINATION OF THE HEART: S1, S2. EXAMINATION OF LUNGS: Bilateral breath sounds are heard. ABDOMEN: Soft, non-tender. Examination of lower extremities shows 1+ edema. Labs show sodium 144, potassium 4.4, chloride 103, BUN 90, serum creatinine 1.9, hemoglobin 10.2 g/dL. Random vancomycin level was 21.1. ASSESSMENT: 1. Acute kidney injury, nonoliguric, cardiorenal as well as possibly underlying acute tubular necrosis. Urine did have some hyaline casts. No granular casts were seen. Lasix has been held. Vancomycin level was not too high; it was 21. We will repeat labs in a.m. and continue to avoid any other nephrotoxic agents. 2. Pneumonia. Chest x-ray from today shows bilateral consolidation. Patient is maintained on antibiotics. 3. Congestive heart failure, volume overload, status post IV diuresis. Will re- evaluate volume status in a.m. PLAN: Continue off of Lasix. Repeat labs in a.m. MMODL / IJN: [id number] /
[2017-10-09] MEDS: AMITRIPTYLINE HCL 10 MG TAB PO SCH (21:57)
[2017-10-09] MEDS: PRAMIPEXOLE 1 MG TAB PO SCH (22:00)
[2017-10-09] MEDS: VIT A,C & E-LUTEIN-MINERALS 1 EACH TAB PO SCH (22:00)
[2017-10-10] MEDS: HYDROcodone/APAP 7.5-325MG 1 EACH TAB PO PRN ×3 (00:19→19:16)
[2017-10-10] MEDS: guaiFENesin SYRUP 100MG/5ML 200 MG/10 ML CUP PO PRN (00:19)
[2017-10-10] MEDS: LEVOTHYROXINE 125 MCG TAB PO SCH (06:21)
--- NOTE | 2017-10-10 07:59 | P.PN ---
Progress Note - Text The patient is an 87-year-old female who presented to the emergency room 4 days previous from [facility] with increasing shortness of breath. The patient has been found to have acute on chronic diastolic congestive heart failure along with exacerbation of underlying COPD with pneumonia and acute on chronic kidney disease stage IV. Patient has been on IV antibiotics in the form of vancomycin. The patient does have multiple antibiotic ALLERGIES and is overall in a very frail state with diffuse degenerative joint disease. Patient also had episode of confusion likely multifactorial and related to IV cortical steroids This morning though she is alert and oriented. Sitting up in bed. She is hungry and wants her breakfast. She appears to be comfortable at rest. No unusual chest pain at this time. Positive cough. Temperature is 96.8 with a pulse of 78 respirations 16. Blood pressure 150/94 and she is 3 L nasal cannula 98% saturated. Patient still has some end expiratory harsh wheezing and rhonchi. Heart tones are irregular but rate controlled. Abdomen nontender. Grade 1-2 edema present bilaterally without calf tenderness She is alert and oriented at this time. No focal weakness noted. Labs from this morning are pending. Impressions and plans The patient is presently off of Lasix. She is still on her IV vancomycin for pneumonia. She is also on respiratory treatments and 30 mg of prednisone. Notes regarded from pulmonary, nephrology, neurology and cardiology. The patient is participating in physical and occupational therapy and likely will need extended care rehab upon discharge hopefully over the next 24-48 hours pending further clinical improvement and finalizing of discharge medication.
[2017-10-10] MEDS: METOPROLOL TARTRATE 25 MG TAB PO SCH (08:25)
[2017-10-10] MEDS: predniSONE 10 MG TAB PO SCH (08:25)
[2017-10-10] MEDS: GABAPENTIN 100 MG CAP PO SCH ×2 (08:26→22:48)
[2017-10-10] MEDS: PANTOPRAZOLE 40 MG TABLET PO SCH (08:26)
[2017-10-10] MEDS: CHOLECALCIFEROL 1,000 UNIT TAB PO SCH (08:26)
[2017-10-10 08:27] LABS: Calcium 8.2 mg/dL (8.4-10.2); Potassium 4.3 mmol/L (3.5-5.1)
[2017-10-10] MEDS: APIXABAN 2.5 MG TABLET PO SCH ×2 (08:28→22:47)
[2017-10-10] MEDS: ASPIRIN 81 MG PO SCH (08:29)
[2017-10-10] MEDS: LORATADINE 10 MG TAB PO SCH (08:29)
[2017-10-10] MEDS: CALCIUM CARB-VIT D 500MG-200UN 1 EACH TAB PO SCH ×2 (08:29→22:49)
[2017-10-10] MEDS: BETAMETHASONE DIPROPIONATE 0.05% CREAM 15 GM TUBE TOPICAL SCH ×2 (08:30→22:47)
[2017-10-10] MEDS: SYMBICORT 80-4.5 MCG INHALER INHALATION SCH ×2 (08:44→19:50)
[2017-10-10] MEDS: IPRATROPIUM-ALBUTEROL 3 ML NEB INHALATION SCH ×4 (08:44→19:50)
[2017-10-10] MEDS ORDERED: FUROSEMIDE 40 MG TAB PO SCH (10:00)
--- NOTE | 2017-10-10 11:42 | CDI ---
Last Revision, April 2017 Documentation Clarification Form Date: 10/10/17 1138 From: Ann Marie Richard RN, CCDS Admit Date: 10/05/2017 11:43:00 AM Patient Name: Arabella Priest Visit Number: [id number] ATTENTION: The Clinical Documentation Specialists (CDI) and [facility] Coding Staff appreciate your assistance in clarifying documentation. Please respond to the clarification below the line at the bottom and electronically sign. The CDI & [facility] Coding staff will review the response and follow-up if needed. Please note: Queries are made part of the Legal Health Record. If you have any questions, please contact the author of this message via ITS. Dr. Nolan Lunsford History/Risk Factors: CKD stage 4, CHF, paroxysmal atrial fib Clinical Indicators: Patients weight is 52 kg Patients height is 65 in Calculated BMI is 19.1 Skin care/assessment: stage 2 pressure ulcer to bilateral buttocks documented in dietary consult Diagnostic tests: Albumin 3.4/3.2, total protein 6.3/5.9 Treatments: Daily weights per unit protocol Nutritional Education as provided by dietary Dietary Consult completed 10/06 Administration of supplements: Enlive TID In order to capture the severity of condition associated with patient BMI of 19.1, a clinical diagnoses needs to be documented by the physician. Please clarify: Protein Colorie Malnutrition, (further specify severity- Mild, Moderate, Severe ) Emaciated Cachexia Underweight Other Unable to determine Please continue to document in your progress notes and discharge summary in order to capture severity of illness and risk of mortality. Include clinical findings that support your diagnosis. MTDD
--- NOTE | 2017-10-10 12:03 | CDI ---
Last Revision, April 2017 Documentation Clarification Form Date: 10/10/17 0688 From: Ann Marie Richard RN, CCDS Admit Date: 10/05/2017 11:43:00 AM Patient Name: Arabella Priest Visit Number: [id number] ATTENTION: The Clinical Documentation Specialists (CDI) and [facility] Coding Staff appreciate your assistance in clarifying documentation. Please respond to the clarification below the line at the bottom and electronically sign. The CDI & [facility] Coding staff will review the response and follow-up if needed. Please note: Queries are made part of the Legal Health Record. If you have any questions, please contact the author of this message via ITS. Dr. Nolan Gonzalez pressure ulcer was documented in the Dietary consult and requires further specificity. History/Risk Factors: Resident of [place], Atrial fib, asthma, OA, hypothyroid, CKD stage 4 Clinical Indicators: 10/06 Dietary Consult: "stage 2 pressure ulcer to bilateral buttocks." 10/05 Nursing Assessment: "Stage 2 to bilateral buttocks dressed w foam, photo taken." Location: bilateral buttocks Wound description: "excoriated, intact, erythema" Treatment: Consults: Dietary Foam dressings IV vancomyacin PTD Elements for accurate and compliant documentation of an ulcer: The location/laterality of the ulcer Etiology (decubitus/pressure, diabetic, PVD) Stage I-IV, Unstageable, Suspected Deep Tissue Injury (To the deepest stage) If the ulcer was present at admission (POA) or occurred after admission In your professional opinion, can you please clarify the diagnosis, location, laterality and whether present on admission (POA): Stage 1 Pressure/Decubitus Ulcer (intact skin, non-blanching redness of local area) Stage 2 Pressure/Decubitus Ulcer (Partial thickness, loss of dermis, pink wound bed) Stage 3 Pressure/Decubitus Ulcer (Full thickness tissue loss) Stage 4 Pressure/Decubitus Ulcer (Full thickness tissue loss with exposed bone , tendon, or muscle. May have slough or eschar present) Unstageable Other condition, please specify __Unable to determine RD. Unable to determine Please indicate etiology of pressure ulcer (if known). Please continue to document in your progress notes and discharge summary in order to capture severity of illness and risk of mortality. Include clinical findings that support your diagnosis. MTDD
--- NOTE | 2017-10-10 12:21 | CDI ---
Last Revision, April 2017 Documentation Clarification Form Date: 10/10/2017 12:20:00 PM From: Ann Marie Richard RN, CCDS Admit Date: 10/05/2017 11:43:00 AM Patient Name: Arabella Priest Visit Number: [id number] ATTENTION: The Clinical Documentation Specialists (CDI) and [facility] Coding Staff appreciate your assistance in clarifying documentation. Please respond to the clarification below the line at the bottom and electronically sign. The CDI & [facility] Coding staff will review the response and follow-up if needed. Please note: Queries are made part of the Legal Health Record. If you have any questions, please contact the author of this message via ITS. Dr. Nolan Lunsford A diagnosis of anemia lacks specificity to accurately reflect your patients severity of condition and clarification is needed. History/Risk Factors: CKD stage 4, A/C Diastolic CHF, chronic venous insufficiency, hypothyroid Clinical indicators: "Chronic anemia" is documented in multiple progress notes Hemoglobin: 10.8/10.2 Hematocrit: 33/32.4 Treatment: Folic acid 0.5 mg po @ hs Iron/Folic Acid/B12 multivitamin daily Eliquis 2.5 BID & ASA 81 mg PO QD In order to capture the severity of condition, please clarify the type of anemia and etiology if known: Iron deficiency anemia Drug induced anemia Nutritional anemia Anemia of chronic kidney disease, anemia of chronic disease. RD. Anemia of Chronic disease (please specify cause if known) Unable to determine Other, please specify Please continue to document in your progress notes and discharge summary in order to capture severity of illness and risk of mortality. Include clinical findings that support your diagnosis. MTDD
--- NOTE | 2017-10-10 12:38 | CDI ---
Last Revision, April 2017 Documentation Clarification Form Date: 10/11/17 1232 From: Ann Marie Richard RN, CCDS Admit Date: 10/05/2017 11:43:00 AM Patient Name: Arabella Priest Visit Number: [id number] ATTENTION: The Clinical Documentation Specialists (CDI) and [facility] Coding Staff appreciate your assistance in clarifying documentation. Please respond to the clarification below the line at the bottom and electronically sign. The CDI & [facility] Coding staff will review the response and follow-up if needed. Please note: Queries are made part of the Legal Health Record. If you have any questions, please contact the author of this message via ITS. Dr. Nolan Lunsfodr Pneumonia was documented in your notes and requires further specificity. History/Risk Factors: A/C diastolic CHF, CRF stage 4, [facility] increased SOB and labored breathing Clinical Indicators: WBC: 13.4/10.4 Left shift:12.4/9.1 10/09/17 CXR Bilateral consolidation and pleural effusion correlate for CHF. Findings are similar to the prior exam." 10/10 Attending: Lung/Breathing assessment: "Patient still has some end expiratory harsh wheezing and rhonchi." Treatment: Antibiotics: Cefepime 2 gm IVPB x 1 dose, Vancomycin IVPB PTD O2: 2-4L Nasal cannula Breathing TX: Duoneb INH QID, Symbicort INH BID, Steroids: Solumedrol IVP tapering Dose In order to capture the severity of condition, please clarify if the condition signifies and you are treating for: Aspiration Pneumonia, identify if: not known. RD. Due to solids or liquids Bacterial Pneumonia, specify causal organism (if known) Gram Negative Pneumonia Due to Strep Due to Staph Due to E. coli Other bacteria (please specify) unspecified/unknown. FPC acquired. RD. Viral Pneumonia, specify casual organism (if known) Other, please specify Unable to determine Please continue to document in your progress notes and discharge summary in order to capture severity of illness and risk of mortality. Include clinical findings that support your diagnosis. MTDD
--- NOTE | 2017-10-10 12:40 | P.PN ---
Subjective Progress Note Date: 10/10/17 Mrs. Priest is a pleasant 87-year-old female past medical history significant for prosthetic aortic valve replacement s/p non-rheumatic aortic stenosis, hypertension, non-rheumatic mitral valve stenosis, non-ischemic cardiomyopathy, pulmonary hypertension, paroxysmal atrial fibrillation, chronic diastolic heart failure and chronic kidney disease. She sees Dr. Breaux in the office. She is seen and examined today on the medical floor. Lasix has been held secondary to elevated renal function. Creatinine today 1.59 down from 1.9. Trending of creatinine reveals this to be about her baseline. Nephrology is following. She uses the bedpan and accurate output is not obtained. Chest x- ray obtained yesterday reveals bilateral consolidation and pleural effusion. Similar to previous exam. Blood pressure 150/94 heart rate 78 afebrile containing oxygen saturation on nasal cannula 2 L. Objective - Vital Signs Vital signs: Vital Signs Temp 96.8 F L 10/10/17 07:16 Pulse 78 10/10/17 07:16 Resp 16 10/10/17 07:16 BP 150/94 10/10/17 07:16 Pulse Ox 98 10/09/17 21:51 Intake & Output 10/09/17 10/10/17 10/10/17 18:59 06:59 18:59 Intake Total 1800 2 Output Total 501 1 Balance 1299 2 -1 Intake: Oral 1800 Other 2 Output: Urine 500 Stool 1 1 Other: Voiding Method Bedpan Bedpan Diaper Diaper # Voids 1 1 1 # Bowel Movements 0 - Exam GENERAL: Well-appearing, well-nourished and in no acute distress. NECK: Supple without JVD or thyromegaly. LUNGS: Course with bibasilar rales. No wheezes. Respiration equal and unlabored. HEART: Regular rate and rhythm with systolic murmur, no rubs or gallops. S1 and S2 heard. EXTREMITIES: Normal range of motion, no edema. No clubbing or cyanosis. Peripheral pulses intact and strong. - Labs CBC & Chem 7: 10/09/17 06:06 10/10/17 07:32 Labs: Abnormal Lab Results - Last 24 Hours (Table) 10/10/17 Range/Units 07:32 Carbon Dioxide 32 H (22-30) mmol/L BUN 82 H* (7-17) mg/dL Creatinine 1.59 H (0.52-1.04) mg/dL Calcium 8.2 L (8.4-10.2) mg/dL Microbiology - Last 24 Hours (Table) 10/05/17 09:20 Blood Culture - Preliminary Blood No Growth after 120 hours Assessment and Plan Assessment: ASSESSMENT 1. Acute on chronic diastolic heart failure 2. Chronic kidney disease, GFR 29. Stage 3b 3. Pneumonia 4. History of aortic stenosis s/p prosthetic valve replacement 5. Non-rheumatic mitral valve stenosis 6. Paroxysmal atrial fibrillation, currently maintaining sinus mechanism 7. s/p permanent pacemaker implantation PLAN Restart lasix 40 mg BID. Repeat renal function in the morning. We will continue to follow. Nurse Practitioner note has been reviewed, I agree with a documented findings and plan of care. Patient was seen and examined.
--- NOTE | 2017-10-10 13:14 | XR ---
EXAMINATION TYPE: XR chest 1V portable DATE OF EXAM: 10/10/2017 COMPARISON: Prior chest x-ray dated 10/09/2017, 10/07/2017 HISTORY: Congestive heart failure TECHNIQUE: Single frontal view of the chest is obtained. FINDINGS: There is possibly a Mach joel at the superolateral right hemithorax mimicking pneumothorax. Patient is rotated. Pleural parenchymal changes otherwise show a stable appearance. Retrocardiac inc reased density obscures the left hemidiaphragm. Pacemaker leads are stable. Aortic valve replacement stent is in place. There may be some improvement in aeration. Marked arthropathy noted in both should ers. IMPRESSION: Findings felt likely to be technical involving the superior lateral right hemithorax, co rrelate to exclude pneumothorax, consider short interval follow-up chest x-ray, expiratory chest x-ra y as indicated. There may be some improvement in patient's aeration, volume status.
[2017-10-10 14:28] VITALS: BMI 19.1
--- NOTE | 2017-10-10 14:57 | P.PN ---
Subjective Progress Note Date: 10/10/17 Patient is a pleasant 87-year-old female who is being followed by the neurology service for altered mental status. Patient is a resident [facility] and became short of breath. She was brought to [facility] for further evaluation. Patient does have significant history of chronic diastolic congestive heart failure and COPD. Patient has history of chronic kidney disease and chronic pain issues related to arthritis and debility. Computed tomography scan of the brain was done which showed no acute intracranial abnormalities. Patient was given steroids for breathing which may have contributed to mental status changes. At the time of my evaluation, patient is resting comfortably in bed and appears to be in no acute distress. Objective - Vital Signs Vital signs: Vital Signs Temp 98.4 F 10/10/17 14:33 Pulse 87 10/10/17 14:33 Resp 18 10/10/17 14:33 BP 145/85 10/10/17 14:33 Pulse Ox 98 10/09/17 21:51 Intake & Output 10/09/17 10/10/17 10/10/17 18:59 06:59 18:59 Intake Total 1800 2 Output Total 501 1 Balance 1299 2 -1 Weight 52 kg Intake: Oral 1800 Other 2 Output: Urine 500 Stool 1 1 Other: Voiding Method Bedpan Bedpan Diaper Diaper # Voids 1 1 1 # Bowel Movements 0 2 - Exam PHYSICAL EXAM: GENERAL APPEARANCE: Patient is a well-developed, female who appears to be in no acute distress. HEENT: Normocephalic, atraumatic, no facial asymmetry is seen. Neck is supple with no masses felt. CARDIOVASCULAR: Regular rate and rhythm. ABDOMEN: Nontender, nondistended. EXTREMITIES: Show no edema or clubbing. NEUROLOGICAL EXAM: Patient is awake, alert, and oriented 3. Speech and language are normal. Strength is 5-/5 in bilateral upper and lower extremities. Sensory exam is normal to light touch in all 4 extremities. No facial asymmetry seen on cranial nerve testing. No tremors or seizure-like activity noted. - Labs CBC & Chem 7: 10/09/17 06:06 10/10/17 07:32 Labs: Abnormal Lab Results - Last 24 Hours (Table) 10/10/17 Range/Units 07:32 Carbon Dioxide 32 H (22-30) mmol/L BUN 82 H* (7-17) mg/dL Creatinine 1.59 H (0.52-1.04) mg/dL Calcium 8.2 L (8.4-10.2) mg/dL Microbiology - Last 24 Hours (Table) 10/05/17 09:20 Blood Culture - Preliminary Blood No Growth after 120 hours Assessment and Plan Plan: Impression: 1. Altered mental status, resolved 2. Metabolic encephalopathy 3. CHF exacerbation 4. Cardiomyopathy 5. Weakness Recommendation: Patient's altered mental status is likely multifactorial in nature. Altered mental status may have been exacerbated with steroid use. Nursing staff informs me patient has been appropriate. At the time of my exam she is quite appropriate. No neurological deficits noted. As you recall, computed tomography scan of the brain showed no acute intracranial abnormalities. EEG was ordered and results are pending. Continue neurological checks. Continue current medical management. We will continue to follow with you. Further recommendations to follow. I performed an examination of the patient and discussed the management with the RESCUE BOAT OPERATOR. I have reviewed the RESCUE BOAT OPERATOR notes and agree with the findings and plan of care.
--- NOTE | 2017-10-10 16:20 | P.PN ---
Subjective Progress Note Date: 10/10/17 Principal diagnosis: Acute on chronic hypoxic respiratory failure secondary to an acute exacerbation of diastolic congestive heart failure 87-year-old female patient with known history of chronic hypoxic respiratory failure, chronic CHF with valvular heart disease and chronic atrial fibrillation , coming into the hospital because of worsening shortness of breath. She was recently hospitalized for the same. She was at the long-term complaining of worsening shortness of breath. She was given Lasix without much improvement and for that reason she got transferred to our hospital. She has some chronic lower extremities edema. She has chronic renal failure. She suffers from valvular heart disease and the patient has undergone a percutaneous aortic valve replacement 3 [facility] the patient has moderate to severe mitral regurgitation and secondary pulmonary hypertension. She has also history of chronic atrial fibrillation and echocardiogram that was done recently showed an ejection fraction on the left of 55-60%, right ventricular was enlarged, right-sided pressures were elevated at 60 mmHg, there was moderate dilatation of the left atrium. There was moderate severe mitral regurgitation. There was severe check a regurgitation and moderate degree of pulmonary hypertension. During this current admission, the patient's troponin is a 0.184, 0.16 and 0.05 respectively 3, the proBNP level was elevated at 18, 800. Influenza screen was negative. Creatinine is stable with a level of 1.84. This the electrodes are all within normal limits. The chest x-ray shows bilateral lower lobe infiltrates and pleural effusion and mild pulmonary vascular congestion in addition to cardiomegaly. On today's evaluation of 10/08/2017, the patient is resting comfortably in bed and the patient has no specific complaints. The patient is being diuresis with IV Lasix. Slightly more prerenal compared to yesterday and nephrology saw the patient and decided to continue with the same diuretic regimen. Urine output is adequate and the patient is a negative fluid balance. No cough or sputum production. No chest tightness or wheezing. No altered mentation at this point in time. Patient seen again today 10/09/2017 in follow-up on the selective care unit. She is awake and alert in no acute distress. She states she is breathing easier today as compared to yesterday. She is maintaining good O2 saturations up to 100% on 2 L/m. Nasal cannula. She's been afebrile. Hemodynamically stable. Blood and urine cultures reveal no growth. White count 10.4. Hemoglobin 10.2. Creatinine 1.90. She remains on Lasix 40 mg IV every 12 hours. On 10/10/2017 patient seen in follow-up on medical surgical floor. She is resting comfortably in bed, in no acute distress. On 3 L per nasal cannula with O2 sat of 98%. She is afebrile, vital signs are stable, respirations are shallow, but nonlabored, she does become dyspneic with any exertion. Today's chest x-ray could not exclude superior lateral right hemithorax, although the findings were felt to be likely technical, there was improvement in patient's aeration and volume status noted. Patient's IV diuretics with transition to oral Lasix, some improvement of the renal profile noted on today's labs, with BUN down to 82, creatinine down to 1.59. White count is within normal limits at 10.4, she is afebrile. Urine and blood cultures negative. Patient is on oral prednisone, and vancomycin. Objective - Vital Signs Vital signs: Vital Signs Temp 98.4 F 10/10/17 14:33 Pulse 87 10/10/17 14:33 Resp 18 10/10/17 14:33 BP 145/85 10/10/17 14:33 Pulse Ox 98 10/09/17 21:51 Intake & Output 10/09/17 10/10/17 10/10/17 18:59 06:59 18:59 Intake Total 1800 2 Output Total 501 1 Balance 1299 2 -1 Weight 52 kg Intake: Oral 1800 Other 2 Output: Urine 500 Stool 1 1 Other: Voiding Method Bedpan Bedpan Diaper Diaper # Voids 1 1 1 # Bowel Movements 0 2 - Exam Gen. appearance the patient is an elderly female patient nonacute distress, she has obvious arthritis in her fingers she has also obvious alopecia. No active respirator distress. Able to speak in full sentences Head exam was generally normal. There was no scleral icterus or corneal arcus. Mucous membranes were moist. Neck was supple and with jugular venous distension, thyromegaly, or carotid bruits. Carotids were easily palpable bilaterally. There was no adenopathy. There is bilateral jugular venous venous distention. No goiter or neck masses. Lung sounds are diminished bilaterally along with some bibasilar crackles. There is venous engorgement over the veins of the anterior chest. Heart sounds are irregular, there is a systolic ejection murmur grade 2/6 systolic the precordium. There is also a aortic valve click heard over the anterior chest. Abdomen is slightly distended. There may be an underlying ascites. No direct tenderness. No rebound tensile guarding. No significant organomegaly. His umbilical hernia. Extremities are showing trace edema and there is diffuse degenerative arthritis with deformities. No cyanosis. No clubbing at this point. Neurologically the patient is awake and alert and sequential following commands and there is no focal neurological deficit at this point. - Labs CBC & Chem 7: 10/09/17 06:06 10/10/17 07:32 Labs: Abnormal Lab Results - Last 24 Hours (Table) 10/10/17 Range/Units 07:32 Carbon Dioxide 32 H (22-30) mmol/L BUN 82 H* (7-17) mg/dL Creatinine 1.59 H (0.52-1.04) mg/dL Calcium 8.2 L (8.4-10.2) mg/dL Microbiology - Last 24 Hours (Table) 10/05/17 09:20 Blood Culture - Preliminary Blood No Growth after 120 hours Assessment and Plan Plan: Assessment: 1 acute shortness of breath on the basis of CHF. The patient has diastolic left -sided heart failure in addition to valvular heart disease and moderate degree of pulmonary hypertension and signs of right-sided heart failure including lower extremities edema and some abdominal distention possibly an underlying ascites. ProBNP level is significantly elevated. Minimal troponin leak 2 valvular heart disease with a previous percutaneous aortic valve replacement 3 moderate severe mitral regurgitation secondary pulmonary hypertension 4 chronic renal failure, stage IV kidney disease 5 history of pacemaker insertion 6 hypertension 7 chronic hypoxic history failure secondary to above 8 chronic anemia 9 arthritis and this is in a fall degenerative arthritis involving the hands and large knees bilaterally in the lower extremities and upper extremities in addition. 10 hypothyroidism 11 restless leg syndrome 12 previous hospitalization for gram-negative urine checked infection and sepsis and urine culture negative this admission 13 poor overall functional performance based on the above-mentioned multiple comorbidities Plan: Patient is stable from pulmonary standpoint, no worsening dyspnea, continues on diuretics, oral prednisone, nebulized bronchodilators. Renal profile is slightly improved on today's labs, no evidence of leukocytosis. No fever or chills, no chest pain. I performed a history & physical examination of the patient and discussed their management with my nurse practitioner, Teodora Horan. I reviewed the nurse practitioner's note and agree with the documented findings and plan of care. Lung sounds are positive for bibasilar crackles. The findings and the impression was discussed with the patient. I attest to the documentation by the nurse practitioner. Time with Patient: Less than 30
--- NOTE | 2017-10-10 16:25 | PN ---
PROGRESS NOTE The patient is seen for followup for acute kidney injury. She is currently maintained on oral Lasix. Patient was diuresed initially. Her creatinine is improved from 1.9 to 1.59 today. PHYSICAL EXAMINATION: Blood pressure is 160/94, heart rate 78 per minute. Patient is afebrile. Examination of the heart: S1, S2. Examination lungs: Bilateral breath sounds are heard. Abdomen is soft, nontender. Exam lower extremities shows edema with chronic skin changes, 1+ edema bilaterally. [employer] exam is grossly intact. LABS: Sodium 143, potassium 4.3, chloride 101, BUN 82, serum creatinine 1.59, hemoglobin 10.2 g/dL. ASSESSMENT: 1. Acute kidney injury, cardiorenal initially with possibly underlying mild acute tubular necrosis as well. Serum creatinine has improved. Patient is currently not on any IV fluids. She is maintained on p.o. Lasix which we can continue. She is maintained on vancomycin and her vancomycin level was 21. 2. Pneumonia. Chest x-ray shows evidence of bilateral consolidation. Patient is maintained on antibiotics. 3. Congestive heart failure, volume overload, status post IV diuresis initially. PLAN: Since the Lasix was held yesterday and it is resumed today, we can continue with the oral Lasix. Serum creatinine has improved. She seems to be at her baseline. Therefore, we can resume oral diuretics. Continue off of IV fluids. MMODL / IJN: [id number] /
[2017-10-10] MEDS: FUROSEMIDE 40 MG TAB PO SCH (17:33)
[2017-10-10] MEDS: FOLIC ACID 1 MG TAB PO SCH (17:33)
[2017-10-10] MEDS: VIT A,C & E-LUTEIN-MINERALS 1 EACH TAB PO SCH ×2 (22:47→22:48)
[2017-10-10] MEDS: PRAMIPEXOLE 1 MG TAB PO SCH (22:47)
[2017-10-10] MEDS: AMITRIPTYLINE HCL 10 MG TAB PO SCH (22:50)
[2017-10-11] MEDS: HYDROcodone/APAP 7.5-325MG 1 EACH TAB PO PRN ×3 (05:51→19:04)
[2017-10-11] MEDS: LEVOTHYROXINE 125 MCG TAB PO SCH (06:11)
[2017-10-11] MEDS: SYMBICORT 80-4.5 MCG INHALER INHALATION SCH ×2 (07:31→19:57)
[2017-10-11] MEDS: IPRATROPIUM-ALBUTEROL 3 ML NEB INHALATION SCH ×4 (07:31→19:57)
--- NOTE | 2017-10-11 08:32 | P.DS ---
Providers Date of admission: 10/05/17 11:43 Attending physician: Nolan Lunsford Consults: 10/05/17 11:43 Consult Physician Routine Consulting Provider: Martin Stovall Consult Reason/Comments: Congestive heart failure, troponin elevation Do you want consulting provider notified?: Yes 10/06/17 16:33 Consult Physician Routine Consulting Provider: Alex Magaña Consult Reason/Comments: elevated calcitonin level Do you want consulting provider notified?: Yes 10/08/17 06:20 Consult Physician Urgent Consulting Provider: Sarah Beth Og Consult Reason/Comments: Altered mental status Do you want consulting provider notified?: Yes 10/08/17 06:23 Consult Physician Routine Consulting Provider: Pedro Linda Consult Reason/Comments: Poor kidney function Do you want consulting provider notified?: Yes Primary care physician: Nolan Lunsford The patient is an 87-year-old female who was a patient at [facility] on their rehab center. The patient developed increasing shortness of breath that did not respond to respiratory treatments, diuretics and corticosteroids. The patient was therefore transferred back to the emergency room here and admitted to the selective care unit. Patient was found to to be in acute on chronic diastolic congestive heart failure along with exacerbation of her underlying COPD with underlying, long-term acquired pneumonia. The patient also had acute on chronic renal failure and kidney disease. And has numerous other comorbidities related to her diffuse arthritis and frail state. Troponin values were elevated at 0.056 and increased to 2.184. Urine and blood cultures eventually were negative. Her GFR was only 28 with a BUN of 90 and a creatinine of 1.67. Other labs revealed a white count of 10.4 with a hemoglobin 10.2 and platelet count of 344. Liver function tests were generally satisfactory although albumin and protein were low at 3.2 and 5.9 respectively. Blood sugars usually ran in the low 100 range. Her pro BNP was markedly elevated at 18,000. Chest x-rays did demonstrate cardiomegaly and basilar airspace disease noted. Some pleural effusion greater on the right also noted. The patient was initially placed on IV Lasix and corticosteroids. Patient did have episode of confusion that was felt to be related to the IV corticosteroids along with other factors that seem to tolerate later oral therapy. Patient was seen in consultation by cardiology, neurology, nephrology and pulmonary medicine and please refer to their notes. Patient also was seen by physical and occupational therapies. At this time she still remains somewhat weak but has been progressing well with therapy. She has had less chest congestion and overall clinical improvement. Stabilization of her acute on chronic renal failure. At this point we are entertaining the possibility for returning to extended care rehab plans are being set for transfer over the next 24-48 hours. Discharge diagnoses Acute long-term acquired pneumonia in a patient with multiple comorbidities as stated above. Also with numerous medical/antibiotic ALLERGIES and please refer to list. Acute on chronic diastolic congestive heart failure Acute on chronic renal failure associated with prerenal azotemia. Overall frail debilitated state with low albumin and monitor O2 malnutrition Paroxysmal atrial fibrillation with intermittent rapid ventricular response History of previous transcutaneous aortic valve replacement back in 2008 in [place]. Also history of permanent pacemaker placement Hypothyroidism Restless leg syndrome Chronic venous insufficiency of the lower extremities Severe degenerative joint disease and previous bilateral knee and hip surgeries performed in [place]. Previous history of fractured right humerus back in 2016. Numerous medical ALLERGIES. Please refer to list. Discharge medications Patient to continue with her DuoNeb respiratory treatments 3 milliliters solution 4 times a day and when necessary Elavil 10 mg at at bedtime Eloquis 2.5 twice a day Aspirin 81 mg daily Diprolene AF cream topical twice a day to affected areas Dulcolax 10 mg rectally if needed for constipation Symbicort 80-4.5 inhaler 2 puffs twice a day Os-Fahad 500 with vitamin D one twice a day Vitamin D 3000 units daily Flonase nasal 2 sprays in each nostril daily Folic acid 0.5 mg at at bedtime Presently she is on 40 mg of Lasix twice a day Neurontin 200 mg twice a day For chronic pain she is on [place] 7.5-325 2 tablets every 6 hours as needed. The patient has been a long-term patient of mine on chronic pain medication and uses this for maintenance medications. Robitussin 200 mg every 6 hours when necessary for cough. Levothyroxin 125 g daily Claritin 10 mg daily Metoprolol tartrate 25 mg daily Multiple vitamins IVite, one daily Protonix 40 mg every morning The Mirapex 1 mg at at bedtime for restless leg Prednisone 30 mg daily for 5 days, then 20 mg daily for 5 days, then 10 mg daily for 5 days. Then patient to remain on 5 mg daily for maintenance. Prognosis is guarded. Diet as tolerated Physical and occupational therapy. Patient Condition at Discharge: Stable Plan - Discharge Summary Discharge Rx Participant: No New Discharge Prescriptions: No Action Fluticasone Propionate [Flonase] 2 spray EA NOSTRIL DAILY PRN PRN Reason: Allergy Symptoms Pramipexole [Mirapex] 1 mg PO HS Loratadine [Claritin] 10 mg PO DAILY Gabapentin [Neurontin] 200 mg PO BID Amitriptyline HCl [Elavil] 10 mg PO HS Iron 27+Folic Acid+B-12 1 tab PO DAILY Levothyroxine Sodium [Synthroid] 125 mcg PO DAILY HYDROcodone/APAP 7.5-325MG [[place] 7.5-325] 1 - 2 tab PO Q4H PRN PRN Reason: Pain Aspirin EC [Ecotrin Low Dose] 81 mg PO DAILY Cholecalciferol [Vitamin D3] 1,000 unit PO DAILY Fluocinonide 0.05% [Lidex 0.05% cream] 1 applic TOPICAL BID Folic Acid 0.4 mg PO HS@1700 Furosemide [Lasix] 80 mg PO BID Metoprolol Tartrate [Lopressor] 25 mg PO DAILY Pantoprazole [Protonix] 40 mg PO DAILY Ipratropium-Albuterol Nebulize [Duoneb 0.5 mg-3 mg/3 ml Soln] 3 ml INHALATION RT-QID Bisacodyl [Dulcolax] 10 mg RECTAL DAILY PRN PRN Reason: Constipation Calcium Carb-Vit D 500Mg-200Un [Oscal 500+D] 1 tab PO BID Apixaban [Eliquis] 2.5 mg PO BID Vit C/E/Zn/Coppr/Lutein/Zeaxan [Preservision Areds 2 Softgel] 1 cap PO HS Discharge Medication List Fluticasone Propionate [Flonase] 2 spray EA NOSTRIL DAILY PRN 04/07/14 [History] Pramipexole [Mirapex] 1 mg PO HS 04/12/14 [History] Amitriptyline HCl [Elavil] 10 mg PO HS 11/01/15 [History] Gabapentin [Neurontin] 200 mg PO BID 11/01/15 [History] Loratadine [Claritin] 10 mg PO DAILY 11/01/15 [History] HYDROcodone/APAP 7.5-325MG [[place] 7.5-325] 1 - 2 tab PO Q4H PRN 06/10/16 [ History] Iron 27+Folic Acid+B-12 1 tab PO DAILY 06/10/16 [History] Levothyroxine Sodium [Synthroid] 125 mcg PO DAILY 06/10/16 [History] Aspirin EC [Ecotrin Low Dose] 81 mg PO DAILY 09/25/17 [History] Cholecalciferol [Vitamin D3] 1,000 unit PO DAILY 09/25/17 [History] Fluocinonide 0.05% [Lidex 0.05% cream] 1 applic TOPICAL BID 09/25/17 [History] Folic Acid 0.4 mg PO HS@1700 09/25/17 [History] Furosemide [Lasix] 80 mg PO BID 09/25/17 [History] Metoprolol Tartrate [Lopressor] 25 mg PO DAILY 09/25/17 [History] Pantoprazole [Protonix] 40 mg PO DAILY 09/25/17 [History] Apixaban [Eliquis] 2.5 mg PO BID 10/05/17 [History] Bisacodyl [Dulcolax] 10 mg RECTAL DAILY PRN 10/05/17 [History] Calcium Carb-Vit D 500Mg-200Un [Oscal 500+D] 1 tab PO BID 10/05/17 [History] Ipratropium-Albuterol Nebulize [Duoneb 0.5 mg-3 mg/3 ml Soln] 3 ml INHALATION RT -QID 10/05/17 [History] Vit C/E/Zn/Coppr/Lutein/Zeaxan [Preservision Areds 2 Softgel] 1 cap PO HS [History] Follow up Appointment(s)/Referral(s): Nolan Lunsford MD [Primary Care Provider] - 1-2 days
[2017-10-11] MEDS: FUROSEMIDE 40 MG TAB PO SCH ×2 (08:41→17:38)
[2017-10-11] MEDS: BETAMETHASONE DIPROPIONATE 0.05% CREAM 15 GM TUBE TOPICAL SCH ×2 (08:41→20:51)
[2017-10-11] MEDS: GABAPENTIN 100 MG CAP PO SCH ×2 (08:41→20:50)
[2017-10-11] MEDS: APIXABAN 2.5 MG TABLET PO SCH ×2 (08:41→20:51)
[2017-10-11] MEDS: ASPIRIN 81 MG PO SCH (08:41)
[2017-10-11] MEDS: CALCIUM CARB-VIT D 500MG-200UN 1 EACH TAB PO SCH ×2 (08:42→20:50)
[2017-10-11] MEDS: predniSONE 10 MG TAB PO SCH (08:42)
[2017-10-11] MEDS: PANTOPRAZOLE 40 MG TABLET PO SCH (08:42)
[2017-10-11] MEDS: CHOLECALCIFEROL 1,000 UNIT TAB PO SCH (08:43)
[2017-10-11] MEDS: LORATADINE 10 MG TAB PO SCH (08:43)
[2017-10-11] MEDS: METOPROLOL TARTRATE 25 MG TAB PO SCH (08:43)
--- NOTE | 2017-10-11 10:03 | P.PN ---
Subjective Progress Note Date: 10/10/17 Mrs. Priest is a pleasant 87-year-old female past medical history significant for prosthetic aortic valve replacement s/p non-rheumatic aortic stenosis, hypertension, non-rheumatic mitral valve stenosis, non-ischemic cardiomyopathy, pulmonary hypertension, paroxysmal atrial fibrillation, chronic diastolic heart failure and chronic kidney disease. She sees Dr. Breaux in the office. She is seen and examined today on the medical floor. Lasix has been restarted at 40 mg BID PO. Kidney function tests still pending at this time. Chest xray obtained yesterday afternoon show possible right lateral hemithorax, thought to be technical, with improved aeration and volume status. She denies symptoms of chest pain and states her breathing has improved. She is still requiring oxygen. Blood pressure 152/77 heart rate 86 afebrile maintaining oxygen saturation on nasal cannula 2 L. Objective - Vital Signs Vital signs: Vital Signs Temp 97.6 F 10/11/17 07:47 Pulse 86 10/11/17 07:47 Resp 16 10/11/17 07:47 BP 152/77 10/11/17 07:47 Pulse Ox 98 10/11/17 07:47 Intake & Output 10/10/17 10/11/17 10/11/17 18:59 06:59 18:59 Output Total 2 Balance -2 Weight 52 kg 52 kg Output: Stool 2 Other: Voiding Method Bedpan Bedpan Bedpan Diaper Diaper Diaper Incontinent Incontinent # Voids 1 3 # Bowel Movements 2 - Exam GENERAL: Well-appearing, well-nourished and in no acute distress. NECK: Supple without JVD or thyromegaly. LUNGS: Clear to auscultation bilaterally. No rales, rhonchi or wheezes. Respiration equal and unlabored. HEART: Regular rate and rhythm with systolic murmur, no rubs or gallops. S1 and S2 heard. EXTREMITIES: Normal range of motion, no edema. No clubbing or cyanosis. Peripheral pulses intact and strong. - Labs CBC & Chem 7: 10/09/17 06:06 10/10/17 07:32 Labs: Microbiology - Last 24 Hours (Table) 10/05/17 09:20 Blood Culture - Preliminary Blood No Growth after 120 hours Assessment and Plan Assessment: ASSESSMENT 1. Acute on chronic diastolic heart failure 2. Chronic kidney disease, GFR 29. Stage 3b 3. Pneumonia 4. History of aortic stenosis s/p prosthetic valve replacement 5. Non-rheumatic mitral valve stenosis 6. Paroxysmal atrial fibrillation, currently maintaining sinus mechanism 7. s/p permanent pacemaker implantation PLAN Continue current medical therapy. She should be discharged on Lasix 40 mg twice a day. Follow up with Dr. Breaux in 2-3 weeks. Nurse Practitioner note has been reviewed, I agree with a documented findings and plan of care. Patient was seen and examined.
--- NOTE | 2017-10-11 10:36 | P.PN ---
Subjective Patient is seen in follow-up for acute kidney injury on chronic kidney disease. Renal function continues to improve with creatinine down to 1.59 as of yesterday. She is currently maintained on Lasix 40 mg orally twice daily. Currently resting in bed. Admits to good urine output. No vomiting or diarrhea. Denies chest pain. Patient has history of diastolic CHF with severe tricuspid regurgitation, moderate to severe mitral regurgitation and moderate pulmonary hypertension. Vital signs are stable. General: The patient appeared well nourished and normally developed. HEENT: Head exam is unremarkable. Neck is without jugular venous distension. LUNGS: Lungs are clear to auscultation and percussion. Breath sounds decreased. HEART: Rate and Rhythm are regular. First and second heart sounds normal. No murmurs, rubs or gallops. ABDOMEN: Abdominal exam reveals normal bowel sounds. Non-tender and non- distended. No evidence of peritonitis. EXTREMITITES: No clubbing, cyanosis, or edema. Objective - Vital Signs Vital signs: Vital Signs Temp 97.6 F 10/11/17 07:47 Pulse 86 10/11/17 07:47 Resp 16 10/11/17 07:47 BP 152/77 10/11/17 07:47 Pulse Ox 98 10/11/17 07:47 Intake & Output 10/10/17 10/11/17 10/11/17 18:59 06:59 18:59 Output Total 2 Balance -2 Weight 52 kg 52 kg Output: Stool 2 Other: Voiding Method Bedpan Bedpan Bedpan Diaper Diaper Diaper Incontinent Incontinent # Voids 1 3 # Bowel Movements 2 - Labs CBC & Chem 7: 10/09/17 06:06 10/10/17 07:32 Labs: Microbiology - Last 24 Hours (Table) 10/05/17 09:20 Blood Culture - Preliminary Blood No Growth after 120 hours Assessment and Plan Plan: Assessment: 1. Nonoliguric acute kidney injury mostly prerenal secondary to cardiorenal syndrome. Creatinine peaked at 1.8 for this admission and is down to 1.7 today. BUN disproportionately elevated which is partially related to steroids. No signs of active bleeding. No proteinuria noted on urinalysis. 2. 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 3. Diastolic CHF with severe tricuspid regurgitation, moderate to severe mitral regurgitation, moderate pulmonary hypertension. 4. Volume overload. Improved with diuresis. 5. Pneumonia treated with antibiotics. 6. History of aortic valve replacement. Plan: Continue Lasix 40 mg PO twice daily. Avoid nephrotoxic agents and hypotensive episodes. Repeat electrolytes in the morning. Anticipate discharge soon. She will need to get a basic metabolic panel checked within 2-3 days of discharge and follow-up as an outpatient in the next 1-2 weeks.
[2017-10-11 11:10] LABS: Calcium 8.6 mg/dL (8.4-10.2)
[2017-10-11 11:15] LABS: Vancomycin,Random 19.1 ug/mL
[2017-10-11] MEDS ORDERED: VANCOMYCIN 1,250 MG in SODIUM CHLORIDE 0.9% 250 ML IVPB ONE (12:00)
--- NOTE | 2017-10-11 12:30 | CDI ---
Last Revision, April 2017 Documentation Clarification Form 2nd request Date: 10/10/2017 12:20:00 PM From: Ann Marie Richard RN, CCDS Admit Date: 10/05/2017 11:43:00 AM Patient Name: Arabella Priest Visit Number: [id number] ATTENTION: The Clinical Documentation Specialists (CDI) and [facility] Coding Staff appreciate your assistance in clarifying documentation. Please respond to the clarification below the line at the bottom and electronically sign. The CDI & [facility] Coding staff will review the response and follow-up if needed. Please note: Queries are made part of the Legal Health Record. If you have any questions, please contact the author of this message via ITS. Dr. Nolan Lunsford A diagnosis of anemia lacks specificity to accurately reflect your patients severity of condition and clarification is needed. History/Risk Factors: CKD stage 4, A/C Diastolic CHF, chronic venous insufficiency, hypothyroid Clinical indicators: "Chronic anemia" is documented in multiple progress notes Hemoglobin: 10.8/10.2 Hematocrit:33/32.4 Treatment: folic acid 0.5 mg po @ hs Iron/Folic Acid/B12 multivitamin daily Eliquis 2.5 BID & ASA 81 mg PO QD In order to capture the severity of condition, please clarify the type of anemia and etiology if known: Iron deficiency anemia Drug induced anemia Nutritional anemia Anemia of chronic kidney disease Anemia of Chronic disease (please specify cause if known) Unable to determine Other, please specify Please continue to document in your progress notes and discharge summary in order to capture severity of illness and risk of mortality. Include clinical findings that support your diagnosis. MTDD
--- NOTE | 2017-10-11 12:41 | CDI ---
Last Revision, April 2017 Documentation Clarification Form 2nd Request Date: 10/10/2017 12:03:00 PM From: Ann Marie Richard RN, CCDS Admit Date: 10/05/2017 11:43:00 AM Patient Name: Arabella Priest Visit Number: [id number] ATTENTION: The Clinical Documentation Specialists (CDI) and [facility] Coding Staff appreciate your assistance in clarifying documentation. Please respond to the clarification below the line at the bottom and electronically sign. The CDI & [facility] Coding staff will review the response and follow-up if needed. Please note: Queries are made part of the Legal Health Record. If you have any questions, please contact the author of this message via ITS. Dr. Nolan Lunsford A pressure ulcer was documented in the Dietary consult and requires further specificity . History/Risk Factors: Resident of SD, Atrial fib, asthma, OA, hypothyroid, CKD stage 4 Clinical Indicators: 10/06 Dietary Consult: "stage 2 pressure ulcer to bilateral buttocks." 10/05 Nursing Assessment: " Stage 2 to bilateral buttocks, dressed w foam, photo taken." Location: bilateral buttocks Wound description: "excoriated, intact, erythema" Treatment: Consults: Dietary Foam dressings Iv vancomyacin PTD Elements for accurate and compliant documentation of an ulcer: The location/laterality of the ulcer Etiology (decubitus/pressure, diabetic, PVD) Stage I-IV, Unstageable, Suspected Deep Tissue Injury (To the deepest stage) If the ulcer was present at admission (POA) or occurred after admission In your professional opinion, can you please clarify the diagnosis, location, laterality and whether present on admission (POA): Stage 1 Pressure/Decubitus Ulcer (intact skin, non-blanching redness of local area) Stage 2 Pressure/Decubitus Ulcer (Partial thickness, loss of dermis, pink wound bed) Stage 3 Pressure/Decubitus Ulcer (Full thickness tissue loss) Stage 4 Pressure/Decubitus Ulcer (Full thickness tissue loss with exposed bone , tendon, or muscle. May have slough or eschar present) Unstageable Other condition, please specify Unable to determine Please indicate etiology of pressure ulcer (if known). Please continue to document in your progress notes and discharge summary in order to capture severity of illness and risk of mortality. Include clinical findings that support your diagnosis. MTDD
--- NOTE | 2017-10-11 12:45 | CDI ---
Last Revision, April 2017 Documentation Clarification Form 2nd Request Date: 10/10/2017 11:42:00 AM From: Ann Marie Richard RN, CCDS Admit Date: 10/05/2017 11:43:00 AM Patient Name: Arabella Priest Visit Number: [id number] ATTENTION: The Clinical Documentation Specialists (CDI) and [facility] Coding Staff appreciate your assistance in clarifying documentation. Please respond to the clarification below the line at the bottom and electronically sign. The CDI & [facility] Coding staff will review the response and follow-up if needed. Please note: Queries are made part of the Legal Health Record. If you have any questions, please contact the author of this message via ITS. Dr. Nolan Lunsford History/Risk Factors: CKD stage 4, CHF, paroxysmal atrial fib Clinical Indicators: Patients weight is 52 kg Patients height is 65 in Calculated BMI is 19.1 Skin care/assessment: stage 2 pressure ulcer to bilateral buttocks documented in dietary consult Diagnostic tests: Albumin 3.4/3.2, total protein 6.3/5.9 Treatments: Daily weights per unit protocol Nutritional Education as provided by dietary Dietary Consult completed 10/06 Administration of supplements : Enlive TID In order to capture the severity of condition associated with patient BMI of 19.1, a clinical diagnoses needs to be documented by the physician. Please clarify: Emaciated Cachexia Underweight Protein Calorie Malnutrition, (further specify severity-Mild, Moderate, Severe) Other Unable to determine Please continue to document in your progress notes and discharge summary in order to capture severity of illness and risk of mortality. Include clinical findings that support your diagnosis. MTDD
--- NOTE | 2017-10-11 14:07 | P.PN ---
Subjective Progress Note Date: 10/11/17 Principal diagnosis: Acute on chronic hypoxic respiratory failure secondary to an acute exacerbation of diastolic congestive heart failure 87-year-old female patient with known history of chronic hypoxic respiratory failure, chronic CHF with valvular heart disease and chronic atrial fibrillation , coming into the hospital because of worsening shortness of breath. She was recently hospitalized for the same. [facility] of worsening [facility]ness of breath. She was given Lasix without much improvement and for that reason she got transferred to our hospital. She has some chronic lower extremities edema. She has chronic renal failure. She suffers from valvular heart disease and the patient has undergone a percutaneous aortic valve replacement 3 [facility] the patient has moderate to severe mitral regurgitation and secondary pulmonary hypertension. She has also history of chronic atrial fibrillation and echocardiogram that was done recently showed an ejection fraction on the left of 55-60%, right ventricular was enlarged, right-sided pressures were elevated at 60 mmHg, there was moderate dilatation of the left atrium. There was moderate severe mitral regurgitation. There was severe check a regurgitation and moderate degree of pulmonary hypertension. During this current admission, the patient's troponin is a 0.184, 0.16 and 0.05 respectively 3, the proBNP level was elevated at 18, 800. Influenza screen was negative. Creatinine is stable with a level of 1.84. This the electrodes are all within normal limits. The chest x-ray shows bilateral lower lobe infiltrates and pleural effusion and mild pulmonary vascular congestion in addition to cardiomegaly. On today's evaluation of 10/08/2017, the patient is resting comfortably in bed and the patient has no specific complaints. The patient is being diuresis with IV Lasix. Slightly more prerenal compared to yesterday and nephrology saw the patient and decided to continue with the same diuretic regimen. Urine output is adequate and the patient is a negative fluid balance. No cough or sputum production. No chest tightness or wheezing. No altered mentation at this point in time. Patient seen again today 10/09/2017 in follow-up on the selective care unit. She is awake and alert in no acute distress. She states she is breathing easier today as compared to yesterday. She is maintaining good O2 saturations up to 100% on 2 L/m. Nasal cannula. She's been afebrile. Hemodynamically stable. Blood and urine cultures reveal no growth. White count 10.4. Hemoglobin 10.2. Creatinine 1.90. She remains on Lasix 40 mg IV every 12 hours. On 10/10/2017 patient seen in follow-up on medical surgical floor. She is resting comfortably in bed, in no acute distress. On 3 L per nasal cannula with O2 sat of 98%. She is afebrile, vital signs are stable, respirations are shallow, but nonlabored, she does become dyspneic with any exertion. Today's chest x-ray could not exclude superior lateral right hemithorax, although the findings were felt to be likely technical, there was improvement in patient's aeration and volume status noted. Patient's IV diuretics with transition to oral Lasix, some improvement of the renal profile noted on today's labs, with BUN down to 82, creatinine down to 1.59. White count is within normal limits at 10.4, she is afebrile. Urine and blood cultures negative. Patient is on oral prednisone, and vancomycin. On 10/11/2017 patient seen in follow-up. Her IV diuretics have been transition to oral, renal profile is improving, BUN is down to 71 from 92, and creatinine is down to 1.3 from 1.59. Denies any worsening dyspnea, currently on 2 L per nasal cannula with O2 sat 98%. Afebrile, vital signs are stable. Patient's calm and comfortable. Lung sounds are positive for a few scattered rhonchi, and some bibasilar rales. Yesterday's chest x-ray was reviewed and showed improvement in aeration in volume status. Patient states she is being transferred to [facility] with nursing and rehab this afternoon, a pulmonary standpoint patient is stable for discharge to the rehab today. Objective - Vital Signs Vital signs: Vital Signs Temp 97.6 F 10/11/17 07:47 Pulse 86 10/11/17 07:47 Resp 16 10/11/17 07:47 BP 152/77 10/11/17 07:47 Pulse Ox 98 10/11/17 07:47 Intake & Output 10/10/17 10/11/17 10/11/17 18:59 06:59 18:59 Output Total 2 Balance -2 Weight 52 kg 52 kg Output: Stool 2 Other: Voiding Method Bedpan Bedpan Bedpan Diaper Diaper Diaper Incontinent Incontinent # Voids 1 3 # Bowel Movements 2 - Exam Gen. appearance the patient is an elderly female patient nonacute distress, she has obvious arthritis in her fingers she has also obvious alopecia. No active respirator distress. Able to speak in full sentences Head exam was generally normal. There was no scleral icterus or corneal arcus. Mucous membranes were moist. Neck was supple and with jugular venous distension, thyromegaly, or carotid bruits. Carotids were easily palpable bilaterally. There was no adenopathy. There is bilateral jugular venous venous distention. No goiter or neck masses. Lung sounds are diminished bilaterally along with some bibasilar crackles. There is venous engorgement over the veins of the anterior chest. Heart sounds are irregular, there is a systolic ejection murmur grade 2/6 systolic the precordium. There is also a aortic valve click heard over the anterior chest. Abdomen is slightly distended. There may be an underlying ascites. No direct tenderness. No rebound tensile guarding. No significant organomegaly. His umbilical hernia. Extremities are showing trace edema and there is diffuse degenerative arthritis with deformities. No cyanosis. No clubbing at this point. Neurologically the patient is awake and alert and sequential following commands and there is no focal neurological deficit at this point. - Labs CBC & Chem 7: 10/09/17 06:06 10/11/17 07:02 Labs: Abnormal Lab Results - Last 24 Hours (Table) 10/11/17 Range/Units 07:02 Carbon Dioxide 33 H (22-30) mmol/L BUN 71 H (7-17) mg/dL Creatinine 1.30 H (0.52-1.04) mg/dL Microbiology - Last 24 Hours (Table) 10/05/17 09:20 Blood Culture - Final Blood No Growth after 144 hours Assessment and Plan Plan: Assessment: 1 acute shortness of breath on the basis of CHF. The patient has diastolic left -sided heart failure in addition to valvular heart disease and moderate degree of pulmonary hypertension and signs of right-sided heart failure including lower extremities edema and some abdominal distention possibly an underlying ascites. ProBNP level is significantly elevated. Minimal troponin leak 2 valvular heart disease with a previous percutaneous aortic valve replacement 3 moderate severe mitral regurgitation secondary pulmonary hypertension 4 chronic renal failure, stage IV kidney disease 5 history of pacemaker insertion 6 hypertension 7 chronic hypoxic history failure secondary to above 8 chronic anemia 9 arthritis and this is in a fall degenerative arthritis involving the hands and large knees bilaterally in the lower extremities and upper extremities in addition. 10 hypothyroidism 11 restless leg syndrome 12 previous hospitalization for gram-negative urine checked infection and sepsis and urine culture negative this admission 13 poor overall functional performance based on the above-mentioned multiple comorbidities Plan: Patient is stable from pulmonary standpoint, continues on oral diuretics, attaining good oxygenation on 2 L per nasal cannula. [place] any chest pain, denies any worsening dyspnea. Blood and urine cultures are negative to date. Anticipate discharge to [facility] and rehab this afternoon. I performed a history & physical examination of the patient and discussed their management with my nurse practitioner, Teodora Horan. I reviewed the nurse practitioner's note and agree with the documented findings and plan of care. Lung sounds are positive for bibasilar crackles. The findings and the impression was discussed with the patient. I attest to the documentation by the nurse practitioner. Time with Patient: Less than 30
[2017-10-11] MEDS: FOLIC ACID 1 MG TAB PO SCH (17:38)
[2017-10-11] MEDS: AMITRIPTYLINE HCL 10 MG TAB PO SCH (20:51)
[2017-10-11] MEDS: PRAMIPEXOLE 1 MG TAB PO SCH (20:51)
[2017-10-12] MEDS: LEVOTHYROXINE 125 MCG TAB PO SCH (06:14)
[2017-10-12] MEDS: HYDROcodone/APAP 7.5-325MG 1 EACH TAB PO PRN (06:14)
[2017-10-12] MEDS: SYMBICORT 80-4.5 MCG INHALER INHALATION SCH (08:16)
[2017-10-12] MEDS: IPRATROPIUM-ALBUTEROL 3 ML NEB INHALATION SCH (08:17)
--- NOTE | 2017-10-12 08:23 | P.PN ---
Progress Note - Text The patient is an 87-year-old female who presented from [facility] and is anticipating returning to [facility] rehab center today. The patient presented with shortness of breath. The patient was found to have acute on chronic diastolic congestive heart failure along with underlying pneumonia and exacerbation of her COPD and acute on chronic renal failure. She does have other numerous comorbidities. Patient though gradually has been improving. This morning she is sitting at the side of the bed eating breakfast. States she has not had any further shortness of breath or any chest pains. Her vital signs show temperature 97.7 with a pulse of 81 and respirations 18. Blood pressure 146/90 and she is 94% saturated on room air. Lungs are generally clear although there are some scattered rhonchi present. Heart tones are slightly irregular but rate is controlled. Abdomen nontender. Some mild grade 1-2 edema that is chronic is present. Labs from yesterday revealed improvement in her renal failure with a BUN of 71 and a creatinine of 1.3 giving her a GFR of 38 which presently is stage III. Impressions and plans The plans are to transfer to extended care nursing facility, [facility] today. If all needs are set. She has completed her course of IV antibiotics. She will continue with physical and occupational rehab there. Please see previous discharge summary for medications and orders. To clarify addendum to discharge diagnoses, the patient also has underlying moderate to protein malnutrition with a low albumin. She has been on meal supplements. The patient also has some stage 2 erythema of the buttocks/ decubitus. Some excoriated areas noted. And one further diagnosis is a diagnosis of anemia associated with her chronic kidney disease. Patient will continue with diet and activities as tolerated. Meal supplementation. Offloading of the decubitus and local wound care. Prognosis is still guarded in light of her multiple underlying conditions. She has been considered here no code no CPR after discussion with family on admission. Once again please refer to discharge summary.
[2017-10-12] MEDS: APIXABAN 2.5 MG TABLET PO SCH (08:34)
[2017-10-12] MEDS: ASPIRIN 81 MG PO SCH (08:35)
[2017-10-12] MEDS: PANTOPRAZOLE 40 MG TABLET PO SCH (08:35)
[2017-10-12] MEDS: BETAMETHASONE DIPROPIONATE 0.05% CREAM 15 GM TUBE TOPICAL SCH (08:36)
[2017-10-12] MEDS: CALCIUM CARB-VIT D 500MG-200UN 1 EACH TAB PO SCH (08:36)
[2017-10-12] MEDS: CHOLECALCIFEROL 1,000 UNIT TAB PO SCH (08:36)
[2017-10-12] MEDS: FUROSEMIDE 40 MG TAB PO SCH (08:36)
[2017-10-12] MEDS: GABAPENTIN 100 MG CAP PO SCH (08:36)
[2017-10-12] MEDS: LORATADINE 10 MG TAB PO SCH (08:36)
[2017-10-12] MEDS: METOPROLOL TARTRATE 25 MG TAB PO SCH (08:37)
[2017-10-12] MEDS: predniSONE 10 MG TAB PO SCH (08:37)
[2017-10-12 08:40] VITALS: BP 158/84; PULSE 84; RESP 16; TEMP 97.1
--- NOTE | 2017-10-12 12:17 | P.PN ---
Subjective Progress Note Date: 10/12/17 Principal diagnosis: Acute on chronic hypoxic respiratory failure secondary to an acute exacerbation of diastolic congestive heart failure. 87-year-old female patient with known history of chronic hypoxic respiratory failure, chronic CHF with valvular heart disease and chronic atrial fibrillation , coming into the hospital because of worsening shortness of breath. She was recently hospitalized for the same. [facility] complaining of worsening shortness of breath. She was given Lasix without much improvement and for that reason she got transferred to our hospital. She has some chronic lower extremities edema. She has chronic renal failure. She suffers from valvular heart disease and the patient has undergone a percutaneous aortic valve replacement 3 [facility] the patient has moderate to severe mitral regurgitation and secondary pulmonary hypertension. She has also history of chronic atrial fibrillation and echocardiogram that was done recently showed an ejection fraction on the left of 55-60%, right ventricular was enlarged, right-sided pressures were elevated at 60 mmHg, there was moderate dilatation of the left atrium. There was moderate severe mitral regurgitation. There was severe check a regurgitation and moderate degree of pulmonary hypertension. During this current admission, the patient's troponin is a 0.184, 0.16 and 0.05 respectively 3, the proBNP level was elevated at 18, 800. Influenza screen was negative. Creatinine is stable with a level of 1.84. This the electrodes are all within normal limits. The chest x-ray shows bilateral lower lobe infiltrates and pleural effusion and mild pulmonary vascular congestion in addition to cardiomegaly. On today's evaluation of 10/08/2017, the patient is resting comfortably in bed and the patient has no specific complaints. The patient is being diuresis with IV Lasix. Slightly more prerenal compared to yesterday and nephrology saw the patient and decided to continue with the same diuretic regimen. Urine output is adequate and the patient is a negative fluid balance. No cough or sputum production. No chest tightness or wheezing. No altered mentation at this point in time. Patient seen again today 10/09/2017 in follow-up on the selective care unit. She is awake and alert in no acute distress. She states she is breathing easier today as compared to yesterday. She is maintaining good O2 saturations up to 100% on 2 L/m. Nasal cannula. She's been afebrile. Hemodynamically stable. Blood and urine cultures reveal no growth. White count 10.4. Hemoglobin 10.2. Creatinine 1.90. She remains on Lasix 40 mg IV every 12 hours. On 10/10/2017 patient seen in follow-up on medical surgical floor. She is resting comfortably in bed, in no acute distress. On 3 L per nasal cannula with O2 sat of 98%. She is afebrile, vital signs are stable, respirations are shallow, but nonlabored, she does become dyspneic with any exertion. Today's chest x-ray could not exclude superior lateral right hemithorax, although the findings were felt to be likely technical, there was improvement in patient's aeration and volume status noted. Patient's IV diuretics with transition to oral Lasix, some improvement of the renal profile noted on today's labs, with BUN down to 82, creatinine down to 1.59. White count is within normal limits at 10.4, she is afebrile. Urine and blood cultures negative. Patient is on oral prednisone, and vancomycin. On 10/11/2017 patient seen in follow-up. Her IV diuretics have been transition to oral, renal profile is improving, BUN is down to 71 from 92, and creatinine is down to 1.3 from 1.59. Denies any worsening dyspnea, currently on 2 L per nasal cannula with O2 sat 98%. Afebrile, vital signs are stable. Patient's calm and comfortable. Lung sounds are positive for a few scattered rhonchi, and some bibasilar rales. Yesterday's chest x-ray was reviewed and showed improvement in aeration in volume status. Patient states she is being transferred to [facility] with nursing and rehab this afternoon, a pulmonary standpoint patient is stable for discharge to the rehab today. The patient is seen again today 10/12/2017 in follow-up on the regular medical floor. She is currently sitting up in a chair at the bedside. She is awake and alert in no acute distress. She denies any worsening shortness of breath, cough or congestion. Diminished maintaining good O2 saturations in the 90s on 2 L/m per nasal cannula. She is afebrile. Hemodynamically stable. Plan is to transfer to [facility] today. Objective - Vital Signs Vital signs: Vital Signs Temp 97.1 F L 10/12/17 07:24 Pulse 84 10/12/17 07:24 Resp 16 10/12/17 07:24 BP 158/84 10/12/17 07:24 Pulse Ox 97 10/12/17 08:17 Intake & Output 10/11/17 10/12/17 10/12/17 18:59 06:59 18:59 Intake Total 250 680 Balance 250 680 Weight 42 kg Intake: Intake, IV Titration 250 Amount Vancomycin 1,250 mg In 250 Sodium Chloride 0.9% 250 ml @ 125 mls/hr IVPB ONCE ONE Rx#:[id number] Oral 680 Other: Voiding Method Bedpan Bedpan Bedpan Diaper Diaper Diaper Incontinent Incontinent Incontinent # Voids 4 2 - Exam Gen. appearance the patient is an elderly female patient nonacute distress, she has obvious arthritis in her fingers she has also obvious alopecia. No active respirator distress. Able to speak in full sentences Head exam was generally normal. There was no scleral icterus or corneal arcus. Mucous membranes were moist. Neck was supple and with jugular venous distension, thyromegaly, or carotid bruits. Carotids were easily palpable bilaterally. There was no adenopathy. There is bilateral jugular venous venous distention. No goiter or neck masses. Lips are blue and cyanotic Lung sounds are diminished bilaterally along with some bibasilar crackles. There is venous engorgement over the veins of the anterior chest. Heart sounds are irregular, there is a systolic ejection murmur grade 2/6 systolic the precordium. There is also a aortic valve click heard over the anterior chest. Abdomen is slightly distended. There may be an underlying ascites. No direct tenderness. No rebound tensile guarding. No significant organomegaly. His umbilical hernia. Extremities are showing trace edema and there is diffuse degenerative arthritis with deformities. No cyanosis. No clubbing at this point. Neurologically the patient is awake and alert and sequential following commands and there is no focal neurological deficit at this point. - Labs CBC & Chem 7: 10/09/17 06:06 10/11/17 07:02 Labs: Microbiology - Last 24 Hours (Table) 10/05/17 09:20 Blood Culture - Final Blood No Growth after 144 hours Assessment and Plan Assessment: Assessment 1 acute shortness of breath on the basis of CHF. The patient has diastolic left -sided heart failure in addition to valvular heart disease and moderate degree of pulmonary hypertension and signs of right-sided heart failure including lower extremities edema and some abdominal distention possibly an underlying ascites. ProBNP level is significantly elevated. Minimal troponin leak 2 valvular heart disease with a previous percutaneous aortic valve replacement 3 moderate severe mitral regurgitation secondary pulmonary hypertension 4 chronic renal failure, stage IV kidney disease 5 history of pacemaker insertion 6 hypertension 7 chronic hypoxic history failure secondary to above 8 chronic anemia 9 arthritis and this is in a fall degenerative arthritis involving the hands and large knees bilaterally in the lower extremities and upper extremities in addition. 10 hypothyroidism 11 restless leg syndrome 12 previous hospitalization for gram-negative urine checked infection and sepsis and urine culture negative this admission 13 poor overall functional performance based on the above-mentioned multiple comorbidities Plan: The patient was seen and evaluated by Dr. Patton. She is improved from the pulmonary standpoint. She'll be transferred to the [facility] today. Complete a prednisone taper. Continue bronchodilators. I, the cosigning physician, performed a history & physical examination of the patient. Lungs sounds with crackles in the posterior bases. Maintaining good O2 saturations in the 90s on 2 liters nasal cannula. I discussed the assessment and plan of care with my nurse practitioner, Celina Urbina. I attest to the above note as dictated by her.
== END 2017-10-12 11:05 | DRG 291 ==
LOC: EC 08:52 → 6SEL 11:43 → 5MS5E 10-09 20:53
PROVIDERS: ADMIT Internal Medicine; ATTEND Internal Medicine
DX: I13.0 Hypertensive heart and chronic kidney disease with heart failure and stage 1 through stage 4 chronic kidney disease, or unspecified chronic kidney disease (principal); I50.33 Acute on chronic diastolic (congestive) heart failure; J18.9 Pneumonia, unspecified organism; J96.21 Acute and chronic respiratory failure with hypoxia; G93.41 Metabolic encephalopathy; N17.0 Acute kidney failure with tubular necrosis; N18.4 Chronic kidney disease, stage 4 (severe); N11.9 Chronic tubulo-interstitial nephritis, unspecified; E44.0 Moderate protein-calorie malnutrition; Z68.1 Body mass index [BMI] 19.9 or less, adult; J44.0 Chronic obstructive pulmonary disease with (acute) lower respiratory infection; J44.1 Chronic obstructive pulmonary disease with (acute) exacerbation; I44.0 Atrioventricular block, first degree; I45.10 Unspecified right bundle-branch block; R00.0 Tachycardia, unspecified; G25.81 Restless legs syndrome; G89.4 Chronic pain syndrome; I48.0 Paroxysmal atrial fibrillation; E03.9 Hypothyroidism, unspecified; I87.2 Venous insufficiency (chronic) (peripheral); M19.90 Unspecified osteoarthritis, unspecified site; Z96.643 Presence of artificial hip joint, bilateral; Z96.653 Presence of artificial knee joint, bilateral; T38.0X5A Adverse effect of glucocorticoids and synthetic analogues, initial encounter; I48.2 Chronic atrial fibrillation; I27.22 Pulmonary hypertension due to left heart disease; D63.1 Anemia in chronic kidney disease; I42.9 Cardiomyopathy, unspecified; K58.9 Irritable bowel syndrome, unspecified; Y95 Nosocomial condition; R32 Unspecified urinary incontinence; I08.1 Rheumatic disorders of both mitral and tricuspid valves; Z95.2 Presence of prosthetic heart valve; Z79.899 Other long term (current) drug therapy; Z79.891 Long term (current) use of opiate analgesic; Z82.3 Family history of stroke; Z79.82 Long term (current) use of aspirin; Z86.69 Personal history of other diseases of the nervous system and sense organs; Z79.1 Long term (current) use of non-steroidal anti-inflammatories (NSAID); Z80.1 Family history of malignant neoplasm of trachea, bronchus and lung; Z87.891 Personal history of nicotine dependence; Z88.1 Allergy status to other antibiotic agents; Z86.73 Personal history of transient ischemic attack (TIA), and cerebral infarction without residual deficits; Z86.14 Personal history of Methicillin resistant Staphylococcus aureus infection; Z87.19 Personal history of other diseases of the digestive system; Z79.01 Long term (current) use of anticoagulants; Z95.0 Presence of cardiac pacemaker; Z88.0 Allergy status to penicillin; Z88.2 Allergy status to sulfonamides; R01.1 Cardiac murmur, unspecified
CPT/HCPCS: 36415; 70450; 71045; 71046; 80048; 80053; 80202; 81001; 82550; 82553; 83036; 83605; 83735; 83880; 84145; 84484; 85025; 85610; 85730; 87040; 87086; 87502; 93005; 94640; 94760; 95819; 96365; 99285

== ENCOUNTER 2018-02-08 16:48 | Emergency (ER) | payer MEDICARE ==
[2018-02-08 16:57] VITALS: TEMP 98.2
--- NOTE | 2018-02-08 17:11 | ED ---
Lower Extremity Injury HPI - General Chief Complaint: Extremity Injury, Lower Stated Complaint: Fell 2 days ago Time Seen by Provider: 02/08/18 17:01 Source: patient, RN notes reviewed Mode of arrival: wheelchair Limitations: no limitations - History of Present Illness Initial Comments: This is an 87-year-old female who presents to the emergency department with chief complaint of left hip injury. Patient states that 2 nights ago she was pulling on her radiator in the bathroom. She states that she fell back and the back of her left thigh hit the garbage can. Patient states that she normally ambulates with a walker. She states that she still has been able to walk with a walker, however complains of pain to the back of her left thigh. She states that she has a spacer in her left thigh. She states that this was placed 10-15 years ago for a staph infection. Patient states that she presented to an outpatient clinic in [place] this morning and had x-rays obtained. She states she was told to come to the emergency department for further evaluation as the doctor was concerned that the spacer may be bent. Patient denies any other injuries or trauma. She denies head, neck or back pain. Denies recent fevers or chills, chest pain or shortness of breath, abdominal pain, nausea or vomiting, dizziness or headache. Patient is not on blood thinners, however does take a baby aspirin per day. - Related Data Home Medications Medication Instructions Recorded Confirmed Pramipexole [Mirapex] 1 mg PO HS 04/12/14 10/05/17 Amitriptyline HCl [Elavil] 10 mg PO HS 11/01/15 10/05/17 Gabapentin [Neurontin] 200 mg PO BID 11/01/15 10/05/17 Loratadine [Claritin] 10 mg PO DAILY 11/01/15 10/05/17 HYDROcodone/APAP 7.5-325MG [[place] 1 - 2 tab PO Q4H PRN 06/10/16 10/05/17 7.5-325] Levothyroxine Sodium [Synthroid] 125 mcg PO DAILY 06/10/16 10/05/17 Folic Acid 0.4 mg PO HS@1700 09/25/17 10/05/17 Metoprolol Tartrate [Lopressor] 25 mg PO DAILY 09/25/17 10/05/17 Pantoprazole [Protonix] 40 mg PO DAILY 09/25/17 10/05/17 Apixaban [Eliquis] 2.5 mg PO BID 10/05/17 10/05/17 Calcium Carb-Vit D 500Mg-200Un 1 tab PO BID 10/05/17 10/05/17 [Oscal 500+D] Ipratropium-Albuterol Nebulize 3 ml INHALATION RT-QID 10/05/17 10/05/17 [Duoneb 0.5 mg-3 mg/3 ml Soln] Aspirin 325 mg PO DAILY 02/08/18 02/08/18 Docusate [Colace] 100 mg PO DAILY PRN 02/08/18 02/08/18 Furosemide [Lasix] 40 mg PO BID 02/08/18 02/08/18 Iron 27mg 27 mg PO DAILY 02/08/18 02/08/18 Allergies Allergy/AdvReac Type Severity Reaction Status Date / Time adhesive Allergy Anaphylaxis-STATED Verified 02/08/18 17:20 "ADHESIVE ON LIDODERM PATCH PAPER TAPE OK azithromycin [From Zithromax] Allergy Unknown Verified 02/08/18 17:20 bumetanide Allergy Unknown Verified 02/08/18 17:20 cefuroxime Allergy Unknown Verified 02/08/18 17:20 cephalexin [From Keflex] Allergy Unknown Verified 02/08/18 17:20 ciprofloxacin [From Cipro] Allergy Rash/Hives Verified 02/08/18 17:20 ciprofloxacin HCl Allergy Rash/Hives Verified 02/08/18 17:20 [From Cipro] clindamycin Allergy Unknown Verified 02/08/18 17:20 clonazepam Allergy Unknown Verified 02/08/18 17:20 daptomycin [From Cubicin] Allergy Unknown Verified 02/08/18 17:20 doxycycline Allergy Unknown Verified 02/08/18 17:20 levofloxacin [From Levaquin] Allergy Unknown Verified 02/08/18 17:20 lidocaine [From Lidoderm] Allergy Rash/Hives Verified 02/08/18 17:20 linezolid [From Zyvox] Allergy Unknown Verified 02/08/18 17:20 meclizine Allergy Unknown Verified 02/08/18 17:20 nitrofurantoin Allergy Unknown Verified 02/08/18 17:20 [From Macrodantin] Penicillins Allergy "BLACK Verified 02/08/18 17:20 RING AROUND TONGUE" Sulfa (Sulfonamide Allergy Rash/Hives Verified 02/08/18 17:20 Antibiotics) Tetracyclines Allergy "BLACK Verified 02/08/18 17:20 RING AROUND TONGUE" Review of Systems ROS Statement: Those systems with pertinent positive or pertinent negative responses have been documented in the HPI. ROS Other: All systems not noted in ROS Statement are negative. 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 History of Any Multi-Drug Resistant Organisms: MRSA Date of last positivie culture/infection: 10-26-2008 MDRO Source:: LEFT HIP Past Surgical History: Cardiac Valve Replacement, Section, Hernia Repair, Joint Replacement, Pacemaker, Tonsillectomy Additional Past Surgical History / Comment(s): UMBILICAL HERNIA, C SECTION X 2, ISIDORO KNEE REPLACEMENT, RT HIP REPLACEMENT X3 WITH ANTIBIOTIC SPACER USED, PARTIAL THYROIDECTOMY, PARTIAL LT HIP REPLACEMENT SEVERAL YRS AGO AND ANTIBIOTIC SPACER PLACED 2008, TRANSCUTANEOUS AORTIC VALVE REPLACEMENT IN 2014 AT [place], tooth extraction, SEPTOPLASTY, EGD, COLONOSCOPY, L GROIN ENLARGED LYMPH NODE EXCISION. Past Anesthesia/Blood Transfusion Reactions: No Reported Reaction Type of Cardiac Device: Permanent Pacemaker Device Placement Date:: 03/12/14 Past Psychological History: Anxiety, Depression Smoking Status: Former smoker Past Alcohol Use History: None Reported Past Drug Use History: None Reported - Past Family History Brother(s) Family Medical History: Cancer Additional Family Medical History / Comment(s): TWIN BROTHER LUNG CA Mother Additional Family Medical History / Comment(s): BLEEDING ULCER Father Family Medical History: CVA/TIA General Exam - General Exam Comments Initial Comments: General: Awake and alert, well-developed; in no apparent distress. Lying comfortably on ED stretcher. HEENT: Head atraumatic, normocephalic. Pupils are equal, round and reactive to light. Extraocular movements intact. Oropharynx moist without erythema or exudate. Neck: Supple. Normal ROM. Cardiovascular: Regular rate and rhythm. No murmurs, rubs or gallops. Chest symmetrical. Respiratory: Lungs clear to auscultation bilaterally. No wheezes, rales or rhonchi. Normal respiratory effort with no use of accessory muscles. Musculoskeletal: Normal ROM of bilateral upper and lower extremities. Skin: Ecchymosis and large, approximately 3 inches in diameter firm hematoma to the posterior left thigh. Neurological: Alert and oriented x3. CN II-XII grossly intact. Speech is fluent and answers are appropriate. No focal neuro deficits. Psychiatric: Normal mood and affect. No overt signs of depression or anxiety noted. Limitations: no limitations Course Vital Signs 02/08/18 16:55 Temperature 98.2 F Pulse Rate 85 Respiratory 20 Rate Blood Pressure 144/74 O2 Sat by Pulse 96 Oximetry Medical Decision Making - Medical Decision Making This is an 87-year-old female who presents to the emergency department with chief complaint of left hip injury. Patient reports falling backwards 2 nights ago and hitting the back of her left thigh on a trash can. Patient sustained a large hematoma. She did follow up with urgent care in [place] today and x- rays were obtained. She was sent to the emergency department because the doctor was concerned that her left leg has pain to her was bent. Patient did bring a disc with the x-rays to the emergency department. These were uploaded and compared to a previous left hip x-ray from August 2017. This was compared with attending physician, Dr. Luis. No changes are noted. Patient will be discharged home at this time. Her vital signs are stable and she is in no acute distress. Recommended following up with her primary care provider. Recommended warm compresses. Educated patient that it may take months for the hematoma to fully resolve. Return parameters were discussed. Patient is in agreement with plan and voices understanding. All questions were answered. Disposition Clinical Impression: Hematoma of thigh Disposition: HOME SELF-CARE Condition: Good Instructions: Hematoma (ED) Additional Instructions: Please follow up with primary care provider within 1-2 days. Return to emergency department if symptoms should worsen or any concerns arise. Is patient prescribed a controlled substance at d/c from ED?: No Referrals: Nolan Lunsford MD [Primary Care Provider] - 1-2 days Time of Disposition: 17:42
[2018-02-08 18:06] VITALS: BP 163/72; PULSE 62; RESP 18
== END 2018-02-08 18:06 | disposition home or self-care (01) ==
LOC: EC 16:48
DX: S70.12XA Contusion of left thigh, initial encounter (principal); J45.909 Unspecified asthma, uncomplicated; I48.2 Chronic atrial fibrillation; I50.810 Right heart failure, unspecified; N18.4 Chronic kidney disease, stage 4 (severe); I13.0 Hypertensive heart and chronic kidney disease with heart failure and stage 1 through stage 4 chronic kidney disease, or unspecified chronic kidney disease; E03.9 Hypothyroidism, unspecified; Z79.01 Long term (current) use of anticoagulants; Z79.82 Long term (current) use of aspirin; Z79.899 Other long term (current) drug therapy; Z88.1 Allergy status to other antibiotic agents; Z91.048 Other nonmedicinal substance allergy status; Z88.0 Allergy status to penicillin; Z88.2 Allergy status to sulfonamides; Z95.2 Presence of prosthetic heart valve; Z95.0 Presence of cardiac pacemaker; Z96.643 Presence of artificial hip joint, bilateral; Z96.653 Presence of artificial knee joint, bilateral; Z87.891 Personal history of nicotine dependence; W18.09XA Striking against other object with subsequent fall, initial encounter; Y92.002 Bathroom of unspecified non-institutional (private) residence as the place of occurrence of the external cause
CPT/HCPCS: 99283

== ENCOUNTER 2018-05-14 12:10 | Inpatient (IN) | payer MEDICARE ==
[2018-05-14] MEDS ORDERED: VANCOMYCIN IV PER PHARMACY 1 EACH MISC MISCELLANE PRN (12:56)
--- NOTE | 2018-05-14 12:58 | ED ---
General Adult HPI - General Chief complaint: Extremity Problem,Nontraumatic Stated complaint: LEFT FOOT INFECTION Time Seen by Provider: 05/14/18 12:43 Source: patient, RN notes reviewed, old records reviewed Mode of arrival: wheelchair Limitations: no limitations - History of Present Illness Initial comments: 88-year-old female presenting with a three-week history of pain and swelling in the left lower extremity. Patient has been treated by both her primary care physician and her pleat taper. She's been on oral antibiotics, topical agents including antifungal agents with no improvement in symptoms. Her swelling has progressed to the knee. There is associated erythema and drainage. Patient denies fever or chills. Denies any systemic symptoms. - Related Data Home Medications Medication Instructions Recorded Confirmed Amitriptyline HCl [Elavil] 10 mg PO HS 11/01/15 05/14/18 Gabapentin [Neurontin] 200 mg PO BID 11/01/15 05/14/18 Loratadine [Claritin] 10 mg PO DAILY 11/01/15 05/14/18 HYDROcodone/APAP 7.5-325MG [[place] 1 - 2 tab PO Q4H PRN 06/10/16 05/14/18 7.5-325] Levothyroxine Sodium [Synthroid] 125 mcg PO DAILY 06/10/16 05/14/18 Folic Acid 0.4 mg PO DAILY 09/25/17 05/14/18 Metoprolol Tartrate [Lopressor] 12.5 mg PO DAILY 09/25/17 05/14/18 Pantoprazole [Protonix] 40 mg PO DAILY 09/25/17 05/14/18 Apixaban [Eliquis] 2.5 mg PO BID 10/05/17 05/14/18 Calcium Carb-Vit D 500Mg-200Un 1 tab PO BID 10/05/17 05/14/18 [Oscal 500+D] Ipratropium-Albuterol Nebulize 3 ml INHALATION RT-QID 10/05/17 05/14/18 [Duoneb 0.5 mg-3 mg/3 ml Soln] Aspirin 325 mg PO DAILY 02/08/18 05/14/18 Docusate [Colace] 100 mg PO DAILY PRN 02/08/18 05/14/18 Furosemide [Lasix] 40 mg PO DAILY 02/08/18 05/14/18 Iron 27mg 27 mg PO DAILY 02/08/18 05/14/18 Furosemide [Lasix] 20 mg PO AC-SUPPER PRN 05/14/18 05/14/18 Pramipexole [Mirapex] 1 mg PO HS 05/14/18 05/14/18 Allergies Allergy/AdvReac Type Severity Reaction Status Date / Time adhesive Allergy Anaphylaxis-STATED Verified 05/14/18 13:36 "ADHESIVE ON LIDODERM PATCH PAPER TAPE OK azithromycin [From Zithromax] Allergy Unknown Verified 05/14/18 13:36 bumetanide Allergy Unknown Verified 05/14/18 13:36 cefuroxime Allergy Unknown Verified 05/14/18 13:36 cephalexin [From Keflex] Allergy Unknown Verified 05/14/18 13:36 ciprofloxacin [From Cipro] Allergy Rash/Hives Verified 05/14/18 13:36 ciprofloxacin HCl Allergy Rash/Hives Verified 05/14/18 13:36 [From Cipro] clindamycin Allergy Unknown Verified 05/14/18 13:36 clonazepam Allergy Unknown Verified 05/14/18 13:36 daptomycin [From Cubicin] Allergy Unknown Verified 05/14/18 13:36 dextrose 5 % in water Allergy Unknown Verified 05/14/18 13:36 [From Zyvox] doxycycline Allergy Unknown Verified 05/14/18 13:36 levofloxacin [From Levaquin] Allergy Unknown Verified 05/14/18 13:36 lidocaine [From Lidoderm] Allergy Rash/Hives Verified 05/14/18 13:36 linezolid [From Zyvox] Allergy Unknown Verified 05/14/18 13:36 meclizine Allergy Unknown Verified 05/14/18 13:36 nitrofurantoin Allergy Unknown Verified 05/14/18 13:36 [From Macrodantin] Penicillins Allergy "BLACK Verified 05/14/18 13:36 RING AROUND TONGUE" Sulfa (Sulfonamide Allergy Rash/Hives Verified 05/14/18 13:36 Antibiotics) Tetracyclines Allergy "BLACK Verified 05/14/18 13:36 RING AROUND TONGUE" Review of Systems ROS Statement: Those systems with pertinent positive or pertinent negative responses have been documented in the HPI. ROS Other: All systems not noted in ROS Statement are negative. 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 History of Any Multi-Drug Resistant Organisms: MRSA Date of last positivie culture/infection: 10-26-2008 MDRO Source:: LEFT HIP Past Surgical History: Cardiac Valve Replacement, Section, Hernia Repair, Joint Replacement, Pacemaker, Tonsillectomy Additional Past Surgical History / Comment(s): UMBILICAL HERNIA, C SECTION X 2, ISIDORO KNEE REPLACEMENT, RT HIP REPLACEMENT X3 WITH ANTIBIOTIC SPACER USED, PARTIAL THYROIDECTOMY, PARTIAL LT HIP REPLACEMENT SEVERAL YRS AGO AND ANTIBIOTIC SPACER PLACED 2008, TRANSCUTANEOUS AORTIC VALVE REPLACEMENT IN 2014 AT [facility], tooth extraction, SEPTOPLASTY, EGD, COLONOSCOPY, L GROIN ENLARGED LYMPH NODE EXCISION. Past Anesthesia/Blood Transfusion Reactions: No Reported Reaction Type of Cardiac Device: Permanent Pacemaker Device Placement Date:: 03/12/14 Past Psychological History: Anxiety, Depression Smoking Status: Former smoker Past Alcohol Use History: None Reported Past Drug Use History: None Reported - Past Family History Brother(s) Family Medical History: Cancer Additional Family Medical History / Comment(s): TWIN BROTHER LUNG CA Mother Additional Family Medical History / Comment(s): BLEEDING ULCER Father Family Medical History: CVA/TIA General Exam Limitations: no limitations General appearance: alert, in no apparent distress Eye exam: Present: normal appearance, PERRL ENT exam: Present: normal exam Neck exam: Present: normal inspection. Absent: tenderness, meningismus Respiratory exam: Absent: respiratory distress, decreased breath sounds Cardiovascular Exam: Present: regular rate, normal rhythm GI/Abdominal exam: Present: soft. Absent: distended, tenderness Extremities exam: Present: other (Left lower extremity: Erythematous, multiple areas of skin breakdown with ruptured and serosanguineous drainage. 2+ pitting edema to the knee.) Neurological exam: Present: alert, oriented X3, CN II-XII intact. Absent: motor sensory deficit Psychiatric exam: Present: normal affect, normal mood Course Vital Signs 05/14/18 05/14/18 12:34 15:00 Temperature 97.7 F 97.4 F L Pulse Rate 87 89 Respiratory 16 16 Rate Blood Pressure 148/82 147/89 O2 Sat by Pulse 98 99 Oximetry Medical Decision Making - Medical Decision Making 88 -year-old female presenting with several weeks of swelling and erythema to the left foot and leg. She has been on multiple topical and oral antibiotics with no improvement. Patient has normal CBC, CMP reveals chronic kidney disease which is at baseline. X-ray of the foot shows concern for inflammation versus infection at the base of first metatarsal. X-ray of the tibia and fibula is negative for soft tissue gas. Patient has multiple antibiotic ALLERGIES, she is started on vancomycin in the emergency department as she has tolerated this in the past. Ultrasound obtained which is inadequate to fully assess DVT although no definitive signs of DVT and the patient is anticoagulated , this may need to be repeated. Case discussed with admitting physician, will consult infectious disease. - Lab Data Result diagrams: 05/14/18 13:20 05/14/18 13:20 Lab Results 05/14/18 05/14/18 05/14/18 Range/Units 13:20 13:20 13:20 WBC 4.8 (3.8-10.6) k/uL RBC 4.20 (3.80-5.40) m/uL Hgb 11.7 (11.4-16.0) gm/dL Hct 37.7 (34.0-46.0) % MCV 89.8 (80.0-100.0) fL MCH 27.7 (25.0-35.0) pg MCHC 30.9 L (31.0-37.0) g/dL RDW 15.8 H (11.5-15.5) % Plt Count 303 (150-450) k/uL Neutrophils % 74 % Lymphocytes % 14 % Monocytes % 6 % Eosinophils % 4 % Basophils % 1 % Neutrophils # 3.6 (1.3-7.7) k/uL Lymphocytes # 0.7 L (1.0-4.8) k/uL Monocytes # 0.3 (0-1.0) k/uL Eosinophils # 0.2 (0-0.7) k/uL Basophils # 0.1 (0-0.2) k/uL Hypochromasia Moderate Sodium 143 (137-145) mmol/L Potassium 4.1 (3.5-5.1) mmol/L Chloride 107 (98-107) mmol/L Carbon Dioxide 25 (22-30) mmol/L Anion Gap 11 mmol/L BUN 80 H (7-17) mg/dL Creatinine 2.02 H (0.52-1.04) mg/dL Est GFR (CKD-EPI)AfAm 25 (>60 ml/min/1.73 sqM) Est GFR (CKD-EPI)NonAf 22 (>60 ml/min/1.73 sqM) Glucose 93 (74-99) mg/dL Plasma Lactic Acid [place] 1.4 (0.7-2.0) mmol/L Calcium 8.2 L (8.4-10.2) mg/dL Total Bilirubin 0.4 (0.2-1.3) mg/dL AST 20 (14-36) U/L ALT 23 (9-52) U/L Alkaline Phosphatase 140 H (38-126) U/L Total Protein 7.0 (6.3-8.2) g/dL Albumin 3.5 (3.5-5.0) g/dL Disposition Clinical Impression: Cellulitis, Failure of outpatient treatment Disposition: ADMITTED IP TO THIS [facility] Condition: Stable Is patient prescribed a controlled substance at d/c from ED?: No Referrals: Nolan Lunsford MD [Primary Care Provider] - 1-2 days Decision to Admit Reason: Admit from EC Decision Date: 05/14/18 Decision Time: 16:06
[2018-05-14] MEDS ORDERED: VANCOMYCIN 1,000 MG in SODIUM CHLORIDE 0.9% 250 ML IVPB ONE (13:30)
[2018-05-14 13:52] LABS: Albumin 3.5 g/dL (3.5-5.0); Calcium 8.2 mg/dL (8.4-10.2); Potassium 4.1 mmol/L (3.5-5.1); Total Bilirubin 0.4 mg/dL (0.2-1.3)
--- NOTE | 2018-05-14 13:57 | XR ---
EXAMINATION TYPE: XR tibia fibula LT DATE OF EXAM: 05/14/2018 COMPARISON: NONE HISTORY: Nonhealing wound TECHNIQUE: Two views are submitted. FINDINGS: The osseous structures are intact. There is postsurgical change involving the knee and diffuse osteop enia. Vascular calcifications are noted. There is arthropathy of the tarsometatarsal junction. IMPRESSION: 1. No no destructive changes seen.
[2018-05-14 13:59] LABS: Basophils # (A) 0.1 k/uL (0-0.2); Basophils % (A) 1 %; Eosinophils # (A) 0.2 k/uL (0-0.7); Eosinophils % (A) 4 %; HCT 37.7 % (34.0-46.0); HGB 11.7 gm/dL (11.4-16.0); Hypochromasia Moderate; Lymphocytes # (A) 0.7 k/uL (1.0-4.8); Lymphocytes % (A) 14 %; MCH 27.7 pg (25.0-35.0); MCHC 30.9 g/dL (31.0-37.0); MCV 89.8 fL (80.0-100.0); Monocytes # (A) 0.3 k/uL (0-1.0); Monocytes % (A) 6 %; Neutrophils # (A) 3.6 k/uL (1.3-7.7); Neutrophils % (A) 74 %; Platelet Count 303 k/uL (150-450); RDW 15.8 % (11.5-15.5); WBC 4.8 k/uL (3.8-10.6)
--- NOTE | 2018-05-14 13:59 | XR ---
EXAMINATION TYPE: XR foot complete LT DATE OF EXAM: 05/14/2018 COMPARISON: NONE HISTORY: Nonhealing wound TECHNIQUE: Three views are submitted. FINDINGS: The osseous structures are intact. There is no acute fracture or dislocation. There is diffuse ost eopenia. Calcaneal spurs are noted. There are vascular calcifications. Diffuse soft tissue edema. Ham mertoe deformities are noted and is arthropathy of the DIP, PIP and MCP joints of all digits. There i s marked arthropathy of the tarsometatarsal junction. No definite destructive changes seen. IMPRESSION: 1. No acute fracture or dislocation. If symptoms persist, follow-up exam in 7 to 10 days could be ob tained. 2. Severe osteopenia and arthropathy as discussed above. Erosive changes are seen at the base of the first tarsal metatarsal joint which can be associated with osteoarthritis or gout. Infectious etiolog y not entirely excluded correlate clinically.
--- NOTE | 2018-05-14 15:34 | US ---
EXAMINATION TYPE: US venous doppler duplex LE LT DATE OF EXAM: 05/14/2018 3:02 PM COMPARISON: Bilateral lower extremity venous ultrasound November 12, 2014 CLINICAL HISTORY: Pain. Left foot infection. Pain left leg SIDE PERFORMED: left TECHNIQUE: The lower extremity deep venous system is examined utilizing real time linear array sonog bruce with graded compression, doppler sonography and color-flow sonography. VESSELS IMAGED: External Iliac Vein (EIV) Common Femoral Vein Deep Femoral Vein Greater Saphenous Vein * Femoral Vein Popliteal Vein Small Saphenous Vein * Proximal Calf Veins (* superficial vessels) Left Leg: Technical limitations due to soft tissue edema. Incomplete blood flow with partial anastasiia sofi left femoral vein proximal Grayscale, color doppler, spectral doppler imaging performed of the deep veins of the left lower extr emity. Subcutaneous edema identified moderate to severe at popliteal level. Visualized portion of left lowe r extremity show no convincing evidence of acute DVT, mid to distal portions of the left superficial femoral vein are suboptimally evaluated due to patient's body habitus and overlying subcutaneous valentine a, cannot entirely exclude acute DVT at these levels. IMPRESSION: Suboptimal study without definitive evidence for acute DVT though portions of the mid to distal superficial femoral vein are not adequately assessed.
[2018-05-14] MEDS ORDERED: NALOXONE 0.4 MG/ML 1 ML VIAL IV PRN (16:02)
[2018-05-14] MEDS ORDERED: ACETAMINOPHEN TAB 325 MG TAB PO PRN (16:02)
[2018-05-14] MEDS ORDERED: DOCUSATE 100 MG CAP PO PRN (20:34)
--- NOTE | 2018-05-14 21:10 | HP ---
HISTORY AND PHYSICAL Mrs. Priest is an 88-year-old female who for 2 weeks apparently has had some rash, ulceration of the left foot, seen a library media assistant, continued to worsen over the weekend to the point of increasing pain, edema, erythema and ulceration extending up the foot to the left leg about nursing home or more up towards the knee. The patient denied any trauma associated with this. She had increased drainage from her dressing, not quite sure what podiatry was placing on the wound. The patient is someone who has marked NUMEROUS MEDICAL ALLERGIES AND INTOLERANCES AND IS UNABLE TO TAKE MANY ANTIBIOTICS OR OTHER MEDICATIONS. SHE HAS A FAIRLY LONG LENGTHY LIST CONSISTED OF SOME OF THE ADHESIVE TAPE AND DID REACT EVEN TO LIDODERM Adhesive IN THE PATCH FORM. HAS HAD PROBLEMS WITH AZITHROMYCIN, CEFUROXIME, CEPHALEXIN, CIPROFLOXACIN, CLINDAMYCIN. WITH CIPRO SHE DID DEVELOP A RASH AND HIVES. SHE HAD A REACTION TO DAPTOMYCIN IN THE PAST, DOXYCYCLINE, LEVOFLOXACIN, AND ZYVOX, MECLIZINE, MACRODANTIN, PENICILLINS, SULFA WITH RASH AND HIVES AND SHE HAS HAD BLACK TONGUE PROBLEMS FROM PENICILLIN, TETRACYCLINE. HOME MEDICATIONS: Include her iron 27 mg daily, Lasix she has been on 40 mg twice a day, but recently did decrease it down to once a day, folic acid 0.4 mg, calcium carbonate with vitamin D 500- 200, Os-F[place]ad twice a day, aspirin 325 daily, Protonix 40 mg daily, metoprolol 12.5 daily, DuoNeb treatments 3 mL 4 times a day. Colace 100 mg p.r.n. constipation, Eliquis 2.5 twice a day, Elavil 10 mg q.h.s. loratadine 10 mg q.h.s., she does take [place] for chronic pain 7.5-325 1-2 q.4 hours p.r.n., Mirapex 1 mg q.h.s. for restless legs. Her thyroid, levothyroxine 125 mcg, and Neurontin 200 mg twice a day. OTHER PAST MEDICAL HISTORY: The patient has had fairly longstanding venous insufficiency along with rheumatoid and degenerative osteoarthritis, that she has chronic diastolic congestive heart failure. History of chronic kidney disease stage 3 to 4. History of transcutaneous aortic valve replacement along with pacemaker placement in [place]. History of hypertension, hypertensive heart disease, hypothyroidism, on replacement, restless legs syndrome. She has had bilateral knee and hip surgeries for her osteoarthritis, but no definite history of myocardial infarction, diabetes or stroke. Positive history of paroxysmal atrial fibrillation with intermittent rapid ventricular response, hypothyroidism. She has had a previous fracture of the right humerus in 2016. SURGICAL HISTORY: Includes the right and left hip replacements, aortic valve transcutaneous replacement, pacemaker. She has had a partial thyroidectomy. REVIEW OF SYSTEMS: As mentioned in the history of present illness. She denied any unusual headache or visual disturbances. She is short of breath with exertion but not at rest. Mild cough at times. No marked phlegm production. The patient did note some chills a couple days prior to admission. No nausea, vomiting. No urinary or bowel symptoms. Chronic lower extremity edema. FAMILY HISTORY: Apparently she had a twin brother who had lung cancer. Father had a CVA. Mother had a bleeding ulcer. SOCIAL HISTORY: The patient quit smoking at about age 52, but did smoke for approximately 25 years. No history of any excessive alcohol usage. She does have caretakers at home to help her. PHYSICAL EXAMINATION: The patient is sitting up in the stretcher in the emergency room. She seems to be alert and oriented. Vital signs show temperature 97.4 with a pulse of 89, respirations 20, blood pressure 140/87, and she is 99% saturated on 2 L. Head and neck exam is atraumatic. Extraocular movements are intact. Neck is not overly stiff. No definite adenopathy. LUNGS: Generally diminished, but clear. Heart tones were slightly irregular, but rate is controlled. Breasts and pelvic exam deferred. Abdomen was soft and nontender. Extremities revealed compression wraps of the right lower extremity with some edema, left is more edematous, grade 2-3 with ulceration at the toes including erythema of the distal left foot with distal ulceration there. Also a larger ulceration of the left leg and also anterior leg with mixed areas of erythema and tenderness, more clear serosanguineous drainage. Neurologically, she is intact. Alert, oriented. No focal weakness noted. LABORATORY TESTING: Revealed a white count of 4.8, hemoglobin 11.7, and a platelet count of 303. Her sodium is 143, potassium 4.1, CO2 content was 25. Her BUN is elevated at 80, with a creatinine of 2.02 given her GFR of 22, which is a little lower than her usual baseline into the 30s. Her calcium was 8.2. Lactic acid level was 1.4. Liver function tests were generally good with a mild elevation of alkaline phosphatase to 140. Other testing with x-rays of the left foot and leg showed no acute fracture. No definite destructive changes seen in the toes, although diffuse edema and vascular calcifications and hammertoe deformities were present. No definite osteomyelitis could be discerned. X-ray of the tib-fib showed no destructive changes and bony structures were intact. The patient did have a venous Doppler study performed on the left lower extremity, which was somewhat suboptimal, but no definitive evidence of DVT. IMPRESSION: Overall impression at this point is: 1. Cellulitis with multiple ulcerations of the left foot and leg in this 88-year -old female who is very immobile from diffuse osteoarthritis and previous surgeries. 2. Cardiac history of aortic valve replacement transcutaneously with also pacemaker and atrial fibrillation on Eliquis. 3. Other numerous medical problems as listed above, along with acute on chronic renal failure and venous stasis edema of the lower extremities. At this time: PLANS: Are to admit with IV antibiotics in the form of vancomycin as she has numerous ALLERGIES. Consultation with Dr. Sandoval from Infectious Disease. Local wound care and further recommendations and treatment pending the clinical response and results of above. I would like to actually hold her Lasix temporarily and follow her renal function overall though prognosis is still guarded. MMODL / IJN: [id number] / MTDD
[2018-05-14] MEDS: APIXABAN 2.5 MG TABLET PO SCH (21:26)
[2018-05-14] MEDS: AMITRIPTYLINE HCL 10 MG TAB PO SCH (21:26)
[2018-05-14] MEDS: HYDROcodone/APAP 7.5-325MG 1 EACH TAB PO PRN (21:26)
[2018-05-14] MEDS: GABAPENTIN 100 MG CAP PO SCH (21:26)
[2018-05-14] MEDS: PRAMIPEXOLE 1 MG TAB PO SCH (21:26)
[2018-05-15] MEDS: LEVOTHYROXINE 125 MCG TAB PO SCH (06:37)
[2018-05-15] MEDS: HYDROcodone/APAP 7.5-325MG 1 EACH TAB PO PRN ×3 (06:40→20:14)
--- NOTE | 2018-05-15 08:04 | P.PN ---
Progress Note - Text The patient is an 88-year-old female who presented yesterday to emergency room with worsening cellulitis of the left foot and leg. Also associated with the multiple ulcerations of the distal foot and left leg and schaeffer. Not responding to outpatient treatment. Patient also has multiple medicine/antibiotic ALLERGIES and intolerances. Also comorbidities in terms of chronic venous stasis and chronic diastolic congestive heart failure and chronic renal failure. The patient was initiated on vancomycin yesterday. This morning she states she does feel better. No fever or chills noted at this time. Vital signs reveal temperature 98.5 with a pulse of 97 respirations 17. Blood pressure 127/71 and her O2 saturation was 97 on 2 L nasal cannula. Heart rate is regular and controlled. Lungs are generally clear anteriorly. Abdomen is nontender. Still is erythema of the distal foot but it does look a little primer expeditor and drier and improved from yesterday evening. Repeat labs have been ordered for tomorrow morning. Specifically CBC and basic metabolic panel. Wound culture also has been ordered. Impressions and plans We'll continue vancomycin. Lasix is on hold pending repeat renal labs tomorrow morning. Consult has been placed for infectious disease for opinion on wound care and antibiotic management. Especially in light of patient's multiple ALLERGIES. Discussed with patient and industrial relations analyst at bedside this morning.
[2018-05-15] MEDS: PANTOPRAZOLE 40 MG TABLET PO SCH (08:15)
[2018-05-15] MEDS: GABAPENTIN 100 MG CAP PO SCH ×2 (08:15→20:14)
[2018-05-15] MEDS: FOLIC ACID 1 MG TAB PO SCH (08:15)
[2018-05-15] MEDS: CALCIUM CARB-VIT D 500MG-200UN 1 EACH TAB PO SCH ×2 (08:15→20:14)
[2018-05-15] MEDS: ASPIRIN 81 MG PO SCH (08:15)
[2018-05-15] MEDS: APIXABAN 2.5 MG TABLET PO SCH ×2 (08:15→20:14)
[2018-05-15] MEDS: METOPROLOL TARTRATE 12.5 MG TAB PO SCH (08:15)
[2018-05-15] MEDS ORDERED: VANCOMYCIN 1,000 MG in SODIUM CHLORIDE 0.9% 250 ML IVPB ONE (09:00)
[2018-05-15] MEDS: IPRATROPIUM-ALBUTEROL 3 ML NEB INHALATION SCH ×4 (09:22→19:25)
--- NOTE | 2018-05-15 10:00 | P.CONS ---
History of Present Illness - Reason for Consult Consult date: 05/15/18 Left leg cellulitis, concerning for osteomyelitis - History of Present Illness This is an 88 year old female patient known to ID service as she was seen in May 2016 which time she was treated for acute sepsis with Proteus UTI. History is obtained from the patient and her caregiver Pat. Patient had onset of redness to the left foot about 3 weeks ago. At that time she was placed on an antibiotic by her PCP for a week. Patient was followed by Dr. Mistry at her home was told she had fungus and was placed on Domeboro soaks 10- 15 minutes twice daily as well as a cream. Patient states she had some much drainage from her foot became so severe her shoes were soaking wet from the drainage. She denies having any fever but did develop chills yesterday.. She came into [facility] emergency center for evaluation. White count was 5.8, patient was afebrile, BUN 80 and creatinine 2.0 to and alkaline phosphatase 140. Patient has multiple antibiotic ALLERGIES and was started on vancomycin. Blood culture was status received in 1 cultures uncollected. Foot x-ray showed no acute fracture dislocation but severe osteopenia and arthropathy. Erosive changes seen in the base of the first tarsometatarsal joint which can be associated with osteoarthritis or gout. Infectious etiology not entirely excluded. Tib-fib x-ray showed no acute findings. On duplex ultrasound showed suboptimal above no definite evidence of acute DVT of what was visualized. Patient was admitted to the [facility] floor and continued on vancomycin. Patient had a fall in January causing hematoma to the posterior left calf. She denies any recent injuries to her leg or foot. Caregiver states that the redness to the foot is much improved since admission. Review of Systems All systems: negative Constitutional: Reports chills, Reports fatigue, Reports lethargy, Reports malaise, Denies anorexia, Denies fever, Denies poor appetite, Denies weakness Eyes: denies blurred vision, denies pain Ears, nose, mouth and throat: Denies dental pain, Denies dysphagia, Denies headache, Denies mouth pain, Denies sore throat, Denies vertigo Cardiovascular: Denies chest pain, Denies dyspnea on exertion, Denies edema, Denies high blood pressure, Denies irregular heart beat, Denies leg edema, Denies shortness of breath, Denies syncope Respiratory: Denies cough, Denies cough with sputum, Denies dyspnea, Denies excessive sputum, Denies hemoptysis, Denies home oxygen, Denies wheezing Gastrointestinal: Denies abdominal pain, Denies belching, Denies diarrhea, Denies loss of appetite, Denies melena, Denies nausea, Denies vomiting Genitourinary: Denies dysuria, Denies hematuria, Denies urgency, Denies urinary frequency Musculoskeletal: Denies frequent falls, Denies gait dysfunction, Denies myalgias Integumentary: Reports color changes, Reports darkening of skin, Reports onychomycosis, Reports wounds, Denies pruritus, Denies rash Neurological: Denies numbness, Denies weakness Psychiatric: Denies anxiety, Denies depression Endocrine: Denies fatigue, Denies weight change Past Medical History Past Medical History: Atrial Fibrillation, Asthma, Heart Failure, GERD/Reflux, Hypertension, Osteoarthritis (OA), Renal Disease, Skin Disorder, Syncope, Thyroid Disorder, Vascular Disorder Additional Past Medical History / Comment(s): Valvular heart disease with previous percutaneous aortic valve replacement, moderate to severe mitral regurgitation, pulmonary hypertension with right-sided heart failure, chronic a chief fibrillation, LV function of 55% based on most recent echocardiogram, history of CVA, chronic renal failure stage IV kidney disease, chronic anemia, chronic venous insufficiency in lower extremities bilaterally, RLS, IBS, sinus problems, migraines, hypothyroid, past R humerus fracture, R superior pubic ramus fracture, falls. 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 Source:: LEFT HIP Past Surgical History: Cardiac Valve Replacement, Section, Hernia Repair, Joint Replacement, Pacemaker, Tonsillectomy Additional Past Surgical History / Comment(s): UMBILICAL HERNIA, C SECTION X 2, ISIDORO KNEE REPLACEMENT, RT HIP REPLACEMENT X3 WITH ANTIBIOTIC SPACER USED, PARTIAL THYROIDECTOMY, PARTIAL LT HIP REPLACEMENT SEVERAL YRS AGO AND ANTIBIOTIC SPACER PLACED 2008, TRANSCUTANEOUS AORTIC VALVE REPLACEMENT IN 2014 AT [place], tooth extraction, SEPTOPLASTY, EGD, COLONOSCOPY, L GROIN ENLARGED LYMPH NODE EXCISION. Past Anesthesia/Blood Transfusion Reactions: No Reported Reaction Type of Cardiac Device: Permanent Pacemaker Device Placement Date:: 03/12/14 Smoking Status: Former smoker Additional Past Alcohol Use History / Comment(s): Patient was a smoker of one pack per day starting at age 17 and quit 32 years ago. She lives at home with her and uses a walker to ambulate. She has a caregiver named Pat that helps her with ADLs, housekeeping and meals. - Past Family History Brother(s) Family Medical History: Cancer Additional Family Medical History / Comment(s): TWIN BROTHER LUNG CA Mother Additional Family Medical History / Comment(s): BLEEDING ULCER Father Family Medical History: CVA/TIA Medications and Allergies Home Medications Medication Instructions Recorded Confirmed Type Amitriptyline HCl [Elavil] 10 mg PO HS 11/01/15 05/14/18 History Gabapentin [Neurontin] 200 mg PO BID 11/01/15 05/14/18 History Loratadine [Claritin] 10 mg PO DAILY 11/01/15 05/14/18 History HYDROcodone/APAP 7.5-325MG [[place] 1 - 2 tab PO Q4H PRN 06/10/16 05/14/18 History 7.5-325] Levothyroxine Sodium [Synthroid] 125 mcg PO DAILY 06/10/16 05/14/18 History Folic Acid 0.4 mg PO DAILY 09/25/17 05/14/18 History Metoprolol Tartrate [Lopressor] 12.5 mg PO DAILY 09/25/17 05/14/18 History Pantoprazole [Protonix] 40 mg PO DAILY 09/25/17 05/14/18 History Apixaban [Eliquis] 2.5 mg PO BID 10/05/17 05/14/18 History Calcium Carb-Vit D 500Mg-200Un 1 tab PO BID 10/05/17 05/14/18 History [Oscal 500+D] Ipratropium-Albuterol Nebulize 3 ml INHALATION RT-QID 10/05/17 05/14/18 History [Duoneb 0.5 mg-3 mg/3 ml Soln] Aspirin 325 mg PO DAILY 02/08/18 05/14/18 History Docusate [Colace] 100 mg PO DAILY PRN 02/08/18 05/14/18 History Furosemide [Lasix] 40 mg PO DAILY 02/08/18 05/14/18 History Iron 27mg 27 mg PO DAILY 02/08/18 05/14/18 History Furosemide [Lasix] 20 mg PO AC-SUPPER PRN 05/14/18 05/14/18 History Pramipexole [Mirapex] 1 mg PO HS 05/14/18 05/14/18 History Allergies Allergy/AdvReac Type Severity Reaction Status Date / Time adhesive Allergy Anaphylaxis-STATED Verified 05/14/18 13:36 "ADHESIVE ON LIDODERM PATCH PAPER TAPE OK azithromycin [From Zithromax] Allergy Unknown Verified 05/14/18 13:36 bumetanide Allergy Unknown Verified 05/14/18 13:36 cefuroxime Allergy Unknown Verified 05/14/18 13:36 cephalexin [From Keflex] Allergy Unknown Verified 05/14/18 13:36 ciprofloxacin [From Cipro] Allergy Rash/Hives Verified 05/14/18 13:36 ciprofloxacin HCl Allergy Rash/Hives Verified 05/14/18 13:36 [From Cipro] clindamycin Allergy Unknown Verified 05/14/18 13:36 clonazepam Allergy Unknown Verified 05/14/18 13:36 daptomycin [From Cubicin] Allergy Unknown Verified 05/14/18 13:36 dextrose 5 % in water Allergy Unknown Verified 05/14/18 13:36 [From Zyvox] doxycycline Allergy Unknown Verified 05/14/18 13:36 levofloxacin [From Levaquin] Allergy Unknown Verified 05/14/18 13:36 lidocaine [From Lidoderm] Allergy Rash/Hives Verified 05/14/18 13:36 linezolid [From Zyvox] Allergy Unknown Verified 05/14/18 13:36 meclizine Allergy Unknown Verified 05/14/18 13:36 nitrofurantoin Allergy Unknown Verified 05/14/18 13:36 [From Macrodantin] Penicillins Allergy "BLACK Verified 05/14/18 13:36 RING AROUND TONGUE" Sulfa (Sulfonamide Allergy Rash/Hives Verified 05/14/18 13:36 Antibiotics) Tetracyclines Allergy "BLACK Verified 05/14/18 13:36 RING AROUND TONGUE" Physical Exam Vitals: Vital Signs Temp Pulse Pulse Resp BP BP Pulse Ox 05/15/18 06:55 98.5 F 97 17 127/71 97 05/14/18 23:00 98.2 F 80 17 135/69 99 05/14/18 19:59 98.6 F 88 18 131/72 96 05/14/18 16:00 89 20 144/87 99 05/14/18 15:00 97.4 F L 89 16 147/89 99 05/14/18 12:34 97.7 F 87 16 148/82 98 Intake and Output 05/14/18 05/15/18 05/15/18 22:59 06:59 14:59 Other: Voiding Method Incontinent # Voids 1 1 Gen: This is an 88-year-old female. She is resting in bed appears to be comfortable. HEENT: Head is atraumatic, normocephalic. Pupils equal, round. Sclerae is anicteric. Conjunctiva pink. Oral mucous membranes are moist. NECK: Supple. No JVD. No lymphadenopathy. No thyromegaly. LUNGS: Clear to auscultation. No wheezes or rhonchi. No intercostal retractions. HEART: Regular rate and rhythm. Systolic murmur. ABDOMEN: Soft. Bowel sounds are present. No masses. No tenderness. EXTREMITIES: There is significant erythema to the left lower leg with chronic dark skin changes, open areas noted. Scant drainage. Erythema to the dorsal surface left forefoot and toes with edema. Scant drainage. No foul odor. Mycosis noted bilaterally. NEUROLOGICAL: Patient is awake, alert and oriented x3. Cranial nerves 2 through 12 are grossly intact. Results Results: Laboratory Results WBC 4.8 k/uL (3.8-10.6) 05/14/18 13:20 RBC 4.20 m/uL (3.80-5.40) 05/14/18 13:20 Hgb 11.7 gm/dL (11.4-16.0) 05/14/18 13:20 Hct 37.7 % (34.0-46.0) 05/14/18 13:20 MCV 89.8 fL (80.0-100.0) 05/14/18 13:20 MCH 27.7 pg (25.0-35.0) 05/14/18 13:20 MCHC 30.9 g/dL (31.0-37.0) L 05/14/18 13:20 RDW 15.8 % (11.5-15.5) H 05/14/18 13:20 Plt Count 303 k/uL (150-450) 05/14/18 13:20 Neutrophils % 74 % 05/14/18 13:20 Lymphocytes % 14 % 05/14/18 13:20 Monocytes % 6 % 05/14/18 13:20 Eosinophils % 4 % 05/14/18 13:20 Basophils % 1 % 05/14/18 13:20 Neutrophils # 3.6 k/uL (1.3-7.7) 05/14/18 13:20 Lymphocytes # 0.7 k/uL (1.0-4.8) L 05/14/18 13:20 Monocytes # 0.3 k/uL (0-1.0) 05/14/18 13:20 Eosinophils # 0.2 k/uL (0-0.7) 05/14/18 13:20 Basophils # 0.1 k/uL (0-0.2) 05/14/18 13:20 Hypochromasia Moderate 05/14/18 13:20 Sodium 143 mmol/L (137-145) 05/14/18 13:20 Potassium 4.1 mmol/L (3.5-5.1) 05/14/18 13:20 Chloride 107 mmol/L (98-107) 05/14/18 13:20 Carbon Dioxide 25 mmol/L (22-30) 05/14/18 13:20 Anion Gap 11 mmol/L 05/14/18 13:20 BUN 80 mg/dL (7-17) H 05/14/18 13:20 Creatinine 2.02 mg/dL (0.52-1.04) H 05/14/18 13:20 Est GFR (CKD-EPI)AfAm 25 (>60 ml/min/1.73 sqM) 05/14/18 13:20 Est GFR (CKD-EPI)NonAf 22 (>60 ml/min/1.73 sqM) 05/14/18 13:20 Glucose 93 mg/dL (74-99) 05/14/18 13:20 Plasma Lactic Acid [place] 1.4 mmol/L (0.7-2.0) 05/14/18 13:20 Calcium 8.2 mg/dL (8.4-10.2) L 05/14/18 13:20 Total Bilirubin 0.4 mg/dL (0.2-1.3) 05/14/18 13:20 AST 20 U/L (14-36) 05/14/18 13:20 ALT 23 U/L (9-52) 05/14/18 13:20 Alkaline Phosphatase 140 U/L (38-126) H 05/14/18 13:20 Total Protein 7.0 g/dL (6.3-8.2) 05/14/18 13:20 Albumin 3.5 g/dL (3.5-5.0) 05/14/18 13:20 CBC & Chem 7: 05/14/18 13:20 05/14/18 13:20 Labs: Abnormal Lab Results - Last 24 Hours (Table) 05/14/18 05/14/18 Range/Units 13:20 13:20 MCHC 30.9 L (31.0-37.0) g/dL RDW 15.8 H (11.5-15.5) % Lymphocytes # 0.7 L (1.0-4.8) k/uL BUN 80 H (7-17) mg/dL Creatinine 2.02 H (0.52-1.04) mg/dL Calcium 8.2 L (8.4-10.2) mg/dL Alkaline Phosphatase 140 H (38-126) U/L Assessment and Plan Plan: This is an 88-year-old female patient presented to hospital with cellulitis of the left lower extremity with concern for osteomyelitis. Patient also presented with acute kidney injury. She is on vancomycin and is known to have multiple antibiotic ALLERGIES. Vancomycin will be continued at this time. Bone scan will be ordered to rule out osteomyelitis. Blood cultures status received. Continue supportive care. Local wound care will be addressed. Further recommendations as patient progresses. The above dictated assessment and findings were discussed with Dr. Sandoval. The impression and plan of care have been directed as dictated. Rafia Wing nurse practitioner acting as scribe for Dr. Sandoval.
[2018-05-15 13:58] VITALS: BMI 24.6
--- NOTE | 2018-05-15 15:57 | NM ---
EXAMINATION TYPE: NM bone 3 phase DATE OF EXAM: 05/15/2018 COMPARISON: 05/14/2018 HISTORY: Osteomyelitis left second MTP Triple phase bone scintigraphy was performed following the injection of 25.4 mCi Tc 99m MDP. Immedia te images and 4.5 hours post injection images acquired. FINDINGS: There is increased perfusion to the left foot. Increased soft tissue uptake is seen distally overlyin g the second and third digits of the left foot. Delayed imaging demonstrates photopenic defect corresponding to the right knee arthroplasty. Within t he right foot there is faint mild to moderate uptake involving the mid foot and second and third digi ts which may been the basis of arthritic changes. There is intense abnormal uptake involving the left midfoot. IMPRESSION: 1. Findings are most typical of cellulitis. Intense area of abnormal uptake involving the midfoot cor responds to the severe arthritic change involving the tarsometatarsal junction. Irregularity of the i nferior margin the first MTP suggestive of osteomyelitis.
[2018-05-15] MEDS: PRAMIPEXOLE 1 MG TAB PO SCH (20:14)
[2018-05-15] MEDS: AMITRIPTYLINE HCL 10 MG TAB PO SCH (20:58)
--- NOTE | 2018-05-15 23:17 | P.CON ---
Consult Note - . Consult date: 05/15/18 Assessment/Plan:: This is an 88 year old female patient known to ID service as she was seen in May 2016 which time she was treated for acute sepsis with Proteus UTI. History is obtained from the patient and her caregiver Pat. Patient had onset of redness to the left foot about 3 weeks ago. At that time she was placed on an antibiotic by her PCP for a week. Patient was followed by Dr. Mistry at her home was told she had fungus and was placed on Domeboro soaks 10- 15 minutes twice daily as well as a cream. Patient states she had some much drainage from her foot became so severe her shoes were soaking wet from the drainage. She denies having any fever but did develop chills yesterday.. She came into [facility] emergency center for evaluation. White count was 5.8, patient was afebrile, BUN 80 and creatinine 2.0 to and alkaline phosphatase 140. Patient has multiple antibiotic ALLERGIES and was started on vancomycin. Blood culture was status received in 1 cultures uncollected. Foot x-ray showed no acute fracture dislocation but severe osteopenia and arthropathy. Erosive changes seen in the base of the first tarsometatarsal joint which can be associated with osteoarthritis or gout. Infectious etiology not entirely excluded. Tib-fib x-ray showed no acute findings. On duplex ultrasound showed suboptimal above no definite evidence of acute DVT of what was visualized. Patient was admitted to the [facility] floor and continued on vancomycin. Patient had a fall in January causing hematoma to the posterior left calf. She denies any recent injuries to her leg or foot. Caregiver states that the redness to the foot is much improved since admission. Please see the consult note as dictated by nurse practitioner Real Rafia Wing.This pleasant elderly woman has multiple family members present. Relate this to be in difficulties with this left foot and leg problems over the last several weeks. Despite the multiple outpatient treatments it suddenly worsened was having drainage and she felt poorly, so presented to the emergency center. With her many ALLERGIES antibiotic therapy was initiated with vancomycin. Cultures now in process. Local wound care will be requested with drake. We'll discontinue steroid therapy in the bleach cleaning for now. Elevate the limb while at rest. The patient has had a bone scan requested this likely revealing evidence of potential as mellitus first metatarsophalangeal joint area. We'll need to contemplate the course of antimicrobial therapy as the next few days unfold determine her best possible option. I agree with evaluation, assessment and plan as dictated by nurse practitioner Mrs. Rafia Wing.
[2018-05-16] MEDS: HYDROcodone/APAP 7.5-325MG 1 EACH TAB PO PRN (06:03)
[2018-05-16] MEDS: LEVOTHYROXINE 125 MCG TAB PO SCH (06:03)
[2018-05-16] MEDS: IPRATROPIUM-ALBUTEROL 3 ML NEB INHALATION SCH ×4 (07:18→19:20)
[2018-05-16] MEDS: APIXABAN 2.5 MG TABLET PO SCH ×2 (08:53→22:23)
[2018-05-16] MEDS: ASPIRIN 81 MG PO SCH (08:53)
[2018-05-16] MEDS: METOPROLOL TARTRATE 12.5 MG TAB PO SCH (08:53)
[2018-05-16] MEDS: CALCIUM CARB-VIT D 500MG-200UN 1 EACH TAB PO SCH ×2 (08:53→22:22)
[2018-05-16] MEDS: FOLIC ACID 1 MG TAB PO SCH (08:53)
[2018-05-16] MEDS: PANTOPRAZOLE 40 MG TABLET PO SCH (08:53)
[2018-05-16] MEDS: GABAPENTIN 100 MG CAP PO SCH ×2 (08:53→22:22)
--- NOTE | 2018-05-16 09:05 | P.PN ---
Progress Note - Text The patient is an 88-year-old female who presented to 2 days ago to the emergency room with worsening cellulitis of the left foot and leg associated with ulcerations of the foot and leg. The patient doesn't multiple comorbidities with a history of many antibiotic ALLERGIES and intolerances along with venous stasis edema. Chronic diastolic congestive heart failure. She also has acute on chronic renal failure presently. Patient was initiated on vancomycin and clinically the areas appear better. Less erythema and drainage and tenderness. Vital signs reveal temperature of 98 with a pulse of 104 irregular. Respirations 20. Blood pressure 151/88 and she is 98% saturated on 2 L nasal cannula. Lungs are generally clear. Diminished at bases. Heart tones are irregular. Abdomen is nontender. Once again there is areas of erythema of the foot and distal and anterior left leg. They appear to be a bit better than the last 24-48 hours. Neurologically intact alert and oriented., Repeat labs and cultures are pending. A bone scan did reveal a suggestive area of osteomyelitis with irregularity of the inferior margin of the first metatarsophalangeal joint. Impressions and plans He basically as stated above. This 88-year-old female with comorbidities has a clinically improving cellulitis of the left leg. But she does have multiple medical ALLERGIES and there is a question of osteomyelitis of the distal foot. Infectious disease no regarded. Continue vancomycin at this time. CBC and basic metabolic panel is pending this morning. Discussed above with patient.
[2018-05-16 09:54] LABS: Anisocytosis Slight; Basophils % (A) 0 %; Eosinophils # (A) 0.1 k/uL (0-0.7); Eosinophils % (A) 3 %; HCT 34.5 % (34.0-46.0); HGB 10.3 gm/dL (11.4-16.0); Hypochromasia Marked; Lymphocytes # (A) 0.6 k/uL (1.0-4.8); Lymphocytes % (A) 12 %; MCH 27.2 pg (25.0-35.0); MCV 90.9 fL (80.0-100.0); Monocytes # (A) 0.3 k/uL (0-1.0); Monocytes % (A) 6 %; Neutrophils % (A) 76 %; Platelet Count 262 k/uL (150-450); RBC 3.79 m/uL (3.80-5.40); WBC 5.3 k/uL (3.8-10.6)
[2018-05-16 10:00] LABS: Calcium 8.4 mg/dL (8.4-10.2); Potassium 4.3 mmol/L (3.5-5.1)
[2018-05-16 10:06] LABS: Vancomycin,Random 16.1 ug/mL
[2018-05-16] MEDS ORDERED: VANCOMYCIN 1,000 MG in SODIUM CHLORIDE 0.9% 250 ML IVPB ONE (11:00)
[2018-05-16] MEDS: PRAMIPEXOLE 1 MG TAB PO SCH (22:23)
[2018-05-16] MEDS: AMITRIPTYLINE HCL 10 MG TAB PO SCH (22:47)
[2018-05-17] MEDS: LEVOTHYROXINE 125 MCG TAB PO SCH (06:27)
[2018-05-17] MEDS: CALCIUM CARB-VIT D 500MG-200UN 1 EACH TAB PO SCH ×2 (07:57→20:10)
[2018-05-17] MEDS: GABAPENTIN 100 MG CAP PO SCH ×2 (07:57→20:03)
[2018-05-17] MEDS: ASPIRIN 81 MG PO SCH (07:57)
[2018-05-17] MEDS: APIXABAN 2.5 MG TABLET PO SCH ×2 (07:57→20:03)
[2018-05-17] MEDS: FOLIC ACID 1 MG TAB PO SCH (07:57)
[2018-05-17] MEDS: METOPROLOL TARTRATE 12.5 MG TAB PO SCH (07:58)
[2018-05-17] MEDS: PANTOPRAZOLE 40 MG TABLET PO SCH (07:58)
[2018-05-17] MEDS: IPRATROPIUM-ALBUTEROL 3 ML NEB INHALATION SCH ×4 (07:59→19:22)
[2018-05-17] MEDS: HYDROcodone/APAP 7.5-325MG 1 EACH TAB PO PRN ×2 (08:00→19:19)
--- NOTE | 2018-05-17 08:49 | P.PN ---
Progress Note - Text The patient is an 88-year-old female who presented 3 days previous to the emergency room with worsening cellulitis of the left foot and leg associated with ulcerations. Patient also has multiple ALLERGIES and comorbidities and appears to be clinically responding to vancomycin. Initial blood culture was negative. Patient also has acute on chronic renal failure. Chronic venous insufficiency. Chronic diastolic congestive heart failure. Patient is sitting up in bed. Alert. In no acute distress. She denies any chest pain or unusual shortness of breath. Last vital signs show a temperature 98.2 with a pulse of 104 and respirations 20. Blood pressure 123/73 and she is 99% saturated on 2 L nasal cannula. Lungs are generally clear. Heart rate slightly irregular. Abdomen is nontender. There is a bandage on the left foot. There is some scaling and erythema of the anterior mid-distal left leg. No drainage. Neurologically patient is intact. Alert and oriented. No focal deficits. Repeat basic metabolic panel is pending today. Initial blood culture was no growth. There are some gram-negative bacilli apparently grown out of the wound culture. Impressions and plans Overall this 88-year-old email who has cellulitis of the left lower extremity appears to be clinically improving. Continue with vancomycin. Continue to hold Lasix at this time. Patient's weight is down 3 kg. We will see what her renal function is pending labs. We'll await infectious disease"s further recommendations on antibiotic treatments.
[2018-05-17 09:41] LABS: Calcium 8.6 mg/dL (8.4-10.2); Potassium 4.4 mmol/L (3.5-5.1)
[2018-05-17] MEDS: PRAMIPEXOLE 1 MG TAB PO SCH (20:03)
[2018-05-17] MEDS: AMITRIPTYLINE HCL 10 MG TAB PO SCH (20:10)
--- NOTE | 2018-05-18 00:12 | P.PN ---
Subjective Progress Note Date: 05/17/18 This is an 88 year old female patient known to ID service as she was seen in May 2016 which time she was treated for acute sepsis with Proteus UTI. History is obtained from the patient and her caregiver Pat. Patient had onset of redness to the left foot about 3 weeks ago. At that time she was placed on an antibiotic by her PCP for a week. Patient was followed by Dr. Mistry at her home was told she had fungus and was placed on [place] soaks 10- 15 minutes twice daily as well as a cream. Patient states she had some much drainage from her foot became so severe her shoes were soaking wet from the drainage. She denies having any fever but did develop chills yesterday.. She came into [facility] emergency center for evaluation. White count was 5.8, patient was afebrile, BUN 80 and creatinine 2.0 to and alkaline phosphatase 140. Patient has multiple antibiotic ALLERGIES and was started on vancomycin. Blood culture was status received in 1 cultures uncollected. Foot x-ray showed no acute fracture dislocation but severe osteopenia and arthropathy. Erosive changes seen in the base of the first tarsometatarsal joint which can be associated with osteoarthritis or gout. Infectious etiology not entirely excluded. Tib-fib x-ray showed no acute findings. On duplex ultrasound showed suboptimal above no definite evidence of acute DVT of what was visualized. Patient was admitted to the [facility] floor and continued on vancomycin. Patient had a fall in January causing hematoma to the posterior left calf. She denies any recent injuries to her leg or foot. Caregiver states that the redness to the foot is much improved since admission. 05/17/2018 patient seems to be doing about the same. The patient has had the x- ray studies as above concerns underlying infection and is being treated with vancomycin therapy. However gram-negative bacteria with Proteus have been found at that site. Objective - Vital Signs Vital signs: Vital Signs Temp 98.5 F 05/17/18 23:00 Pulse 96 05/17/18 23:00 Resp 20 05/17/18 23:00 BP 135/72 05/17/18 23:00 Pulse Ox 97 05/17/18 23:00 Intake & Output 05/17/18 05/17/18 05/18/18 06:59 18:59 06:59 Intake Total 800 Balance 800 Weight 54 kg Intake: Intake, IV Titration 500 Amount Vancomycin 1,000 mg In 500 Sodium Chloride 0.9% 250 ml @ 125 mls/hr IVPB ONCE ONE Rx#:[id number] Oral 300 Other: # Voids 2 1 1 # Bowel Movements 0 - Exam Gen: This is an 88-year-old female. She is resting in bed appears to be comfortable. HEENT: Head is atraumatic, normocephalic. Pupils equal, round. Sclerae is anicteric. Conjunctiva pink. Oral mucous membranes are moist. NECK: Supple. No JVD. No lymphadenopathy. No thyromegaly. LUNGS: Clear to auscultation. No wheezes or rhonchi. No intercostal retractions. HEART: Regular rate and rhythm. Systolic murmur. ABDOMEN: Soft. Bowel sounds are present. No masses. No tenderness. EXTREMITIES: There is significant erythema to the left lower leg with chronic dark skin changes, open areas noted. Scant drainage. Erythema to the dorsal surface left forefoot and toes with edema. Scant drainage. No foul odor. Mycosis noted bilaterally. NEUROLOGICAL: Patient is awake, alert and to at least person and in place, some generalized weakness but does move extremities on exam with request - Labs CBC & Chem 7: 05/16/18 09:11 05/17/18 08:55 Labs: Abnormal Lab Results - Last 24 Hours (Table) 05/17/18 Range/Units 08:55 Chloride 109 H (98-107) mmol/L BUN 64 H (7-17) mg/dL Creatinine 1.65 H (0.52-1.04) mg/dL Glucose 120 H (74-99) mg/dL Microbiology - Last 24 Hours (Table) 05/15/18 17:00 Gram Stain - Final Leg - Left Wound Culture - Final Proteus mirabilis 05/14/18 13:20 Blood Culture - Preliminary Blood No Growth after 72 hours Laboratory Results WBC 5.3 k/uL (3.8-10.6) 05/16/18 09:11 RBC 3.79 m/uL (3.80-5.40) L 05/16/18 09:11 Hgb 10.3 gm/dL (11.4-16.0) L 05/16/18 09:11 Hct 34.5 % (34.0-46.0) 05/16/18 09:11 MCV 90.9 fL (80.0-100.0) 05/16/18 09:11 MCH 27.2 pg (25.0-35.0) 05/16/18 09:11 MCHC 30.0 g/dL (31.0-37.0) L 05/16/18 09:11 RDW 16.0 % (11.5-15.5) H 05/16/18 09:11 Plt Count 262 k/uL (150-450) 05/16/18 09:11 Neutrophils % 76 % 05/16/18 09:11 Lymphocytes % 12 % 05/16/18 09:11 Monocytes % 6 % 05/16/18 09:11 Eosinophils % 3 % 05/16/18 09:11 Basophils % 0 % 05/16/18 09:11 Neutrophils # 4.0 k/uL (1.3-7.7) 05/16/18 09:11 Lymphocytes # 0.6 k/uL (1.0-4.8) L 05/16/18 09:11 Monocytes # 0.3 k/uL (0-1.0) 05/16/18 09:11 Eosinophils # 0.1 k/uL (0-0.7) 05/16/18 09:11 Basophils # 0.0 k/uL (0-0.2) 05/16/18 09:11 Hypochromasia Marked 05/16/18 09:11 Anisocytosis Slight 05/16/18 09:11 Sodium 142 mmol/L (137-145) 05/17/18 08:55 Potassium 4.4 mmol/L (3.5-5.1) 05/17/18 08:55 Chloride 109 mmol/L (98-107) H 05/17/18 08:55 Carbon Dioxide 26 mmol/L (22-30) 05/17/18 08:55 Anion Gap 7 mmol/L 05/17/18 08:55 BUN 64 mg/dL (7-17) H 05/17/18 08:55 Creatinine 1.65 mg/dL (0.52-1.04) H 05/17/18 08:55 Est GFR (CKD-EPI)AfAm 32 (>60 ml/min/1.73 sqM) 12/20/18 08:55 Est GFR (CKD-EPI)NonAf 28 (>60 ml/min/1.73 sqM) 05/17/18 08:55 Glucose 120 mg/dL (74-99) H 05/17/18 08:55 Plasma Lactic Acid [place] 1.4 mmol/L (0.7-2.0) 05/14/18 13:20 Calcium 8.6 mg/dL (8.4-10.2) 05/17/18 08:55 Total Bilirubin 0.4 mg/dL (0.2-1.3) 05/14/18 13:20 AST 20 U/L (14-36) 05/14/18 13:20 ALT 23 U/L (9-52) 05/14/18 13:20 Alkaline Phosphatase 140 U/L (38-126) H 05/14/18 13:20 Total Protein 7.0 g/dL (6.3-8.2) 05/14/18 13:20 Albumin 3.5 g/dL (3.5-5.0) 05/14/18 13:20 Random Vancomycin 16.1 ug/mL 05/16/18 09:11 Microbiology 05/15/18 17:00 Leg - Left Gram Stain - Final 05/15/18 17:00 Leg - Left Wound Culture - Final Proteus mirabilis 05/14/18 13:20 Blood Blood Culture - Preliminary No Growth after 72 hours Assessment and Plan (1) Cellulitis Narrative/Plan: This pleasant elderly woman has multiple family members present. Relate this to be in difficulties with this left foot and leg problems over the last several weeks. Despite the multiple outpatient treatments it suddenly worsened was having drainage and she felt poorly, so presented to the emergency center. With her many ALLERGIES antibiotic therapy was initiated with vancomycin. Cultures now in process. Local wound care will be requested with drake. We'll discontinue steroid therapy in the bleach cleaning for now. Elevate the limb while at rest. The patient has had a bone scan requested this likely revealing evidence of potential as mellitus first metatarsophalangeal joint area. We'll need to contemplate the course of antimicrobial therapy as the next few days unfold determine her best possible option. 05/17/2018 as noted the bone scan does related to the possibility of underlying osteomyelitis versus her underlying significant arthritis or degenerative in nature. Proteus has been isolated in The vancomycin will not be helpful. We' ll transition to oral cefdnir , patient believes she tolerates intravenous cefazolin without difficulties. Her ALLERGIES are reviewed and of black discoloration to her tongue has occurred with antibiotics which is not a true ALLERGY. If tolerates will go home on a course of this antimicrobial for several weeks until there is improvement underlying infection. Not convinced of underlying osteomyelitis Current Visit: Yes Status: Acute Code(s): L03.90 - CELLULITIS, UNSPECIFIED SNOMED Code(s): 196329078
[2018-05-18] MEDS ORDERED: CEFDINIR 300 MG CAP PO SCH (00:15)
[2018-05-18 05:47] VITALS: BP 159/83; PULSE 78; RESP 16; TEMP 98.9
[2018-05-18] MEDS: LEVOTHYROXINE 125 MCG TAB PO SCH (05:53)
[2018-05-18] MEDS: CALCIUM CARB-VIT D 500MG-200UN 1 EACH TAB PO SCH (08:01)
[2018-05-18] MEDS: ASPIRIN 81 MG PO SCH (08:01)
[2018-05-18] MEDS: HYDROcodone/APAP 7.5-325MG 1 EACH TAB PO PRN (08:01)
[2018-05-18] MEDS: APIXABAN 2.5 MG TABLET PO SCH (08:01)
[2018-05-18] MEDS: PANTOPRAZOLE 40 MG TABLET PO SCH (08:02)
[2018-05-18] MEDS: FOLIC ACID 1 MG TAB PO SCH (08:02)
[2018-05-18] MEDS: GABAPENTIN 100 MG CAP PO SCH (08:02)
[2018-05-18] MEDS: METOPROLOL TARTRATE 12.5 MG TAB PO SCH (08:02)
--- NOTE | 2018-05-18 08:54 | P.PN ---
Progress Note - Text The patient is a 88-year-old female who presented 4 days previous to the emergency room with worsening cellulitis with ulcerations of the left foot and leg. Initially because of her multiple medical ALLERGIES she was placed on vancomycin with clinical improvement. She was seen by Dr. Sandoval from infectious disease. Subsequently wound cultures grew out Proteus mirabilis. She has been placed on an oral antibiotic Omnicef 300 mg daily and so far has tolerated. This morning she is sitting up in bed eating breakfast. Denies any chest pain or shortness of breath. No nausea or vomiting. There are no unusual skin rashes. Vital signs reveal temperature 98.9 with a pulse of 78 respirations 16. Blood pressure 159/83 and she is 95% saturated on room air. Lung and heart exam was clear. Rate control. Slightly irregular. Abdomen is nontender. Presently the left leg is bandaged. No unusual edema or tenderness noted. No focal neurological changes. Yesterday's laboratories revealed a further decrease in BUN to 64 with creatinine 1.65 giving her a GFR of 28. Sodium was 142 with a potassium 4.4. Patient did show again in [place] from 54-59 kg. Impressions and plans At this point plans are for discharge to home. At this time we'll reinstate her Lasix at 40 mg once a day. Home nursing to be involved with the wound care and monitoring. Also physical therapy for home. I will send an Omnicef 300 mg every 24 hours to her [facility] pharmacy in [place]. Will initially prescribed be 2 weeks course pending further recommendations from infectious disease, Dr. Sandoval. Overall prognosis still guarded in light of age and comorbidities that have been listed previously. Discharge summary to follow.
[2018-05-18] MEDS ORDERED: FUROSEMIDE 40 MG TAB PO SCH (09:00)
--- NOTE | 2018-05-18 20:59 | DS ---
DISCHARGE SUMMARY Mrs. Priest is an 88-year-old female who presented to the emergency room with swelling, pain, erythema and ulceration of the left foot and leg which had not been improving over the past 2 weeks prior to admission. She did have some feverishness and chill sensation at home, not responding to outpatient antibiotics and treatments. She was sent to the emergency room. She does have multiple medical allergies and intolerances. Patient was initially found to have a white count of 4.8, hemoglobin 11.7, a platelet count of 303. Her sodium was 143, potassium 4.1, and a CO2 content of 25, but her BUN was elevated at 80 with a creatinine of 2.02, giving her a GFR of 22. Calcium was 8.2 and lactic acid level was 1.4. Liver function tests were generally good, although mild elevation of alkaline phosphatase. Patient did have x-rays of the left foot and leg which did not show any evidence of acute fracture and some suggestion but no definite evidence for osteomyelitis. Venous Doppler study was negative. Patient was admitted on IV vancomycin. Consultation with Infectious Disease, Dr. Sandoval; please refer to his notes. A bone scan was subsequently performed which did show one irregularity of the margin of the first MTP joint that was somewhat suggestive of osteomyelitis, but not completely diagnostic. Wound cultures also grew out Proteus mirabilis. The patient clinically improved, with improvement of her left leg erythema and drainage and pain. The patient was switched over to Omnicef after results of her wound culture. 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 The patient at this point though is to remain on Omnicef 300 mg daily for at least 2 weeks and possibly longer, pending response and further recommendations from Infectious Disease. She will also be on her Lasix at 40 mg just once a day. She is to have followup with her home care nurse for dressing changes and follow up in office in 1-2 weeks. Her other home medications will continue with amitriptyline 10 mg at bedtime, Eliquis 2.5 twice a day. Aspirin was recommended. She decreased down to 81 mg daily, calcium carbonate and vitamin D twice a day, Colace 100 mg daily for constipation, folic acid 0.4 mg daily, Neurontin 200 mg twice a day. She is on [place] 7.5/325 one to two tablets q.6 hours to 8 hours p.r.n. for pain. Albuterol or DuoNeb inhaler respiratory treatments 4 times a day, iron 27 mg daily, levothyroxine 125 mcg daily, Claritin 10 mg daily, metoprolol 12.5 daily, Protonix 40 mg daily for reflux, Mirapex 1 mg at bedtime for restless leg syndrome. Diet and activities as tolerated, although leg elevation and rest are recommended until healing of the ulcerations and followup in the office in one week. Follow up with Infectious Disease as needed. MMODL / IJN: [id number] / MTDD
== END 2018-05-18 11:16 | disposition home health service (06) | DRG 603 ==
LOC: EC 12:10 → 4MS4W 16:02
PROVIDERS: ADMIT Internal Medicine; ATTEND Internal Medicine
DX: L03.116 Cellulitis of left lower limb (principal); I13.0 Hypertensive heart and chronic kidney disease with heart failure and stage 1 through stage 4 chronic kidney disease, or unspecified chronic kidney disease; N17.9 Acute kidney failure, unspecified; I50.32 Chronic diastolic (congestive) heart failure; N18.4 Chronic kidney disease, stage 4 (severe); M06.9 Rheumatoid arthritis, unspecified; M19.90 Unspecified osteoarthritis, unspecified site; E03.9 Hypothyroidism, unspecified; I48.0 Paroxysmal atrial fibrillation; G25.81 Restless legs syndrome; I87.2 Venous insufficiency (chronic) (peripheral); G89.29 Other chronic pain; I27.20 Pulmonary hypertension, unspecified; I34.0 Nonrheumatic mitral (valve) insufficiency; K58.9 Irritable bowel syndrome, unspecified; D64.9 Anemia, unspecified; G43.909 Migraine, unspecified, not intractable, without status migrainosus; Z96.643 Presence of artificial hip joint, bilateral; Z96.653 Presence of artificial knee joint, bilateral; I87.8 Other specified disorders of veins; J45.909 Unspecified asthma, uncomplicated; K21.9 Gastro-esophageal reflux disease without esophagitis; M10.9 Gout, unspecified; M85.872 Other specified disorders of bone density and structure, left ankle and foot; L97.529 Non-pressure chronic ulcer of other part of left foot with unspecified severity; Z88.1 Allergy status to other antibiotic agents; Z88.3 Allergy status to other anti-infective agents; Z88.0 Allergy status to penicillin; Z88.2 Allergy status to sulfonamides; Z95.0 Presence of cardiac pacemaker; Z88.8 Allergy status to other drugs, medicaments and biological substances; Z91.018 Allergy to other foods; Z79.82 Long term (current) use of aspirin; Z79.899 Other long term (current) drug therapy; Z79.01 Long term (current) use of anticoagulants; Z95.2 Presence of prosthetic heart valve; Z79.890 Hormone replacement therapy; Z87.440 Personal history of urinary (tract) infections; Z86.73 Personal history of transient ischemic attack (TIA), and cerebral infarction without residual deficits; Z91.81 History of falling; Z80.1 Family history of malignant neoplasm of trachea, bronchus and lung; Z82.3 Family history of stroke; Z87.891 Personal history of nicotine dependence; Z86.14 Personal history of Methicillin resistant Staphylococcus aureus infection
CPT/HCPCS: 36415; 78315; 80048; 80053; 80202; 83605; 85025; 85027; 87040; 87070; 87077; 87186; 87205; 94640; 96365; 96366; 99285

== ENCOUNTER 2018-07-23 18:12 | Inpatient (IN) | payer MEDICARE ==
--- NOTE | 2018-07-23 19:10 | ED ---
SOB HPI - General Chief Complaint: Shortness of Breath Stated Complaint: GONZALO Time Seen by Provider: 07/23/18 18:41 Source: patient, EMS, Caregiver Mode of arrival: EMS Limitations: altered mental status, physical limitation - History of Present Illness Initial Comments: 88-year-old female patient with past medical history significant for atrial fibrillation, asthma, heart failure, hypertension, kidney failure, and valvular heart disease presents to the emergency department today for complaints of shortness of breath. Patient states she's had increasing shortness of breath for the last 2 weeks. She states she has an occasional cough but denies sputum production. Denies any fevers or chills. States she is not having chest pain with this. Denies any nausea or vomiting. Patient denies any increased swelling to her extremities. Patient denies any recent rash, abdominal pain, diarrhea, constipation, back pain, numbness, tingling, dizziness, weakness, hematuria, dysuria, urinary urgency, urinary frequency, headache, visual changes , or any other complaints. - Related Data Home Medications Medication Instructions Recorded Confirmed Amitriptyline HCl [Elavil] 10 mg PO HS 11/01/15 07/23/18 Gabapentin [Neurontin] 200 mg PO BID 11/01/15 07/23/18 Loratadine [Claritin] 10 mg PO DAILY 11/01/15 07/23/18 HYDROcodone/APAP 7.5-325MG [Sheldon 1 - 2 tab PO Q4H PRN 06/10/16 07/23/18 7.5-325] Levothyroxine Sodium [Synthroid] 125 mcg PO DAILY 06/10/16 07/23/18 Folic Acid 0.4 mg PO DAILY 09/25/17 07/23/18 Metoprolol Tartrate [Lopressor] 12.5 mg PO DAILY 09/25/17 07/23/18 Pantoprazole [Protonix] 40 mg PO DAILY 09/25/17 07/23/18 Apixaban [Eliquis] 2.5 mg PO BID 10/05/17 07/23/18 Calcium Carb-Vit D 500Mg-200Un 1 tab PO DAILY@1200 10/05/17 07/23/18 [Oscal 500+D] Ipratropium-Albuterol Nebulize 3 ml INHALATION RT-QID 10/05/17 07/23/18 [Duoneb 0.5 mg-3 mg/3 ml Soln] Aspirin 325 mg PO DAILY 02/08/18 07/23/18 Docusate [Colace] 100 mg PO DAILY 02/08/18 07/23/18 Iron 27mg 27 mg PO DAILY 02/08/18 07/23/18 Furosemide [Lasix] 40 mg PO DAILY 05/14/18 07/23/18 Furosemide [Lasix] 20 mg PO DAILY@1700 PRN 07/23/18 07/23/18 Polyethylene Glycol 3350 [Miralax] 17 gm PO HS 07/23/18 07/23/18 Allergies Allergy/AdvReac Type Severity Reaction Status Date / Time adhesive Allergy Anaphylaxis-STATED Verified 07/23/18 19:28 "ADHESIVE ON LIDODERM PATCH PAPER TAPE OK azithromycin [From Zithromax] Allergy Unknown Verified 07/23/18 19:28 bumetanide Allergy Unknown Verified 07/23/18 19:28 cefuroxime Allergy Unknown Verified 07/23/18 19:28 cephalexin [From Keflex] Allergy Unknown Verified 07/23/18 19:28 ciprofloxacin [From Cipro] Allergy Rash/Hives Verified 07/23/18 19:28 ciprofloxacin HCl Allergy Rash/Hives Verified 07/23/18 19:28 [From Cipro] clindamycin Allergy Unknown Verified 07/23/18 19:28 clonazepam Allergy Unknown Verified 07/23/18 19:28 daptomycin [From Cubicin] Allergy Unknown Verified 07/23/18 19:28 dextrose 5 % in water Allergy Unknown Verified 07/23/18 19:28 [From Zyvox] doxycycline Allergy Unknown Verified 07/23/18 19:28 levofloxacin [From Levaquin] Allergy Unknown Verified 07/23/18 19:28 lidocaine [From Lidoderm] Allergy Rash/Hives Verified 07/23/18 19:28 linezolid [From Zyvox] Allergy Unknown Verified 07/23/18 19:28 meclizine Allergy Unknown Verified 07/23/18 19:28 nitrofurantoin Allergy Unknown Verified 07/23/18 19:28 [From Macrodantin] Penicillins Allergy "BLACK Verified 07/23/18 19:28 RING AROUND TONGUE" Sulfa (Sulfonamide Allergy Rash/Hives Verified 07/23/18 19:28 Antibiotics) Tetracyclines Allergy "BLACK Verified 07/23/18 19:28 RING AROUND TONGUE" Review of Systems ROS Statement: Those systems with pertinent positive or pertinent negative responses have been documented in the HPI. ROS Other: All systems not noted in ROS Statement are negative. Past Medical History Past Medical History: Atrial Fibrillation, Asthma, Heart Failure, GERD/Reflux, Hypertension, Osteoarthritis (OA), Renal Disease, Skin Disorder, Syncope, Thyroid Disorder, Vascular Disorder Additional Past Medical History / Comment(s): Valvular heart disease with previous percutaneous aortic valve replacement, moderate to severe mitral regurgitation, pulmonary hypertension with right-sided heart failure, chronic a chief fibrillation, LV function of 55% based on most recent echocardiogram, history of CVA, chronic renal failure stage IV kidney disease, chronic anemia, chronic venous insufficiency in lower extremities bilaterally, RLS, IBS, sinus problems, migraines, hypothyroid, past R humerus fracture, R superior pubic ramus fracture, falls. History of Any Multi-Drug Resistant Organisms: MRSA Date of last positivie culture/infection: 10-26-2008 MDRO Source:: LEFT HIP Past Surgical History: Cardiac Valve Replacement, Section, Hernia Repair, Joint Replacement, Pacemaker, Tonsillectomy Additional Past Surgical History / Comment(s): UMBILICAL HERNIA, C SECTION X 2, ISIDORO KNEE REPLACEMENT, RT HIP REPLACEMENT X3 WITH ANTIBIOTIC SPACER USED, PARTIAL THYROIDECTOMY, PARTIAL LT HIP REPLACEMENT SEVERAL YRS AGO AND ANTIBIOTIC SPACER PLACED 2008, TRANSCUTANEOUS AORTIC VALVE REPLACEMENT IN 2014 AT [facility], tooth extraction, SEPTOPLASTY, EGD, COLONOSCOPY, L GROIN ENLARGED LYMPH NODE EXCISION. Past Anesthesia/Blood Transfusion Reactions: No Reported Reaction Type of Cardiac Device: Permanent Pacemaker Device Placement Date:: 03/12/14 Past Psychological History: Anxiety, Depression Smoking Status: Former smoker Past Alcohol Use History: None Reported Past Drug Use History: None Reported - Past Family History Brother(s) Family Medical History: Cancer Additional Family Medical History / Comment(s): TWIN BROTHER LUNG CA Mother Additional Family Medical History / Comment(s): BLEEDING ULCER Father Family Medical History: CVA/TIA General Exam Limitations: altered mental status, physical limitation General appearance: alert, in no apparent distress, other (This is a well- developed, drowsy elderly female patient in no acute distress. Vital signs upon presentation are temperature 96.8F, pulse 87, respirations 19, blood pressure 128/89, pulse ox 99% on 2 L.) Eye exam: Present: normal appearance, PERRL, EOMI. Absent: scleral icterus, conjunctival injection, periorbital swelling ENT exam: Present: normal exam, normal oropharynx, mucous membranes moist Respiratory exam: Present: rhonchi. Absent: normal lung sounds bilaterally, respiratory distress, wheezes, rales, stridor Cardiovascular Exam: Present: regular rate, normal rhythm, normal heart sounds. Absent: systolic murmur, diastolic murmur, rubs, gallop, clicks GI/Abdominal exam: Present: soft, normal bowel sounds. Absent: distended, tenderness, guarding, rebound, rigid Neurological exam: Present: oriented X3, CN II-XII intact. Absent: alert ( Drowsy) Psychiatric exam: Present: normal affect, normal mood Skin exam: Present: warm, dry, intact, normal color. Absent: rash Course Vital Signs 07/23/18 07/23/18 18:28 19:21 Temperature 96.8 F L 97.6 F Pulse Rate 87 85 Respiratory 19 18 Rate Blood Pressure 128/89 104/65 O2 Sat by Pulse 99 100 Oximetry Medical Decision Making - Medical Decision Making 88 year-old female patient with multiple medical problems presents to emergency department today for complaints of shortness of breath. Occasional cough. No fevers or chills. Labs reviewed and did reveal hemoglobin 9.2. BUN 80, creatinine 2.27 which is improved from labs obtained and 07/12/2018. White blood cell count normal. Awaiting lactic acid and blood cultures. Chest x-ray showed evidence of left lower lobe pneumonia. Patient was admitted in April so we will treat for possible hospital-acquired pneumonia. We'll start the ankle and meropenem given patient's extensive list of ALLERGIES. - Lab Data Result diagrams: 07/23/18 19:07 07/23/18 19:07 Lab Results 07/23/18 07/23/18 07/23/18 Range/Units 19:07 19:07 19:07 WBC 8.8 (3.8-10.6) k/uL RBC 3.42 L (3.80-5.40) m/uL Hgb 9.2 L (11.4-16.0) gm/dL Hct 30.4 L (34.0-46.0) % MCV 89.0 (80.0-100.0) fL MCH 26.8 (25.0-35.0) pg MCHC 30.2 L (31.0-37.0) g/dL RDW 17.3 H (11.5-15.5) % Plt Count 311 (150-450) k/uL Neutrophils % 80 % Lymphocytes % 6 % Monocytes % 7 % Eosinophils % 2 % Basophils % 1 % Neutrophils # 7.1 (1.3-7.7) k/uL Lymphocytes # 0.6 L (1.0-4.8) k/uL Monocytes # 0.7 (0-1.0) k/uL Eosinophils # 0.1 (0-0.7) k/uL Basophils # 0.1 (0-0.2) k/uL Hypochromasia Marked Anisocytosis Slight PT 12.0 (9.0-12.0) sec INR 1.2 H (<1.2) APTT 28.0 (22.0-30.0) sec Sodium 139 (137-145) mmol/L Potassium 4.2 (3.5-5.1) mmol/L Chloride 106 (98-107) mmol/L Carbon Dioxide 23 (22-30) mmol/L Anion Gap 10 mmol/L BUN 80 H (7-17) mg/dL Creatinine 2.27 H (0.52-1.04) mg/dL Est GFR (CKD-EPI)AfAm 22 (>60 ml/min/1.73 sqM) Est GFR (CKD-EPI)NonAf 19 (>60 ml/min/1.73 sqM) Glucose 97 (74-99) mg/dL Calcium 8.3 L (8.4-10.2) mg/dL Total Bilirubin 0.5 (0.2-1.3) mg/dL AST 27 (14-36) U/L ALT 35 (9-52) U/L Alkaline Phosphatase 126 (38-126) U/L Troponin I (0.000-0.034) ng/mL Total Protein 6.7 (6.3-8.2) g/dL Albumin 3.2 L (3.5-5.0) g/dL 07/23/18 Range/Units 19:07 WBC (3.8-10.6) k/uL RBC (3.80-5.40) m/uL Hgb (11.4-16.0) gm/dL Hct (34.0-46.0) % MCV (80.0-100.0) fL MCH (25.0-35.0) pg MCHC (31.0-37.0) g/dL RDW (11.5-15.5) % Plt Count (150-450) k/uL Neutrophils % % Lymphocytes % % Monocytes % % Eosinophils % % Basophils % % Neutrophils # (1.3-7.7) k/uL Lymphocytes # (1.0-4.8) k/uL Monocytes # (0-1.0) k/uL Eosinophils # (0-0.7) k/uL Basophils # (0-0.2) k/uL Hypochromasia Anisocytosis PT (9.0-12.0) sec INR (<1.2) APTT (22.0-30.0) sec Sodium (137-145) mmol/L Potassium (3.5-5.1) mmol/L Chloride (98-107) mmol/L Carbon Dioxide (22-30) mmol/L Anion Gap mmol/L BUN (7-17) mg/dL Creatinine (0.52-1.04) mg/dL Est GFR (CKD-EPI)AfAm (>60 ml/min/1.73 sqM) Est GFR (CKD-EPI)NonAf (>60 ml/min/1.73 sqM) Glucose (74-99) mg/dL Calcium (8.4-10.2) mg/dL Total Bilirubin (0.2-1.3) mg/dL AST (14-36) U/L ALT (9-52) U/L Alkaline Phosphatase (38-126) U/L Troponin I 0.027 (0.000-0.034) ng/mL Total Protein (6.3-8.2) g/dL Albumin (3.5-5.0) g/dL - EKG Data -: EKG Interpreted by In EKG Comments: EKG obtained at 1834 shows sinus rhythm with a first-degree AV block, right bundle branch block, ventricular rate is 86, KY interval 228, QRS duration 136, QT 388, QTC 464. - Radiology Data Radiology results: report reviewed, image reviewed Two-view x-ray of the chest is obtained. Report was reviewed in its entirety. Impression by Dr. Contreras shows no heart failure. Left lower lobe pneumonia and atelectasis. There is decreased and pleural fluid compared to last exam. Disposition Clinical Impression: Left lower lobe pneumonia, Dyspnea Disposition: ADMITTED IP TO THIS [facility] Condition: Serious Referrals: Nolan Lunsford MD [Primary Care Provider] - 1-2 days Decision to Admit Reason: Admit from EC Decision Date: 07/23/18 Decision Time: 20:39
[2018-07-23 19:29] LABS: Anisocytosis Slight; Basophils # (A) 0.1 k/uL (0-0.2); Basophils % (A) 1 %; Eosinophils # (A) 0.1 k/uL (0-0.7); Eosinophils % (A) 2 %; HCT 30.4 % (34.0-46.0); HGB 9.2 gm/dL (11.4-16.0); Hypochromasia Marked; Lymphocytes # (A) 0.6 k/uL (1.0-4.8); Lymphocytes % (A) 6 %; MCH 26.8 pg (25.0-35.0); MCHC 30.2 g/dL (31.0-37.0); Mean Platelet Volume 7.1; Monocytes # (A) 0.7 k/uL (0-1.0); Monocytes % (A) 7 %; Neutrophils # (A) 7.1 k/uL (1.3-7.7); Neutrophils % (A) 80 %; Platelet Count 311 k/uL (150-450); RBC 3.42 m/uL (3.80-5.40); RDW 17.3 % (11.5-15.5); WBC 8.8 k/uL (3.8-10.6)
[2018-07-23 19:32] LABS: Albumin 3.2 g/dL (3.5-5.0); Calcium 8.3 mg/dL (8.4-10.2); Potassium 4.2 mmol/L (3.5-5.1); Total Bilirubin 0.5 mg/dL (0.2-1.3); Total Protein 6.7 g/dL (6.3-8.2)
[2018-07-23 19:36] LABS: INR 1.2 (<1.2)
--- NOTE | 2018-07-23 19:52 | XR ---
EXAMINATION TYPE: XR chest 2V DATE OF EXAM: 07/23/2018 COMPARISON: 10/10/2017 HISTORY: Short of breath TECHNIQUE: Frontal and lateral views of the chest are obtained. FINDINGS: There is coarsening of interstitial markings. There is mild infiltrate and atelectasis lef t lower lobe. There is no heart failure. There is left axillary pacemaker with the lead tips in the r ight ventricle. Thoracic aorta is atheromatous. There are chest leads. IMPRESSION: No heart failure. Left lower lobe pneumonia and atelectasis. There is decrease in pleura l fluid compared to last exam.
[2018-07-23] MEDS ORDERED: MEROPENEM 1 GM in SODIUM CHLORIDE 0.9% 100 ML IVPB STA (20:35)
[2018-07-23] MEDS ORDERED: VANCOMYCIN IV PER PHARMACY 1 EACH MISC MISCELLANE PRN (20:37)
[2018-07-23] MEDS ORDERED: ALBUTEROL NEBULIZED 2.5 MG/3 ML INHALATION PRN (20:38)
[2018-07-23] MEDS ORDERED: PNEUMONIA PROTOCOL UTILIZED 1 EACH MISC PO PRN (20:38)
[2018-07-23] MEDS ORDERED: VANCOMYCIN 1,000 MG in SODIUM CHLORIDE 0.9% 250 ML IVPB STA (20:44)
[2018-07-23] MEDS: SODIUM CHLORIDE 0.9% 1,000 ML IV SCH (21:18)
[2018-07-24 01:00] LABS: ABG Base Excess -6.1 mmol/L; ABG HCO3 19 mmol/L (21-25); ABG Oxygen Saturation 98.6 % (94-97); ABG PCO2 33 mmHg (35-45); ABG PH 7.38 (7.35-7.45); ABG PO2 319 mmHg (83-108); ABG TCO2 20 mmol/L (19-24)
[2018-07-24 01:23] LABS: Glucose,Whole Blood 99 mg/dL (75-99)
--- NOTE | 2018-07-24 01:24 | XR ---
EXAM: XR Chest, 1 View CLINICAL HISTORY: SOB TECHNIQUE: Frontal view of the chest. COMPARISON: No relevant prior studies available. FINDINGS: Lungs: Prominence interstitial markings bilaterally. Pleural space: Unremarkable. No pneumothorax. Heart: Prominence of the cardiac silhouette. Mediastinum: Unremarkable. Bones/joints: Chronic changes of the left and right shoulder IMPRESSION: Prominent interstitial markings. No evidence for pleural effusions. Prominence of the cardiac silhouette
[2018-07-24] MEDS ORDERED: NALOXONE 0.4 MG/ML 1 ML VIAL IV PRN (02:00)
[2018-07-24] MEDS ORDERED: ACETAMINOPHEN TAB 325 MG TAB PO PRN (02:00)
[2018-07-24 02:22] LABS: Appearance,Urine Clear (Clear); Bilirubin,Urine Negative (Negative); Blood,Urine Negative (Negative); Color,Urine Yellow; Glucose,Urine (UA) Negative (Negative); Ketones,Urine Negative (Negative); Leukocyte Esterase,Urine Negative (Negative); Nitrite,Urine Negative (Negative); Protein,Urine Trace (Negative); Urobilinogen,Urine <2.0 mg/dL (<2.0)
[2018-07-24 05:44] LABS: Anisocytosis Slight; Basophils % (A) 0 %; Eosinophils # (A) 0.1 k/uL (0-0.7); Eosinophils % (A) 1 %; HCT 27.4 % (34.0-46.0); HGB 8.5 gm/dL (11.4-16.0); Hypochromasia Marked; Lymphocytes # (A) 0.5 k/uL (1.0-4.8); Lymphocytes % (A) 5 %; MCH 27.2 pg (25.0-35.0); MCHC 30.9 g/dL (31.0-37.0); MCV 88.1 fL (80.0-100.0); Monocytes # (A) 0.6 k/uL (0-1.0); Monocytes % (A) 6 %; Neutrophils % (A) 85 %; Platelet Count 286 k/uL (150-450); RBC 3.11 m/uL (3.80-5.40); WBC 10.6 k/uL (3.8-10.6)
[2018-07-24 05:58] LABS: Calcium 7.9 mg/dL (8.4-10.2); Magnesium 1.8 mg/dL (1.6-2.3); Phosphorus 3.4 mg/dL (2.5-4.5); Potassium 4.3 mmol/L (3.5-5.1)
[2018-07-24] MEDS: LEVOTHYROXINE 125 MCG TAB PO SCH (07:08)
[2018-07-24] MEDS: PANTOPRAZOLE 40 MG TABLET PO SCH (07:08)
[2018-07-24] MEDS: ALBUTEROL NEBULIZED 2.5 MG/3 ML INHALATION SCH ×4 (07:32→20:13)
[2018-07-24] MEDS: IPRATROPIUM-ALBUTEROL 3 ML NEB INHALATION SCH ×3 (07:33→16:26)
[2018-07-24] MEDS ORDERED: FUROSEMIDE 10 MG/ML 4 ML VIAL IV STA (07:49)
[2018-07-24] MEDS ORDERED: MEROPENEM 1 GM in SODIUM CHLORIDE 0.9% 100 ML IVPB SCH (08:00)
--- NOTE | 2018-07-24 08:03 | P.CNPUL ---
History of Present Illness Consult date: 07/24/18 Reason for consult: dyspnea History of present illness: This is a 88-year-old female patient who was brought into the hospital because of worsening shortness of breath. The patient chronic dyspnea and chronic hypoxic respiratory failure related to multiple medical problems and comorbidities. She denies having any cough or sputum production. She has chronic swelling in lower extremities. There is some increased redness and early changes of cellulitis involving left lower extremity. Noted the legs are chronically edematous. No open wounds or sores. No altered mentation. No pleurisy. No hemoptysis. No fever. No chills. No dysuria frequency or urgency. No altered mental status. The patient was initially sent to medical floor. Yesterday there was a concern that the patient was getting more short of breath and hypoxic. The patient was placed on 100% nonrebreather. The patient was brought into the intensive care. At that point, blood gases was done that showed a pH of 7.38 with a pCO2 of 33 and pO2 of 319. The FiO2 has been weaned down to 4 L of oxygen by nasal cannula. Note that at home she is at 2 L. The patient has a mild component of non-anion gap metabolic acidosis. The white cell count is not elevated. Hemoglobin stable at 8.5 and the patient has chronic normocytic anemia. D-dimer is at 2.56 which is a nonspecific finding. UA is negative. The patient has chronic kidney disease in the creatinine is stable at 2.1. The patient was started on a combination of meropenem and vancomycin. This is adequate coverage for left lower extremity cellulitis. The chest x-ray shows hepatomegaly and pulmonary vessel congestion. No clear-cut consolidation or airspace disease. This patient is quite debilitated. She lives in an assisted living setting. She has an extensive cardiac history. She has history of valvular heart disease specifically the aortic valve and the patient has undergone a previous aortic valve replacement, percutaneously, TAVR, and the patient has moderate to severe mitral regurgitation and secondary pulmonary hypertension and signs of right-sided heart failure, chronic paroxysmal atrial fibrillation, her left continue ejection fraction was 55% please echocardiogram's, she has chronic stage IV kidney disease, previous history of CVA, chronic anemia, chronic venous insufficiency and chronic edema lower extremities bilaterally. She has also multiple other comorbidities including are less, IBS, migraines, hypothyroidism and severe degenerative arthritis. She is a high risk of falls. She is able to swallow well. No reported aspiration. He was in the hospital in April 2018 for acute sepsis and Proteus urinary tract infection. She had also redness in her left foot and she was placed on IV antibiotics. She has been treated with podiatry in the past. Review of Systems Constitutional: Reports chronic pain, Reports fatigue, Reports lethargy, Reports weakness, Reports weight gain Eyes: bilateral decreased vision, denies blurred vision, denies bulging eye Ears: bilateral: decreased hearing, deny: ear discharge, earache, tinnitus Ears, nose, mouth and throat: Reports hoarseness, Denies headache, Denies sore throat Cardiovascular: Reports decreased exercise tolerance, Reports dyspnea on exertion, Reports edema, Reports irregular heart beat, Reports leg edema, Reports palpitations, Reports rapid heart beat, Reports shortness of breath Respiratory: Reports dyspnea, Reports home oxygen Gastrointestinal: Denies abdominal pain, Denies diarrhea, Denies nausea, Denies vomiting Genitourinary: Reports as per HPI Menstruation: Reports as per HPI Musculoskeletal: Reports as per HPI (Degenerative arthritis in addition to history of Raynaud's disease), Reports low back pain Musculoskeletal: bilateral: ankle swelling, absent: ankle pain, ankle stiffness Integumentary: Denies pruritus, Denies rash Neurological: Reports weakness Psychiatric: Denies anxiety, Denies depression Endocrine: Denies fatigue, Denies weight change Hematologic/Lymphatic: Reports as per HPI Allergic/Immunologic: Reports as per HPI Past Medical History Past Medical History: Atrial Fibrillation, Asthma, Heart Failure, GERD/Reflux, Hypertension, Osteoarthritis (OA), Renal Disease, Skin Disorder, Syncope, Thyroid Disorder, Vascular Disorder Additional Past Medical History / Comment(s): Aortic valve disease, Valvular heart disease with previous percutaneous aortic valve replacement, moderate to severe mitral regurgitation, secondary pulmonary hypertension severe based on a previous echocardiogram from 2018, with right-sided heart failure, chronic paroxysmal atrial fibrillation, LV function of 55% based on most recent echocardiogram, history of CVA, chronic renal failure stage IV kidney disease, chronic anemia, chronic venous insufficiency in lower extremities bilaterally, RLS, IBS, sinus problems, migraines, hypothyroid, past R humerus fracture, R superior pubic ramus fracture, falls, history of pacemaker insertion History of Any Multi-Drug Resistant Organisms: MRSA Date of last positivie culture/infection: 10-26-2008 MDRO Source:: LEFT HIP Past Surgical History: Cardiac Valve Replacement, Section, Hernia Repair, Joint Replacement, Pacemaker, Tonsillectomy Additional Past Surgical History / Comment(s): UMBILICAL HERNIA, C SECTION X 2, ISIDORO KNEE REPLACEMENT, RT HIP REPLACEMENT X3 WITH ANTIBIOTIC SPACER USED, PARTIAL THYROIDECTOMY, PARTIAL LT HIP REPLACEMENT SEVERAL YRS AGO AND ANTIBIOTIC SPACER PLACED 2008, TRANSCUTANEOUS AORTIC VALVE REPLACEMENT IN 2014 AT [place], tooth extraction, SEPTOPLASTY, EGD, COLONOSCOPY, L GROIN ENLARGED LYMPH NODE EXCISION. Past Anesthesia/Blood Transfusion Reactions: No Reported Reaction Type of Cardiac Device: Permanent Pacemaker Device Placement Date:: 03/12/14 Past Psychological History: Anxiety, Depression Additional Psychological History / Comment(s): pt stated that she lives with her in home in [place].receives independant home care services. She states she had cane,walker, w/c Smoking Status: Former smoker Past Alcohol Use History: None Reported Additional Past Alcohol Use History / Comment(s): Patient was a smoker of one pack per day starting at age 17 and quit 32 years ago. She lives at home with her and uses a walker to ambulate. She has a caregiver named Lydia that helps her with ADLs, housekeeping and meals. Past Drug Use History: None Reported - Past Family History Brother(s) Family Medical History: Cancer Additional Family Medical History / Comment(s): TWIN BROTHER LUNG CA Mother Additional Family Medical History / Comment(s): BLEEDING ULCER Father Family Medical History: CVA/TIA Medications and Allergies Home Medications Medication Instructions Recorded Confirmed Type Amitriptyline HCl [Elavil] 10 mg PO HS 11/01/15 07/23/18 History Gabapentin [Neurontin] 200 mg PO BID 11/01/15 07/23/18 History Loratadine [Claritin] 10 mg PO DAILY 11/01/15 07/23/18 History HYDROcodone/APAP 7.5-325MG [[place] 1 - 2 tab PO Q4H PRN 06/10/16 07/23/18 History 7.5-325] Levothyroxine Sodium [Synthroid] 125 mcg PO DAILY 06/10/16 07/23/18 History Folic Acid 0.4 mg PO DAILY 09/25/17 07/23/18 History Metoprolol Tartrate [Lopressor] 12.5 mg PO DAILY 09/25/17 07/23/18 History Pantoprazole [Protonix] 40 mg PO DAILY 09/25/17 07/23/18 History Apixaban [Eliquis] 2.5 mg PO BID 10/05/17 07/23/18 History Calcium Carb-Vit D 500Mg-200Un 1 tab PO DAILY@1200 10/05/17 07/23/18 History [Oscal 500+D] Ipratropium-Albuterol Nebulize 3 ml INHALATION RT-QID 10/05/17 07/23/18 History [Duoneb 0.5 mg-3 mg/3 ml Soln] Aspirin 325 mg PO DAILY 02/08/18 07/23/18 History Docusate [Colace] 100 mg PO DAILY 02/08/18 07/23/18 History Iron 27mg 27 mg PO DAILY 02/08/18 07/23/18 History Furosemide [Lasix] 40 mg PO DAILY 05/14/18 07/23/18 History Furosemide [Lasix] 20 mg PO DAILY@1700 PRN 07/23/18 07/23/18 History Polyethylene Glycol 3350 [Miralax] 17 gm PO HS 07/23/18 07/23/18 History Allergies Allergy/AdvReac Type Severity Reaction Status Date / Time adhesive Allergy Anaphylaxis-STATED Verified 07/23/18 19:28 "ADHESIVE ON LIDODERM PATCH PAPER TAPE OK azithromycin [From Zithromax] Allergy Unknown Verified 07/23/18 19:28 bumetanide Allergy Unknown Verified 07/23/18 19:28 cefuroxime Allergy Unknown Verified 07/23/18 19:28 cephalexin [From Keflex] Allergy Unknown Verified 07/23/18 19:28 ciprofloxacin [From Cipro] Allergy Rash/Hives Verified 07/23/18 19:28 ciprofloxacin HCl Allergy Rash/Hives Verified 07/23/18 19:28 [From Cipro] clindamycin Allergy Unknown Verified 07/23/18 19:28 clonazepam Allergy Unknown Verified 07/23/18 19:28 daptomycin [From Cubicin] Allergy Unknown Verified 07/23/18 19:28 dextrose 5 % in water Allergy Unknown Verified 07/23/18 19:28 [From Zyvox] doxycycline Allergy Unknown Verified 07/23/18 19:28 levofloxacin [From Levaquin] Allergy Unknown Verified 07/23/18 19:28 lidocaine [From Lidoderm] Allergy Rash/Hives Verified 07/23/18 19:28 linezolid [From Zyvox] Allergy Unknown Verified 07/23/18 19:28 meclizine Allergy Unknown Verified 07/23/18 19:28 nitrofurantoin Allergy Unknown Verified 07/23/18 19:28 [From Macrodantin] Penicillins Allergy "BLACK Verified 07/23/18 19:28 RING AROUND TONGUE" Sulfa (Sulfonamide Allergy Rash/Hives Verified 07/23/18 19:28 Antibiotics) Tetracyclines Allergy "BLACK Verified 07/23/18 19:28 RING AROUND TONGUE" Physical Exam Vitals: Vital Signs Temp Pulse Pulse Resp BP BP Pulse Ox 07/24/18 07:33 93 L 07/24/18 07:00 93 19 108/65 99 07/24/18 06:00 99 11 L 105/64 94 L 07/24/18 05:00 105 H 20 105/64 96 07/24/18 04:00 105 H 9 L 112/67 97 07/24/18 03:00 102 H 12 113/69 96 07/24/18 02:00 111 H 17 118/106 88 L 07/24/18 01:30 100.9 F H 113 H 12 101/63 85 L 07/24/18 01:14 103 H 25 H 07/24/18 00:47 81 18 07/24/18 00:38 71 18 07/23/18 22:20 20 07/23/18 21:40 97.8 F 91 15 130/85 97 07/23/18 21:27 98.1 F 85 17 101/68 100 07/23/18 21:10 101/67 89 L 07/23/18 21:00 101/67 96 07/23/18 20:50 87 8 L 101/67 07/23/18 20:40 101/67 07/23/18 20:30 101/67 97 07/23/18 20:20 104/65 99 07/23/18 20:10 82 104/65 98 07/23/18 20:00 104/65 98 07/23/18 19:50 104/65 98 07/23/18 19:40 104/65 07/23/18 19:30 89 9 L 104/65 07/23/18 19:21 97.6 F 85 18 104/65 100 07/23/18 19:20 87 26 H 85 L 07/23/18 19:10 86 20 128/89 77 L 07/23/18 19:00 84 16 128/89 100 07/23/18 18:50 84 16 128/89 98 07/23/18 18:40 87 21 128/89 96 07/23/18 18:30 87 19 128/89 98 07/23/18 18:28 96.8 F L 87 19 128/89 99 Intake and Output 07/23/18 07/24/18 07/24/18 22:59 06:59 14:59 Intake Total 80 20 Output Total 400 20 Balance -320 0 Intake: Intake, IV Titration 80 20 Amount Sodium Chloride 0.9% 1, 80 20 000 ml @ 20 mls/hr IV . Q24H [facility], [facility] Rx#:[id number] Output: Urine 400 20 Other: Voiding Method Bedpan Weight 56.699 kg 61.2 kg Gen. appearance the patient is an elderly female patient nonacute distress, she has obvious arthritis in her fingers she has also obvious alopecia. No active respirator distress. Able to speak in full sentences Head exam was generally normal. There was no scleral icterus or corneal arcus. Mucous membranes were moist. Neck was supple and with jugular venous distension, thyromegaly, or carotid bruits. Carotids were easily palpable bilaterally. There was no adenopathy. There is bilateral jugular venous venous distention. No goiter or neck masses. Lips are blue and cyanotic Lung sounds are diminished bilaterally along with some bibasilar crackles. There is venous engorgement over the veins of the anterior chest. Heart sounds are regular, there is a systolic ejection murmur grade 2/6 systolic the precordium. There is also a aortic valve click heard over the anterior chest. Abdomen is slightly distended. There may be an underlying ascites. No direct tenderness. No rebound tensile guarding. No significant organomegaly. His umbilical hernia. Extremities are showing trace edema and there is diffuse degenerative arthritis with deformities. No cyanosis. No clubbing at this point. There is indication of a left lower eczematous cellulitis. There is erythema is extending from the ankle all the way up to the area below the knee. The area is warm and red. No open wounds or ulceration. As mentioned, there is chronic venous stasis and some chronic edema in lower extremities bilaterally. Neurologically the patient is awake and alert and sequential following commands and there is no focal neurological deficit at this point. Results - Laboratory Findings CBC and BMP: 07/24/18 05:12 07/24/18 05:12 ABG ABG pH 7.38 (7.35-7.45) 07/24/18 00:51 ABG pCO2 33 mmHg (35-45) L 07/24/18 00:51 ABG pO2 319 mmHg (83-108) H 07/24/18 00:51 ABG O2 Saturation 98.6 % (94-97) H 07/24/18 00:51 PT/INR, D-dimer PT 12.0 sec (9.0-12.0) 07/23/18 19:07 INR 1.2 (<1.2) H 07/23/18 19:07 D-Dimer 2.56 mg/L FEU (<0.60) H 07/24/18 01:19 Abnormal lab findings: Abnormal Labs 07/23/18 07/23/18 07/23/18 19:07 19:07 19:07 RBC 3.42 L Hgb 9.2 L Hct 30.4 L MCHC 30.2 L RDW 17.3 H Neutrophils # Lymphocytes # 0.6 L INR 1.2 H D-Dimer ABG pCO2 ABG pO2 ABG HCO3 ABG O2 Saturation Chloride Carbon Dioxide BUN 80 H Creatinine 2.27 H Calcium 8.3 L Albumin 3.2 L Urine Protein 07/24/18 07/24/18 07/24/18 00:51 01:19 01:40 RBC Hgb Hct MCHC RDW Neutrophils # Lymphocytes # INR D-Dimer 2.56 H ABG pCO2 33 L ABG pO2 319 H ABG HCO3 19 L ABG O2 Saturation 98.6 H Chloride Carbon Dioxide BUN Creatinine Calcium Albumin Urine Protein Trace H 07/24/18 07/24/18 05:12 05:12 RBC 3.11 L Hgb 8.5 L Hct 27.4 L MCHC 30.9 L RDW 17.0 H Neutrophils # 9.0 H Lymphocytes # 0.5 L INR D-Dimer ABG pCO2 ABG pO2 ABG HCO3 ABG O2 Saturation Chloride 109 H Carbon Dioxide 18 L BUN 79 H Creatinine 2.11 H Calcium 7.9 L Albumin Urine Protein - Diagnostic Findings Chest x-ray: image reviewed Assessment and Plan Plan: Assessment 1 chronic hypoxic respiratory failure with acute decompensation. The patient came in to the ICU for worsening hypoxemia. Blood gases was done on 100% nonrebreather facemask showed adequate oxygenation. Chest x-ray showing CHF with some mild four-vessel markings. No indication for an underlying pneumonia at this point in time 2. Acute cellulitis of the left lower extremity 3 chronic dyspnea on the basis of CHF. The patient has an extensive cardiac history as mentioned 4 history of aortic valve replacement. The patient has undergone a TAVR and based on the most recent echocardiogram the patient has moderate to severe mitral regurgitation and severe pulmonary hypertension which is obviously secondary nature related to her valvular heart disease. 5 chronic proximal atrial fibrillation 6 history of pacemaker insertion 7 chronic renal failure, stage IV kidney disease and the patient's creatinine and GFR is stable for now 8 hypertension 9 chronic anemia stable 10 chronic degenerative arthritis involving the upper and lower extremities and the patient has had difficulty with mobility and previous history of falls 11 hypothyroidism 12 restless leg syndrome 13 previous history of hospitalization for UTI including infection with Proteus and the patient has multiple drug ALLERGIES. Her current UA is within normal limits 14 chronic venous insufficiency in the lower extremities 15 migraines 16 medical debility secondary to above-mentioned comorbidities Plan I'm getting the patient an additional dose of Lasix 40 mg IV push. Continue the oral Lasix for now. The IV Fluids to KVO. Advance Diet As Tolerated. Wean down the FiO2 As Tolerated to Maintain a Saturation above 90%. Agree on the Current Antibiotic Coverage. Watch this patient for any progression of her left lower extremity cellulitis. Obtain blood cultures. Overall condition is stable. Hemodynamically stable. The patient can be chest x-ray cardiac floor with telemetry.
[2018-07-24] MEDS ORDERED: IRON 27 MG PO SCH (09:00)
[2018-07-24] MEDS ORDERED: FUROSEMIDE 40 MG TAB PO SCH (09:00)
[2018-07-24] MEDS ORDERED: ASPIRIN 325 MG TAB PO SCH (09:00)
[2018-07-24] MEDS ORDERED: VANCOMYCIN 1,000 MG in SODIUM CHLORIDE 0.9% 250 ML IVPB ONE (10:00)
[2018-07-24] MEDS: DOCUSATE 100 MG CAP PO SCH (10:00)
[2018-07-24] MEDS: APIXABAN 2.5 MG TABLET PO SCH ×2 (10:00→22:03)
[2018-07-24] MEDS: HYDROcodone/APAP 7.5-325MG 1 EACH TAB PO PRN ×3 (10:11→22:02)
[2018-07-24] MEDS: LORATADINE 10 MG TAB PO SCH (10:40)
[2018-07-24] MEDS: GABAPENTIN 100 MG CAP PO SCH ×2 (10:40→22:01)
--- NOTE | 2018-07-24 10:43 | P.HPIM ---
History of Present Illness Chief complaint The patient is a 88-year-old female presented to the emergency room with shortness of breath. History of present illness The patient states she has had increasing shortness of breath for over a week. With cough but no marked phlegm production. No fever or chills. No unusual chest pain. The patient was initially admitted through the emergency room to the medical floor but found when she was on the floor that she was becoming more hypoxic. Her belt tender Dr. Magaña was called. Patient was moved into the intensive care unit. Please refer to his notes. Past medical history The patient has long-standing history of degenerative arthritis diffuse. Very immobile. Long-standing venous insufficiency. Chronic kidney disease stage III, four A transcutaneous aortic valve replacement along with pacemaker placement in [place] Hypertension hypertensive heart disease Hypothyroidism on replacement therapy, history of partial thyroidectomy in the past. Restless leg syndrome Paroxysmal atrial fibrillation A previous surgeries include bilateral knee and hip surgeries for her osteoarthritis. Previous fracture of the right humerus in 2016. Chronic diastolic congestive heart failure. History of multiple medical ALLERGIES Medical ALLERGIES Please refer to list. It is very extensive. Does include multiple antibiotic ALLERGIES. Home medications Acetaminophen 650 mg every 4 hours for pain DuoNeb 4 times a day treatments Elavil 10 mg at at bedtime Eloquis 2.5 twice a day Aspirin 325 mg daily Os-Fahad 500+ vitamin D daily Colace 100 daily for constipation Folic acid 0.4 mg daily Lasix 40 mg daily with 20 mg in the evening at 5:00. The patient has edema. Neurontin 200 mg twice a day Orient 7.5-325 one to 2 every 4 hours when necessary for pain. Chronic pain of osteoarthritis Iron 227 mg daily Levothyroxine 125 g daily Claritin 10 mg daily for sinus Lopressor 12.5 daily Protonix 40 mg daily. MiraLAX 17 g at at bedtime. Review of systems As mentioned in history of present illness. No unusual headache or visual disturbances. No hemoptysis. No unusual chest pain. No nausea or vomiting. No urinary or bowel symptoms. No hematochezia or melena. Chronic lower extremity edema from venous stasis. She has had some increase erythema in that area. Family history Positive for 20 brother with lung cancer. Father had a CVA. Mother had a bleeding ulcer. Social history Patient quit smoking at the age of 52. She did smoke for 25 years. No history of any excessive alcohol usage. Patient does live at home with help from family and other caretakers. Apparently recently she had to move to apartment for a couple days because of treatment for bedbugs. Physical examination The patient is in the intensive care unit. She was easily arouse in the ears generally alert and oriented. Vital signs show a temperature of 98.4 with a pulse of 94 and a respiratory rate of 18. Blood pressure was 98/60 and she was 93% saturated on 2 L. Yesterday evening percent saturation had dropped to 85 and her respiratory rate was 25 with a heart rate of 113 and a temperature 100.9 and patient was moved to the intensive care unit. Head and neck exam basically atraumatic. Extraocular movements intact. Neck is not stiff. No definite adenopathy or thyromegaly detected. Breast and pelvic exam is deferred. Lungs revealed chronic rales bilaterally. Some decrease at the left base. Heart tones were slightly irregular without murmurs or rubs appreciated Abdomen was soft and nontender without rebound guarding or masses detected. Extremities reveal grade 1-2 edema with scaling and erythema. Compression appliance is intact. Neurologically she is alert. Cranial nerves intact. No focal weakness noted. Laboratory White count 10.6 with a hemoglobin 8.5 and a platelet count of 286. D-dimer was 2.56. Initial sodium was 139 with a potassium 4.2. BUN of 80 with creatinine 2.27 given her GFR of 19. Calcium 8.3 with an albumin 3.2. Blood gases showed a pH 7.38, CO2 of 33, O2 saturation of 319. Urinalysis showed trace protein but otherwise clear. Chest x-ray Initial chest x-ray from the showed a possible left lower lobe pneumonia. Single view x-ray on the , showed prominent interstitial markings and prominent cardiac silhouette. EKG shows a sinus rhythm. First-degree AV block and right bundle branch block. Impressions 1. Patient with acute on chronic respiratory failure with initial chest x-ray showing a possible left lower lobe pneumonia. Also evidence of congestive heart failure. Patient generally appears to be improving on present treatments. 2. Previous history of mitral valve transcutaneous replacement. And chronic diastolic congestive heart failure. 3. Chronic kidney disease. States she does 4. 4. Cellulitis of the lower extremities. Chronic venous stasis. Other past medical history as stated above. Plans Patient remains in intensive care unit this morning. Consultations with pulmonary medicine, cardiology and nephrology. Continue to monitor. Follow-up labs. Continue antibiotics along with her Lasix. Further recommendations pending clinical response and results of above. Prognosis is guarded in light of advanced age and the multiple medical conditions as stated above. Past Medical History Past Medical History: Atrial Fibrillation, Asthma, Heart Failure, GERD/Reflux, Hypertension, Osteoarthritis (OA), Renal Disease, Skin Disorder, Syncope, Thyroid Disorder, Vascular Disorder Additional Past Medical History / Comment(s): Aortic valve disease, Valvular heart disease with previous percutaneous aortic valve replacement, moderate to severe mitral regurgitation, secondary pulmonary hypertension severe based on a previous echocardiogram from 2018, with right-sided heart failure, chronic paroxysmal atrial fibrillation, LV function of 55% based on most recent echocardiogram, history of CVA, chronic renal failure stage IV kidney disease, chronic anemia, chronic venous insufficiency in lower extremities bilaterally, RLS, IBS, sinus problems, migraines, hypothyroid, past R humerus fracture, R superior pubic ramus fracture, falls, history of pacemaker insertion History of Any Multi-Drug Resistant Organisms: MRSA Date of last positivie culture/infection: 10-26-2008 MDRO Source:: LEFT HIP Past Surgical History: Cardiac Valve Replacement, Section, Hernia Repair, Joint Replacement, Pacemaker, Tonsillectomy Additional Past Surgical History / Comment(s): UMBILICAL HERNIA, C SECTION X 2, ISIDORO KNEE REPLACEMENT, RT HIP REPLACEMENT X3 WITH ANTIBIOTIC SPACER USED, PARTIAL THYROIDECTOMY, PARTIAL LT HIP REPLACEMENT SEVERAL YRS AGO AND ANTIBIOTIC SPACER PLACED 2008, TRANSCUTANEOUS AORTIC VALVE REPLACEMENT IN 2014 AT [place], tooth extraction, SEPTOPLASTY, EGD, COLONOSCOPY, L GROIN ENLARGED LYMPH NODE EXCISION. Past Anesthesia/Blood Transfusion Reactions: No Reported Reaction Type of Cardiac Device: Permanent Pacemaker Device Placement Date:: 03/12/14 Past Psychological History: Anxiety, Depression Additional Psychological History / Comment(s): pt stated that she lives with her in home in [place].receives independant home care services. She states she had cane,walker, w/c Smoking Status: Former smoker Past Alcohol Use History: None Reported Additional Past Alcohol Use History / Comment(s): Patient was a smoker of one pack per day starting at age 17 and quit 32 years ago. She lives at home with her and uses a walker to ambulate. She has a caregiver named Pat that helps her with ADLs, housekeeping and meals. Past Drug Use History: None Reported - Past Family History Brother(s) Family Medical History: Cancer Additional Family Medical History / Comment(s): TWIN BROTHER LUNG CA Mother Additional Family Medical History / Comment(s): BLEEDING ULCER Father Family Medical History: CVA/TIA Medications and Allergies Home Medications Medication Instructions Recorded Confirmed Type Amitriptyline HCl [Elavil] 10 mg PO HS 11/01/15 07/23/18 History Gabapentin [Neurontin] 200 mg PO BID 11/01/15 07/23/18 History Loratadine [Claritin] 10 mg PO DAILY 11/01/15 07/23/18 History HYDROcodone/APAP 7.5-325MG [Orient 1 - 2 tab PO Q4H PRN 06/10/16 07/23/18 History 7.5-325] Levothyroxine Sodium [Synthroid] 125 mcg PO DAILY 06/10/16 07/23/18 History Folic Acid 0.4 mg PO DAILY 09/25/17 07/23/18 History Metoprolol Tartrate [Lopressor] 12.5 mg PO DAILY 09/25/17 07/23/18 History Pantoprazole [Protonix] 40 mg PO DAILY 09/25/17 07/23/18 History Apixaban [Eliquis] 2.5 mg PO BID 10/05/17 07/23/18 History Calcium Carb-Vit D 500Mg-200Un 1 tab PO DAILY@1200 10/05/17 07/23/18 History [Oscal 500+D] Ipratropium-Albuterol Nebulize 3 ml INHALATION RT-QID 10/05/17 07/23/18 History [Duoneb 0.5 mg-3 mg/3 ml Soln] Aspirin 325 mg PO DAILY 02/08/18 07/23/18 History Docusate [Colace] 100 mg PO DAILY 02/08/18 07/23/18 History Iron 27mg 27 mg PO DAILY 02/08/18 07/23/18 History Furosemide [Lasix] 40 mg PO DAILY 05/14/18 07/23/18 History Furosemide [Lasix] 20 mg PO DAILY@1700 PRN 07/23/18 07/23/18 History Polyethylene Glycol 3350 [Miralax] 17 gm PO HS 07/23/18 07/23/18 History Allergies Allergy/AdvReac Type Severity Reaction Status Date / Time adhesive Allergy Anaphylaxis-STATED Verified 07/23/18 19:28 "ADHESIVE ON LIDODERM PATCH PAPER TAPE OK azithromycin [From Zithromax] Allergy Unknown Verified 07/23/18 19:28 bumetanide Allergy Unknown Verified 07/23/18 19:28 cefuroxime Allergy Unknown Verified 07/23/18 19:28 cephalexin [From Keflex] Allergy Unknown Verified 07/23/18 19:28 ciprofloxacin [From Cipro] Allergy Rash/Hives Verified 07/23/18 19:28 ciprofloxacin HCl Allergy Rash/Hives Verified 07/23/18 19:28 [From Cipro] clindamycin Allergy Unknown Verified 07/23/18 19:28 clonazepam Allergy Unknown Verified 07/23/18 19:28 daptomycin [From Cubicin] Allergy Unknown Verified 07/23/18 19:28 dextrose 5 % in water Allergy Unknown Verified 07/23/18 19:28 [From Zyvox] doxycycline Allergy Unknown Verified 07/23/18 19:28 levofloxacin [From Levaquin] Allergy Unknown Verified 07/23/18 19:28 lidocaine [From Lidoderm] Allergy Rash/Hives Verified 07/23/18 19:28 linezolid [From Zyvox] Allergy Unknown Verified 07/23/18 19:28 meclizine Allergy Unknown Verified 07/23/18 19:28 nitrofurantoin Allergy Unknown Verified 07/23/18 19:28 [From Macrodantin] Penicillins Allergy "BLACK Verified 07/23/18 19:28 RING AROUND TONGUE" Sulfa (Sulfonamide Allergy Rash/Hives Verified 07/23/18 19:28 Antibiotics) Tetracyclines Allergy "BLACK Verified 07/23/18 19:28 RING AROUND TONGUE" Physical Exam Vitals: Vital Signs Temp Pulse Pulse Resp BP BP Pulse Ox 07/24/18 09:00 94 18 98/60 93 L 07/24/18 08:00 98.4 F 93 21 116/60 94 L 07/24/18 07:33 93 L 07/24/18 07:00 93 19 108/65 99 07/24/18 06:00 99 11 L 105/64 94 L 07/24/18 05:00 105 H 20 105/64 96 07/24/18 04:00 105 H 9 L 112/67 97 02/26/19 03:00 102 H 12 113/69 96 07/24/18 02:00 111 H 17 118/106 88 L 07/24/18 01:30 100.9 F H 113 H 12 101/63 85 L 07/24/18 01:14 103 H 25 H 07/24/18 00:47 81 18 07/24/18 00:38 71 18 07/23/18 22:20 20 07/23/18 21:40 97.8 F 91 15 130/85 97 07/23/18 21:27 98.1 F 85 17 101/68 100 07/23/18 21:10 101/67 89 L 07/23/18 21:00 101/67 96 07/23/18 20:50 87 8 L 101/67 07/23/18 20:40 101/67 07/23/18 20:30 101/67 97 07/23/18 20:20 104/65 99 07/23/18 20:10 82 104/65 98 07/23/18 20:00 104/65 98 07/23/18 19:50 104/65 98 07/23/18 19:40 104/65 07/23/18 19:30 89 9 L 104/65 07/23/18 19:21 97.6 F 85 18 104/65 100 07/23/18 19:20 87 26 H 85 L 07/23/18 19:10 86 20 128/89 77 L 07/23/18 19:00 84 16 128/89 100 07/23/18 18:50 84 16 128/89 98 07/23/18 18:40 87 21 128/89 96 07/23/18 18:30 87 19 128/89 98 07/23/18 18:28 96.8 F L 87 19 128/89 99 Intake and Output 07/23/18 07/24/18 07/24/18 22:59 06:59 14:59 Intake Total 80 240 Output Total 400 115 Balance -320 125 Intake: IV 20 Sodium Chloride 0.9% 1, 20 000 ml @ 20 mls/hr IV . Q24H [facility] Rx#:[id number] Intake, IV Titration 80 20 Amount Sodium Chloride 0.9% 1, 80 20 000 ml @ 20 mls/hr IV . Q24H [facility] Rx#:[id number] Oral 200 Output: Urine 400 115 Other: Voiding Method Bedpan Weight 56.699 kg 61.2 kg Results CBC & Chem 7: 07/24/18 05:12 07/24/18 05:12 Labs: Abnormal Lab Results - Last 24 Hours (Table) 07/23/18 07/23/18 07/23/18 Range/Units 19:07 19:07 19:07 RBC 3.42 L (3.80-5.40) m/uL Hgb 9.2 L (11.4-16.0) gm/dL Hct 30.4 L (34.0-46.0) % MCHC 30.2 L (31.0-37.0) g/dL RDW 17.3 H (11.5-15.5) % Neutrophils # (1.3-7.7) k/uL Lymphocytes # 0.6 L (1.0-4.8) k/uL INR 1.2 H (<1.2) D-Dimer (<0.60) mg/L FEU ABG pCO2 (35-45) mmHg ABG pO2 (83-108) mmHg ABG HCO3 (21-25) mmol/L ABG O2 Saturation (94-97) % Chloride (98-107) mmol/L Carbon Dioxide (22-30) mmol/L BUN 80 H (7-17) mg/dL Creatinine 2.27 H (0.52-1.04) mg/dL Calcium 8.3 L (8.4-10.2) mg/dL Albumin 3.2 L (3.5-5.0) g/dL Urine Protein (Negative) 07/24/18 07/24/18 07/24/18 Range/Units 00:51 01:19 01:40 RBC (3.80-5.40) m/uL Hgb (11.4-16.0) gm/dL Hct (34.0-46.0) % MCHC (31.0-37.0) g/dL RDW (11.5-15.5) % Neutrophils # (1.3-7.7) k/uL Lymphocytes # (1.0-4.8) k/uL INR (<1.2) D-Dimer 2.56 H (<0.60) mg/L FEU ABG pCO2 33 L (35-45) mmHg ABG pO2 319 H (83-108) mmHg ABG HCO3 19 L (21-25) mmol/L ABG O2 Saturation 98.6 H (94-97) % Chloride (98-107) mmol/L Carbon Dioxide (22-30) mmol/L BUN (7-17) mg/dL Creatinine (0.52-1.04) mg/dL Calcium (8.4-10.2) mg/dL Albumin (3.5-5.0) g/dL Urine Protein Trace H (Negative) 07/24/18 07/24/18 Range/Units 05:12 05:12 RBC 3.11 L (3.80-5.40) m/uL Hgb 8.5 L (11.4-16.0) gm/dL Hct 27.4 L (34.0-46.0) % MCHC 30.9 L (31.0-37.0) g/dL RDW 17.0 H (11.5-15.5) % Neutrophils # 9.0 H (1.3-7.7) k/uL Lymphocytes # 0.5 L (1.0-4.8) k/uL INR (<1.2) D-Dimer (<0.60) mg/L FEU ABG pCO2 (35-45) mmHg ABG pO2 (83-108) mmHg ABG HCO3 (21-25) mmol/L ABG O2 Saturation (94-97) % Chloride 109 H (98-107) mmol/L Carbon Dioxide 18 L (22-30) mmol/L BUN 79 H (7-17) mg/dL Creatinine 2.11 H (0.52-1.04) mg/dL Calcium 7.9 L (8.4-10.2) mg/dL Albumin (3.5-5.0) g/dL Urine Protein (Negative) Thrombosis Risk Factor Assmnt - Choose All That Apply Any of the Below Risk Factors Present?: Yes Each Factor Represents 1 point: Abnormal pulmonary function (COPD), Varicose veins Each Risk Factor Represents 3 Points: Age 75 years or older Thrombosis Risk Factor Assessment Total Risk Factor Score: 5 Thrombosis Risk Factor Assessment Level: High Risk
[2018-07-24] MEDS: METOPROLOL TARTRATE 25 MG TAB PO SCH (11:07)
--- NOTE | 2018-07-24 12:33 | P.NPCON ---
History of Present Illness - Reason for Consult acute renal failure, chronic renal failure - History of Present Illness Reason for consultation: Acute kidney injury on chronic kidney disease History of present illness: Patient is a 88-year-old female seen in renal consultation for acute kidney injury on chronic kidney disease. 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 Baseline creatinine is in the range of 1.5-2. Creatinine was 2.27 yesterday and is 2.11 today. Patient presented to the hospital with dyspnea. She does have history of diastolic CHF and moderate to severe mitral regurgitation and severe tricuspid regurgitation. She also has pulmonary hypertension. She is currently resting in bed. Denies any active chest pain or shortness of breath. She is maintained on Lasix 40 mg orally once daily. She did receive an additional 40 mg IV Lasix this morning. She is nonoliguric. Blood pressures are in the systolic 90s to 100s. No vomiting or diarrhea. Hemoglobin 8.5 today. Vital signs are stable. General: The patient appeared well nourished and normally developed. HEENT: Head exam is unremarkable. Neck is without jugular venous distension. LUNGS: Lungs are clear to auscultation and percussion. Breath sounds decreased. HEART: Rate and Rhythm are regular. First and second heart sounds normal. No murmurs, rubs or gallops. ABDOMEN: Abdominal exam reveals normal bowel sounds. Non-tender and non- distended. No evidence of peritonitis. EXTREMITITES: No clubbing, cyanosis, or edema. Left lower extremity chronic skin changes noted. Past Medical History Past Medical History: Atrial Fibrillation, Asthma, Heart Failure, GERD/Reflux, Hypertension, Osteoarthritis (OA), Renal Disease, Skin Disorder, Syncope, Thyroid Disorder, Vascular Disorder Additional Past Medical History / Comment(s): Aortic valve disease, Valvular heart disease with previous percutaneous aortic valve replacement, moderate to severe mitral regurgitation, secondary pulmonary hypertension severe based on a previous echocardiogram from 2018, with right-sided heart failure, chronic paroxysmal atrial fibrillation, LV function of 55% based on most recent echocardiogram, history of CVA, chronic renal failure stage IV kidney disease, chronic anemia, chronic venous insufficiency in lower extremities bilaterally, RLS, IBS, sinus problems, migraines, hypothyroid, past R humerus fracture, R superior pubic ramus fracture, falls, history of pacemaker insertion History of Any Multi-Drug Resistant Organisms: MRSA Date of last positivie culture/infection: 10-26-2008 MDRO Source:: LEFT HIP Past Surgical History: Cardiac Valve Replacement, Section, Hernia Repair, Joint Replacement, Pacemaker, Tonsillectomy Additional Past Surgical History / Comment(s): UMBILICAL HERNIA, C SECTION X 2, ISIDORO KNEE REPLACEMENT, RT HIP REPLACEMENT X3 WITH ANTIBIOTIC SPACER USED, PARTIAL THYROIDECTOMY, PARTIAL LT HIP REPLACEMENT SEVERAL YRS AGO AND ANTIBIOTIC SPACER PLACED 2008, TRANSCUTANEOUS AORTIC VALVE REPLACEMENT IN 2014 AT [place], tooth extraction, SEPTOPLASTY, EGD, COLONOSCOPY, L GROIN ENLARGED LYMPH NODE EXCISION. Past Anesthesia/Blood Transfusion Reactions: No Reported Reaction Type of Cardiac Device: Permanent Pacemaker Device Placement Date:: 03/12/14 Past Psychological History: Anxiety, Depression Additional Psychological History / Comment(s): pt stated that she lives with her in [place] in [place]receives independant home care services. She states she had cane,walker, w/c Smoking Status: Former smoker Past Alcohol Use History: None Reported Additional Past Alcohol Use History / Comment(s): Patient was a smoker of one pack per day starting at age 17 and quit 32 years ago. She lives at home with her and uses a walker to ambulate. She has a caregiver named Pat that helps her with ADLs, housekeeping and meals. Past Drug Use History: None Reported - Past Family History Brother(s) Family Medical History: Cancer Additional Family Medical History / Comment(s): TWIN BROTHER LUNG CA Mother Additional Family Medical History / Comment(s): BLEEDING ULCER Father Family Medical History: CVA/TIA Medications and Allergies Home Medications Medication Instructions Recorded Confirmed Type Amitriptyline HCl [Elavil] 10 mg PO HS 11/01/15 07/23/18 History Gabapentin [Neurontin] 200 mg PO BID 11/01/15 07/23/18 History Loratadine [Claritin] 10 mg PO DAILY 11/01/15 07/23/18 History HYDROcodone/APAP 7.5-325MG [Adams 1 - 2 tab PO Q4H PRN 06/10/16 07/23/18 History 7.5-325] Levothyroxine Sodium [Synthroid] 125 mcg PO DAILY 06/10/16 07/23/18 History Folic Acid 0.4 mg PO DAILY 09/25/17 07/23/18 History Metoprolol Tartrate [Lopressor] 12.5 mg PO DAILY 09/25/17 07/23/18 History Pantoprazole [Protonix] 40 mg PO DAILY 09/25/17 07/23/18 History Apixaban [Eliquis] 2.5 mg PO BID 10/05/17 07/23/18 History Calcium Carb-Vit D 500Mg-200Un 1 tab PO DAILY@1200 10/05/17 07/23/18 History [Oscal 500+D] Ipratropium-Albuterol Nebulize 3 ml INHALATION RT-QID 10/05/17 07/23/18 History [Duoneb 0.5 mg-3 mg/3 ml Soln] Aspirin 325 mg PO DAILY 02/08/18 07/23/18 History Docusate [Colace] 100 mg PO DAILY 02/08/18 07/23/18 History Iron 27mg 27 mg PO DAILY 02/08/18 07/23/18 History Furosemide [Lasix] 40 mg PO DAILY 05/14/18 07/23/18 History Furosemide [Lasix] 20 mg PO DAILY@1700 PRN 07/23/18 07/23/18 History Polyethylene Glycol 3350 [Miralax] 17 gm PO HS 07/23/18 07/23/18 History Allergies Allergy/AdvReac Type Severity Reaction Status Date / Time adhesive Allergy Anaphylaxis-STATED Verified 07/23/18 19:28 "ADHESIVE ON LIDODERM PATCH PAPER TAPE OK azithromycin [From Zithromax] Allergy Unknown Verified 07/23/18 19:28 bumetanide Allergy Unknown Verified 07/23/18 19:28 cefuroxime Allergy Unknown Verified 07/23/18 19:28 cephalexin [From Keflex] Allergy Unknown Verified 07/23/18 19:28 ciprofloxacin [From Cipro] Allergy Rash/Hives Verified 07/23/18 19:28 ciprofloxacin HCl Allergy Rash/Hives Verified 07/23/18 19:28 [From Cipro] clindamycin Allergy Unknown Verified 07/23/18 19:28 clonazepam Allergy Unknown Verified 07/23/18 19:28 daptomycin [From Cubicin] Allergy Unknown Verified 07/23/18 19:28 dextrose 5 % in water Allergy Unknown Verified 07/23/18 19:28 [From Zyvox] doxycycline Allergy Unknown Verified 07/23/18 19:28 levofloxacin [From Levaquin] Allergy Unknown Verified 07/23/18 19:28 lidocaine [From Lidoderm] Allergy Rash/Hives Verified 07/23/18 19:28 linezolid [From Zyvox] Allergy Unknown Verified 07/23/18 19:28 meclizine Allergy Unknown Verified 07/23/18 19:28 nitrofurantoin Allergy Unknown Verified 07/23/18 19:28 [From Macrodantin] Penicillins Allergy "BLACK Verified 07/23/18 19:28 RING AROUND TONGUE" Sulfa (Sulfonamide Allergy Rash/Hives Verified 07/23/18 19:28 Antibiotics) Tetracyclines Allergy "BLACK Verified 07/23/18 19:28 RING AROUND TONGUE" Physical Exam Vitals: Vital Signs Temp Pulse Pulse Resp BP BP Pulse Ox 07/24/18 11:18 86 07/24/18 11:11 80 07/24/18 11:00 104 H 15 109/75 97 07/24/18 10:00 86 19 96/65 93 L 07/24/18 09:00 94 18 98/60 93 L 07/24/18 08:30 91 15 07/24/18 08:00 98.4 F 93 21 116/60 94 L 07/24/18 07:33 93 L 07/24/18 07:00 93 19 108/65 99 07/24/18 06:00 99 11 L 105/64 94 L 07/24/18 05:00 105 H 20 105/64 96 07/24/18 04:00 105 H 9 L 112/67 97 07/24/18 03:00 102 H 12 113/69 96 07/24/18 02:00 111 H 17 118/106 88 L 07/24/18 01:30 100.9 F H 113 H 12 101/63 85 L 07/24/18 01:14 103 H 25 H 07/24/18 00:47 81 18 07/24/18 00:38 71 18 07/23/18 22:20 20 07/23/18 21:40 97.8 F 91 15 130/85 97 07/23/18 21:27 98.1 F 85 17 101/68 100 07/23/18 21:10 101/67 89 L 07/23/18 21:00 101/67 96 07/23/18 20:50 87 8 L 101/67 07/23/18 20:40 101/67 07/23/18 20:30 101/67 97 07/23/18 20:20 104/65 99 07/23/18 20:10 82 104/65 98 07/23/18 20:00 104/65 98 07/23/18 19:50 104/65 98 07/23/18 19:40 104/65 07/23/18 19:30 89 9 L 104/65 07/23/18 19:21 97.6 F 85 18 104/65 100 07/23/18 19:20 87 26 H 85 L 07/23/18 19:10 86 20 128/89 77 L 07/23/18 19:00 84 16 128/89 100 07/23/18 18:50 84 16 128/89 98 07/23/18 18:40 87 21 128/89 96 07/23/18 18:30 87 19 128/89 98 07/23/18 18:28 96.8 F L 87 19 128/89 99 Intake and Output 07/23/18 07/24/18 07/24/18 22:59 06:59 14:59 Intake Total 80 280 Output Total 400 190 Balance -320 90 Intake: IV 60 Sodium Chloride 0.9% 1, 60 000 ml @ 20 mls/hr IV . Q24H [facility] Rx#:[id number] Intake, IV Titration 80 20 Amount Sodium Chloride 0.9% 1, 80 20 000 ml @ 20 mls/hr IV . Q24H [facility] Rx#:[id number] Oral 200 Output: Urine 400 190 Other: Voiding Method Bedpan Bedpan Weight 56.699 kg 61.2 kg Results - Lab Results Most recent lab results ABG pH 7.38 (7.35-7.45) 07/24/18 00:51 ABG pCO2 33 mmHg (35-45) L 07/24/18 00:51 ABG pO2 319 mmHg (83-108) H 07/24/18 00:51 ABG HCO3 19 mmol/L (21-25) L 07/24/18 00:51 ABG O2 Saturation 98.6 % (94-97) H 07/24/18 00:51 Calcium 7.9 mg/dL (8.4-10.2) L 07/24/18 05:12 Phosphorus 3.4 mg/dL (2.5-4.5) 07/24/18 05:12 Magnesium 1.8 mg/dL (1.6-2.3) 07/24/18 05:12 07/24/18 05:12 07/24/18 05:12 Assessment and Plan Plan: Assessment: 1. Acute kidney injury secondary to ATN secondary to cardiorenal syndrome. Creatinine 2.11 today. 2. 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 Baseline creatinine 1.5-2. 3. Acute hypoxic respiratory failure secondary to volume overload. 4. Diastolic CHF with moderate mitral regurgitation, severe tricuspid regurgitation and moderate pulmonary hypertension. 5. Volume overload maintained on diuretics. 6. Metabolic acidosis secondary to acute kidney injury. 7. Left lower extremity cellulitis maintained on antibiotics. 8. Anemia of chronic kidney disease. Rule out iron deficiency. Plan: Maintain Lasix 40 mg daily. Check iron studies. Add Aranesp. Add oral sodium bicarbonate. Avoid nephrotoxins. Continue to monitor renal function and urine output. Thank you for the consultation. I will continue to follow the patient with you during her hospital stay.
[2018-07-24] MEDS ORDERED: DARBEPOETIN ALFA 40 MCG/0.4 ML SYRINGE SQ SCH (12:45)
[2018-07-24] MEDS: CALCIUM CARB-VIT D 500MG-200UN 1 EACH TAB PO SCH (13:08)
[2018-07-24] MEDS ORDERED: MAG HYDROX/AL HYDROX/SIMETH 30 ML CUP PO PRN (15:30)
--- NOTE | 2018-07-24 18:56 | CONS ---
CONSULTATION Mrs. Priest is an 88-year-old female who is seen for cardiac evaluation. The history was obtained from the patient as well as from the charts. Patient's old records were reviewed. The patient was admitted with a complaint of increasing shortness of breath over the last couple of weeks with some history suggestive of orthopnea and PND. This patient has a history of chronic hypoxic respiratory failure with multiple medical problems. Patient did not have any fever or chills. She had some non-productive cough. The patient also had some swelling in both legs with some redness of the left lower extremity. The patient had a history suggestive of orthopnea or PND. Patient was initially admitted to the medical floor. Subsequently patient was getting more short of breath and hypoxic, and she was admitted to the intensive care unit. Patient's initial blood gases showed pH of 7.38, pCO2 of 33, and PO2 was 319. Chest x- ray reviewed is suggestive of congestive cardiac failure. The patient has a known history of transcutaneous aortic valve replacement, history of pulmonary hypertension and history of predominantly right-sided failure. Patient has a history of normocytic normochromic anemia as well as chronic kidney failure. PAST MEDICAL HISTORY: Includes: 1. History of transcutaneous aortic valve replacement. 2. History of moderate degree of mitral and severe degree of tricuspid regurgitation. 3. Pulmonary hypertension. 4. History of paroxysmal atrial fibrillation. 5. History of partial left hip replacement with antibiotic spacer. HOME MEDICATIONS: Home medications included: 1. Amitriptyline. 2. Neurontin. 3. Claritin. 4. Lopressor 12.5 mg daily. 5. Eliquis 2.5 mg b.i.d. 6. Lasix 40 mg in the morning and 20 mg in the evening. PHYSICAL EXAMINATION: Initial vital signs in the emergency room revealed hypoxia at times with the pulse oximeter 85 to 77. The patient had a temperature of 100.9. Heart rate now is 72 per minute. Patient is afebrile. Blood pressure is 102/70 mmHg, oxygen saturation 98%. Head/ENT examination is negative. Neck is supple. Jugular venous pressure is difficult to assess. HEART: First and second heart sounds are heard. Prosthetic sounds are well heard. Lung examination reveals a few basal crackles. Abdomen is negative. EXTREMITIES: There is bilateral pedal edema. Chest x-ray is suggestive of congestive cardiac failure. The patient's hemoglobin is 8.5. Electrolytes are normal. Creatinine is 2.1. Patient's initial troponin was 0.053. ProBNP level was 22,000. FINAL IMPRESSION: This patient was admitted with shortness of breath which appears to be acute on chronic congestive cardiac failure. Patient is status post aortic valve replacement. Echocardiogram reveals a normally functioning aortic valve. There is evidence of significant severe tricuspid regurgitation and pulmonary hypertension. Right atrial pressure is elevated. Pulmonary artery diastolic pressure is calculated in the range of 16 to 20 mm of Hg. Mild rise in the troponin is secondary to supply and demand mismatch and hypoxia, and it is not suggestive of type 1 acute coronary syndrome. RECOMMENDATIONS: We will recommend to treat the patient with Lasix 40 mg IV q.12 hourly. Patient at present is in normal sinus rhythm. We will discontinue aspirin and continue the patient on Eliquis 2.5 mg b.i.d. YURI / MANAV: [id number] /
[2018-07-24 19:04] LABS: Iron Saturation 3.99 (12.00-45.00)
[2018-07-24] MEDS ORDERED: Magnesium Replacement Protocol 1 EACH MISC MISCELLANE PRN (19:23)
[2018-07-24] MEDS: MEROPENEM 500 MG in SODIUM CHLORIDE 0.9% 50 ML IVPB SCH (21:50)
[2018-07-24] MEDS: MAGNESIUM SULFATE-D5W PMX 1 GM in DEXTROSE/WATER 1 100ML.BAG IVPB SCH ×2 (21:57→23:35)
[2018-07-24] MEDS: FUROSEMIDE 10 MG/ML 4 ML VIAL IV SCH (21:58)
[2018-07-24] MEDS: AMITRIPTYLINE HCL 10 MG TAB PO SCH (22:03)
[2018-07-24] MEDS: SODIUM BICARBONATE TAB 650 MG TAB PO SCH (22:06)
[2018-07-24] MEDS: SODIUM CHLORIDE 0.9% 1,000 ML IV SCH ×2 (22:15→22:36)
[2018-07-24] MEDS: POLYETHYLENE GLYCOL 3350 17 GM POWD.PACK PO SCH (22:31)
[2018-07-25 03:47] LABS: Iron Saturation 4.13 (12.00-45.00)
[2018-07-25 05:28] LABS: Anisocytosis Slight; HCT 29.6 % (34.0-46.0); HGB 8.9 gm/dL (11.4-16.0); Hypochromasia Marked; MCH 26.9 pg (25.0-35.0); MCHC 30.2 g/dL (31.0-37.0); MCV 89.3 fL (80.0-100.0); Mean Platelet Volume 7.3; Platelet Count 275 k/uL (150-450); RBC 3.32 m/uL (3.80-5.40); RDW 17.1 % (11.5-15.5); WBC 5.7 k/uL (3.8-10.6)
[2018-07-25 05:36] LABS: Potassium 4.2 mmol/L (3.5-5.1)
[2018-07-25 05:37] LABS: Calcium 7.6 mg/dL (8.4-10.2); Magnesium 2.6 mg/dL (1.6-2.3); Phosphorus 4.6 mg/dL (2.5-4.5)
[2018-07-25 05:43] LABS: Vancomycin,Random 20.8 ug/mL
[2018-07-25 05:59] LABS: Eosinophils # (M) 0.11 k/uL (0-0.7); Monocytes # (M) 0.68 k/uL (0-1.0); Neutrophils % (M) 79 %; Nucleated Red Blood Cells 0 /100 WBC (0-0); Total Cells Counted 100
[2018-07-25 06:00] LABS: Poikilocytosis (M) Present; Polychromasia Present; Target Cells Present
[2018-07-25] MEDS: LEVOTHYROXINE 125 MCG TAB PO SCH (06:09)
[2018-07-25] MEDS: PANTOPRAZOLE 40 MG TABLET PO SCH (07:43)
[2018-07-25] MEDS: MEROPENEM 500 MG in SODIUM CHLORIDE 0.9% 50 ML IVPB SCH ×2 (07:44→20:59)
[2018-07-25] MEDS: ALBUTEROL NEBULIZED 2.5 MG/3 ML INHALATION SCH ×4 (08:09→19:43)
--- NOTE | 2018-07-25 08:11 | P.PN ---
Progress Note - Text The patient is a 88-year-old female who is in the intensive care unit here at [facility]. Patient developed acute on chronic respiratory failure secondary to acute on chronic diastolic congestive heart failure. Along with left lower lobe pneumonia possibility. Patient has underlying chronic kidney disease Previous transcutaneous aortic valve replacement and pacemaker placement Hypertensive heart disease and paroxysmal atrial fibrillation presently in sinus rhythm on Eloquis Multiple medical ALLERGIES Medical debility and frail state along with immobility secondary to diffuse osteoarthritis. Patient appeared to have somewhat of a choking spell this morning while she was eating her toast. Overall though she appears to be more comfortable. Her vital signs show temperature 97.4 with a pulse of 81 and respirations 18. Blood pressure 110/78 and she is 94% saturated on room air. She does have some chronic rhonchi and rales in the lung burks. Posteriorly but generally sounds improved. Heart tones were for the most part regular this morning. Abdomen nontender. Edema and erythema. Be improved of the lower extremities. No new focal neurological changes. She is generally alert and oriented. Laboratory White count is 5.7 with a hemoglobin 8.9 and a platelet count of 275. Sodium is 139 with a potassium 4.2 and a CO2 content of 21. BUN is risen to 84 with a creatinine 2.25 given her GFR of 19. Magnesium is 2.6. Phosphorus 4.6 and calcium 7.6. Troponin did rise but has decreased back to 0.027. Iron saturation is low at 4.13. Vancomycin level was 20.8. Chest x-ray report is pending but appears to show fairly clear right lung burks. Cardiomegaly. Focal to evaluate left lower lung field on the single view. Impressions and plans Acute on chronic diastolic congestive heart failure Acute on chronic stage IV renal failure Paroxysmal atrial fibrillation Acute on chronic respiratory failure secondary to above. Difficulty swallowing. Discussed with the nursing staff at bedside. We'll arrange for swallowing evaluation. She is presently maintained on IV Lasix Also on vancomycin and Merrem antibiotics. We'll await further recommendations from pulmonary, cardiology and nephrology. Guarded prognosis.
--- NOTE | 2018-07-25 09:28 | XR ---
EXAMINATION TYPE: XR chest 1V DATE OF EXAM: 07/25/2018 COMPARISON: Prior chest x-ray 07/24/2018 HISTORY: Respiratory distress TECHNIQUE: Single frontal view of the chest is obtained. FINDINGS: Patient is rotated. Pacemaker is present in the left pectoral region, there are leads in t he right atrium and ventricle as on prior. Destructive changes are noted of the shoulders, there may be chronic dislocation. The heart is enlarged. Aortic valve distribution shows stent in place. Retroc ardiac density is present, left hemidiaphragm is obscured. No evident pneumothorax. Interstitium thou ght to be improved. Aorta is dense. No pneumothorax. IMPRESSION: Suspect there is some improvement in aeration, findings status. Probable left lower lobe atelectasis versus pneumonia, associated effusion versus edema. Stable cardiomegaly. Additional find ings above.
[2018-07-25] MEDS: APIXABAN 2.5 MG TABLET PO SCH ×2 (10:16→20:56)
[2018-07-25] MEDS: DOCUSATE 100 MG CAP PO SCH (10:16)
[2018-07-25] MEDS: FUROSEMIDE 10 MG/ML 4 ML VIAL IV SCH ×2 (10:17→20:56)
[2018-07-25] MEDS: GABAPENTIN 100 MG CAP PO SCH ×2 (10:19→20:56)
[2018-07-25] MEDS: LORATADINE 10 MG TAB PO SCH (10:20)
[2018-07-25] MEDS: METOPROLOL TARTRATE 25 MG TAB PO SCH (10:20)
[2018-07-25] MEDS: SODIUM BICARBONATE TAB 650 MG TAB PO SCH ×2 (10:21→20:57)
--- NOTE | 2018-07-25 11:04 | P.PN ---
Subjective Patient is seen in follow-up for acute kidney injury on chronic kidney disease. 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 Baseline creatinine is in the range of 1.5-2. Renal function today is mildly worse with creatinine at 2.25. Urine output was low last night. Currently maintained on Lasix 40 mg IV twice daily. Oral intake remains poor. No vomiting or diarrhea. Vital signs are stable. General: The patient appeared well nourished and normally developed. HEENT: Head exam is unremarkable. Neck is without jugular venous distension. LUNGS: Breath sounds decreased. HEART: Rate and Rhythm are regular. First and second heart sounds normal. No murmurs, rubs or gallops. ABDOMEN: Abdominal exam reveals normal bowel sounds. Non-tender and non- distended. No evidence of peritonitis. EXTREMITITES: No clubbing, cyanosis, or edema. Objective - Vital Signs Vital signs: Vital Signs Temp 97.4 F L 07/25/18 04:00 Pulse 84 07/25/18 08:20 Resp 18 07/25/18 08:00 BP 110/78 07/25/18 04:00 Pulse Ox 94 L 07/25/18 04:00 Intake & Output 07/24/18 07/25/18 07/25/18 18:59 06:59 18:59 Intake Total 620 1020 120 Output Total 450 260 0 Balance 170 760 120 Weight 65 kg Intake: IV 200 240 70 Meropenem 500 mg In 50 Sodium Chloride 0.9% 50 ml @ 100 mls/hr IVPB Q12HR [facility] Rx#:[id number] Sodium Chloride 0.9% 1, 200 240 20 000 ml @ 20 mls/hr IV . Q24H [facility] Rx#:[id number] Intake, IV Titration 20 300 Amount Magnesium Sulfate-D5w Pmx 200 1 gm In Dextrose/Water 1 100ml.bag @ 100 mls/hr IVPB Q1H [facility] Rx#: [id number] Sodium Chloride 0.9% 1, 20 100 000 ml @ 20 mls/hr IV . Q24H [facility] Rx#:[id number] Oral 400 480 Tube Feeding 50 Output: Urine 450 260 0 Other: Voiding Method Bedpan Indwelling Catheter - Labs CBC & Chem 7: 07/25/18 05:20 07/25/18 05:20 Labs: Abnormal Lab Results - Last 24 Hours (Table) 07/23/18 07/24/18 07/24/18 Range/Units 19:07 05:12 13:51 RBC (3.80-5.40) m/uL Hgb (11.4-16.0) gm/dL Hct (34.0-46.0) % MCHC (31.0-37.0) g/dL RDW (11.5-15.5) % Lymphocytes # (Manual) (1.0-4.8) k/uL Chloride (98-107) mmol/L Carbon Dioxide (22-30) mmol/L BUN (7-17) mg/dL Creatinine (0.52-1.04) mg/dL Calcium (8.4-10.2) mg/dL Phosphorus (2.5-4.5) mg/dL Magnesium (1.6-2.3) mg/dL Iron 11 L (50-170) ug/dL Iron Saturation 3.99 L (12.00-45.00) Ferritin 343.8 H (10.0-291.0) ng/mL Troponin I 0.043 H* (0.000-0.034) ng/mL Procalcitonin 1.15 H (0.02-0.09) ng/mL 07/24/18 07/24/18 07/25/18 Range/Units 19:35 19:35 05:20 RBC 3.32 L (3.80-5.40) m/uL Hgb 8.9 L (11.4-16.0) gm/dL Hct 29.6 L (34.0-46.0) % MCHC 30.2 L (31.0-37.0) g/dL RDW 17.1 H (11.5-15.5) % Lymphocytes # (Manual) 0.40 L (1.0-4.8) k/uL Chloride (98-107) mmol/L Carbon Dioxide (22-30) mmol/L BUN (7-17) mg/dL Creatinine (0.52-1.04) mg/dL Calcium (8.4-10.2) mg/dL Phosphorus (2.5-4.5) mg/dL Magnesium (1.6-2.3) mg/dL Iron 10 L (50-170) ug/dL Iron Saturation 4.13 L (12.00-45.00) Ferritin (10.0-291.0) ng/mL Troponin I 0.035 H* (0.000-0.034) ng/mL Procalcitonin (0.02-0.09) ng/mL 07/25/18 Range/Units 05:20 RBC (3.80-5.40) m/uL Hgb (11.4-16.0) gm/dL Hct (34.0-46.0) % MCHC (31.0-37.0) g/dL RDW (11.5-15.5) % Lymphocytes # (Manual) (1.0-4.8) k/uL Chloride 109 H (98-107) mmol/L Carbon Dioxide 21 L (22-30) mmol/L BUN 84 H (7-17) mg/dL Creatinine 2.25 H (0.52-1.04) mg/dL Calcium 7.6 L (8.4-10.2) mg/dL Phosphorus 4.6 H (2.5-4.5) mg/dL Magnesium 2.6 H (1.6-2.3) mg/dL Iron (50-170) ug/dL Iron Saturation (12.00-45.00) Ferritin (10.0-291.0) ng/mL Troponin I (0.000-0.034) ng/mL Procalcitonin (0.02-0.09) ng/mL Microbiology - Last 24 Hours (Table) 07/23/18 20:40 Blood Culture Gram Stain - Preliminary Blood 07/23/18 20:40 Blood Culture - Final Blood Assessment and Plan Plan: Assessment: 1. Acute kidney injury secondary to ATN secondary to cardiorenal syndrome. Renal function slightly worse. Creatinine 2.25 today. 2. 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 Baseline creatinine 1.5-2. 3. Acute hypoxic respiratory failure secondary to volume overload. 4. Diastolic CHF with moderate mitral regurgitation, severe tricuspid regurgitation and moderate pulmonary hypertension. 5. Volume overload maintained on diuretics. 6. Metabolic acidosis secondary to acute kidney injury. Better. 7. Left lower extremity cellulitis maintained on antibiotics. 8. Anemia of chronic kidney disease. Iron deficiency noted. Maintained on Aranesp. Plan: Maintain Lasix 40 mg IV twice daily. Strict I's and O's. IV iron 3 doses. Add Aranesp. Maintain oral sodium bicarbonate. Avoid nephrotoxins. Continue to monitor renal function and urine output. I did discuss with the patient and the family the potential need for renal replacement therapy if no improvement in urine output in the next 24-48 hours. Monitor vancomycin levels closely. Target level 20.
[2018-07-25] MEDS: CALCIUM CARB-VIT D 500MG-200UN 1 EACH TAB PO SCH (12:30)
[2018-07-25] MEDS: SODIUM FERRIC GLUCONAT-SUCROSE 125 MG in SODIUM CHLORIDE 0.9% 100 ML IVPB SCH (12:30)
--- NOTE | 2018-07-25 14:27 | P.PN ---
Subjective Progress Note Date: 07/25/18 Principal diagnosis: Acute on chronic hypoxemic respiratory failure with acute decompensation. This is a 88-year-old female patient who was brought into the hospital because of worsening shortness of breath. The patient chronic dyspnea and chronic hypoxic respiratory failure related to multiple medical problems and comorbidities. She denies having any cough or sputum production. She has chronic swelling in lower extremities. There is some increased redness and early changes of cellulitis involving left lower extremity. Noted the legs are chronically edematous. No open wounds or sores. No altered mentation. No pleurisy. No hemoptysis. No fever. No chills. No dysuria frequency or urgency. No altered mental status. The patient was initially sent to medical floor. Yesterday there was a concern that the patient was getting more short of breath and hypoxic. The patient was placed on 100% nonrebreather. The patient was brought into the intensive care. At that point, blood gases was done that showed a pH of 7.38 with a pCO2 of 33 and pO2 of 319. The FiO2 has been weaned down to 4 L of oxygen by nasal cannula. Note that at home she is at 2 L. The patient has a mild component of non-anion gap metabolic acidosis. The white cell count is not elevated. Hemoglobin stable at 8.5 and the patient has chronic normocytic anemia. D-dimer is at 2.56 which is a nonspecific finding. UA is negative. The patient has chronic kidney disease in the creatinine is stable at 2.1. The patient was started on a combination of meropenem and vancomycin. This is adequate coverage for left lower extremity cellulitis. The chest x-ray shows hepatomegaly and pulmonary vessel congestion. No clear-cut consolidation or airspace disease. This patient is quite debilitated. She lives in an assisted living setting. She has an extensive cardiac history. She has history of valvular heart disease specifically the aortic valve and the patient has undergone a previous aortic valve replacement, percutaneously, TAVR, and the patient has moderate to severe mitral regurgitation and secondary pulmonary hypertension and signs of right-sided heart failure, chronic paroxysmal atrial fibrillation, her left continue ejection fraction was 55% please echocardiogram's, she has chronic stage IV kidney disease, previous history of CVA, chronic anemia, chronic venous insufficiency and chronic edema lower extremities bilaterally. She has also multiple other comorbidities including are less, IBS, migraines, hypothyroidism and severe degenerative arthritis. She is a high risk of falls. She is able to swallow well. No reported aspiration. He was in the hospital in April 2018 for acute sepsis and Proteus urinary tract infection. She had also redness in her left foot and she was placed on IV antibiotics. She has been treated with podiatry in the past. The patient is seen today 07/25/2018 in follow-up in the intensive care unit. She is currently awake and alert in no acute distress. She is recovered and maintaining O2 saturation in the 90s on room air now. She's been afebrile. Remains in atrial fibrillation. Blood pressure stable. Anticoagulated with Eliquis. Chest x-ray shows some improvement in aeration. There is a suspected left lower lobe atelectasis versus pneumonia with associated effusion versus edema. She remains on Lasix 40 mg IV every 12 hours. Adequate urine output. She is covered with vancomycin and meropenem. Blood cultures pending. White count 5.7. Hemoglobin 8.9. Creatinine 2.25. Objective - Vital Signs Vital signs: Vital Signs Temp 97.4 F L 07/25/18 04:00 Pulse 84 07/25/18 08:20 Resp 18 07/25/18 08:00 BP 110/78 07/25/18 04:00 Pulse Ox 94 L 07/25/18 04:00 Intake & Output 07/24/18 07/25/18 07/25/18 18:59 06:59 18:59 Intake Total 620 1020 120 Output Total 450 260 0 Balance 170 760 120 Weight 65 kg Intake: IV 200 240 70 Meropenem 500 mg In 50 Sodium Chloride 0.9% 50 ml @ 100 mls/hr IVPB Q12HR [facility] Rx#:[id number] Sodium Chloride 0.9% 1, 200 240 20 000 ml @ 20 mls/hr IV . Q24H [facility] Rx#:[id number] Intake, IV Titration 20 300 Amount Magnesium Sulfate-D5w Pmx 200 1 gm In Dextrose/Water 1 100ml.bag @ 100 mls/hr IVPB Q1H [facility] Rx#: [id number] Sodium Chloride 0.9% 1, 20 100 000 ml @ 20 mls/hr IV . Q24H [facility] Rx#:[id number] Oral 400 480 Tube Feeding 50 Output: Urine 450 260 0 Other: Voiding Method Bedpan Indwelling Catheter - Exam Gen. appearance the patient is an elderly female, no acute distress, No active respiratory distress. Able to speak in full sentences good O2 saturations in the 90s on room air. Head exam was generally normal. There was no scleral icterus or corneal arcus. Mucous membranes were moist. Neck was supple and with jugular venous distension, thyromegaly, or carotid bruits. Carotids were easily palpable bilaterally. There was no adenopathy. There is bilateral jugular venous venous distention. No goiter or neck masses. Lips are blue and cyanotic Lung sounds are diminished bilaterally along with some bibasilar crackles. There is venous engorgement over the veins of the anterior chest. Heart sounds are regular, there is a systolic ejection murmur grade 2/6 systolic the precordium. There is also a aortic valve click heard over the anterior chest. Abdomen is slightly distended. There may be an underlying ascites. No direct tenderness. No rebound tensile guarding. No significant organomegaly. His umbilical hernia. Extremities are showing trace edema and there is diffuse degenerative arthritis with deformities. No cyanosis. No clubbing at this point. There is indication of a left lower eczematous cellulitis. There is erythema is extending from the ankle all the way up to the area below the knee. The area is warm and red. No open wounds or ulceration. As mentioned, there is chronic venous stasis and some chronic edema in lower extremities bilaterally. Neurologically the patient is awake and alert and sequential following commands and there is no focal neurological deficit at this po - Labs CBC & Chem 7: 07/25/18 05:20 07/25/18 05:20 Labs: Abnormal Lab Results - Last 24 Hours (Table) 07/23/18 07/24/18 07/24/18 Range/Units 19:07 05:12 13:51 RBC (3.80-5.40) m/uL Hgb (11.4-16.0) gm/dL Hct (34.0-46.0) % MCHC (31.0-37.0) g/dL RDW (11.5-15.5) % Lymphocytes # (Manual) (1.0-4.8) k/uL Chloride (98-107) mmol/L Carbon Dioxide (22-30) mmol/L BUN (7-17) mg/dL Creatinine (0.52-1.04) mg/dL Calcium (8.4-10.2) mg/dL Phosphorus (2.5-4.5) mg/dL Magnesium (1.6-2.3) mg/dL Iron 11 L (50-170) ug/dL Iron Saturation 3.99 L (12.00-45.00) Ferritin 343.8 H (10.0-291.0) ng/mL Troponin I 0.043 H* (0.000-0.034) ng/mL Procalcitonin 1.15 H (0.02-0.09) ng/mL 07/24/18 07/24/18 07/25/18 Range/Units 19:35 19:35 05:20 RBC 3.32 L (3.80-5.40) m/uL Hgb 8.9 L (11.4-16.0) gm/dL Hct 29.6 L (34.0-46.0) % MCHC 30.2 L (31.0-37.0) g/dL RDW 17.1 H (11.5-15.5) % Lymphocytes # (Manual) 0.40 L (1.0-4.8) k/uL Chloride (98-107) mmol/L Carbon Dioxide (22-30) mmol/L BUN (7-17) mg/dL Creatinine (0.52-1.04) mg/dL Calcium (8.4-10.2) mg/dL Phosphorus (2.5-4.5) mg/dL Magnesium (1.6-2.3) mg/dL Iron 10 L (50-170) ug/dL Iron Saturation 4.13 L (12.00-45.00) Ferritin (10.0-291.0) ng/mL Troponin I 0.035 H* (0.000-0.034) ng/mL Procalcitonin (0.02-0.09) ng/mL 07/25/18 Range/Units 05:20 RBC (3.80-5.40) m/uL Hgb (11.4-16.0) gm/dL Hct (34.0-46.0) % MCHC (31.0-37.0) g/dL RDW (11.5-15.5) % Lymphocytes # (Manual) (1.0-4.8) k/uL Chloride 109 H (98-107) mmol/L Carbon Dioxide 21 L (22-30) mmol/L BUN 84 H (7-17) mg/dL Creatinine 2.25 H (0.52-1.04) mg/dL Calcium 7.6 L (8.4-10.2) mg/dL Phosphorus 4.6 H (2.5-4.5) mg/dL Magnesium 2.6 H (1.6-2.3) mg/dL Iron (50-170) ug/dL Iron Saturation (12.00-45.00) Ferritin (10.0-291.0) ng/mL Troponin I (0.000-0.034) ng/mL Procalcitonin (0.02-0.09) ng/mL Microbiology - Last 24 Hours (Table) 07/23/18 20:40 Blood Culture Gram Stain - Preliminary Blood 07/23/18 20:40 Blood Culture - Final Blood Assessment and Plan Assessment: Assessment 1 chronic hypoxic respiratory failure with acute decompensation. The patient came in to the ICU for worsening hypoxemia. Recovered and maintaining good O2 saturations in the 90s on room air. 2. Acute cellulitis of the left lower extremity 3 chronic dyspnea on the basis of CHF. The patient has an extensive cardiac history as mentioned 4 history of aortic valve replacement. The patient has undergone a TAVR and based on the most recent echocardiogram the patient has moderate to severe mitral regurgitation and severe pulmonary hypertension which is obviously secondary nature related to her valvular heart disease. 5 chronic proximal atrial fibrillation 6 history of pacemaker insertion 7 chronic renal failure, stage IV kidney disease and the patient's creatinine and GFR is stable for now 8 hypertension 9 chronic anemia stable 10 chronic degenerative arthritis involving the upper and lower extremities and the patient has had difficulty with mobility and previous history of falls 11 hypothyroidism 12 restless leg syndrome 13 previous history of hospitalization for UTI including infection with Proteus and the patient has multiple drug ALLERGIES. Her current UA is within normal limits 14 chronic venous insufficiency in the lower extremities 15 migraines 16 medical debility secondary to above-mentioned comorbidities Plan The patient was seen and evaluated by Dr. Magaña. Chest x-ray and labs were reviewed. She remains on IV diuretics for now. Continued on vancomycin and meropenem. Continue bronchodilators. O2 saturations have improved in the 90s on room air. We will continue to follow make further recommendations based on her clinical status. I, the cosigning physician, performed a history & physical examination of the patient. Lungs sounds with faint crackles in the posterior bases. Maintaining good O2 saturations in the 90s on room air. I discussed the assessment and plan of care with my nurse practitioner, Celina Urbina. I attest to the above note as dictated by her.
--- NOTE | 2018-07-25 15:56 | ECHOF ---
Referral Reason:chf MEASUREMENTS -------- HEIGHT: 152.4 cm WEIGHT: 55.8 kg BP: RVIDd: 2.4 cm (< 3.3) IVSd: 1.4 cm (0.6 - 1.1) LVIDd: 2.8 cm (3.9 - 5.3) LVPWd: 1.5 cm (0.6 - 1.1) IVSs: 1.5 cm LVIDs: 1.9 cm LVPWs: 1.5 cm LA Diam: 3.3 cm (2.7 - 3.8) MV E Evens: 1.15 m/s MV DecT: 299 ms MV A Evens: 1.43 m/s MV E/A Ratio: 0.80 AV maxP.57 mmHg AV meanP.97 mmHg RAP: 5.00 mmHg RVSP: 50.82 mmHg FINDINGS -------- Paced rhythm. This was a technically adequate study. The left ventricular size is normal. There is mild concentric left ventricular hypertrophy. Overa ll left ventricular systolic function is low-normal with, an EF between 50 - 55 %. The right ventricle is normal in size. The left atrial size is normal. The right atrial size is normal. Peak/mean gradient across the Aortic Valve is 6.57mmHg / 3.97mmHg. Normally functioning bioprosthet ic valve. Mild mitral annular calcification present. Mild mitral regurgitation is present. Moderate to severe tricuspid regurgitation present. There is moderate pulmonary hypertension. The right ventricular systolic pressure, as measured by Doppler, is 50.82mmHg. There is no pulmonic regurgitation present. The aortic root size is normal. There is no pericardial effusion. CONCLUSIONS -------- 1. The left ventricular size is normal. 2. There is mild concentric left ventricular hypertrophy. 3. Overall left ventricular systolic function is low-normal with, an EF between 50 - 55 %. 4. The right ventricle is normal in size. 5. The left atrial size is normal. 6. The right atrial size is normal. 7. Peak/mean gradient across the Aortic Valve is 6.57mmHg / 3.97mmHg. 8. Normally functioning bioprosthetic valve. 9. Mild mitral annular calcification present. 10. Mild mitral regurgitation is present. 11. Moderate to severe tricuspid regurgitation present. 12. There is moderate pulmonary hypertension. 13. The right ventricular systolic pressure, as measured by Doppler, is 50.82mmHg. 14. There is no pulmonic regurgitation present. 15. The aortic root size is normal. 16. There is no pericardial effusion. [employer]KE BACKBOARD NOTCHER: Minerva Tinsley RDCS
--- NOTE | 2018-07-25 18:39 | PN ---
PROGRESS NOTE This patient was admitted with acute respiratory distress it is contributed to acute congestive cardiac failure with a significant pulmonary hypertension. Patient also has elevated left atrial pressure. Patient is feeling well. He is comfortable. Oxygen saturation remains in the 90s without any oxygen. Heart rate is 84 per minute, blood pressure is 110/80 mmHg. First and second heart sounds are normal. Lungs reveal fairly clear to auscultation and percussion. Patient's creatinine is 2.25. The patient had 2 sets of elevated troponin which is secondary to supply and demand mismatch and hypoxia and underlying heart failure. The overall symptoms are not suggestive of acute coronary syndrome type 1. MMODL / IJN: [id number] /
[2018-07-25] MEDS: POLYETHYLENE GLYCOL 3350 17 GM POWD.PACK PO SCH (20:56)
[2018-07-25] MEDS: AMITRIPTYLINE HCL 10 MG TAB PO SCH (20:56)
[2018-07-25] MEDS ORDERED: VANCOMYCIN 1,000 MG in SODIUM CHLORIDE 0.9% 250 ML IVPB ONE (21:00)
[2018-07-25] MEDS: HYDROcodone/APAP 7.5-325MG 1 EACH TAB PO PRN (21:25)
[2018-07-26 04:55] LABS: Anisocytosis Slight; HCT 31.4 % (34.0-46.0); HGB 9.3 gm/dL (11.4-16.0); Hypochromasia Marked; MCH 26.2 pg (25.0-35.0); MCHC 29.7 g/dL (31.0-37.0); MCV 88.3 fL (80.0-100.0); Mean Platelet Volume 6.9; Platelet Count 329 k/uL (150-450); Poikilocytosis Slight; RBC 3.55 m/uL (3.80-5.40); RDW 17.3 % (11.5-15.5); WBC 6.3 k/uL (3.8-10.6)
[2018-07-26 05:03] LABS: Calcium 7.9 mg/dL (8.4-10.2); Potassium 4.3 mmol/L (3.5-5.1)
[2018-07-26 05:34] LABS: Eosinophils # (M) 0.38 k/uL (0-0.7); Monocytes # (M) 0.63 k/uL (0-1.0); Neutrophils # (M) 4.79 k/uL (1.3-7.7); Neutrophils % (M) 76 %; Nucleated Red Blood Cells 0 /100 WBC (0-0); Total Cells Counted 100
[2018-07-26 05:35] LABS: Polychromasia Present
[2018-07-26] MEDS: LEVOTHYROXINE 125 MCG TAB PO SCH (06:55)
[2018-07-26] MEDS: PANTOPRAZOLE 40 MG TABLET PO SCH (06:55)
--- NOTE | 2018-07-26 08:06 | P.PN ---
Progress Note - Text The patient is an 88-year-old female who developed acute on chronic respiratory failure secondary to acute on chronic diastolic congestive heart failure with left lower lobe pneumonia. Cellulitis of the lower extremities. Patient does have Chronic kidney disease Previous transcutaneous aortic valve replacement and pacemaker placement Hypertensive heart disease Paroxysmal atrial fibrillation on [place] Multiple medical ALLERGIES which include multiple antibiotics Underlying medical debility and frail state along with diffuse osteoarthritis with immobility concerned the She sitting up in a chair in her room this morning. She is generally alert and oriented and does not appear to be in any acute distress. No unusual chest pain. Vital signs show temperature 98.2 axillary, pulse of 92 and respiratory rate of 16. Blood pressure 125/87. Lungs have some chronic rhonchi and rales at the bases. Heart tones were for the most part regular. Control. Abdomen nontender. Fairly cleared of the erythema of the right lower extremity. There is more scaling and erythema of the left lower extremity. Edema is down. Generalized weakness but no focal neurological weakness noted. Laboratory White count 6.3 with a hemoglobin 9.3 and a platelet count of 329. Sodium is 140 with potassium 4.3. CO2 content of 21 BUN and creatinine elevated at 85 and 2.2 for given her GFR 19 which is stable. Chest x-ray to follow. Effusions weight is down from 65 down to 62.6 kg. It appears that she has had approximately 2-400 mL output during shifts. Impressions and plans Notes from pulmonary medicine, cardiology and nephrology regarded. The patient continues on antibiotics in the form of Merrem. Also vancomycin. We'll await further recommendation from nephrology regarding renal status. She presently is on IV Lasix. 40 mg twice a day. Prognosis is guarded. Physical therapy and speech therapy for swallowing problems has been ordered.
--- NOTE | 2018-07-26 08:56 | XR ---
EXAMINATION TYPE: XR chest 1V DATE OF EXAM: 07/26/2018 COMPARISON: 07/25/2018 HISTORY: Respiratory distress FINDINGS: There are bilateral pleural effusions with cardiomegaly and bibasilar infiltrate. There is a diffuse interstitial pattern. Cardiac device and atherosclerotic change stable. Intracardiac stents stable. No pneumothorax. Severe arthropathy of the shoulders correlate for history of rheumatoid arthritis. IMPRESSION: 1. Stable x-ray with bilateral consolidation and pleural effusion in a pattern most typical of CHF. U nderlying pneumonia not excluded.
[2018-07-26] MEDS: ALBUTEROL NEBULIZED 2.5 MG/3 ML INHALATION SCH ×4 (09:35→20:49)
[2018-07-26] MEDS: MEROPENEM 500 MG in SODIUM CHLORIDE 0.9% 50 ML IVPB SCH ×2 (09:56→20:29)
[2018-07-26] MEDS: HYDROcodone/APAP 7.5-325MG 1 EACH TAB PO PRN ×2 (09:56→20:30)
[2018-07-26] MEDS: FUROSEMIDE 10 MG/ML 4 ML VIAL IV SCH (09:57)
[2018-07-26] MEDS: GABAPENTIN 100 MG CAP PO SCH ×2 (09:57→20:29)
[2018-07-26] MEDS: LORATADINE 10 MG TAB PO SCH (09:57)
[2018-07-26] MEDS: METOPROLOL TARTRATE 25 MG TAB PO SCH (09:58)
[2018-07-26] MEDS: DOCUSATE 100 MG CAP PO SCH (09:58)
[2018-07-26] MEDS: APIXABAN 2.5 MG TABLET PO SCH ×2 (09:58→20:28)
[2018-07-26] MEDS: SODIUM BICARBONATE TAB 650 MG TAB PO SCH ×2 (09:58→20:30)
[2018-07-26] MEDS: SODIUM FERRIC GLUCONAT-SUCROSE 125 MG in SODIUM CHLORIDE 0.9% 100 ML IVPB SCH (09:58)
--- NOTE | 2018-07-26 10:02 | P.PN ---
Subjective Patient is seen in follow-up for acute kidney injury on chronic kidney disease. 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 Baseline creatinine is in the range of 1.5-2. Renal function stable. Urine output was low last night. Currently maintained on Lasix 40 mg IV twice daily. Oral intake remains poor. No vomiting or diarrhea. Vital signs are stable. General: The patient appeared well nourished and normally developed. HEENT: Head exam is unremarkable. Neck is without jugular venous distension. LUNGS: Breath sounds decreased. HEART: Rate and Rhythm are regular. First and second heart sounds normal. No murmurs, rubs or gallops. ABDOMEN: Abdominal exam reveals normal bowel sounds. Non-tender and non- distended. No evidence of peritonitis. EXTREMITITES: No clubbing, cyanosis, or edema. Objective - Vital Signs Vital signs: Vital Signs Temp 98.2 F 07/26/18 04:00 Pulse 89 07/26/18 09:48 Resp 16 07/26/18 04:00 BP 125/87 07/26/18 04:00 Pulse Ox 92 L 07/25/18 16:00 Intake & Output 07/25/18 07/26/18 07/26/18 18:59 06:59 18:59 Intake Total 650 540 Output Total 430 700 Balance 220 -160 Weight 62.6 kg Intake: IV 150 50 Meropenem 500 mg In 50 50 Sodium Chloride 0.9% 50 ml @ 100 mls/hr IVPB Q12HR [facility] Rx#:[id number] Sodium Chloride 0.9% 1, 100 000 ml @ 20 mls/hr IV . Q24H [facility] Rx#:[id number] Intake, IV Titration 100 250 Amount Sodium Ferric Gluconat- 100 Sucrose 125 mg In Sodium Chloride 0.9% 100 ml @ 100 mls/hr IVPB DAILY [facility] Rx#:[id number] Vancomycin 1,000 mg In 250 Sodium Chloride 0.9% 250 ml @ 125 mls/hr IVPB ONCE ONE Rx#:[id number] Oral 350 240 Tube Feeding 50 Output: Urine 430 700 Other: Voiding Method Indwelling Catheter Indwelling Catheter - Labs CBC & Chem 7: 07/26/18 04:34 07/26/18 04:34 Labs: Abnormal Lab Results - Last 24 Hours (Table) 07/26/18 07/26/18 Range/Units 04:34 04:34 RBC 3.55 L (3.80-5.40) m/uL Hgb 9.3 L (11.4-16.0) gm/dL Hct 31.4 L (34.0-46.0) % MCHC 29.7 L (31.0-37.0) g/dL RDW 17.3 H (11.5-15.5) % Lymphocytes # (Manual) 0.50 L (1.0-4.8) k/uL Chloride 109 H (98-107) mmol/L Carbon Dioxide 21 L (22-30) mmol/L BUN 85 H (7-17) mg/dL Creatinine 2.24 H (0.52-1.04) mg/dL Calcium 7.9 L (8.4-10.2) mg/dL Microbiology - Last 24 Hours (Table) 07/23/18 20:40 Blood Culture Gram Stain - Preliminary Blood Blood Culture - Preliminary Corynebacterium striatum Assessment and Plan Plan: Assessment: 1. Acute kidney injury secondary to ATN secondary to cardiorenal syndrome. Renal function stable. Creatinine 2.24 today. 2. 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 Baseline creatinine 1.5-2. 3. Acute hypoxic respiratory failure secondary to volume overload. 4. Diastolic CHF with moderate mitral regurgitation, severe tricuspid regurgitation and moderate pulmonary hypertension. 5. Volume overload maintained on diuretics. 6. Metabolic acidosis secondary to acute kidney injury. 7. Left lower extremity cellulitis maintained on antibiotics. 8. Anemia of chronic kidney disease. Iron deficiency noted. Maintained on Aranesp. 9. Corynebacterium bacteremia. Plan: Increase Lasix to 60 mg IV twice daily for now. Strict I's and O's. Hold off on IV iron due to bacteremia. Maintain Aranesp. Maintain oral sodium bicarbonate. Avoid nephrotoxins. Continue to monitor renal function and urine output. Monitor vancomycin levels closely. Target level 20.
[2018-07-26] MEDS ORDERED: CALCIUM CARBONATE 500 MG CHEWABLE PO PRN (12:15)
[2018-07-26] MEDS: CALCIUM CARB-VIT D 500MG-200UN 1 EACH TAB PO SCH (12:21)
--- NOTE | 2018-07-26 18:16 | P.PN ---
Subjective Progress Note Date: 07/26/18 Principal diagnosis: Acute on chronic hypoxemic respiratory failure with acute decompensation. This is a 88-year-old female patient who was brought into the hospital because of worsening shortness of breath. The patient chronic dyspnea and chronic hypoxic respiratory failure related to multiple medical problems and comorbidities. She denies having any cough or sputum production. She has chronic swelling in lower extremities. There is some increased redness and early changes of cellulitis involving left lower extremity. Noted the legs are chronically edematous. No open wounds or sores. No altered mentation. No pleurisy. No hemoptysis. No fever. No chills. No dysuria frequency or urgency. No altered mental status. The patient was initially sent to medical floor. Yesterday there was a concern that the patient was getting more short of breath and hypoxic. The patient was placed on 100% nonrebreather. The patient was brought into the intensive care. At that point, blood gases was done that showed a pH of 7.38 with a pCO2 of 33 and pO2 of 319. The FiO2 has been weaned down to 4 L of oxygen by nasal cannula. Note that at home she is at 2 L. The patient has a mild component of non-anion gap metabolic acidosis. The white cell count is not elevated. Hemoglobin stable at 8.5 and the patient has chronic normocytic anemia. D-dimer is at 2.56 which is a nonspecific finding. UA is negative. The patient has chronic kidney disease in the creatinine is stable at 2.1. The patient was started on a combination of meropenem and vancomycin. This is adequate coverage for left lower extremity cellulitis. The chest x-ray shows hepatomegaly and pulmonary vessel congestion. No clear-cut consolidation or airspace disease. This patient is quite debilitated. She lives in an assisted living setting. She has an extensive cardiac history. She has history of valvular heart disease specifically the aortic valve and the patient has undergone a previous aortic valve replacement, percutaneously, TAVR, and the patient has moderate to severe mitral regurgitation and secondary pulmonary hypertension and signs of right-sided heart failure, chronic paroxysmal atrial fibrillation, her left continue ejection fraction was 55% please echocardiogram's, she has chronic stage IV kidney disease, previous history of CVA, chronic anemia, chronic venous insufficiency and chronic edema lower extremities bilaterally. She has also multiple other comorbidities including are less, IBS, migraines, hypothyroidism and severe degenerative arthritis. She is a high risk of falls. She is able to swallow well. No reported aspiration. He was in the hospital in April 2018 for acute sepsis and Proteus urinary tract infection. She had also redness in her left foot and she was placed on IV antibiotics. She has been treated with podiatry in the past. The patient is seen today 07/25/2018 in follow-up in the intensive care unit. She is currently awake and alert in no acute distress. She is recovered and maintaining O2 saturation in the 90s on room air now. She's been afebrile. Remains in atrial fibrillation. Blood pressure stable. Anticoagulated with Eliquis. Chest x-ray shows some improvement in aeration. There is a suspected left lower lobe atelectasis versus pneumonia with associated effusion versus edema. She remains on Lasix 40 mg IV every 12 hours. Adequate urine output. She is covered with vancomycin and meropenem. Blood cultures pending. White count 5.7. Hemoglobin 8.9. Creatinine 2.25. The patient is seen again today 07/26/2018 in follow-up in the intensive care unit. She is currently sitting up in a chair at the bedside. She is awake and alert in no acute distress. She is maintaining good O2 saturations in the 90s on room air. Chest x-ray reveals stable bilateral consolidation and pleural effusions most of the left congestive heart failure. Remains on Lasix 60 mg IV every 12 hours. She's been afebrile. Hemodynamically stable. Final blood culture revealed corynebacterium striatum. Remains on meropenem and vancomycin. White count 6.3. Hemoglobin 9.3. Creatinine 2.24. Objective - Vital Signs Vital signs: Vital Signs Temp 97.5 F L 07/26/18 12:00 Pulse 87 07/26/18 17:16 Resp 21 07/26/18 12:00 BP 112/68 07/26/18 12:00 Pulse Ox 98 07/26/18 12:00 Intake & Output 07/25/18 07/26/18 07/26/18 18:59 06:59 18:59 Intake Total 650 540 170 Output Total 430 700 550 Balance 220 -160 -380 Weight 62.6 kg Intake: IV 150 50 170 Meropenem 500 mg In 50 50 50 Sodium Chloride 0.9% 50 ml @ 100 mls/hr IVPB Q12HR [facility] Rx#:[id number] Sodium Chloride 0.9% 1, 100 20 000 ml @ 20 mls/hr IV . Q24H [facility] Rx#:[id number] Sodium Ferric Gluconat- 100 Sucrose 125 mg In Sodium Chloride 0.9% 100 ml @ 100 mls/hr IVPB DAILY [facility] Rx#:[id number] Intake, IV Titration 100 250 Amount Sodium Ferric Gluconat- 100 Sucrose 125 mg In Sodium Chloride 0.9% 100 ml @ 100 mls/hr IVPB DAILY [facility] Rx#:[id number] Vancomycin 1,000 mg In 250 Sodium Chloride 0.9% 250 ml @ 125 mls/hr IVPB [facility]CE [facility] Rx#:[id number] Oral 350 240 Tube Feeding 50 Output: Urine 430 700 550 Other: Voiding Method Indwelling Catheter Indwelling Catheter Indwelling Catheter - Exam Gen. appearance the patient is an elderly female, no acute distress, No active respiratory distress. Able to speak in full sentences good O2 saturations in the 90s on room air. In a chair at the bedside. Head exam was generally normal. There was no scleral icterus or corneal arcus. Mucous membranes were moist. Neck was supple and with jugular venous distension, thyromegaly, or carotid bruits. Carotids were easily palpable bilaterally. There was no adenopathy. There is bilateral jugular venous venous distention. No goiter or neck masses. Lips are blue and cyanotic Lung sounds are diminished bilaterally along with some bibasilar crackles. There is venous engorgement over the veins of the anterior chest. Heart sounds are regular, there is a systolic ejection murmur grade 2/6 systolic the precordium. There is also a aortic valve click heard over the anterior chest. Abdomen is slightly distended. There may be an underlying ascites. No direct tenderness. No rebound tensile guarding. No significant organomegaly. His umbilical hernia. Extremities are showing trace edema and there is diffuse degenerative arthritis with deformities. No cyanosis. No clubbing at this point. There is indication of a left lower eczematous cellulitis. There is erythema is extending from the ankle all the way up to the area below the knee. The area is warm and red. No open wounds or ulceration. As mentioned, there is chronic venous stasis and some chronic edema in lower extremities bilaterally. Neurologically the patient is awake and alert and sequential following commands and there is no focal neurological deficit at this po - Labs CBC & Chem 7: 07/26/18 04:34 07/26/18 04:34 Labs: Abnormal Lab Results - Last 24 Hours (Table) 07/26/18 07/26/18 Range/Units 04:34 04:34 RBC 3.55 L (3.80-5.40) m/uL Hgb 9.3 L (11.4-16.0) gm/dL Hct 31.4 L (34.0-46.0) % MCHC 29.7 L (31.0-37.0) g/dL RDW 17.3 H (11.5-15.5) % Lymphocytes # (Manual) 0.50 L (1.0-4.8) k/uL Chloride 109 H (98-107) mmol/L Carbon Dioxide 21 L (22-30) mmol/L BUN 85 H (7-17) mg/dL Creatinine 2.24 H (0.52-1.04) mg/dL Calcium 7.9 L (8.4-10.2) mg/dL Microbiology - Last 24 Hours (Table) 07/23/18 20:40 Blood Culture Gram Stain - Final Blood Blood Culture - Final Corynebacterium striatum Assessment and Plan Assessment: Assessment 1 chronic hypoxic respiratory failure with acute decompensation. The patient came in to the ICU for worsening hypoxemia. Recovered and maintaining good O2 saturations in the 90s on room air. 2. Acute cellulitis of the left lower extremity remains on vancomycin and meropenem. 3 chronic dyspnea on the basis of CHF. The patient has an extensive cardiac history as mentioned 4 history of aortic valve replacement. The patient has undergone a TAVR and based on the most recent echocardiogram the patient has moderate to severe mitral regurgitation and severe pulmonary hypertension which is obviously secondary nature related to her valvular heart disease. 5 chronic proximal atrial fibrillation 6 history of pacemaker insertion 7 chronic renal failure, stage IV kidney disease and the patient's creatinine and GFR is stable for now 8 hypertension 9 chronic anemia stable 10 chronic degenerative arthritis involving the upper and lower extremities and the patient has had difficulty with mobility and previous history of falls 11 hypothyroidism 12 restless leg syndrome 13 previous history of hospitalization for UTI including infection with Proteus and the patient has multiple drug ALLERGIES. Her current UA is within normal limits 14 chronic venous insufficiency in the lower extremities 15 migraines 16 medical debility secondary to above-mentioned comorbidities Plan The patient was seen and evaluated by Dr. Magaña. Chest x-ray stable with bilateral consolidation and pleural effusions suggestive of continued congestive heart failure. She remains on IV diuretics for now. Continued on vancomycin and meropenem. Continue bronchodilators. O2 saturations have improved in the 90s on room air. We will continue to follow make further recommendations based on her clinical status. I, the cosigning physician, performed a history & physical examination of the patient. Lungs sounds with faint crackles in the posterior bases. Maintaining good O2 saturations in the 90s on room air. I discussed the assessment and plan of care with my nurse practitioner, Celina Urbina. I attest to the above note as dictated by her.
--- NOTE | 2018-07-26 18:58 | PN ---
PROGRESS NOTE This patient was admitted with acute respiratory distress. Patient has acute on chronic diastolic heart failure with significant right-sided heart failure. Pulmonary hypertension. She is feeling better. Her breathing is improved. Urine output remains good. The patient's creatinine remains in the range of 2.24. Electrolytes are normal. First and second heart sounds are normal. Lungs are clear. Chest x-ray shows improvement in the congestion. We will continue the patient on current medications. MMODL / IJN: [id number] /
[2018-07-26] MEDS: SODIUM CHLORIDE 0.9% 1,000 ML IV SCH (20:26)
[2018-07-26] MEDS: AMITRIPTYLINE HCL 10 MG TAB PO SCH (20:28)
[2018-07-26] MEDS: FUROSEMIDE 10 MG/ML 10 ML VIAL IV SCH (20:29)
[2018-07-26] MEDS: POLYETHYLENE GLYCOL 3350 17 GM POWD.PACK PO SCH (20:32)
[2018-07-27 06:03] LABS: Anisocytosis Slight; Basophils % (A) 1 %; Calcium 8.2 mg/dL (8.4-10.2); Eosinophils # (A) 0.2 k/uL (0-0.7); Eosinophils % (A) 4 %; HCT 33.8 % (34.0-46.0); HGB 10.1 gm/dL (11.4-16.0); Hypochromasia Marked; Lymphocytes # (A) 0.5 k/uL (1.0-4.8); Lymphocytes % (A) 8 %; MCH 26.5 pg (25.0-35.0); MCV 88.5 fL (80.0-100.0); Mean Platelet Volume 6.6; Monocytes # (A) 0.5 k/uL (0-1.0); Monocytes % (A) 8 %; Neutrophils # (A) 4.7 k/uL (1.3-7.7); Neutrophils % (A) 76 %; Platelet Count 378 k/uL (150-450); Potassium 4.3 mmol/L (3.5-5.1); RBC 3.82 m/uL (3.80-5.40); RDW 17.3 % (11.5-15.5); WBC 6.2 k/uL (3.8-10.6)
[2018-07-27 06:08] LABS: Vancomycin,Random 25.6 ug/mL
[2018-07-27] MEDS: LEVOTHYROXINE 125 MCG TAB PO SCH (06:16)
[2018-07-27] MEDS: PANTOPRAZOLE 40 MG TABLET PO SCH (06:42)
[2018-07-27] MEDS: ALBUTEROL NEBULIZED 2.5 MG/3 ML INHALATION SCH ×4 (07:15→19:21)
[2018-07-27] MEDS: MEROPENEM 500 MG in SODIUM CHLORIDE 0.9% 50 ML IVPB SCH ×2 (07:52→20:25)
[2018-07-27] MEDS: APIXABAN 2.5 MG TABLET PO SCH ×2 (07:57→20:25)
[2018-07-27] MEDS: DOCUSATE 100 MG CAP PO SCH (07:57)
[2018-07-27] MEDS: FUROSEMIDE 10 MG/ML 10 ML VIAL IV SCH (07:58)
[2018-07-27] MEDS: LORATADINE 10 MG TAB PO SCH (07:58)
[2018-07-27] MEDS: GABAPENTIN 100 MG CAP PO SCH ×2 (07:58→20:25)
[2018-07-27] MEDS: METOPROLOL TARTRATE 25 MG TAB PO SCH (07:58)
[2018-07-27] MEDS: SODIUM BICARBONATE TAB 650 MG TAB PO SCH ×2 (07:59→20:25)
--- NOTE | 2018-07-27 08:05 | P.PN ---
Progress Note - Text The patient is an 88-year-old female who developed acute on chronic respiratory failure secondary to acute on chronic diastolic congestive heart failure with left lower lobe pneumonia and cellulitis of the lower extremities. Primarily left. This was superimposed on Chronic kidney disease History of previous change cutaneous aortic valve replacement and pacemaker placement. Hypertensive heart disease Paroxysmal atrial fibrillation History of multiple medical ALLERGIES including antibiotics. Underlying medical call frailty and debility secondary to diffuse arthritis and immobility concerns. This morning she overall is alert and oriented. States she does feel better. Does not appear to be in distress sitting up in bed trying to eat some breakfast. Vital signs show a temperature of 97.8 with a pulse from 96 up to 110. Respirations 19 with blood pressure 118/69 and she is 95% saturated. Lungs are generally clear with few crpes at the bases. Heart tones were for the most part regular. Abdomen nontender. She does have some remaining erythema of the left lower extremity. No focal neurological changes. Laboratory White count is 6.2 with a hemoglobin 10.1 and a platelet count of 378. Sodium 142 with potassium 4.3. BUN is still 83 with a creatinine 2.18 given her GFR of 20. Blood sugar 104 with calcium 8.2. Vancomycin level was 25.6. Impressions and plans The patient with acute on chronic diastolic congestive heart failure with acute on chronic renal failure. Generally responding to treatment. She remains on IV Lasix at this time. Speech therapies note regarded. Advance activities as tolerated. Prognosis still overall guarded.
--- NOTE | 2018-07-27 08:31 | P.PN ---
Subjective Patient is seen in follow-up for acute kidney injury on chronic kidney disease. 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 Baseline creatinine is in the range of 1.5-2. Renal function stable. She is non-oliguric. Currently maintained on Lasix 60 mg IV twice daily. Oral intake is fair. No vomiting or diarrhea. Vital signs are stable. General: The patient appeared well nourished and normally developed. HEENT: Head exam is unremarkable. Neck is without jugular venous distension. LUNGS: Breath sounds decreased. HEART: Rate and Rhythm are regular. First and second heart sounds normal. No murmurs, rubs or gallops. ABDOMEN: Abdominal exam reveals normal bowel sounds. Non-tender and non- distended. No evidence of peritonitis. EXTREMITITES: Trace edema. Objective - Vital Signs Vital signs: Vital Signs Temp 97.8 F 07/27/18 04:00 Pulse 110 H 07/27/18 07:25 Resp 19 07/27/18 08:00 BP 118/69 07/27/18 04:00 Pulse Ox 95 07/27/18 07:15 Intake & Output 07/26/18 07/27/18 07/27/18 18:59 06:59 18:59 Intake Total 370 350 20 Output Total 800 1150 60 Balance -430 -800 -40 Weight 61.1 kg Intake: IV 170 200 20 Meropenem 500 mg In 50 Sodium Chloride 0.9% 50 ml @ 100 mls/hr IVPB Q12HR [facility] Rx#:[id number] Sodium Chloride 0.9% 1, 20 200 20 000 ml @ 20 mls/hr IV . Q24H [facility] Rx#:[id number] Sodium Ferric Gluconat- 100 Sucrose 125 mg In Sodium Chloride 0.9% 100 ml @ 100 mls/hr IVPB DAILY [facility] Rx#:[id number] Oral 200 150 Output: Urine 800 1150 60 Other: Voiding Method Indwelling Catheter Indwelling Catheter Indwelling Catheter - Labs CBC & Chem 7: 07/27/18 05:34 07/27/18 05:34 Labs: Abnormal Lab Results - Last 24 Hours (Table) 07/27/18 07/27/18 Range/Units 05:34 05:34 Hgb 10.1 L (11.4-16.0) gm/dL Hct 33.8 L (34.0-46.0) % MCHC 30.0 L (31.0-37.0) g/dL RDW 17.3 H (11.5-15.5) % Lymphocytes # 0.5 L (1.0-4.8) k/uL Chloride 110 H (98-107) mmol/L BUN 83 H (7-17) mg/dL Creatinine 2.18 H (0.52-1.04) mg/dL Glucose 104 H (74-99) mg/dL Calcium 8.2 L (8.4-10.2) mg/dL Microbiology - Last 24 Hours (Table) 07/23/18 20:40 Blood Culture Gram Stain - Final Blood Blood Culture - Final Corynebacterium striatum Assessment and Plan Plan: Assessment: 1. Acute kidney injury secondary to ATN secondary to cardiorenal syndrome. Renal function stable. Creatinine 2.18 today. 2. 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 Baseline creatinine 1.5-2. 3. Acute hypoxic respiratory failure secondary to volume overload. 4. Diastolic CHF with moderate mitral regurgitation, severe tricuspid regurgitation and moderate pulmonary hypertension. 5. Volume overload maintained on diuretics. 6. Metabolic acidosis secondary to acute kidney injury. Better. 7. Left lower extremity cellulitis maintained on antibiotics. 8. Anemia of chronic kidney disease. Iron deficiency noted. Maintained on Aranesp. 9. Corynebacterium bacteremia. Plan: Maintain Lasix 60 mg IV twice daily. Strict I's and O's. Hold off on IV iron due to bacteremia. Maintain Aranesp. Maintain oral sodium bicarbonate. Avoid nephrotoxins. Continue to monitor renal function and urine output. Monitor vancomycin levels closely. Target level 20.
--- NOTE | 2018-07-27 11:17 | XR ---
EXAMINATION TYPE: XR chest 1V DATE OF EXAM: 07/27/2018 COMPARISON: Prior chest x-ray 07/26/2017 HISTORY: Respiratory distress TECHNIQUE: Single frontal view of the chest is obtained. FINDINGS: Findings are similar to prior exam. IMPRESSION: No significant interval change. Postop changes and cardiomegaly. Left lower lobe atelect asis versus edema or pneumonia and associated effusion. Correlate for possible interstitial edema.
[2018-07-27] MEDS: CALCIUM CARB-VIT D 500MG-200UN 1 EACH TAB PO SCH (13:31)
[2018-07-27] MEDS: HYDROcodone/APAP 7.5-325MG 1 EACH TAB PO PRN ×2 (13:31→20:28)
--- NOTE | 2018-07-27 14:06 | P.PN ---
Subjective Progress Note Date: 07/27/18 This is a 88-year-old female patient who was brought into the hospital because of worsening shortness of breath. The patient chronic dyspnea and chronic hypoxic respiratory failure related to multiple medical problems and comorbidities. She denies having any cough or sputum production. She has chronic swelling in lower extremities. There is some increased redness and early changes of cellulitis involving left lower extremity. Noted the legs are chronically edematous. No open wounds or sores. No altered mentation. No pleurisy. No hemoptysis. No fever. No chills. No dysuria frequency or urgency. No altered mental status. The patient was initially sent to medical floor. Yesterday there was a concern that the patient was getting more short of breath and hypoxic. The patient was placed on 100% nonrebreather. The patient was brought into the intensive care. At that point, blood gases was done that showed a pH of 7.38 with a pCO2 of 33 and pO2 of 319. The FiO2 has been weaned down to 4 L of oxygen by nasal cannula. Note that at home she is at 2 L. The patient has a mild component of non-anion gap metabolic acidosis. The white cell count is not elevated. Hemoglobin stable at 8.5 and the patient has chronic normocytic anemia. D-dimer is at 2.56 which is a nonspecific finding. UA is negative. The patient has chronic kidney disease in the creatinine is stable at 2.1. The patient was started on a combination of meropenem and vancomycin. This is adequate coverage for left lower extremity cellulitis. The chest x-ray shows hepatomegaly and pulmonary vessel congestion. No clear-cut consolidation or airspace disease. This patient is quite debilitated. She lives in an assisted living setting. She has an extensive cardiac history. She has history of valvular heart disease specifically the aortic valve and the patient has undergone a previous aortic valve replacement, percutaneously, TAVR, and the patient has moderate to severe mitral regurgitation and secondary pulmonary hypertension and signs of right-sided heart failure, chronic paroxysmal atrial fibrillation, her left continue ejection fraction was 55% please echocardiogram's, she has chronic stage IV kidney disease, previous history of CVA, chronic anemia, chronic venous insufficiency and chronic edema lower extremities bilaterally. She has also multiple other comorbidities including are less, IBS, migraines, hypothyroidism and severe degenerative arthritis. She is a high risk of falls. She is able to swallow well. No reported aspiration. He was in the hospital in April 2018 for acute sepsis and Proteus urinary tract infection. She had also redness in her left foot and she was placed on IV antibiotics. She has been treated with podiatry in the past. The patient is seen today 07/25/2018 in follow-up in the intensive care unit. She is currently awake and alert in no acute distress. She is recovered and maintaining O2 saturation in the 90s on room air now. She's been afebrile. Remains in atrial fibrillation. Blood pressure stable. Anticoagulated with Eliquis. Chest x-ray shows some improvement in aeration. There is a suspected left lower lobe atelectasis versus pneumonia with associated effusion versus edema. She remains on Lasix 40 mg IV every 12 hours. Adequate urine output. She is covered with vancomycin and meropenem. Blood cultures pending. White count 5.7. Hemoglobin 8.9. Creatinine 2.25. The patient is seen again today 07/26/2018 in follow-up in the intensive care unit. She is currently sitting up in a chair at the bedside. She is awake and alert in no acute distress. She is maintaining good O2 saturations in the 90s on room air. Chest x-ray reveals stable bilateral consolidation and pleural effusions most of the left congestive heart failure. Remains on Lasix 60 mg IV every 12 hours. She's been afebrile. Hemodynamically stable. Final blood culture revealed corynebacterium striatum. Remains on meropenem and vancomycin. White count 6.3. Hemoglobin 9.3. Creatinine 2.24. On today's evaluation of 2018, I'm seeing this patient for a follow-up. She has no specific complaints. The patient is afebrile hemodynamically stable. No fever no chills no altered mentation. No chest pain. She is on room air oxygen. Lower eczematous and lites is also improving. The patient on a combination of meropenem and vancomycin. The blood culture has yielded Corynebacterium species. The patient was also diuresed IV Lasix. The patient was given 60 mg of IV Lasix every 12 hours. The patient is a negative fluid balance of at least 1 L over the past 24 hours. There is improvement in lower extremity edema. Renal function is also stable with a creatinine of 2.1 and a BUN of 83. Rest of the electrodes are all within normal limits. Patient is receiving local wound care to her lower extremities by Silvadene cream. She is on bicarb supplements orally. She is on long-term and to coagulation with Eliquis 2.5 mg by mouth twice a day. Heart rate is under good control. The patient has no other complaints otherwise for now. Objective - Vital Signs Vital signs: Vital Signs Temp 98.2 F 07/27/18 08:00 Pulse 87 07/27/18 12:00 Resp 29 H 07/27/18 12:00 BP 126/103 07/27/18 12:00 Pulse Ox 98 07/27/18 12:00 Intake & Output 07/26/18 07/27/18 07/27/18 18:59 06:59 18:59 Intake Total 370 350 150 Output Total 800 1150 435 Balance -430 -800 -285 Weight 61.1 kg Intake: IV 170 200 100 Meropenem 500 mg In 50 Sodium Chloride 0.9% 50 ml @ 100 mls/hr IVPB Q12HR [facility] Rx#:[id number] Sodium Chloride 0.9% 1, 20 200 100 000 ml @ 20 mls/hr IV . Q24H [facility] Rx#:[id number] Sodium Ferric Gluconat- 100 Sucrose 125 mg In Sodium Chloride 0.9% 100 ml @ 100 mls/hr IVPB DAILY [facility] Rx#:[id number] Intake, IV Titration 50 Amount Meropenem 500 mg In 50 Sodium Chloride 0.9% 50 ml @ 100 mls/hr IVPB Q12HR [facility] Rx#:[id number] Oral 200 150 Output: Urine 800 1150 435 Other: Voiding Method Indwelling Catheter Indwelling Catheter Indwelling Catheter - Exam Gen. appearance the patient is an elderly female, no acute distress, No active respiratory distress. Able to speak in full sentences good O2 saturations in the 90s on room air. In a chair at the bedside. No agitation. No restlessness. She is calm and comfortable. Head exam was generally normal. There was no scleral icterus or corneal arcus. Mucous membranes were moist. Neck was supple and with jugular venous distension, thyromegaly, or carotid bruits. Carotids were easily palpable bilaterally. There was no adenopathy. There is bilateral jugular venous venous distention. No goiter or neck masses. Lips are blue and cyanotic Lung sounds are diminished bilaterally along with some bibasilar crackles. There is venous engorgement over the veins of the anterior chest. Heart sounds are regular, there is a systolic ejection murmur grade 2/6 systolic the precordium. There is also a aortic valve click heard over the anterior chest. Abdomen is slightly distended. There may be an underlying ascites. No direct tenderness. No rebound tensile guarding. No significant organomegaly. His umbilical hernia. Extremities are showing trace edema and there is diffuse degenerative arthritis with deformities. No cyanosis. No clubbing at this point. There is indication of a left lower eczematous cellulitis. There is erythema is extending from the ankle all the way up to the area below the knee. The area is warm and red. No open wounds or ulceration. As mentioned, there is chronic venous stasis and some chronic edema in lower extremities bilaterally. Neurologically the patient is awake and alert and sequential following commands and there is no focal neurological deficit a - Labs CBC & Chem 7: 07/27/18 05:34 07/27/18 05:34 Labs: Abnormal Lab Results - Last 24 Hours (Table) 07/27/18 07/27/18 Range/Units 05:34 05:34 Hgb 10.1 L (11.4-16.0) gm/dL Hct 33.8 L (34.0-46.0) % MCHC 30.0 L (31.0-37.0) g/dL RDW 17.3 H (11.5-15.5) % Lymphocytes # 0.5 L (1.0-4.8) k/uL Chloride 110 H (98-107) mmol/L BUN 83 H (7-17) mg/dL Creatinine 2.18 H (0.52-1.04) mg/dL Glucose 104 H (74-99) mg/dL Calcium 8.2 L (8.4-10.2) mg/dL Microbiology - Last 24 Hours (Table) 07/23/18 20:40 Blood Culture Gram Stain - Final Blood Blood Culture - Final Corynebacterium striatum Assessment and Plan Plan: Assessment 1 chronic hypoxic respiratory failure with acute decompensation. The patient came in to the ICU for worsening hypoxemia. Recovered and maintaining good O2 saturations in the 90s on room air. Since then, the patient has done very well. The patient remains on room air oxygen. The patient was diuresed with IV Lasix. The patient is currently on room air oxygen. 2. Acute cellulitis of the left lower extremity remains on vancomycin and meropenem. The cellulitis of the lower extremities also improving. 3 chronic dyspnea on the basis of CHF. The patient has an extensive cardiac history as mentioned 4 history of aortic valve replacement. The patient has undergone a TAVR and based on the most recent echocardiogram the patient has moderate to severe mitral regurgitation and severe pulmonary hypertension which is obviously secondary nature related to her valvular heart disease. 5 chronic proximal atrial fibrillation 6 history of pacemaker insertion 7 chronic renal failure, stage IV kidney disease and the patient's creatinine and GFR is stable for now 8 hypertension 9 chronic anemia stable 10 chronic degenerative arthritis involving the upper and lower extremities and the patient has had difficulty with mobility and previous history of falls 11 hypothyroidism 12 restless leg syndrome 13 previous history of hospitalization for UTI including infection with Proteus and the patient has multiple drug ALLERGIES. Her current UA is within normal limits 14 chronic venous insufficiency in the lower extremities 15 migraines 16 medical debility secondary to above-mentioned comorbidities 17 possible culture with Corynebacterium species Plan Continue same antibiotic coverage. The patient will be placed on oral Lasix. This continued IV Lasix. Renal function is stable. The patient on long-term medical condition with Eliquis. The patient may be chest at the medical surgical floor with remote telemetry. We'll continue to follow.
[2018-07-27] MEDS: AMITRIPTYLINE HCL 10 MG TAB PO SCH (20:25)
[2018-07-27] MEDS: POLYETHYLENE GLYCOL 3350 17 GM POWD.PACK PO SCH (20:25)
[2018-07-27] MEDS: SODIUM CHLORIDE 0.9% 1,000 ML IV SCH (20:38)
--- NOTE | 2018-07-27 22:02 | PN ---
PROGRESS NOTE This patient was admitted with acute respiratory distress secondary to congestive cardiac failure. Patient's condition is improved. She has been diuresing fairly well. She denies any orthopnea or PND. Blood pressure is 126/90 mmHg. Heart rate is 80 per minute. First and second heart sounds are heard. Lungs are clinically clear to auscultation and percussion. We will continue the current medications and we will now follow the patient p.r.n. MMEKATERINA / ARLINEN: [id number] /
[2018-07-28] MEDS: LEVOTHYROXINE 125 MCG TAB PO SCH (05:37)
[2018-07-28] MEDS: HYDROcodone/APAP 7.5-325MG 1 EACH TAB PO PRN ×2 (06:46→15:34)
[2018-07-28] MEDS: ALBUTEROL NEBULIZED 2.5 MG/3 ML INHALATION SCH ×4 (07:03→18:58)
[2018-07-28 08:09] LABS: Anisocytosis Slight; HCT 32.6 % (34.0-46.0); HGB 9.8 gm/dL (11.4-16.0); Hypochromasia Marked; MCH 26.6 pg (25.0-35.0); MCHC 30.1 g/dL (31.0-37.0); MCV 88.3 fL (80.0-100.0); Mean Platelet Volume 7.4; Platelet Count 345 k/uL (150-450); RBC 3.69 m/uL (3.80-5.40); RDW 17.5 % (11.5-15.5); WBC 4.7 k/uL (3.8-10.6)
[2018-07-28 08:21] LABS: Calcium 8.2 mg/dL (8.4-10.2); Potassium 4.3 mmol/L (3.5-5.1)
[2018-07-28 08:30] LABS: Vancomycin,Random 20.7 ug/mL
[2018-07-28] MEDS: METOPROLOL TARTRATE 25 MG TAB PO SCH (08:45)
[2018-07-28] MEDS: APIXABAN 2.5 MG TABLET PO SCH ×2 (08:45→21:16)
[2018-07-28] MEDS: FUROSEMIDE 40 MG TAB PO SCH (08:46)
[2018-07-28] MEDS: PANTOPRAZOLE 40 MG TABLET PO SCH (08:46)
[2018-07-28] MEDS: GABAPENTIN 100 MG CAP PO SCH ×2 (08:46→21:15)
[2018-07-28] MEDS: LORATADINE 10 MG TAB PO SCH (08:46)
[2018-07-28] MEDS: CALCIUM CARB-VIT D 500MG-200UN 1 EACH TAB PO SCH (08:46)
[2018-07-28] MEDS: SODIUM BICARBONATE TAB 650 MG TAB PO SCH ×2 (08:46→21:15)
[2018-07-28] MEDS: DOCUSATE 100 MG CAP PO SCH (08:46)
[2018-07-28 09:16] LABS: Eosinophils # (M) 0.33 k/uL (0-0.7); Lymphocytes # (M) 0.47 k/uL (1.0-4.8); Monocytes # (M) 0.28 k/uL (0-1.0); Neutrophils # (M) 3.62 k/uL (1.3-7.7); Neutrophils % (M) 77 %; Nucleated Red Blood Cells 0 /100 WBC (0-0); Total Cells Counted 100
[2018-07-28 09:19] LABS: Poikilocytosis (M) Present
[2018-07-28 09:20] LABS: Target Cells Present
--- NOTE | 2018-07-28 10:09 | P.PN ---
Progress Note - Text Of the patient is a 88 show female who who presented with acute on chronic respiratory failure secondary to acute on chronic diastolic congestive heart failure with left lower lobe pneumonia and cellulitis of the left lower extremity. Chronic kidney disease Post-cutaneous aortic valve replacement and pacemaker placement Hypertensive heart disease Paroxysmal atrial fibrillation Multiple ALLERGIES including antibiotics Overall frail state with diffuse arthritis and mobility concerns. Patient has been generally improving with antibiotics and Lasix. Please refer to notes from the multiple consultants. This morning she is found sitting up in the chair in her room. States she does feel better. Less short of breath. She does not appear to be in any acute distress. Vital signs show temperature 97.3 with a pulse of 82 and respirations 18. Blood pressure 106/81 which she is on 6 L high flow achieving 97% saturation. Lungs are generally diminished with few basilar crackles. Heart tones were regular. Abdomen nontender. She does not have much edema lower extremities but the left lower extremity is bandaged. Skin is flaky and erythematous present. There is some erythema over the right distal lower leg. Gen. weakness but no focal neurological changes. Laboratory White count 4.7 with a hemoglobin 9.8 and a platelet count of 345. Electrolytes are generally stable with potassium 4.3. BUN is 81 with a creatinine 2.09 given her GFR of 21. Vancomycin level was 20.7. Chest x-ray from yesterday showed no significant change. Cardiomegaly. Left lower lobe atelectasis versus edema or pneumonia. Associated effusion. Possible interstitial edema. Impressions and plans Overall this frail 88-year-old female with multiple medical problems as stated above. She does appear to be slowly improving. Presently on antibiotics and Lasix. Per physical therapy notes she does need assistance with the ambulation in the room. At this time we will ask infectious diseases to see regarding further antibiotic treatment of her possible pneumonia and cellulitis. Continue with physical therapy. With continued improvement would consider possible discharge over the next 48 hours. Whether patient can improve further to be able to return home as she wishes is a bit of a question at this time.
[2018-07-28] MEDS: MEROPENEM 500 MG in SODIUM CHLORIDE 0.9% 50 ML IVPB SCH ×2 (10:50→21:15)
[2018-07-28] MEDS ORDERED: FUROSEMIDE 10 MG/ML 10 ML VIAL IV STA (12:16)
--- NOTE | 2018-07-28 13:02 | XR ---
EXAMINATION TYPE: XR chest 1V DATE OF EXAM: 07/28/2018 CLINICAL HISTORY: Difficulty breathing progress study. TECHNIQUE: Single AP portable upright view of the chest is obtained. COMPARISON: Chest x-ray from one day earlier and older studies. FINDINGS: Cardiomegaly with multi lead pacemaker is redemonstrated. There is persistent stent graft aortic root level. There is chronic parenchymal change redemonstrated. Silhouetting of left hemidiaph ragm with left basilar opacity remains present. Right lung remains clear. Osseous structures are avinash neralized. Chronic deformities bilateral proximal humeri remain present. IMPRESSION: Overall stable findings, cardiomegaly and chronic parenchymal changes with persistent l eft lower lung edema and/or atelectasis and possible small left pleural effusion.
--- NOTE | 2018-07-28 13:59 | P.PN ---
Subjective Progress Note Date: 07/28/18 Principal diagnosis: Acute on chronic hypoxemic respiratory failure with acute decompensation. This is a 88-year-old female patient who was brought into the hospital because of worsening shortness of breath. The patient chronic dyspnea and chronic hypoxic respiratory failure related to multiple medical problems and comorbidities. She denies having any cough or sputum production. She has chronic swelling in lower extremities. There is some increased redness and early changes of cellulitis involving left lower extremity. Noted the legs are chronically edematous. No open wounds or sores. No altered mentation. No pleurisy. No hemoptysis. No fever. No chills. No dysuria frequency or urgency. No altered mental status. The patient was initially sent to medical floor. Yesterday there was a concern that the patient was getting more short of breath and hypoxic. The patient was placed on 100% nonrebreather. The patient was brought into the intensive care. At that point, blood gases was done that showed a pH of 7.38 with a pCO2 of 33 and pO2 of 319. The FiO2 has been weaned down to 4 L of oxygen by nasal cannula. Note that at home she is at 2 L. The patient has a mild component of non-anion gap metabolic acidosis. The white cell count is not elevated. Hemoglobin stable at 8.5 and the patient has chronic normocytic anemia. D-dimer is at 2.56 which is a nonspecific finding. UA is negative. The patient has chronic kidney disease in the creatinine is stable at 2.1. The patient was started on a combination of meropenem and vancomycin. This is adequate coverage for left lower extremity cellulitis. The chest x-ray shows hepatomegaly and pulmonary vessel congestion. No clear-cut consolidation or airspace disease. This patient is quite debilitated. She lives in an assisted living setting. She has an extensive cardiac history. She has history of valvular heart disease specifically the aortic valve and the patient has undergone a previous aortic valve replacement, percutaneously, TAVR, and the patient has moderate to severe mitral regurgitation and secondary pulmonary hypertension and signs of right-sided heart failure, chronic paroxysmal atrial fibrillation, her left continue ejection fraction was 55% please echocardiogram's, she has chronic stage IV kidney disease, previous history of CVA, chronic anemia, chronic venous insufficiency and chronic edema lower extremities bilaterally. She has also multiple other comorbidities including are less, IBS, migraines, hypothyroidism and severe degenerative arthritis. She is a high risk of falls. She is able to swallow well. No reported aspiration. He was in the hospital in April 2018 for acute sepsis and Proteus urinary tract infection. She had also redness in her left foot and she was placed on IV antibiotics. She has been treated with podiatry in the past. The patient is seen today 07/25/2018 in follow-up in the intensive care unit. She is currently awake and alert in no acute distress. She is recovered and maintaining O2 saturation in the 90s on room air now. She's been afebrile. Remains in atrial fibrillation. Blood pressure stable. Anticoagulated with Eliquis. Chest x-ray shows some improvement in aeration. There is a suspected left lower lobe atelectasis versus pneumonia with associated effusion versus edema. She remains on Lasix 40 mg IV every 12 hours. Adequate urine output. She is covered with vancomycin and meropenem. Blood cultures pending. White count 5.7. Hemoglobin 8.9. Creatinine 2.25. The patient is seen again today 07/26/2018 in follow-up in the intensive care unit. She is currently sitting up in a chair at the bedside. She is awake and alert in no acute distress. She is maintaining good O2 saturations in the 90s on room air. Chest x-ray reveals stable bilateral consolidation and pleural effusions most of the left congestive heart failure. Remains on Lasix 60 mg IV every 12 hours. She's been afebrile. Hemodynamically stable. Final blood culture revealed corynebacterium striatum. Remains on meropenem and vancomycin. White count 6.3. Hemoglobin 9.3. Creatinine 2.24. On today's evaluation of 2018, I'm seeing this patient for a follow-up. She has no specific complaints. The patient is afebrile hemodynamically stable. No fever no chills no altered mentation. No chest pain. She is on room air oxygen. Lower eczematous and lites is also improving. The patient on a combination of meropenem and vancomycin. The blood culture has yielded Corynebacterium species. The patient was also diuresed IV Lasix. The patient was given 60 mg of IV Lasix every 12 hours. The patient is a negative fluid balance of at least 1 L over the past 24 hours. There is improvement in lower extremity edema. Renal function is also stable with a creatinine of 2.1 and a BUN of 83. Rest of the electrodes are all within normal limits. Patient is receiving local wound care to her lower extremities by Silvadene cream. She is on bicarb supplements orally. She is on long-term and to coagulation with Eliquis 2.5 mg by mouth twice a day. Heart rate is under good control. The patient has no other complaints otherwise for now. Patient is seen again today 07/28/2018 in follow-up on the regular medical floor. She is currently sitting up in a chair at the bedside. Awake and alert in mild respiratory distress. He is now requiring 6 L high flow nasal cannula to maintain O2 saturations in the 90s. Chest x-ray reveals overall stable findings there is evidence of cardiomegaly and chronic parenchymal changes with persistent left lower lobe edema and/or atelectasis and possible small pleural effusion. White count 4.7. Hemoglobin 9.8. Creatinine 2.09. She remains on vancomycin and meropenem. Objective - Vital Signs Vital signs: Vital Signs Temp 97.3 F L 07/28/18 07:00 Pulse 76 07/28/18 11:08 Resp 18 07/28/18 07:00 BP 106/81 07/28/18 07:00 Pulse Ox 97 07/28/18 07:00 Intake & Output 07/27/18 07/28/18 07/28/18 18:59 06:59 18:59 Intake Total 190 Output Total 560 Balance -370 Intake: IV 140 Sodium Chloride 0.9% 1, 140 000 ml @ 20 mls/hr IV . Q24H [facility] Rx#:[id number] Intake, IV Titration 50 Amount Meropenem 500 mg In 50 Sodium Chloride 0.9% 50 ml @ 100 mls/hr IVPB Q12HR [facility] Rx#:[id number] Output: Urine 560 Other: Voiding Method Indwelling Catheter # Voids 2 - Exam Gen. appearance the patient is an elderly female, in mild respiratory distress, requiring 6 liters high flow nasal cannula.. In a chair at the bedside. Head exam was generally normal. There was no scleral icterus or corneal arcus. Mucous membranes were moist. Neck was supple and with jugular venous distension, thyromegaly, or carotid bruits. Carotids were easily palpable bilaterally. There was no adenopathy. There is bilateral jugular venous venous distention. No goiter or neck masses. Lips are blue and cyanotic Lung sounds are diminished bilaterally along with some bibasilar crackles. There is venous engorgement over the veins of the anterior chest. Heart sounds are regular, there is a systolic ejection murmur grade 2/6 systolic the precordium. There is also a aortic valve click heard over the anterior chest. Abdomen is slightly distended. There may be an underlying ascites. No direct tenderness. No rebound tensile guarding. No significant organomegaly. His umbilical hernia. Extremities are showing trace edema and there is diffuse degenerative arthritis with deformities. No cyanosis. No clubbing at this point. There is indication of a left lower eczematous cellulitis. There is erythema is extending from the ankle all the way up to the area below the knee. The area is warm and red. No open wounds or ulceration. As mentioned, there is chronic venous stasis and some chronic edema in lower extremities bilaterally. Neurologically the patient is awake and alert and sequential following commands and there is no focal neurological deficit at this po - Labs CBC & Chem 7: 07/28/18 07:07 07/28/18 07:07 Labs: Abnormal Lab Results - Last 24 Hours (Table) 07/28/18 07/28/18 Range/Units 07:07 07:07 RBC 3.69 L (3.80-5.40) m/uL Hgb 9.8 L (11.4-16.0) gm/dL Hct 32.6 L (34.0-46.0) % MCHC 30.1 L (31.0-37.0) g/dL RDW 17.5 H (11.5-15.5) % Lymphocytes # (Manual) 0.47 L (1.0-4.8) k/uL Chloride 110 H (98-107) mmol/L BUN 81 H (7-17) mg/dL Creatinine 2.09 H (0.52-1.04) mg/dL Calcium 8.2 L (8.4-10.2) mg/dL Assessment and Plan Assessment: Assessment 1 chronic hypoxic respiratory failure with acute decompensation. Currently declining 6 L high flow nasal cannula. Chest x-ray continues to show evidence of persistent left lower lobe atelectasis and effusion. Cardiomegaly. 2. Acute cellulitis of the left lower extremity remains on vancomycin and meropenem. 3 chronic dyspnea on the basis of CHF. The patient has an extensive cardiac history as mentioned 4 history of aortic valve replacement. The patient has undergone a TAVR and based on the most recent echocardiogram the patient has moderate to severe mitral regurgitation and severe pulmonary hypertension which is obviously secondary nature related to her valvular heart disease. 5 chronic proximal atrial fibrillation 6 history of pacemaker insertion 7 chronic renal failure, stage IV kidney disease and the patient's creatinine and GFR is stable for now 8 hypertension 9 chronic anemia stable 10 chronic degenerative arthritis involving the upper and lower extremities and the patient has had difficulty with mobility and previous history of falls 11 hypothyroidism 12 restless leg syndrome 13 previous history of hospitalization for UTI including infection with Proteus and the patient has multiple drug ALLERGIES. Her current UA is within normal limits 14 chronic venous insufficiency in the lower extremities 15 migraines 16 medical debility secondary to above-mentioned comorbidities Plan The patient was seen and evaluated by Dr. Magaña. Chest x-ray is stable. There is some persistent left lower lobe mild edema/infiltrate. Some mild respiratory distress and requiring 6 L high flow nasal cannula. Additional Lasix 60 mg IVP 1 today. Continued on vancomycin and meropenem. Continue bronchodilators. We will continue to follow make further recommendations based on her clinical status. I, the cosigning physician, performed a history & physical examination of the patient. Lungs sounds with faint crackles in the posterior bases, left greater than right. Maintaining good O2 saturations in the 90s on 6 liters high flow nasal cannula. I discussed the assessment and plan of care with my nurse practitioner, Celina Urbina. I attest to the above note as dictated by her.
--- NOTE | 2018-07-28 14:14 | P.PN ---
Subjective Progress Note Date: 07/28/18 Seen and examined for the follow-up of acute kidney injury. Creatinine currently at baseline. Objective - Vital Signs Vital signs: Vital Signs Temp 97.3 F L 07/28/18 07:00 Pulse 76 07/28/18 11:08 Resp 18 07/28/18 07:00 BP 106/81 07/28/18 07:00 Pulse Ox 97 07/28/18 07:00 Intake & Output 07/27/18 07/28/18 07/28/18 18:59 06:59 18:59 Intake Total 190 Output Total 560 Balance -370 Intake: IV 140 Sodium Chloride 0.9% 1, 140 000 ml @ 20 mls/hr IV . Q24H [facility] Rx#:[id number] Intake, IV Titration 50 Amount Meropenem 500 mg In 50 Sodium Chloride 0.9% 50 ml @ 100 mls/hr IVPB Q12HR [facility] Rx#:[id number] Output: Urine 560 Other: Voiding Method Indwelling Catheter # Voids 2 - Exam No acute distress S1-S2 heard Basal crackles Trace edema - Labs CBC & Chem 7: 07/28/18 07:07 07/28/18 07:07 Labs: Abnormal Lab Results - Last 24 Hours (Table) 07/28/18 07/28/18 Range/Units 07:07 07:07 RBC 3.69 L (3.80-5.40) m/uL Hgb 9.8 L (11.4-16.0) gm/dL Hct 32.6 L (34.0-46.0) % MCHC 30.1 L (31.0-37.0) g/dL RDW 17.5 H (11.5-15.5) % Lymphocytes # (Manual) 0.47 L (1.0-4.8) k/uL Chloride 110 H (98-107) mmol/L BUN 81 H (7-17) mg/dL Creatinine 2.09 H (0.52-1.04) mg/dL Calcium 8.2 L (8.4-10.2) mg/dL Assessment and Plan Assessment: #1 acute kidney injury secondary to ATN/CRS. Creatinine improving towards baseline. 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 Baseline creatinine 1.5-2.0 MG per DL. 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 Continue with diuretics at this point, a day with decreasing to oral Lasix once a day.. #2 avoid nephrotoxic agents and hypotensive episodes.
[2018-07-28] MEDS ORDERED: VANCOMYCIN 1,000 MG in SODIUM CHLORIDE 0.9% 250 ML IVPB ONE (21:00)
[2018-07-28] MEDS: AMITRIPTYLINE HCL 10 MG TAB PO SCH (21:14)
[2018-07-28] MEDS: POLYETHYLENE GLYCOL 3350 17 GM POWD.PACK PO SCH ×2 (21:15→21:18)
[2018-07-28] MEDS: SODIUM CHLORIDE 0.9% 1,000 ML IV SCH (21:16)
[2018-07-29] MEDS: LEVOTHYROXINE 125 MCG TAB PO SCH (06:51)
[2018-07-29] MEDS: ALBUTEROL NEBULIZED 2.5 MG/3 ML INHALATION SCH ×4 (07:29→19:28)
--- NOTE | 2018-07-29 08:01 | CONS ---
CONSULTATION DATE OF SERVICE: 07/28/2018. REASON FOR CONSULTATION: Left lower extremity cellulitis and question of pneumonia, multiple antibiotic allergies and antibiotic recommendation. HISTORY OF PRESENT ILLNESS: The patient is an 88-year-old female who presented to the [facility] ER about 5 days ago on 07/23/2018 with chief complaints of increasing shortness of breath. The patient breathing has been getting worse over the last two weeks before she presented to the hospital. The patient apparently also complained of mild cough with no sputum production. No chest pain. No pneumothorax. No nausea, no vomiting, no choking on food. No abdominal pain or any diarrhea. With these symptoms, the patient was evaluated by the ER physician. On arrival to the ER, the patient has been afebrile. Subsequently did have a low-grade fever of 100.9 on 07/24/2018 early in the morning. The patient white count was normal and remained to be normal throughout her hospital stay. Kidney function remains to be borderline. UA was negative. The patient did have a chest x-ray on presentation, which shows no heart failure, left lobe pneumonia and atelectasis. There is decreased exam. The patient did have a repeat chest x-ray which was read as prominent interstitial markings. No evidence for pleural effusion and prominence of cardiac silhouette. The patient with subsequent admission to the ICU because of worsening shortness of breath and has been treated with broad-spectrum antibiotics in form of vancomycin and meropenem since July 24. Infectious Disease was consulted today for further recommendation regarding antibiotic therapy. She was also noticed to have some swelling and redness to her left leg area. The patient denies significant bleeding into the left leg. Currently with no open wound or any drainage. REVIEW OF SYSTEMS: Positive points have been mentioned in HPI. Rest of the systems have been negative. PAST MEDICAL HISTORY: Degenerative arthritis, chronic kidney disease stage 3, hypertension, hypothyroidism, restless leg syndrome, paroxysmal atrial fibrillation. PAST SURGICAL HISTORY: Partial thyroidectomy, bilateral knee and hip surgery and right humerus fracture repair. SOCIAL HISTORY: Denies smoking, drinking. The patient did have history of smoking, however quit age 52, pack smoking. Denies any excessive alcohol use or any drug use. FAMILY HISTORY: Father history of lung cancer. Positive CVA. Mother with disease. ALLERGIES: TO MULTIPLE ANTIBIOTIC ALLERGIES . MEDICATIONS: The patient is currently on vancomycin, pharmacy to dose. She is on meropenem 500 q.12, Claritin, Synthroid, Neurontin, Lasix, Colace, Eliquis, Elavil, Ventolin, Maalox, Porter and Tylenol. PHYSICAL EXAMINATION: Blood pressure is 137/89 with a pulse of 97, temperature 97. She is 93% on 6 L high- flow oxygen. General description is an elderly female up in the chair in no distress. No tachypnea or accessory muscles of respiration use. HEENT: Shows slight pallor. No scleral icterus. Oral mucosa membranes dry. No erythema or thrush. Neck: Trachea midline. No thyromegaly. Lungs unlabored breathing, decreased breath sounds in the bases. No wheeze. Heart S1, S2. Regular rate and rhythm. Abdomen is soft. No tenderness. Left leg with very minimal erythema. Dry scaly like skin. No skin breakdown. No drainage. Neurological: Patient is awake, alert, oriented times three. Mood and affect normal. LABS: Hemoglobin 9.8, white count 4.7, BUN of 18 with creatinine is 2.2. Electrolytes have been normal. Vanco random has been around 20 to 25. . DIAGNOSTIC IMPRESSION/PLAN: 1. Patient admitted to the hospital with increasing shortness of breath with lower extremity swelling, more likely pointing towards chronic diastolic heart failure with acute exacerbation. Underlying pneumonia less likely in this patient who did not have any high-grade fever or elevated white count. No significant cough or sputum production. 2. Patient did have mild cellulitis of left lower extremity, likely secondary to gram- positive skin galindo in this patient who did have a chronic cough and evidence of fluid overload. 3. Patient who has allergies to almost all of antibiotic except vanco and meropenem which the patient has been tolerating so far. PLAN: 1. Continue short course of IV vancomycin to cover for cellulitis of the left lower extremity. 2. Waqas wrap to the left leg that will help in the healing of this cellulitis. 3. We will follow up on clinical condition. Further adjust medication if needed. Thank you for this consultation. We will follow this patient along with you. MMODL / IJN: [id number] /
[2018-07-29 08:44] LABS: Anisocytosis Slight; Basophils % (A) 1 %; Eosinophils # (A) 0.2 k/uL (0-0.7); Eosinophils % (A) 4 %; HCT 28.6 % (34.0-46.0); HGB 8.5 gm/dL (11.4-16.0); Hypochromasia Marked; Lymphocytes # (A) 0.5 k/uL (1.0-4.8); Lymphocytes % (A) 13 %; MCH 26.5 pg (25.0-35.0); MCHC 29.7 g/dL (31.0-37.0); MCV 89.3 fL (80.0-100.0); Mean Platelet Volume 7.4; Monocytes # (A) 0.3 k/uL (0-1.0); Monocytes % (A) 8 %; Neutrophils # (A) 2.9 k/uL (1.3-7.7); Neutrophils % (A) 70 %; Platelet Count 291 k/uL (150-450); RBC 3.21 m/uL (3.80-5.40); WBC 4.1 k/uL (3.8-10.6)
[2018-07-29] MEDS: DOCUSATE 100 MG CAP PO SCH (08:44)
[2018-07-29] MEDS: HYDROcodone/APAP 7.5-325MG 1 EACH TAB PO PRN ×3 (08:45→22:05)
[2018-07-29] MEDS: LORATADINE 10 MG TAB PO SCH (08:47)
[2018-07-29] MEDS: GABAPENTIN 100 MG CAP PO SCH ×2 (08:47→21:47)
[2018-07-29] MEDS: APIXABAN 2.5 MG TABLET PO SCH ×2 (08:47→21:47)
[2018-07-29] MEDS: FUROSEMIDE 40 MG TAB PO SCH (08:47)
[2018-07-29] MEDS: SODIUM BICARBONATE TAB 650 MG TAB PO SCH ×2 (08:47→21:47)
[2018-07-29] MEDS: METOPROLOL TARTRATE 25 MG TAB PO SCH (08:47)
[2018-07-29] MEDS: PANTOPRAZOLE 40 MG TABLET PO SCH (08:48)
[2018-07-29] MEDS: MEROPENEM 500 MG in SODIUM CHLORIDE 0.9% 50 ML IVPB SCH ×2 (08:48→21:47)
[2018-07-29 08:58] LABS: Calcium 7.7 mg/dL (8.4-10.2); Potassium 4.7 mmol/L (3.5-5.1)
--- NOTE | 2018-07-29 10:46 | P.PN ---
Progress Note - Text The patient is a 88-year-old female presented with acute on chronic respiratory failure secondary to acute on chronic diastolic congestive heart failure with underlying left lower lobe pneumonia and left lower extremity cellulitis. Also with comorbidities that include Chronic kidney disease Transcutaneous aortic valve replacement and pacemaker placement Hypertensive heart disease Paroxysmal atrial fibrillation Multiple ALLERGIES to numerous antibiotics Overall frail state with diffuse arthritis and mobility concerns. This morning patient is arousable without new complaints. Vital signs show a temperature 97.8 with a pulse 107 respirations 18 and blood pressure 137/70. She is 96% saturated on 6 L high flow Lungs do reveal some chronic diffuse crepitations Heart tones were regular. Abdomen nontender. There is still some edema and erythema present the left lower extremities. No focal neurological deficits. Laboratory White count 4.1 with a hemoglobin 8.5 and a platelet count of 291. Sodium 141 with potassium 4.7. CO2 content of 23. BUN of 82 with a creatinine 2.08 given her GFR of 21. Impressions and plans Infectious disease note recommending continued present antibiotics. Discussed with nursing staff regarding length of treatment. Also long discussion with nursing staff and audit tech this morning regarding discharge planning. Plans are for discharge back to home his family does have people to come in to care for her and her . She would need further home nursing and physical therapy. Corrosion Engineer is to talk with the son who resides in [place]. Possible discharge over the next 48-48 hours. Pending stabilization of clinical status and question length of antibiotic administration and whether other IV lines need to be in place for home treatment or not. Dr. Torres on medical call for me over the weekend if any concerns should arise.
[2018-07-29] MEDS: CALCIUM CARB-VIT D 500MG-200UN 1 EACH TAB PO SCH (12:38)
--- NOTE | 2018-07-29 14:43 | P.PN ---
Subjective Progress Note Date: 07/29/18 This is a 88-year-old female patient who was brought into the hospital because of worsening shortness of breath. The patient chronic dyspnea and chronic hypoxic respiratory failure related to multiple medical problems and comorbidities. She denies having any cough or sputum production. She has chronic swelling in lower extremities. There is some increased redness and early changes of cellulitis involving left lower extremity. Noted the legs are chronically edematous. No open wounds or sores. No altered mentation. No pleurisy. No hemoptysis. No fever. No chills. No dysuria frequency or urgency. No altered mental status. The patient was initially sent to medical floor. Yesterday there was a concern that the patient was getting more short of breath and hypoxic. The patient was placed on 100% nonrebreather. The patient was brought into the intensive care. At that point, blood gases was done that showed a pH of 7.38 with a pCO2 of 33 and pO2 of 319. The FiO2 has been weaned down to 4 L of oxygen by nasal cannula. Note that at home she is at 2 L. The patient has a mild component of non-anion gap metabolic acidosis. The white cell count is not elevated. Hemoglobin stable at 8.5 and the patient has chronic normocytic anemia. D-dimer is at 2.56 which is a nonspecific finding. UA is negative. The patient has chronic kidney disease in the creatinine is stable at 2.1. The patient was started on a combination of meropenem and vancomycin. This is adequate coverage for left lower extremity cellulitis. The chest x-ray shows hepatomegaly and pulmonary vessel congestion. No clear-cut consolidation or airspace disease. This patient is quite debilitated. She lives in an assisted living setting. She has an extensive cardiac history. She has history of valvular heart disease specifically the aortic valve and the patient has undergone a previous aortic valve replacement, percutaneously, TAVR, and the patient has moderate to severe mitral regurgitation and secondary pulmonary hypertension and signs of right-sided heart failure, chronic paroxysmal atrial fibrillation, her left continue ejection fraction was 55% please echocardiogram's, she has chronic stage IV kidney disease, previous history of CVA, chronic anemia, chronic venous insufficiency and chronic edema lower extremities bilaterally. She has also multiple other comorbidities including are less, IBS, migraines, hypothyroidism and severe degenerative arthritis. She is a high risk of falls. She is able to swallow well. No reported aspiration. He was in the hospital in April 2018 for acute sepsis and Proteus urinary tract infection. She had also redness in her left foot and she was placed on IV antibiotics. She has been treated with podiatry in the past. The patient is seen today 07/25/2018 in follow-up in the intensive care unit. She is currently awake and alert in no acute distress. She is recovered and maintaining O2 saturation in the 90s on room air now. She's been afebrile. Remains in atrial fibrillation. Blood pressure stable. Anticoagulated with Eliquis. Chest x-ray shows some improvement in aeration. There is a suspected left lower lobe atelectasis versus pneumonia with associated effusion versus edema. She remains on Lasix 40 mg IV every 12 hours. Adequate urine output. She is covered with vancomycin and meropenem. Blood cultures pending. White count 5.7. Hemoglobin 8.9. Creatinine 2.25. The patient is seen again today 07/26/2018 in follow-up in the intensive care unit. She is currently sitting up in a chair at the bedside. She is awake and alert in no acute distress. She is maintaining good O2 saturations in the 90s on room air. Chest x-ray reveals stable bilateral consolidation and pleural effusions most of the left congestive heart failure. Remains on Lasix 60 mg IV every 12 hours. She's been afebrile. Hemodynamically stable. Final blood culture revealed corynebacterium striatum. Remains on meropenem and vancomycin. White count 6.3. Hemoglobin 9.3. Creatinine 2.24. On today's evaluation of 2018, I'm seeing this patient for a follow-up. She has no specific complaints. The patient is afebrile hemodynamically stable. No fever no chills no altered mentation. No chest pain. She is on room air oxygen. Lower eczematous and lites is also improving. The patient on a combination of meropenem and vancomycin. The blood culture has yielded Corynebacterium species. The patient was also diuresed IV Lasix. The patient was given 60 mg of IV Lasix every 12 hours. The patient is a negative fluid balance of at least 1 L over the past 24 hours. There is improvement in lower extremity edema. Renal function is also stable with a creatinine of 2.1 and a BUN of 83. Rest of the electrodes are all within normal limits. Patient is receiving local wound care to her lower extremities by Silvadene cream. She is on bicarb supplements orally. She is on long-term and to coagulation with Eliquis 2.5 mg by mouth twice a day. Heart rate is under good control. The patient has no other complaints otherwise for now. Patient is seen again today 07/28/2018 in follow-up on the regular medical floor. She is currently sitting up in a chair at the bedside. Awake and alert in mild respiratory distress. He is now requiring 6 L high flow nasal cannula to maintain O2 saturations in the 90s. Chest x-ray reveals overall stable findings there is evidence of cardiomegaly and chronic parenchymal changes with persistent left lower lobe edema and/or atelectasis and possible small pleural effusion. White count 4.7. Hemoglobin 9.8. Creatinine 2.09. She remains on vancomycin and meropenem. On 07/29/2018, the patient is doing well. No significant respiratory distress. No fever. No chills. Lower eczematous some mild is improving. Creatinine is stable at 2.08. No other significant events overnight. Patient is awake and alert pH is tolerating her diet. Chest x-ray from yesterday was reviewed. Objective - Vital Signs Vital signs: Vital Signs Temp 97.8 F 07/29/18 07:00 Pulse 86 07/29/18 11:15 Resp 18 07/29/18 07:00 BP 137/70 07/29/18 07:00 Pulse Ox 96 07/29/18 07:00 Intake & Output 07/28/18 07/29/18 07/29/18 18:59 06:59 18:59 Intake Total 100 350 Balance 100 350 Intake: IV 100 100 Meropenem 500 mg In 100 100 Sodium Chloride 0.9% 50 ml @ 100 mls/hr IVPB Q12HR [facility] Rx#:[id number] Intake, IV Titration 250 Amount Vancomycin 1,000 mg In 250 Sodium Chloride 0.9% 250 ml @ 125 mls/hr IVPB ONCE ONE Rx#:[id number] Other: Voiding Method Bedpan Diaper # Voids 2 2 - Exam Gen. appearance the patient is an elderly female, no acute distress, No active respiratory distress. Able to speak in full sentences good O2 saturations in the 90s on room air. In a chair at the bedside. No agitation. No restlessness. She is calm and comfortable. Head exam was generally normal. There was no scleral icterus or corneal arcus. Mucous membranes were moist. Neck was supple and with jugular venous distension, thyromegaly, or carotid bruits. Carotids were easily palpable bilaterally. There was no adenopathy. There is bilateral jugular venous venous distention. No goiter or neck masses. Lips are blue and cyanotic Lung sounds are diminished bilaterally along with some bibasilar crackles. There is venous engorgement over the veins of the anterior chest. Heart sounds are regular, there is a systolic ejection murmur grade 2/6 systolic the precordium. There is also a aortic valve click heard over the anterior chest. Abdomen is slightly distended. There may be an underlying ascites. No direct tenderness. No rebound tensile guarding. No significant organomegaly. His umbilical hernia. Extremities are showing trace edema and there is diffuse degenerative arthritis with deformities. No cyanosis. No clubbing at this point. There is indication of a left lower eczematous cellulitis. There is erythema is extending from the ankle all the way up to the area below the knee. The area is warm and red. No open wounds or ulceration. As mentioned, there is chronic venous stasis and some chronic edema in lower extremities bilaterally. Neurologically the patient is awake and alert and sequential following commands and there is no focal neurological deficit a - Labs CBC & Chem 7: 07/29/18 07:42 07/29/18 07:42 Labs: Abnormal Lab Results - Last 24 Hours (Table) 07/29/18 07/29/18 Range/Units 07:42 07:42 RBC 3.21 L (3.80-5.40) m/uL Hgb 8.5 L (11.4-16.0) gm/dL Hct 28.6 L (34.0-46.0) % MCHC 29.7 L (31.0-37.0) g/dL RDW 18.0 H (11.5-15.5) % Lymphocytes # 0.5 L (1.0-4.8) k/uL Chloride 111 H (98-107) mmol/L BUN 82 H (7-17) mg/dL Creatinine 2.08 H (0.52-1.04) mg/dL Calcium 7.7 L (8.4-10.2) mg/dL Assessment and Plan Plan: Assessment 1 chronic hypoxic respiratory failure with acute decompensation. The patient came in to the ICU for worsening hypoxemia. Recovered and maintaining good O2 saturations in the 90s on room air. Since then, the patient has done very well. The patient remains on room air oxygen. The patient was diuresed with IV Lasix. The patient is currently on 5 L of oxygen by nasal cannula. 2. Acute cellulitis of the left lower extremity remains on vancomycin and meropenem. The cellulitis of the lower extremities also improving. 3 chronic dyspnea on the basis of CHF. The patient has an extensive cardiac history as mentioned 4 history of aortic valve replacement. The patient has undergone a TAVR and based on the most recent echocardiogram the patient has moderate to severe mitral regurgitation and severe pulmonary hypertension which is obviously secondary nature related to her valvular heart disease. 5 chronic proximal atrial fibrillation, currently on Eliquis and the rate is controlled 6 history of pacemaker insertion 7 chronic renal failure, stage IV kidney disease and the patient's creatinine and GFR is stable for now 8 hypertension 9 chronic anemia stable 10 chronic degenerative arthritis involving the upper and lower extremities and the patient has had difficulty with mobility and previous history of falls 11 hypothyroidism 12 restless leg syndrome 13 previous history of hospitalization for UTI including infection with Proteus and the patient has multiple drug ALLERGIES. Her current UA is within normal limits 14 chronic venous insufficiency in the lower extremities 15 migraines 16 medical debility secondary to above-mentioned comorbidities 17 possible culture with Corynebacterium species Plan Continue same treatment. Pulmonary status is stable. Completed the course of antibiotics. Renal function stable. Pulmonary and critical care services we' ll sign off the case.
--- NOTE | 2018-07-29 14:48 | P.PN ---
Subjective Progress Note Date: 07/29/18 Seen and examined for the follow-up of acute kidney injury. Objective - Vital Signs Vital signs: Vital Signs Temp 97.8 F 07/29/18 07:00 Pulse 86 07/29/18 11:15 Resp 18 07/29/18 07:00 BP 137/70 07/29/18 07:00 Pulse Ox 96 07/29/18 07:00 Intake & Output 07/28/18 07/29/18 07/29/18 18:59 06:59 18:59 Intake Total 100 350 Balance 100 350 Intake: IV 100 100 Meropenem 500 mg In 100 100 Sodium Chloride 0.9% 50 ml @ 100 mls/hr IVPB Q12HR [facility] Rx#:[id number] Intake, IV Titration 250 Amount Vancomycin 1,000 mg In 250 Sodium Chloride 0.9% 250 ml @ 125 mls/hr IVPB ONCE ONE Rx#:[id number] Other: Voiding Method Bedpan Diaper # Voids 2 2 - Exam No acute distress S1-S2 heard Basal crackles Trace edema - Labs CBC & Chem 7: 07/29/18 07:42 07/29/18 07:42 Labs: Abnormal Lab Results - Last 24 Hours (Table) 07/29/18 07/29/18 Range/Units 07:42 07:42 RBC 3.21 L (3.80-5.40) m/uL Hgb 8.5 L (11.4-16.0) gm/dL Hct 28.6 L (34.0-46.0) % MCHC 29.7 L (31.0-37.0) g/dL RDW 18.0 H (11.5-15.5) % Lymphocytes # 0.5 L (1.0-4.8) k/uL Chloride 111 H (98-107) mmol/L BUN 82 H (7-17) mg/dL Creatinine 2.08 H (0.52-1.04) mg/dL Calcium 7.7 L (8.4-10.2) mg/dL Assessment and Plan Assessment: #1 acute kidney injury secondary to ATN/CRS. Creatinine improving towards baseline. 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 Baseline creatinine 1.5-2.0 MG per DL. 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 Continue with Lasix 40 mg by mouth daily #2 avoid nephrotoxic agents and hypotensive episodes.
--- NOTE | 2018-07-29 18:16 | PN ---
PROGRESS NOTE DATE OF SERVICE: 07/29/2018. REASON FOR FOLLOWUP: Left lower extremity cellulitis and multiple antibiotic allergies. INTERVAL HISTORY: The patient is currently afebrile. The patient is breathing comfortably. Denies any chest pain. Occasional cough. No abdominal pain or any pain in the left leg area. PHYSICAL EXAMINATION: Blood pressure 105/67 with a pulse of 99, temperature of 97.9. She is 99% on 6 L nasal cannula. General description is an elderly female up in the bed in no distress. Respiratory system: Unlabored breathing. Clear to auscultation anteriorly. Heart S1, S2. Regular rate and rhythm. Abdomen soft, no tenderness. Left leg did have swelling, minimal redness. No open wound or any drainage. LABS: Hemoglobin 8.5, white count 4.1 with a BUN of 82, creatinine is 2.08. DIAGNOSTIC IMPRESSION AND PLAN: Patient with left lower extremity cellulitis in this patient who has allergies to almost antibiotics. The only option left is vancomycin which will be risky to do in the outpatient setting because of her borderline kidney function. Recommend to keep the patient on IV vanco for another 2 days. By that time, the patient received about a week of antibiotic that should be enough for mild cellulitis of left lower extremity and no need for antibiotic on discharge. Family was present at bedside. Their questions were answered. MMODL / IJN: [id number] /
[2018-07-29] MEDS: AMITRIPTYLINE HCL 10 MG TAB PO SCH (21:47)
[2018-07-29] MEDS: POLYETHYLENE GLYCOL 3350 17 GM POWD.PACK PO SCH (21:47)
[2018-07-30] MEDS: SODIUM CHLORIDE 0.9% 1,000 ML IV SCH ×2 (03:35→20:30)
[2018-07-30] MEDS: LEVOTHYROXINE 125 MCG TAB PO SCH (05:37)
[2018-07-30] MEDS: ALBUTEROL NEBULIZED 2.5 MG/3 ML INHALATION SCH ×4 (07:13→21:56)
--- NOTE | 2018-07-30 07:59 | P.PN ---
Progress Note - Text The patient is an 88-year-old female who presented with acute on chronic respiratory failure secondary to acute on chronic diastolic congestive heart failure with underlying left lower lobe pneumonia and left lower extremity cellulitis. Please see previous note for list of comorbidities. This morning patient is generally alert. In no acute distress. Vital signs last recorded show a temperature of 96.9 with a pulse of 84 and respirations 20. Blood pressure 123/79 and she is 99% saturated on 4 L high flow nasal cannula. Lungs do reveal some chronic rhonchi. Heart tones were regular. Extremities reveal the left leg to be bandaged with an Waqas wrap. No unusual swelling noted. No focal neurological deficits noted. No new labs at this time available. Impression and plans As stated above with acute on chronic renal failure and acute on chronic respiratory failure secondary to diastolic congestive heart failure. Patient has cellulitis of the left lower extremity. She is on IV vancomycin. Discussed with patient and nursing staff. Infectious disease recommends continued IV vancomycin for 2 more days. Patient possibly can be discharged then to home without antibiotics starting tomorrow. Discharge planning for further home care.
[2018-07-30] MEDS: GABAPENTIN 100 MG CAP PO SCH ×2 (08:02→20:30)
[2018-07-30] MEDS: HYDROcodone/APAP 7.5-325MG 1 EACH TAB PO PRN ×2 (08:03→20:30)
[2018-07-30] MEDS: DOCUSATE 100 MG CAP PO SCH (08:03)
[2018-07-30] MEDS: METOPROLOL TARTRATE 25 MG TAB PO SCH (08:03)
[2018-07-30] MEDS: SODIUM BICARBONATE TAB 650 MG TAB PO SCH ×2 (08:04→20:30)
[2018-07-30] MEDS: APIXABAN 2.5 MG TABLET PO SCH ×2 (08:04→20:30)
[2018-07-30] MEDS: LORATADINE 10 MG TAB PO SCH (08:04)
[2018-07-30] MEDS: PANTOPRAZOLE 40 MG TABLET PO SCH (08:04)
[2018-07-30] MEDS: FUROSEMIDE 40 MG TAB PO SCH (08:04)
[2018-07-30] MEDS: CALCIUM CARB-VIT D 500MG-200UN 1 EACH TAB PO SCH (08:04)
[2018-07-30] MEDS: MEROPENEM 500 MG in SODIUM CHLORIDE 0.9% 50 ML IVPB SCH ×2 (08:16→20:29)
[2018-07-30 09:49] LABS: Calcium 7.7 mg/dL (8.4-10.2); Potassium 4.4 mmol/L (3.5-5.1)
[2018-07-30 15:53] VITALS: BMI 26.3
--- NOTE | 2018-07-30 16:02 | PN ---
PROGRESS NOTE DATE OF SERVICE: 07/30/2018. REASON FOR FOLLOWUP: Left lower extremity cellulitis. INTERVAL HISTORY: The patient is currently afebrile. The patient is breathing comfortably. The patient did have some cough, not bringing up any sputum. No chest pain. No abdominal pain. Denies any pain to the left leg area. PHYSICAL EXAMINATION: Blood pressure 111/56 with pulse of 85, temperature 97.5. She is 100% on 4 L nasal cannula. General description is an elderly female lying in bed in no distress. RESPIRATORY SYSTEM: Unlabored breathing. Clear to auscultation anteriorly. HEART: S1, S2. Regular rate and rhythm. ABDOMEN: Soft. No tenderness. Left leg is currently swollen up. No drainage. LABS: BUN of 80, creatinine 2.10. DIAGNOSTIC IMPRESSION AND PLAN: Patient with acute left lower extremity cellulitis. This patient is noted to have MULTIPLE ANTIBIOTIC ALLERGIES. Currently on vancomycin. By tomorrow she will have received about 7 days of antibiotic, and the patient does have overall clinical improvement. Vancomycin will be discontinued, with no need for antibiotic on discharge. Continue supportive care. MMODL / IJN: [id number] /
--- NOTE | 2018-07-30 18:44 | PN ---
PROGRESS NOTE Patient is seen for followup for chronic kidney disease. Her renal function has been fairly stable. Patient was maintained on IV Lasix. She is currently on p.o. Lasix 40 mg daily. Her serum creatinine is staying at about 2.0 to 2.1 mg/dL. Patient denies any significant complaints. On examination, blood pressure was 111/66, heart rate 85 per minute. She is afebrile. EXAMINATION OF THE HEART: S1 and S2. EXAMINATION OF LUNGS: Bilateral breath sounds are heard. ABDOMEN: Soft, non-tender. Examination of lower extremities shows trace edema bilaterally. Labs show hemoglobin 8.5, sodium 142, potassium 4.4, BUN 80, serum creatinine 2.1. Vancomycin was 20.7. ASSESSMENT: 1. Chronic kidney disease secondary to chronic interstitial nephritis from non- steroidal anti-inflammatory use; renal function not far from baseline. 2. Acute kidney injury secondary to acute tubular necrosis, improved. 3. Hypertension with chronic kidney disease. 4. Metabolic bone disease. 5. Anemia of chronic disease. PLAN: Okay to discharge patient from nephrology standpoint. I believe she needs another dose of vancomycin. We need to continue to monitor the vancomycin levels closely. Her last level was 20. MMODL / IJN: [id number] /
[2018-07-30] MEDS: POLYETHYLENE GLYCOL 3350 17 GM POWD.PACK PO SCH (20:30)
[2018-07-30] MEDS: AMITRIPTYLINE HCL 10 MG TAB PO SCH (20:30)
[2018-07-30 23:13] VITALS: BP 116/77; RESP 20; TEMP 97.7
[2018-07-31] MEDS: HYDROcodone/APAP 7.5-325MG 1 EACH TAB PO PRN ×2 (00:39→06:51)
--- NOTE | 2018-07-31 05:19 | DS ---
DISCHARGE SUMMARY She is an 88-year-old female who presented with increasing shortness of breath, some cough. The patient initially was transferred from the floor into the intensive care unit after she became more hypoxic on the medical floor. The patient basically was found to have acute on chronic respiratory failure secondary to acute on chronic diastolic congestive heart failure associated with left lower extremity cellulitis and underlying left lower lobe pneumonia superimposed on her acute on chronic kidney disease, previous transcutaneous aortic valve replacement, hypertension, paroxysm atrial fib on Eliquis and multiple medical allergies. The patient was treated with diuretics in the form of Lasix. Also some medications were adjusted for her rate control. She did diurese well. Consultations were obtained with Cardiology, Pulmonary Medicine and Nephrology. Please refer to their notes. Infectious Disease was also consulted regarding treatment of her cellulitis. The patient diuresed and gradually improved. Her laboratory values have revealed hemoglobins ranging in the 8 to 10 range, white count is 4 to 6,000, and platelet count stable round 300,000 range. Her renal status has revealed a BUN in the 80s with creatinines in the low 2 range, giving her GFR of approximately 20. She was followed by pharmacy with vancomycin level as she was on IV vancomycin and will be finishing at least a 7-day course for her cellulitis and also finishing up on the antibiotic Merrem, which she tolerated both antibiotics well. Other testing revealed x-rays which revealed a left lower lobe infiltrate and bilateral interstitial prominent markings and also cardiomegaly. Her EKG showed normal sinus rhythm with right bundle branch block pattern and echocardiogram revealed normal LV size. Her LV systolic function revealed ejection fraction of 50% to 55%; left atrial size was normal; otherwise moderate to severe tricuspid regurgitation and moderate pulmonary hypertension. She was seen in consultation with physical and occupational therapies. She was also seen by speech therapy for some swallowing difficulties. At this point plans are anticipating for discharge to home with home care 19/12. This morning patient is alert and oriented. Vital signs show temperature 97.7 with a pulse of 88 and respirations 20 and nonlabored. Blood pressure 160/77 and she is 96% saturated on 2 L nasal cannula. Lungs are generally clear with few chronic crepitations. No marked wheezing Heart tones were regular. Rate controlled. Abdomen nontender. Extremities reveal no marked edema although there is still some erythema of the left lower extremity which is wrapped with Waqas. FINAL DISCHARGE DIAGNOSES: 1. Acute on chronic diastolic congestive heart failure associated with shortness of breath and acute on chronic respiratory failure with hypoxia. 2. Acute on chronic renal failure. 3. Anemia of chronic renal failure. 4. Cellulitis of left lower extremity and left lower lobe pneumonia treated with antibiotics. 5. History of transcutaneous aortic valve replacement. 6. Long-standing venous insufficiency. 7. Hypertensive heart disease. 8. Hypothyroidism on replacement therapy with partial thyroidectomy in the past. 9. Restless legs syndrome. 10.Paroxysmal atrial fibrillation. 11.Previous surgeries include bilateral knee and hip surgeries for osteoarthritis. 12.Previous fracture of the right humerus in 2016. 13.Finally history of multiple medical allergies with multiple antibiotic allergies. Please see her list. Home medications to include: 1. Acetaminophen 650 mg as needed pain. 2. Elavil 10 mg at bedtime. 3. Eliquis 2.5 twice a day. 4. She is on calcium carbonate and vitamin D 500-200 one daily along with Tums, calcium carbonate 500 mg 4 times a day p.r.n. for heartburn. 5. She is on Aranesp 40 mcg subcu q.7 days. 6. Colace 100 mg daily if needed for constipation. 7. Folic acid 0.4 mg daily. 8. Furosemide 40 mg daily. 9. Neurontin 200 mg twice a day. 10.Hydrocodone 7.5-325 q.6 to 8 hours p.r.n. for pain. 11.Levothyroxine 125 mcg daily. 12.Claritin 10 mg daily. 13.Metoprolol 12.5 daily. 14.Ropinirole, Requip, 0.25 twice a day for restless legs. 15.Sodium bicarb 650 mg twice a day. Patient to continue to have the left lower extremity wrapped with Waqas and change daily. Elevate as much as possible during the day. DIET: To be as tolerated. ACTIVITIES: As tolerated. 19/12 home care. MMODL / IJN: [id number] / MTDD
[2018-07-31] MEDS: LEVOTHYROXINE 125 MCG TAB PO SCH (05:56)
[2018-07-31] MEDS: ALBUTEROL NEBULIZED 2.5 MG/3 ML INHALATION SCH ×2 (07:29→11:17)
[2018-07-31 07:43] VITALS: PULSE 88
[2018-07-31] MEDS: LORATADINE 10 MG TAB PO SCH (08:07)
[2018-07-31] MEDS: PANTOPRAZOLE 40 MG TABLET PO SCH (08:07)
[2018-07-31] MEDS: GABAPENTIN 100 MG CAP PO SCH (08:07)
[2018-07-31] MEDS: MEROPENEM 500 MG in SODIUM CHLORIDE 0.9% 50 ML IVPB SCH (08:07)
[2018-07-31] MEDS: METOPROLOL TARTRATE 25 MG TAB PO SCH (08:07)
[2018-07-31] MEDS: APIXABAN 2.5 MG TABLET PO SCH (08:07)
[2018-07-31] MEDS: SODIUM BICARBONATE TAB 650 MG TAB PO SCH (08:07)
[2018-07-31] MEDS: FUROSEMIDE 40 MG TAB PO SCH (08:07)
[2018-07-31] MEDS: DOCUSATE 100 MG CAP PO SCH (08:09)
[2018-07-31 09:20] LABS: Calcium 8.1 mg/dL (8.4-10.2); Potassium 4.8 mmol/L (3.5-5.1)
--- NOTE | 2018-07-31 12:21 | PN ---
PROGRESS NOTE Patient is seen for followup for chronic kidney disease. Her renal function is fairly stable with creatinine staying at about 2 mg/dL. The patient is actually being discharged today. PHYSICAL EXAMINATION: On examination, blood pressure was 116/77, heart rate 84 per minute. She is afebrile. EXAMINATION OF THE HEART: S1, S2. EXAMINATION OF THE LUNGS: Bilateral breath sounds are heard. Abdomen is soft, nontender. Examination of the lower extremities shows edema 1+ bilaterally. Chronic skin changes are noted. 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 There are deformities noted in the hands from rheumatoid arthritis. Some swelling noted in the upper extremities as well. LABS: Labs show sodium 144, potassium 4.8, BUN 76, serum creatinine 1.9. ASSESSMENT: 1. Chronic kidney disease, NKF stage 4. Renal function not far from baseline. 2. Acute kidney injury secondary to acute tubular necrosis, currently improved. 3. Hypertension with chronic kidney disease. 4. Metabolic bone disease. PLAN: The patient is stable for discharge. Follow up as outpatient for CKD in 1 to 2 weeks. MMODL / IJN: [id number] /
[2018-07-31 15:40] LABS: Vancomycin,Random 23.7 ug/mL
== END 2018-07-31 11:24 | disposition home health service (06) | DRG 291 ==
LOC: EC 18:12 → 4SSUR 20:17 → 2SICU 07-24 01:17 → 4MS4W 07-27 16:08
PROVIDERS: ADMIT Internal Medicine; ATTEND Internal Medicine
DX: I13.0 Hypertensive heart and chronic kidney disease with heart failure and stage 1 through stage 4 chronic kidney disease, or unspecified chronic kidney disease (principal); I50.33 Acute on chronic diastolic (congestive) heart failure; J96.21 Acute and chronic respiratory failure with hypoxia; N17.0 Acute kidney failure with tubular necrosis; L03.115 Cellulitis of right lower limb; L03.116 Cellulitis of left lower limb; E87.2 Acidosis; J98.11 Atelectasis; R78.81 Bacteremia; N11.9 Chronic tubulo-interstitial nephritis, unspecified; I27.29 Other secondary pulmonary hypertension; N18.3 Chronic kidney disease, stage 3 (moderate); I44.1 Atrioventricular block, second degree; I08.1 Rheumatic disorders of both mitral and tricuspid valves; R16.0 Hepatomegaly, not elsewhere classified; I48.0 Paroxysmal atrial fibrillation; D63.1 Anemia in chronic kidney disease; B96.89 Other specified bacterial agents as the cause of diseases classified elsewhere; R54 Age-related physical debility; E61.1 Iron deficiency; G25.81 Restless legs syndrome; K42.9 Umbilical hernia without obstruction or gangrene; E89.0 Postprocedural hypothyroidism; F32.9 Major depressive disorder, single episode, unspecified; I44.0 Atrioventricular block, first degree; K58.9 Irritable bowel syndrome, unspecified; G43.909 Migraine, unspecified, not intractable, without status migrainosus; K21.9 Gastro-esophageal reflux disease without esophagitis; J45.909 Unspecified asthma, uncomplicated; F41.9 Anxiety disorder, unspecified; I87.2 Venous insufficiency (chronic) (peripheral); I87.8 Other specified disorders of veins; G89.29 Other chronic pain; L30.9 Dermatitis, unspecified; R26.9 Unspecified abnormalities of gait and mobility; E88.9 Metabolic disorder, unspecified; R77.8 Other specified abnormalities of plasma proteins; M19.90 Unspecified osteoarthritis, unspecified site; Z99.81 Dependence on supplemental oxygen; Z79.01 Long term (current) use of anticoagulants; Z79.82 Long term (current) use of aspirin; Z79.890 Hormone replacement therapy; Z79.899 Other long term (current) drug therapy; Z95.2 Presence of prosthetic heart valve; Z87.81 Personal history of (healed) traumatic fracture; Z86.73 Personal history of transient ischemic attack (TIA), and cerebral infarction without residual deficits; Z86.14 Personal history of Methicillin resistant Staphylococcus aureus infection; Z96.643 Presence of artificial hip joint, bilateral; Z95.0 Presence of cardiac pacemaker; Z96.653 Presence of artificial knee joint, bilateral; Z87.891 Personal history of nicotine dependence; Z91.81 History of falling; Z98.891 History of uterine scar from previous surgery; Z88.4 Allergy status to anesthetic agent; Z88.1 Allergy status to other antibiotic agents; Z88.0 Allergy status to penicillin; Z88.2 Allergy status to sulfonamides; Z88.8 Allergy status to other drugs, medicaments and biological substances; Z91.048 Other nonmedicinal substance allergy status; Z80.1 Family history of malignant neoplasm of trachea, bronchus and lung; Z82.3 Family history of stroke; Z83.79 Family history of other diseases of the digestive system
CPT/HCPCS: 36415; 36600; 71045; 71046; 80048; 80053; 80202; 81003; 82728; 82805; 83540; 83550; 83605; 83735; 83880; 84100; 84145; 84484; 85025; 85379; 85610; 85730; 87040; 93005; 93306; 94640; 99285